=== PATIENT | male | born 1940 | race Caucasian/White ===

== ENCOUNTER 2016-12-10 18:13 | Emergency (ER) | payer MEDICARE, BC ==
--- NOTE | 2016-12-10 20:53 | ED ---
General Adult HPI - General Chief complaint: Abdominal Pain Stated complaint: ABDOMINAL PAIN, CONSTIPATION Time Seen by Provider: 12/10/16 20:30 Source: patient, family, RN notes reviewed, old records reviewed Mode of arrival: wheelchair Limitations: no limitations - History of Present Illness Initial comments: Chief complaint history of present illness a 76-year-old male mild dementia. Here with his . The patient reports not had a bowel movement for 2 days. She's given him MiraLAX and an enema today a small bump while here which helped a little bit but he feels as though he needs more. Passed some gas today. Chronically poor appetite no different for the past several days - Related Data Home Medications Medication Instructions Recorded Confirmed Allopurinol [Zyloprim] 300 mg PO DAILY 10/01/14 03/11/16 clonazePAM [Clonazepam] 0.5 mg PO BID 12/12/14 03/11/16 Ezetimibe [Zetia] 10 mg PO HS 02/14/15 03/11/16 Aspirin 81 mg PO DAILY 09/19/15 03/11/16 Clopidogrel Bisulfate [Clopidogrel] 75 mg PO W/LUNCH 12/30/15 03/11/16 Isosorbide Mononitrate ER [Imdur] 30 mg PO W/LUNCH 02/03/16 03/11/16 Thiamine [Vitamin B-1] 100 mg PO BID 02/03/16 03/11/16 Metoprolol Tartrate [Lopressor] 100 mg PO DAILY 03/11/16 03/11/16 Polyethylene Glycol 3350 [Miralax] 17 gm PO DAILY 03/11/16 03/11/16 Previous Rx's Medication Instructions Recorded Atorvastatin [Lipitor] 40 mg PO HS #30 tab 09/30/15 Nitroglycerin Sl Tabs [Nitrostat] 0.4 mg SUBLINGUAL Q5M PRN #25 tab 09/30/15 Memantine [Namenda] 5 mg PO DAILY #30 tab 02/23/16 Tamsulosin [Flomax] 0.4 mg PO PC-BRKFST #30 cap.er.24h 02/23/16 Bisacodyl [Dulcolax] 5 mg PO DAILY PRN #0 jackelin. 03/15/16 clonazePAM [KlonoPIN] 0.5 mg PO BID #60 tab 04/25/16 Allergies Allergy/AdvReac Type Severity Reaction Status Date / Time Latex, Natural Rubber Allergy Swelling Verified 12/10/16 19:00 Penicillins Allergy Rash/Hives Verified 12/10/16 19:00 zolpidem tartrate Allergy Hallucinati Verified 12/10/16 19:00 [From Hildaien] ons donepezil AdvReac Dyspnea Verified 12/10/16 19:00 Review of Systems ROS Statement: Those systems with pertinent positive or pertinent negative responses have been documented in the HPI. Review of systems no complaint of headache or visual acuity changes no chest pain or shortness of breath on-again off-again mild cramping because of the medications being given to or trouble urinating. No neuro deficits patient does have dementia is on Namenda but answers questions appropriately. His gave him a fleets enema with only mild relief. All systems are reviewed Past medical problems coronary artery disease, prostate cancer angina, CVA, dementia, hyperlipidemia, previous [place], syncope, gout,. Patient surgeries: Cyst ectopy, heart catheterization, orthopedic surgery, prostate cancer surgery. Bilateral cataracts. Family history not respiratory. ALLERGIES to latex, natural rubber, penicillin, zolpidem tartrate and Aricept reviewed and nonsmoker nondrinker ROS Other: All systems not noted in ROS Statement are negative. Past Medical History Past Medical History: Coronary Artery Disease (CAD), Cancer, Chest Pain / Angina , CVA/TIA, Hyperlipidemia, Memory Impairment, Myocardial Infarction ([place]), Prostate Disorder, Syncope Additional Past Medical History / Comment(s): gout, prostate ca, skin cancer, TIA -2014, Wernicke encephalopathy, FRAGILE SKIN PLEASE USE PAPER TAPE, RECENT BOWEL SX. Last Myocardial Infarction Date:: 09/26/2015 History of Any Multi-Drug Resistant Organisms: None Reported Past Surgical History: Cholecystectomy, Heart Catheterization, Orthopedic Surgery, Prostate Surgery Additional Past Surgical History / Comment(s): bilateral cataracts removed, vasectomy, L knee surg., SKIN CA REMOVED ,COLONOSCOPY Past Anesthesia/Blood Transfusion Reactions: No Reported Reaction Past Psychological History: No Psychological Hx Reported Additional Psychological History / Comment(s): . Smoking Status: Former smoker Past Alcohol Use History: None Reported Additional Past Alcohol Use History / Comment(s): STARTED SMOKING AT AGE 15- 1/ 2 PPD, QUIT AT AGE 45, used to drink 10-12 BEERS PER DAY BUT none since 2013 Past Drug Use History: None Reported - Past Family History Father Additional Family Medical History / Comment(s): FROM RUPTURED AORTA aneurysm. Mother Family Medical History: CVA/TIA, Myocardial Infarction ([place]) Additional Family Medical History / Comment(s): MOM AT AGE 61- HAD MULTIPLE STROKES AND AK'S Sister(s) Family Medical History: Cancer, COPD Additional Family Medical History / Comment(s): Patient had 3 sisters but overall past. One sister from emphysema with history of heavy smoking. One sister from breast cancer. One with Alzheimer's dementia. Daughter(s) Additional Family Medical History / Comment(s): Patient has 1 son and 1 daughter with no major medical problems. General Exam - General Exam Comments Initial Comments: General: The patient is awake , constipation discomfort. Vital signs show temperature 96.9 pulse 72 respiratory rate 18 pulse ox 90% room air blood pressure 141/77. Elevated systolic noted because the patient is uncomfortable he will be following up with his family physician in next 1-4 weeks. Eye: Pupils are equal, round and reactive to light, extra-ocular movements are intact ; there is normal conjunctiva bilaterally. No signs of icterus. Ears, nose, mouth and throat: There are moist mucous membranes and no oral lesions. Neck: The neck is supple, there is no tenderness . Cardiovascular: There is a regular rate and rhythm. No murmur, rub or gallop is appreciated. Respiratory: Lungs are clear to auscultation, respirations are non-labored, breath sounds are equal. No wheezes, stridor, rales, or rhonchi. Gastrointestinal: Soft, non-distended, non-tender abdomen without masses or organomegaly noted. There is no rebound or guarding present. No CVA tenderness. Bowel sounds are unremarkable. Back: There is no tenderness to palpation in the midline. There is no obvious deformity. No rashes noted. Musculoskeletal: Normal ROM, no tenderness, There is no pedal edema. There is no calf tenderness or swelling. Sensation intact. Neurological: No neuro deficits Skin: Skin is warm and dry and no rashes or lesions are noted. Limitations: no limitations Course Vital Signs 12/10/16 12/10/16 12/10/16 18:57 21:24 21:59 Temperature 96.9 F L 98.0 F Pulse Rate 72 64 67 Respiratory 18 16 18 Rate Blood Pressure 141/77 142/84 160/91 O2 Sat by Pulse 95 96 96 Oximetry Medical Decision Making - Medical Decision Making X-ray of the abdomen was done and reviewed by radiologist his impression is there is no signs of pneumoperitoneum. There are a few gas filled loops of small bowel in the mid abdomen. Lung bases are clear consolidation. There is no sign of pleural effusion. There are multiple surgical clips in the pelvis. There are no pathologic calcifications over the kidneys. Impression; small bowel air fluid relate to minimal ileus that is improved compared to old exam. No evidence of mechanical bowel obstruction. No free air. As read by Dr. Zhang Patient is receiving a molasses enema until effective. Disposition Clinical Impression: Constipation by delayed colonic transit Disposition: HOME SELF-CARE Condition: Fair Instructions: Constipation (ED), Fleet Enema (ED) Additional Instructions: Increase fluid intake. Continue with MiraLAX. Tomorrow morning if he has not had an adequate bowel movement 8-year-old take one half bottle of mag citrate. If no bowel movement by noon try the second half. Follow-up with family physician. Time of Disposition: 23:00
--- NOTE | 2016-12-10 21:24 | XR ---
EXAMINATION TYPE: XR abdomen 2V DATE OF EXAM: 12/10/2016 9:18 PM COMPARISON: 03/11/2016 HISTORY: Abdominal pain TECHNIQUE: 3 views FINDINGS: There is no sign of pneumoperitoneum. There are a few gas-filled loops of small bowel in th e mid abdomen. Lung bases are clear of consolidation. There is no sign of pleural effusion. There are multiple surgical clips in the pelvis. There are no pathologic calcifications over the kidneys. IMPRESSION: Small bowel air could relate to minimal ileus that is improved compared to old exam. No e vidence of a mechanical bowel obstruction. No free air.
[2016-12-10 22:00] VITALS: BP 160/91; PULSE 67; RESP 18; TEMP 98
[2016-12-10] MEDS ORDERED: MAGNESIUM CITRATE 296 ML BOTTLE PO ONE (22:59)
== END 2016-12-10 23:19 | disposition home or self-care (01) ==
LOC: EC 18:13
DX: K59.01 Slow transit constipation (principal); I25.119 Atherosclerotic heart disease of native coronary artery with unspecified angina pectoris; I10 Essential (primary) hypertension; E78.5 Hyperlipidemia, unspecified; M10.9 Gout, unspecified; Z79.82 Long term (current) use of aspirin; Z79.899 Other long term (current) drug therapy; Z88.0 Allergy status to penicillin; Z88.8 Allergy status to other drugs, medicaments and biological substances; Z91.040 Latex allergy status; Z85.46 Personal history of malignant neoplasm of prostate; Z87.891 Personal history of nicotine dependence; Z86.73 Personal history of transient ischemic attack (TIA), and cerebral infarction without residual deficits
CPT/HCPCS: 74020; 99284

== ENCOUNTER 2017-02-22 08:04 | Observation (INO) | payer MEDICARE, BC ==
--- NOTE | 2017-02-22 08:47 | ED ---
General Adult HPI - General Chief complaint: Headache Stated complaint: weakness Time Seen by Provider: 02/22/17 08:34 Source: patient, RN notes reviewed Mode of arrival: wheelchair Limitations: no limitations - History of Present Illness Initial comments: Patient 76-year-old male who presents emergency room today with chief complaint of both headache and chest pain that began approximately 2 and half hours ago. He does admit that he was up when he also had a sudden onset of a headache and some chest pain. She has a headache as "sharp". Currently rates a 03/30. States it has been improving. States located in the back of his head. States he generally does not get headaches but if he does have a headache it is located in the back of the head. Patient also admits to some chest pain. He describes it as "dull". States it has gone away at this time is feeling relatively comfortable. States he did not take any medicine prior to arrival. Patient denies any other complaints or symptoms at this time. Patient denies any recent fever, chills, shortness of breath, back pain, abdominal pain, nausea or vomiting, numbness or tingling, dysuria or hematuria, constipation or diarrhea, visual changes, or any other complaints. - Related Data Home Medications Medication Instructions Recorded Confirmed Allopurinol [Zyloprim] 300 mg PO DAILY 10/01/14 02/22/17 clonazePAM [Clonazepam] 0.5 mg PO BID 12/12/14 02/22/17 Clopidogrel Bisulfate [Clopidogrel] 75 mg PO DAILY 12/30/15 02/22/17 Isosorbide Mononitrate ER [Imdur] 30 mg PO DAILY 02/03/16 02/22/17 Thiamine [Vitamin B-1] 50 mg PO BID 02/03/16 02/22/17 Metoprolol Tartrate [Lopressor] 100 mg PO DAILY 03/11/16 02/22/17 Polyethylene Glycol 3350 [Miralax] 17 gm PO DAILY PRN 03/11/16 02/22/17 Aspirin EC [Ecotrin Low Dose] 81 mg PO DAILY 02/22/17 02/22/17 Donepezil [Aricept] 10 mg PO DAILY 02/22/17 02/22/17 Memantine [Namenda] 10 mg PO BID 02/22/17 02/22/17 Nitroglycerin Sl Tabs [Nitrostat] 0.4 mg SUBLINGUAL Q5M PRN 02/22/17 02/22/17 Tamsulosin [Flomax] 0.4 mg PO DAILY 02/22/17 02/22/17 Previous Rx's Medication Instructions Recorded Atorvastatin [Lipitor] 40 mg PO HS #30 tab 09/30/15 Allergies Allergy/AdvReac Type Severity Reaction Status Date / Time Latex, Natural Rubber Allergy Swelling Verified 02/22/17 09:31 Penicillins Allergy Rash/Hives Verified 02/22/17 09:31 zolpidem tartrate Allergy Hallucinati Verified 02/22/17 09:31 [From Denisse] ons Review of Systems ROS Statement: Those systems with pertinent positive or pertinent negative responses have been documented in the HPI. ROS Other: All systems not noted in ROS Statement are negative. Past Medical History Past Medical History: Coronary Artery Disease (CAD), Cancer, Chest Pain / Angina , CVA/TIA, Hyperlipidemia, Memory Impairment, Myocardial Infarction ([place]), Prostate Disorder, Syncope Additional Past Medical History / Comment(s): gout, prostate ca, skin cancer, TIA , Wernicke encephalopathy, FRAGILE SKIN PLEASE USE PAPER TAPE, RECENT BOWEL SX. Last Myocardial Infarction Date:: 09/26/2015 History of Any Multi-Drug Resistant Organisms: None Reported Past Surgical History: Cholecystectomy, Heart Catheterization, Orthopedic Surgery, Prostate Surgery Additional Past Surgical History / Comment(s): bilateral cataracts removed, vasectomy, L knee surg., SKIN CA REMOVED ,COLONOSCOPY Past Anesthesia/Blood Transfusion Reactions: No Reported Reaction Past Psychological History: No Psychological Hx Reported Additional Psychological History / Comment(s): . Smoking Status: Former smoker Past Alcohol Use History: None Reported Additional Past Alcohol Use History / Comment(s): STARTED SMOKING AT AGE 15- 1/ 2 PPD, QUIT AT AGE 45, used to drink 10-12 BEERS PER DAY BUT none since 2013 Past Drug Use History: None Reported - Past Family History Father Additional Family Medical History / Comment(s): FROM RUPTURED AORTA aneurysm. Mother Family Medical History: CVA/TIA, Myocardial Infarction ([place]) Additional Family Medical History / Comment(s): MOM AT AGE 61- HAD MULTIPLE STROKES AND LA'S Sister(s) Family Medical History: Cancer, COPD Additional Family Medical History / Comment(s): Patient had 3 sisters but overall past. One sister from emphysema with history of heavy smoking. One sister from breast cancer. One with Alzheimer's dementia. Daughter(s) Additional Family Medical History / Comment(s): Patient has 1 son and 1 daughter with no major medical problems. General Exam - General Exam Comments Initial Comments: General: The patient is awake and alert, in no distress, and does not appear acutely ill. Eye: Pupils are equal, round and reactive to light, extra-ocular movements are intact. No nystagmus. There is normal conjunctiva bilaterally. No signs of icterus. Ears, nose, mouth and throat: There are moist mucous membranes and no oral lesions. Neck: The neck is supple, there is no tenderness or JVD. Cardiovascular: There is a regular rate and rhythm. No murmur, rub or gallop is appreciated. Respiratory: Lungs are clear to auscultation, respirations are non-labored, breath sounds are equal. No wheezes, stridor, rales, or rhonchi. Gastrointestinal: Soft, non-distended, non-tender abdomen without masses or organomegaly noted. There is no rebound or guarding present. No CVA tenderness. Bowel sounds are unremarkable. Musculoskeletal: Normal ROM, no tenderness. Strength 5/5. Sensation intact. Pulses equal bilaterally 2+. Neurological: A&O x 3. CN II-XII intact, There are no obvious motor or sensory deficits. Coordination appears grossly intact. Speech is normal. Skin: Skin is warm and dry and no rashes or lesions are noted. Psychiatric: Cooperative, appropriate mood & affect, normal judgment. Limitations: no limitations Course Vital Signs 02/22/17 02/22/17 02/22/17 08:08 09:03 10:23 Temperature 97.1 F L 97.6 F 98.6 F Pulse Rate 61 54 L 55 L Respiratory 17 18 16 Rate Blood Pressure 157/76 123/66 123/66 O2 Sat by Pulse 94 L 97 98 Oximetry EKG Findings - EKG Comments: EKG Findings:: EKG performed at 0856: Shows sinus bradycardia 56 beats.. [place] interval 206. QRS 94. 466/449. No acute ST changes. Medical Decision Making - Medical Decision Making Patient reexamined at this time shows no signs of distress. Does not that headache has improved. States mild at this time currently 01/28. Patient does admit to chest pain that started this morning. Patient's labs been reviewed are unremarkable. CT does show stable arachnoid cyst. Results were discussed with the patient. Case discussed with attending physician who did discuss case with admitting physician. Patient will be admitted for serial enzymes. - Lab Data Result diagrams: 02/22/17 09:10 02/22/17 09:10 Lab Results 02/22/17 02/22/17 02/22/17 Range/Units 09:10 09:10 09:10 WBC 8.1 (3.8-10.6) k/uL RBC 4.87 (4.30-5.90) m/uL Hgb 15.4 (13.0-17.5) gm/dL Hct 43.9 (39.0-53.0) % MCV 90.2 (80.0-100.0) fL MCH 31.7 (25.0-35.0) pg MCHC 35.1 (31.0-37.0) g/dL RDW 13.7 (11.5-15.5) % Plt Count 154 (150-450) k/uL Neutrophils % 78 % Lymphocytes % 11 % Monocytes % 6 % Eosinophils % 3 % Basophils % 1 % Neutrophils # 6.3 (1.3-7.7) k/uL Lymphocytes # 0.9 L (1.0-4.8) k/uL Monocytes # 0.4 (0-1.0) k/uL Eosinophils # 0.3 (0-0.7) k/uL Basophils # 0.0 (0-0.2) k/uL PT (9.0-12.0) sec INR (<1.1) APTT (22.0-30.0) sec Sodium 144 (137-145) mmol/L Potassium 3.9 (3.5-5.1) mmol/L Chloride 106 (98-107) mmol/L Carbon Dioxide 25 (22-30) mmol/L Anion Gap 13 mmol/L BUN 12 (9-20) mg/dL Creatinine 1.01 (0.66-1.25) mg/dL Est GFR (MDRD) Af Amer >60 (>60 ml/min/1.73 sqM) Est GFR (MDRD) Non-Af >60 (>60 ml/min/1.73 sqM) Glucose 100 H (74-99) mg/dL Calcium 9.4 (8.4-10.2) mg/dL Magnesium 1.8 (1.6-2.3) mg/dL Total Bilirubin 1.4 H (0.2-1.3) mg/dL AST 20 (17-59) U/L ALT 17 L (21-72) U/L Alkaline Phosphatase 93 (38-126) U/L Total Creatine Kinase 59 (55-170) U/L CK-MB (CK-2) 0.3 (0.0-2.4) ng/mL CK-MB (CK-2) Rel Index 0.5 Troponin I <0.012 (0.000-0.034) ng/mL Total Protein 6.8 (6.3-8.2) g/dL Albumin 3.8 (3.5-5.0) g/dL 02/22/17 Range/Units 09:10 WBC (3.8-10.6) k/uL RBC (4.30-5.90) m/uL Hgb (13.0-17.5) gm/dL Hct (39.0-53.0) % MCV (80.0-100.0) fL MCH (25.0-35.0) pg MCHC (31.0-37.0) g/dL RDW (11.5-15.5) % Plt Count (150-450) k/uL Neutrophils % % Lymphocytes % % Monocytes % % Eosinophils % % Basophils % % Neutrophils # (1.3-7.7) k/uL Lymphocytes # (1.0-4.8) k/uL Monocytes # (0-1.0) k/uL Eosinophils # (0-0.7) k/uL Basophils # (0-0.2) k/uL PT 11.2 (9.0-12.0) sec INR 1.1 (<1.1) APTT 23.4 (22.0-30.0) sec Sodium (137-145) mmol/L Potassium (3.5-5.1) mmol/L Chloride (98-107) mmol/L Carbon Dioxide (22-30) mmol/L Anion Gap mmol/L BUN (9-20) mg/dL Creatinine (0.66-1.25) mg/dL Est GFR (MDRD) Af Amer (>60 ml/min/1.73 sqM) Est GFR (MDRD) Non-Af (>60 ml/min/1.73 sqM) Glucose (74-99) mg/dL Calcium (8.4-10.2) mg/dL Magnesium (1.6-2.3) mg/dL Total Bilirubin (0.2-1.3) mg/dL AST (17-59) U/L ALT (21-72) U/L Alkaline Phosphatase (38-126) U/L Total Creatine Kinase (55-170) U/L CK-MB (CK-2) (0.0-2.4) ng/mL CK-MB (CK-2) Rel Index Troponin I (0.000-0.034) ng/mL Total Protein (6.3-8.2) g/dL Albumin (3.5-5.0) g/dL Disposition Clinical Impression: Headache, Chest pain Disposition: ADMITTED IP TO THIS [facility] Condition: Good Time of Disposition: 11:40
[2017-02-22 09:35] LABS: Basophils % (A) 1 %; CH 32.7; CHCM 36.4; Eosinophils # (A) 0.3 k/uL (0-0.7); Eosinophils % (A) 3 %; HCT 43.9 % (39.0-53.0); HGB 15.4 gm/dL (13.0-17.5); Luc # (Auto) 0.09; Luc % (Auto) 1; Lymphocytes # (A) 0.9 k/uL (1.0-4.8); Lymphocytes % (A) 11 %; MCH 31.7 pg (25.0-35.0); MCHC 35.1 g/dL (31.0-37.0); MCV 90.2 fL (80.0-100.0); Mean Platelet Volume 6.7; Monocytes # (A) 0.4 k/uL (0-1.0); Monocytes % (A) 6 %; Neutrophils # (A) 6.3 k/uL (1.3-7.7); Neutrophils % (A) 78 %; RBC 4.87 m/uL (4.30-5.90); RDW 13.7 % (11.5-15.5); WBC 8.1 k/uL (3.8-10.6); WBC (Perox) 7.93
[2017-02-22 09:38] LABS: INR 1.1 (<1.1); Partial Thromboplastin Time 23.4 sec (22.0-30.0); Prothrombin Time 11.2 sec (9.0-12.0)
--- NOTE | 2017-02-22 09:55 | XR ---
EXAMINATION TYPE: XR chest 2V DATE OF EXAM: 02/22/2017 9:46 AM HISTORY: Chest Pain. REFERENCE: Previous study dated 02/20/2016. FINDINGS: The lungs are overinflated but clear. Pleural spaces are clear. Heart size is normal. IMPRESSION: COPD.
[2017-02-22 10:04] LABS: Creatine Kinase 59 U/L (55-170)
--- NOTE | 2017-02-22 10:05 | CT ---
EXAMINATION TYPE: CT brain martina wo con DATE OF EXAM: 02/22/2017 9:52 AM COMPARISON: NONE HISTORY: 76-year-old male with posterior head and neck pain CT DLP: 1067.1 mGycm Automated exposure control for dose reduction was used. Technique: Examination of the head was done in axial plane without intravenous contrast. Coronal and sagittal reconstructions performed. CT of the cervical spine was obtained in axial plane without intravenous injection of contrast mater ial. Coronal and sagittal reformatted images were obtained from the axial views for evaluation of f ractures, spinal alignment and canal. FINDINGS: Head: There is no evidence of acute intracranial hemorrhage, acute ischemic changes, mass effect, or extra -axial fluid collection. There is no effacement of cerebral sulci or basal subarachnoid cisterns. T here is no hydrocephalus. There is no midline shift. Carey-white matter distinction is preserved. There is central cerebral atrophy similar to prior exam with mild enlargement of the ventricular syst em. Patchy ventricular and deep white matter hypodensities also similar to prior. Prominent CSF space within the median, left paramedian retrocerebellar region measuring 7.5 x 2.7 cm suggestive of an arachnoid cyst, unchanged from prior. There appears to be old nasal bone fracture. Slight leftward nasal septal deviation. Paranasal sinuse s and mastoid air cells are well pneumatized. Orbits and globes are intact. Cervical spine: No craniocervical junction abnormality, predental space widening, or prevertebral soft tissue swellin g. Mild to moderate multilevel disc/endplate degenerative changes present with disc interspace narrowing , endplate spondylosis. There is also uncovertebral joint and facet degenerative change. Alignment is maintained. Changes result in variable moderate multilevel neuroforaminal stenoses particularly in the mid cervic al spine. No joseph canal compromise identified. No acute fracture of the cervical spine. Sagittal and coronal reformatted images confirm above findings. COMBINED IMPRESSION: 1. No acute intracranial abnormality seen. Stable mild central cerebral atrophy and changes of chroni c small vessel ischemic disease. 2. Also, stable 7.5 x 2.7 cm arachnoid cyst left posterior cranial fossa. 3. No acute fracture or malalignment of the cervical spine. Moderate multilevel degenerative disc dis ease along with facet and uncovertebral joint arthropathy.
[2017-02-22 10:06] LABS: ALT 17 U/L (21-72); AST 20 U/L (17-59); Alkaline Phosphatase 93 U/L (38-126); Anion Gap 13 mmol/L; Blood Urea Nitrogen 12 mg/dL (9-20); Calcium 9.4 mg/dL (8.4-10.2); Carbon Dioxide 25 mmol/L (22-30); Chloride 106 mmol/L (98-107); Glucose 100 mg/dL (74-99); Magnesium 1.8 mg/dL (1.6-2.3); Non-African American GFR(MDRD) >60 (>60 ml/min/1.73 sqM); Potassium 3.9 mmol/L (3.5-5.1); Sodium 144 mmol/L (137-145); Total Bilirubin 1.4 mg/dL (0.2-1.3); Total Protein 6.8 g/dL (6.3-8.2)
[2017-02-22 10:16] LABS: Creatine Kinase MB 0.3 ng/mL (0.0-2.4); Troponin I <0.012 ng/mL (0.000-0.034)
[2017-02-22] MEDS ORDERED: MORPHINE SULFATE 4 MG/ML SYRINGE IV STA (11:19)
[2017-02-22] MEDS ORDERED: ASPIRIN 325 MG TAB PO STA (11:19)
[2017-02-22] MEDS ORDERED: NITROGLYCERIN OINT 1 INCH/GM PACKET TOPICAL STA (11:19)
[2017-02-22] MEDS ORDERED: NITROGLYCERIN SL TABS 0.4 MG TAB SUBLINGUAL PRN (12:16)
[2017-02-22] MEDS ORDERED: MORPHINE SULFATE 2 MG/ML SYRINGE IVP PRN (12:16)
[2017-02-22] MEDS ORDERED: SODIUM CHLORIDE 0.9% 1,000 ML IV ONE (12:16)
[2017-02-22 16:16] LABS: Creatine Kinase 49 U/L (55-170)
[2017-02-22 16:25] LABS: Creatine Kinase MB 0.3 ng/mL (0.0-2.4); Troponin I <0.012 ng/mL (0.000-0.034)
[2017-02-22] MEDS: NITROGLYCERIN OINT 1 INCH/GM PACKET TOPICAL SCH (18:03)
--- NOTE | 2017-02-22 18:24 | P.HPIM ---
History of Present Illness H&P Date: 02/22/17 Chief Complaint: Chest pain Shawn is a 76-year-old white male, well-known to me. He has moderate to severe dementia. He was brought in the emergency room for complaints of sharp chest pain and then headache. His spouse is unavailable to talk to. Shawn is a full code. He himself points to his left lower quadrant and indicates pain here. He also indicates that he has a headache currently, but is mild. No other useful history was elicited from him due to his moderate to severe dementia Review of Systems ROS unobtainable: due to mental status Past Medical History Past Medical History: Coronary Artery Disease (CAD), Cancer, Chest Pain / Angina , CVA/TIA, GERD/Reflux, Hyperlipidemia, Hypertension, Memory Impairment (Eyad' s dementia), Myocardial Infarction (NH), Neurologic Disorder (Warnicke encephalopathy), Prostate Disorder, Syncope Last Myocardial Infarction Date:: 09/26/2015 History of Any Multi-Drug Resistant Organisms: None Reported Past Surgical History: Bowel Resection, Cholecystectomy, Heart Catheterization, Orthopedic Surgery, Prostate Surgery Additional Past Surgical History / Comment(s): Bowel surgery for polypoid lesion with post op ileus, cardiac caths, prostatectomy, PICC line insertion, bilateral cataracts removed, vasectomy, L knee surg., SKIN CA REMOVED , COLONOSCOPY Past Anesthesia/Blood Transfusion Reactions: No Reported Reaction Past Psychological History: No Psychological Hx Reported Additional Psychological History / Comment(s): Pt resides at home with his spouse of 13 yrs. He is independent. Smoking Status: Former smoker Past Alcohol Use History: None Reported Additional Past Alcohol Use History / Comment(s): STARTED SMOKING AT AGE 15- 1/ 2 PPD, QUIT AT AGE 45, used to drink 10-12 BEERS PER DAY BUT none since 2013 Past Drug Use History: None Reported - Past Family History Father Additional Family Medical History / Comment(s): FROM RUPTURED AORTA aneurysm. Mother Family Medical History: CVA/TIA, Myocardial Infarction (NH) Additional Family Medical History / Comment(s): MOM AT AGE 61- HAD MULTIPLE STROKES AND NH'S Sister(s) Family Medical History: Cancer, COPD Additional Family Medical History / Comment(s): Patient had 3 sisters. One sister from emphysema with history of heavy smoking. One sister from breast cancer. One with Alzheimer's dementia. Daughter(s) Additional Family Medical History / Comment(s): Patient has 1 son and 1 daughter with no major medical problems. Medications and Allergies Home Medications Medication Instructions Recorded Confirmed Type Allopurinol [Zyloprim] 300 mg PO DAILY 10/01/14 02/22/17 History clonazePAM [Clonazepam] 0.5 mg PO BID 12/12/14 02/22/17 History Clopidogrel Bisulfate [Clopidogrel] 75 mg PO DAILY 12/30/15 02/22/17 History Isosorbide Mononitrate ER [Imdur] 30 mg PO DAILY 02/03/16 02/22/17 History Thiamine [Vitamin B-1] 50 mg PO BID 02/03/16 02/22/17 History Metoprolol Tartrate [Lopressor] 100 mg PO DAILY 03/11/16 02/22/17 History Polyethylene Glycol 3350 [Miralax] 17 gm PO DAILY PRN 03/11/16 02/22/17 History Aspirin EC [Ecotrin Low Dose] 81 mg PO DAILY 02/22/17 02/22/17 History Donepezil [Aricept] 10 mg PO DAILY 02/22/17 02/22/17 History Memantine [Namenda] 10 mg PO BID 02/22/17 02/22/17 History Nitroglycerin Sl Tabs [Nitrostat] 0.4 mg SUBLINGUAL Q5M PRN 02/22/17 02/22/17 History Tamsulosin [Flomax] 0.4 mg PO DAILY 02/22/17 02/22/17 History Allergies Allergy/AdvReac Type Severity Reaction Status Date / Time Latex, Natural Rubber Allergy Swelling Verified 02/22/17 09:31 Penicillins Allergy Rash/Hives Verified 02/22/17 09:31 zolpidem tartrate Allergy Hallucinati Verified 02/22/17 09:31 [From Hildaien] ons Physical Exam Vitals: Vital Signs Temp Pulse Pulse Resp BP BP Pulse Ox 02/22/17 17:14 57 L 16 02/22/17 16:56 97.7 F 57 L 16 140/84 93 L 02/22/17 16:27 96.9 F L 60 18 118/70 96 Intake and Output 02/22/17 02/22/17 02/22/17 06:59 14:59 22:59 Other: Voiding Method Toilet Weight 91.6 kg Patient Weight 02/23/17 06:59 Weight 91.6 kg GENERAL: Well-appearing, well-nourished and in no acute distress. HEAD: Atraumatic, normocephalic. EYES: Pupils equal round and reactive to light, extraocular movements intact, sclera anicteric, conjunctiva are normal. ENT:nares patent, oropharynx clear without exudates. Moist mucous membranes. NECK: Normal range of motion, supple without lymphadenopathy or JVD, no thyromegaly LUNGS: Breath sounds clear to auscultation bilaterally and equal. No wheezes rales or rhonchi. HEART: Regular rate and rhythm without murmurs, rubs or gallops.S1S2 Normal ABDOMEN: Soft, nontender, normoactive bowel sounds. No guarding, no rebound. No masses appreciated. EXTREMITIES: Normal range of motion, no pitting or edema. No clubbing or cyanosis. NEUROLOGICAL: Cranial nerves II through XII grossly intact. Normal speech, normal gait. Awake alert and oriented 1 only today does recognize me. PSYCH: Normal mood, normal affect. SKIN: Warm, Dry, normal turgor, no rashes or lesions noted. Results CBC & Chem 7: 02/22/17 09:10 02/22/17 09:10 Labs: Abnormal Lab Results - Last 24 Hours (Table) 02/22/17 Range/Units 13:41 Total Creatine Kinase 49 L (55-170) U/L Chest x-ray: report reviewed Thrombosis Risk Factor Assmnt - DVT/VTE Prophylaxis DVT/VTE Prophylaxis: Mechanical Prophylaxis ordered - Choose All That Apply Any of the Below Risk Factors Present?: Yes Each Factor Represents 1 point: Obesity (BMI >25) Other Risk Factors: Yes Each Risk Factor Represents 2 Points: Malignancy Each Risk Factor Represents 3 Points: Age 75 years or older Other congenital or acquired thrombophilia - If yes, enter type in comment: No Thrombosis Risk Factor Assessment Total Risk Factor Score: 6 Thrombosis Risk Factor Assessment Level: High Risk Assessment and Plan Plan: Chest pain with history coronary artery disease: We'll order serial troponins. Serial cardiac enzymes and observe him. Continue Nitro-Bid ointment, Plavix, aspirin History of myocardial infarction. As above Alzheimer's dementia, moderate Moderate to severe: Continue Namenda and Aricept Hypertension: Continue metoprolol, hold his Imdur History of alcohol abuse with Wernicke encephalopathy: Continue thiamine History of remote nicotine dependence. Last COPD on x-ray: Monitor History of skin cancer. History of colon Cancer and right colectomy on 02/07/2016 GI prophylaxis: Pepcid 20 mg daily DVT prophylaxis:mechanical. Await cardiology recommendations, his CODE STATUS due to his mental condition should be discussed with his family and I will try to contact them today. Time with Patient: Greater than 30
[2017-02-22] MEDS: MEMANTINE 10 MG TAB PO SCH (20:44)
[2017-02-22] MEDS: clonazePAM 0.5 MG TAB PO SCH (20:44)
[2017-02-22] MEDS: THIAMINE 100 MG TAB PO SCH (20:45)
[2017-02-22] MEDS ORDERED: ATORVASTATIN 40 MG TAB PO SCH (21:00)
[2017-02-22 22:14] LABS: Creatine Kinase 51 U/L (55-170)
[2017-02-22 22:27] LABS: Creatine Kinase MB 0.2 ng/mL (0.0-2.4); Troponin I <0.012 ng/mL (0.000-0.034)
[2017-02-23] MEDS: NITROGLYCERIN OINT 1 INCH/GM PACKET TOPICAL SCH ×3 (01:56→14:55)
[2017-02-23] MEDS ORDERED: METOPROLOL TARTRATE 50 MG TAB PO SCH (09:00)
[2017-02-23] MEDS ORDERED: ALLOPURINOL 300 MG TAB PO SCH (09:00)
[2017-02-23] MEDS ORDERED: TAMSULOSIN 0.4 MG CAP.ER.24H PO SCH (09:00)
[2017-02-23] MEDS ORDERED: CLOPIDOGREL 75 MG TAB PO SCH (09:00)
[2017-02-23] MEDS ORDERED: ASPIRIN 325 MG TAB PO SCH (09:00)
[2017-02-23] MEDS ORDERED: DONEPEZIL 10 MG TAB PO SCH (09:00)
[2017-02-23 09:27] VITALS: BMI 29.0
[2017-02-23] MEDS: THIAMINE 100 MG TAB PO SCH (09:46)
[2017-02-23] MEDS: clonazePAM 0.5 MG TAB PO SCH (09:47)
[2017-02-23] MEDS: MEMANTINE 10 MG TAB PO SCH (09:47)
[2017-02-23 11:09] LABS: Cholesterol 126 mg/dL (<200); HDL Cholesterol 36 mg/dL (40-60); Triglycerides 124 mg/dL (<150)
--- NOTE | 2017-02-23 11:30 | CONS ---
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 He came in with very nondescript symptoms of left lateral abdominal pain, felt uncomfortable, and apparently lost a friend recently and then since then has been a bit anxious. He did not have any clear-cut chest pain. However, troponins are normal. He does not have any history of any documented NE. His troponin levels are borderline in 2015. He is pain free at this time, quite comfortable wishes to go home. Denies any chest pain. He sees Dr. Moran in the outpatient setting for neurological issues. Past medical history remarkable for chest pain without any documented significant NE. He has history of cerebrovascular accident and transient ischemic attack. He has been on Plavix advised by neurology. He has history of hypertension. He has history of alcoholism, and dementia and benign prosthetic hypertrophy. Medications at home include: 1. Zyloprim. 2. Clonazepam. 3. Clopidogrel. 4. Imdur. 5. Thiamine. 6. Metoprolol tartrate. 7. Donepezil. 8. Namenda. 9. Flomax. ALLERGIES: ALLERGY TO AMBIEN AND PENICILLIN. On examination, blood pressure is 124/70, pulse rate is 70 per minute, regular. HEENT: Unremarkable. Fundus was not examined by me. Neck is supple. No JVD. I do not hear a carotid bruit. There is no thyromegaly. Heart exam reveals S1 and S2 heard normally without a rub, murmur or gallop. Lungs are clear. ABDOMEN: Soft, nontender. Lower extremities reveal normal pulses. No edema. Central nervous system grossly no focal deficits. EKG revealed sinus mechanism. Inferior Q waves, nonspecific ST-T changes and poor R wave progression. Laboratory data revealed unremarkable troponins. IMPRESSION: 1. Atypical chest pain. 2. Dementia. 3. Hypertension. 4. 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 5. History of benign prosthetic hypertrophy. RECOMMENDATIONS: From a cardiac standpoint, no intervention is necessary. Patient can be discharged after he is up and ambulatory. Advised follow up with Dr. Moran from a neurological standpoint. His symptoms are atypical. No intervention necessary at this time. Thank you very much for the consult.
[2017-02-23 12:42] VITALS: BP 139/84; PULSE 55; RESP 18; TEMP 97.9
--- NOTE | 2017-02-23 14:10 | P.DS ---
Providers Date of admission: 02/22/17 12:20 Expected date of discharge: 02/23/17 Attending physician: Leandro Perez Consults: [facility] Primary care physician: Leandro Perez [facility] Course: Shawn is a 76-year-old white male, well-known to me. He has moderate to severe dementia. He was brought in the emergency room for complaints of sharp chest pain and then headache. His spouse is unavailable to talk to. Shawn is a full code. He himself points to his left lower quadrant and indicates pain here. He also indicates that he has a headache currently, but is mild. No other useful history was elicited from him due to his moderate to severe dementia. Cardiology and seen and evaluated him. He had 3 negative cardiac enzymes. He' s remained stable and normal on telemetry. They felt he was stable for discharge with no further workup at this time. Final diagnosis Chest pain atypical coronary artery disease History of myocardial infarction. Alzheimer's dementia Hypertension History of alcohol abuse with Wernicke encephalopathy History of remote nicotine dependence. History of skin cancer History of colon Cancer and right colectomy on 02/07/2016 Patient Condition at Discharge: Good Plan - Discharge Summary Discharge Medication List Allopurinol [Zyloprim] 300 mg PO DAILY 10/01/14 [History] clonazePAM [Clonazepam] 0.5 mg PO BID 12/12/14 [History] Atorvastatin [Lipitor] 40 mg PO HS #30 tab 09/30/15 [Rx] Clopidogrel Bisulfate [Clopidogrel] 75 mg PO DAILY 12/30/15 [History] Isosorbide Mononitrate ER [Imdur] 30 mg PO DAILY 02/03/16 [History] Thiamine [Vitamin B-1] 50 mg PO BID 02/03/16 [History] Metoprolol Tartrate [Lopressor] 100 mg PO DAILY 03/11/16 [History] Polyethylene Glycol 3350 [Miralax] 17 gm PO DAILY PRN 03/11/16 [History] Aspirin EC [Ecotrin Low Dose] 81 mg PO DAILY 02/22/17 [History] Donepezil [Aricept] 10 mg PO DAILY 02/22/17 [History] Memantine [Namenda] 10 mg PO BID 02/22/17 [History] Nitroglycerin Sl Tabs [Nitrostat] 0.4 mg SUBLINGUAL Q5M PRN 02/22/17 [History] Tamsulosin [Flomax] 0.4 mg PO DAILY 02/22/17 [History] Follow up Appointment(s)/Referral(s): Leandro Perez MD [Primary Care Provider] - 1-2 days Discharge Disposition: HOME SELF-CARE
== END 2017-02-23 14:56 | disposition home or self-care (01) ==
LOC: EC 08:04 → 3OBS 12:20
PROVIDERS: ADMIT Family Medicine; ATTEND Family Medicine
DX: R07.89 Other chest pain (principal); I25.10 Atherosclerotic heart disease of native coronary artery without angina pectoris; I25.2 Old myocardial infarction; G30.9 Alzheimer's disease, unspecified; F02.80 Dementia in other diseases classified elsewhere, unspecified severity, without behavioral disturbance, psychotic disturbance, mood disturbance, and anxiety; I10 Essential (primary) hypertension; E78.5 Hyperlipidemia, unspecified; M10.9 Gout, unspecified; Z79.02 Long term (current) use of antithrombotics/antiplatelets; Z79.899 Other long term (current) drug therapy; Z86.73 Personal history of transient ischemic attack (TIA), and cerebral infarction without residual deficits; Z87.891 Personal history of nicotine dependence; R51 Headache; Z79.82 Long term (current) use of aspirin; Z88.0 Allergy status to penicillin; Z88.8 Allergy status to other drugs, medicaments and biological substances; Z91.048 Other nonmedicinal substance allergy status; F10.21 Alcohol dependence, in remission; N40.1 Benign prostatic hyperplasia with lower urinary tract symptoms; Z85.038 Personal history of other malignant neoplasm of large intestine; Z85.828 Personal history of other malignant neoplasm of skin; Z90.49 Acquired absence of other specified parts of digestive tract
CPT/HCPCS: 99285 ×2; 96374 ×2; 36415; 93005; 80061; 80053; 82550; 82553; 83735; 84484; 85025; 85610; 85730; 71020; 72125; 70450; G0378 ×2; J2270

== ENCOUNTER 2017-03-19 04:36 | Emergency (ER) | payer MEDICARE, BC ==
[2017-03-19 05:41] LABS: Basophils % (A) 1 %; CH 32.7; CHCM 35.8; Eosinophils # (A) 0.3 k/uL (0-0.7); Eosinophils % (A) 4 %; HCT 44.3 % (39.0-53.0); HDW 2.76; HGB 15.5 gm/dL (13.0-17.5); Luc % (Auto) 1; Lymphocytes # (A) 0.9 k/uL (1.0-4.8); Lymphocytes % (A) 12 %; MCHC 34.9 g/dL (31.0-37.0); MCV 91.7 fL (80.0-100.0); Mean Platelet Volume 6.7; Monocytes # (A) 0.5 k/uL (0-1.0); Monocytes % (A) 6 %; Neutrophils # (A) 5.6 k/uL (1.3-7.7); Neutrophils % (A) 75 %; RBC 4.83 m/uL (4.30-5.90); RDW 13.5 % (11.5-15.5); WBC 7.5 k/uL (3.8-10.6)
[2017-03-19 05:55] LABS: ALT 24 U/L (21-72); AST 21 U/L (17-59); Alkaline Phosphatase 98 U/L (38-126); Amylase 84 U/L (30-110); Anion Gap 14 mmol/L; Blood Urea Nitrogen 17 mg/dL (9-20); Calcium 10.2 mg/dL (8.4-10.2); Carbon Dioxide 22 mmol/L (22-30); Chloride 107 mmol/L (98-107); Glucose 124 mg/dL (74-99); Non-African American GFR(MDRD) >60 (>60 ml/min/1.73 sqM); Potassium 3.6 mmol/L (3.5-5.1); Sodium 143 mmol/L (137-145); Total Bilirubin 1.7 mg/dL (0.2-1.3); Total Protein 7.3 g/dL (6.3-8.2)
--- NOTE | 2017-03-19 06:05 | XR ---
EXAM: XR Abdomen Complete, 2 or More Views CLINICAL HISTORY: Reason: abdominal pain TECHNIQUE: Frontal view of the abdomen/pelvis with upright view of the abdomen. COMPARISON: 12/10/16 FINDINGS: Intraperitoneal space: Multiple surgical clips in the pelvis, unchanged. Free air cannot be evaluated on this supine portable view. Gastrointestinal tract: Region of the renal shadows obscured by overlying bowel gas. Gas filled small and large bowel loops, nonspecific. No focal small bowel dilatation noted. Organs: Surgical clips in the right upper quadrant, unchanged likely prior cholecystectomy. Bones/joints: Unremarkable. Other findings: Mild retained stool. IMPRESSION: 1. No radiopaque renal calculi. 2. Nonspecific bowel gas pattern with mild retained stool.
--- NOTE | 2017-03-19 06:11 | XR ---
EXAM: XR Chest, 2 frontal Views CLINICAL HISTORY: Reason: abdominal pain TECHNIQUE: 2 frontal views of the chest. COMPARISON: 02/22/17 FINDINGS: Lungs: No dense consolidation is seen. Mild hyperexpansion of the lungs which may reflect mild emphysema or good inspiratory effort chest x- ray. Faint nodular opacities projecting over the left upper to midlung near the chest leads. This demonstrates slight amorphous appearance. This area measures approximately 2.8 cm. These probably represent pleural-based calcifications. These may have been present on the prior study although obscured by overlying material. Pleural space: Unremarkable. No pneumothorax. Heart: Unremarkable. No cardiomegaly. Mediastinum: Unremarkable. Bones/joints: Unremarkable. Vasculature: Mildly calcified thoracic aorta is again seen. Tubes, lines and devices: Overlying chest leads obscure portion of the chest. IMPRESSION: 1. Findings which may reflect mild emphysema. 2. No dense consolidation or effusion. 3. Findings projecting over the left upper to midlung zone which may reflect calcified plaque formation projecting over this region. Recommend further evaluation with chest CT for clarification if there is no additional prior comparison study to confirm stability
--- NOTE | 2017-03-19 07:10 | ED ---
General Adult HPI - General Source: patient, family Mode of arrival: wheelchair Limitations: physical limitation - History of Present Illness -: month(s) Location: abdomen Radiation: non-radiation Quality: dull, constant Consistency: constant Improves with: none Worsens with: none Treatments Prior to Arrival: none <Mikhail Vasquez - Last Filed: 03/19/17 07:12> <Champ Justice - Last Filed: 03/19/17 08:42> - General Chief complaint: Recheck/Abnormal Lab/Rx Stated complaint: weakness Time Seen by Provider: 03/19/17 04:51 - History of Present Illness Initial comments: This patient is 76-year-old man who presents to be evaluated for feeling shaky tonight. The patient also complains of abdominal pains, but these have been going on for number of months. The patient has been seen in the emergency Department for this as well as seeing his physician. He does have an MRI scheduled as well as some additional testing. Over the course of tonight however he began feeling shaky which they state is new. Patient is not having fevers. He is not having vomiting or diarrhea. He has not noted any change in urination. (Mikhail Vasquez) - Related Data Home Medications Medication Instructions Recorded Confirmed Allopurinol [Zyloprim] 300 mg PO DAILY 10/01/14 02/22/17 clonazePAM [Clonazepam] 0.5 mg PO BID 12/12/14 02/22/17 Clopidogrel Bisulfate [Clopidogrel] 75 mg PO DAILY 12/30/15 02/22/17 Isosorbide Mononitrate ER [Imdur] 30 mg PO DAILY 02/03/16 02/22/17 Thiamine [Vitamin B-1] 50 mg PO BID 02/03/16 02/22/17 Metoprolol Tartrate [Lopressor] 100 mg PO DAILY 03/11/16 02/22/17 Polyethylene Glycol 3350 [Miralax] 17 gm PO DAILY PRN 03/11/16 02/22/17 Aspirin EC [Ecotrin Low Dose] 81 mg PO DAILY 02/22/17 02/22/17 Donepezil [Aricept] 10 mg PO DAILY 02/22/17 02/22/17 Memantine [Namenda] 10 mg PO BID 02/22/17 02/22/17 Nitroglycerin Sl Tabs [Nitrostat] 0.4 mg SUBLINGUAL Q5M PRN 02/22/17 02/22/17 Tamsulosin [Flomax] 0.4 mg PO DAILY 02/22/17 02/22/17 Previous Rx's Medication Instructions Recorded Atorvastatin [Lipitor] 40 mg PO HS #30 tab 09/30/15 Allergies Allergy/AdvReac Type Severity Reaction Status Date / Time Latex, Natural Rubber Allergy Swelling Verified 02/22/17 09:31 Penicillins Allergy Rash/Hives Verified 02/22/17 09:31 zolpidem tartrate Allergy Hallucinati Verified 02/22/17 09:31 [From Denisse] ons Review of Systems ROS Other: All systems not noted in ROS Statement are negative. Constitutional: Denies: fever, chills Respiratory: Denies: cough, dyspnea, wheezes Cardiovascular: Denies: chest pain, palpitations, edema, syncope Gastrointestinal: Reports: abdominal pain. Denies: nausea, vomiting, diarrhea, constipation, melena, hematochezia Genitourinary: Denies: dysuria, hematuria Musculoskeletal: Denies: back pain Skin: Denies: rash Neurological: Denies: headache, weakness, numbness <Mikhail Vasquez - Last Filed: 03/19/17 07:12> ROS Other: All systems not noted in ROS Statement are negative. <Champ Justice - Last Filed: 03/19/17 08:42> ROS Statement: Those systems with pertinent positive or pertinent negative responses have been documented in the HPI. Past Medical History Past Medical History: Coronary Artery Disease (CAD), Cancer, Chest Pain / Angina , CVA/TIA, GERD/Reflux, Hyperlipidemia, Hypertension, Memory Impairment, Myocardial Infarction ([place]), Neurologic Disorder, Prostate Disorder, Syncope Additional Past Medical History / Comment(s): 09/26/15 PMH documents [place] but pt states he has no recollection of a [place], 07/10/15 PMH document TIA but pt states he has no recollection of a TIA, bilateral fee with gout, prostate ca with sx, skin cancer with removal, PMH documents Wernicke encephalopathy but pt has no recollection, FRAGILE SKIN PLEASE USE PAPER TAPE, benign polyps, occasional low back pain. Last Myocardial Infarction Date:: 09/26/2015 History of Any Multi-Drug Resistant Organisms: None Reported Past Surgical History: Bowel Resection, Cholecystectomy, Heart Catheterization, Orthopedic Surgery, Prostate Surgery Additional Past Surgical History / Comment(s): Bowel surgery for polypoid lesion with post op ileus, cardiac caths, prostatectomy, PICC line insertion, bilateral cataracts removed, vasectomy, L knee surg., SKIN CA REMOVED , COLONOSCOPY Past Anesthesia/Blood Transfusion Reactions: No Reported Reaction Past Psychological History: No Psychological Hx Reported Additional Psychological History / Comment(s): Pt resides at home with his spouse of 13 yrs. He is independent. Smoking Status: Former smoker Past Alcohol Use History: None Reported Additional Past Alcohol Use History / Comment(s): STARTED SMOKING AT AGE 15- 1/ 2 PPD, QUIT AT AGE 45, used to drink 10-12 BEERS PER DAY BUT none since 2013 Past Drug Use History: None Reported - Past Family History Father Additional Family Medical History / Comment(s): FROM RUPTURED AORTA aneurysm. Mother Family Medical History: CVA/TIA, Myocardial Infarction ([place]) Additional Family Medical History / Comment(s): MOM AT AGE 61- HAD MULTIPLE STROKES AND [place]'S Sister(s) Family Medical History: Cancer, COPD Additional Family Medical History / Comment(s): Patient had 3 sisters. One sister from emphysema with history of heavy smoking. One sister from breast cancer. One with Alzheimer's dementia. Daughter(s) Additional Family Medical History / Comment(s): Patient has 1 son and 1 daughter with no major medical problems. <Mikhail Vasquez - Last Filed: 03/19/17 07:12> General Exam Limitations: physical limitation General appearance: alert, in no apparent distress Head exam: Present: atraumatic, normocephalic Eye exam: Present: normal appearance. Absent: scleral icterus, conjunctival injection ENT exam: Present: mucous membranes dry Neck exam: Present: normal inspection, full ROM Respiratory exam: Present: normal lung sounds bilaterally, rales (Bilateral bases). Absent: respiratory distress, wheezes, rhonchi, stridor Cardiovascular Exam: Present: regular rate, normal rhythm, normal heart sounds. Absent: systolic murmur, diastolic murmur, rubs, gallop GI/Abdominal exam: Present: soft, tenderness (There is mild diffuse tenderness without rebound or guarding). Absent: distended, guarding, rebound, mass, pulsatile mass, hernia Extremities exam: Present: normal inspection, normal capillary refill. Absent: pedal edema, calf tenderness Back exam: Present: normal inspection. Absent: CVA tenderness (R), CVA tenderness (L) Neurological exam: Present: alert, CN II-XII intact. Absent: motor sensory deficit Skin exam: Present: warm, dry, intact, normal color. Absent: rash <PedroMikhail - Last Filed: 03/19/17 07:12> EKG Findings - EKG Results: EKG: interpreted by ERMD, sinus rhythm, normal axis, normal ST/T - [place], Pacemaker, Normal: Myocardial infarction: inferior WV (old age indeterminate), anterior WV (old age or indeterminate) <Mikhail Vasquez - Last Filed: 03/19/17 07:12> Medical Decision Making - Lab Data Result diagrams: 03/19/17 05:20 03/19/17 05:20 <Mikhail Vasquez - Last Filed: 03/19/17 07:12> - Lab Data Result diagrams: 03/19/17 05:20 03/19/17 05:20 <Champ Justice - Last Filed: 03/19/17 08:42> - Medical Decision Making I went back into reevaluate the patient he was completely symptom-free at this state. Patient states he's been having these symptoms at least twice a week for the last 6 months per patient states he has a barium swallow a CAT scan and an MRI scheduled for this week. Patient states she'll follow-up with primary medical care doctor (Champ Justice) - Lab Data Lab Results 03/19/17 03/19/17 03/19/17 Range/Units 05:20 05:20 05:20 WBC 7.5 (3.8-10.6) k/uL RBC 4.83 (4.30-5.90) m/uL Hgb 15.5 (13.0-17.5) gm/dL Hct 44.3 (39.0-53.0) % MCV 91.7 (80.0-100.0) fL MCH 32.0 (25.0-35.0) pg MCHC 34.9 (31.0-37.0) g/dL RDW 13.5 (11.5-15.5) % Plt Count 160 (150-450) k/uL Neutrophils % 75 % Lymphocytes % 12 % Monocytes % 6 % Eosinophils % 4 % Basophils % 1 % Neutrophils # 5.6 (1.3-7.7) k/uL Lymphocytes # 0.9 L (1.0-4.8) k/uL Monocytes # 0.5 (0-1.0) k/uL Eosinophils # 0.3 (0-0.7) k/uL Basophils # 0.0 (0-0.2) k/uL Sodium 143 (137-145) mmol/L Potassium 3.6 (3.5-5.1) mmol/L Chloride 107 (98-107) mmol/L Carbon Dioxide 22 (22-30) mmol/L Anion Gap 14 mmol/L BUN 17 (9-20) mg/dL Creatinine 1.15 (0.66-1.25) mg/dL Est GFR (MDRD) Af Amer >60 (>60 ml/min/1.73 sqM) Est GFR (MDRD) Non-Af >60 (>60 ml/min/1.73 sqM) Glucose 124 H (74-99) mg/dL Plasma Lactic Acid Merlin 1.8 (0.7-2.0) mmol/L Calcium 10.2 (8.4-10.2) mg/dL Total Bilirubin 1.7 H (0.2-1.3) mg/dL AST 21 (17-59) U/L ALT 24 (21-72) U/L Alkaline Phosphatase 98 (38-126) U/L Troponin I (0.000-0.034) ng/mL Total Protein 7.3 (6.3-8.2) g/dL Albumin 4.0 (3.5-5.0) g/dL Amylase 84 (30-110) U/L Lipase 142 (23-300) U/L Urine Color Urine Appearance (Clear) Urine pH (5.0-8.0) Ur Specific Woodlyn (1.001-1.035) Urine Protein (Negative) Urine Glucose (UA) (Negative) Urine Ketones (Negative) Urine Blood (Negative) Urine Nitrite (Negative) Urine Bilirubin (Negative) Urine Urobilinogen (<2.0) mg/dL Ur Leukocyte Esterase (Negative) Urine RBC (0-5) /hpf Urine WBC (0-5) /hpf Urine Bacteria (None) /hpf Urine Mucus (None) /hpf 04/29/17 04/29/17 Range/Units 05:20 08:00 WBC (3.8-10.6) k/uL RBC (4.30-5.90) m/uL Hgb (13.0-17.5) gm/dL Hct (39.0-53.0) % MCV (80.0-100.0) fL MCH (25.0-35.0) pg MCHC (31.0-37.0) g/dL RDW (11.5-15.5) % Plt Count (150-450) k/uL Neutrophils % % Lymphocytes % % Monocytes % % Eosinophils % % Basophils % % Neutrophils # (1.3-7.7) k/uL Lymphocytes # (1.0-4.8) k/uL Monocytes # (0-1.0) k/uL Eosinophils # (0-0.7) k/uL Basophils # (0-0.2) k/uL Sodium (137-145) mmol/L Potassium (3.5-5.1) mmol/L Chloride (98-107) mmol/L Carbon Dioxide (22-30) mmol/L Anion Gap mmol/L BUN (9-20) mg/dL Creatinine (0.66-1.25) mg/dL Est GFR (MDRD) Af Amer (>60 ml/min/1.73 sqM) Est GFR (MDRD) Non-Af (>60 ml/min/1.73 sqM) Glucose (74-99) mg/dL Plasma Lactic Acid Merlin (0.7-2.0) mmol/L Calcium (8.4-10.2) mg/dL Total Bilirubin (0.2-1.3) mg/dL AST (17-59) U/L ALT (21-72) U/L Alkaline Phosphatase (38-126) U/L Troponin I <0.012 (0.000-0.034) ng/mL Total Protein (6.3-8.2) g/dL Albumin (3.5-5.0) g/dL Amylase (30-110) U/L Lipase (23-300) U/L Urine Color Yellow Urine Appearance Clear (Clear) Urine pH 6.0 (5.0-8.0) Ur Specific Woodlyn 1.015 (1.001-1.035) Urine Protein Negative (Negative) Urine Glucose (UA) Negative (Negative) Urine Ketones Negative (Negative) Urine Blood Small H (Negative) Urine Nitrite Negative (Negative) Urine Bilirubin Negative (Negative) Urine Urobilinogen <2.0 (<2.0) mg/dL Ur Leukocyte Esterase Negative (Negative) Urine RBC 6 H (0-5) /hpf Urine WBC 1 (0-5) /hpf Urine Bacteria Rare H (None) /hpf Urine Mucus Rare H (None) /hpf Disposition <Mikhail Vasquez - Last Filed: 03/19/17 07:12> Time of Disposition: 08:42 <Champ Justice - Last Filed: 03/19/17 08:42> Clinical Impression: Chronic abdominal pain Disposition: HOME SELF-CARE Instructions: Abdominal Pain (ED) Referrals: Leandro Perez MD [Primary Care Provider] - 1-2 days
[2017-03-19 08:21] LABS: Appearance,Urine Clear (Clear); Bacteria,Urine Rare /hpf; Bilirubin,Urine Negative (Negative); Glucose,Urine (UA) Negative (Negative); Ketones,Urine Negative (Negative); Leukocyte Esterase,Urine Negative (Negative); Mucus,Urine Rare /hpf; Nitrite,Urine Negative (Negative); Particle Count 1585; Protein,Urine Negative (Negative); RBC,Urine 6 /hpf (0-5); Specific Gravity,Urine 1.015 (1.001-1.035); UA Billing (MACRO vs. MICRO) MICRO; Urobilinogen,Urine <2.0 mg/dL (<2.0); WBC,Urine 1 /hpf (0-5)
[2017-03-19 09:18] VITALS: BP 151/77; PULSE 73; RESP 16; TEMP 97.6
[2017-03-21 07:25] LABS: Glucose,Whole Blood 133 mg/dL (75-99)
== END 2017-03-19 09:16 | disposition home or self-care (01) ==
LOC: EC 04:36
DX: R10.9 Unspecified abdominal pain (principal); G89.29 Other chronic pain; E78.5 Hyperlipidemia, unspecified; I10 Essential (primary) hypertension; I25.2 Old myocardial infarction; I25.10 Atherosclerotic heart disease of native coronary artery without angina pectoris; Z86.73 Personal history of transient ischemic attack (TIA), and cerebral infarction without residual deficits; Z95.0 Presence of cardiac pacemaker; Z88.0 Allergy status to penicillin; Z88.8 Allergy status to other drugs, medicaments and biological substances; Z91.040 Latex allergy status; Z79.02 Long term (current) use of antithrombotics/antiplatelets; Z79.82 Long term (current) use of aspirin; Z79.899 Other long term (current) drug therapy; Z87.891 Personal history of nicotine dependence
CPT/HCPCS: 36415; 71010; 74000; 80053; 81001; 82150; 83605; 83690; 84484; 85025; 87040; 87086; 93005; 99284

== ENCOUNTER → 2017-03-22 | Outpatient (CLI) | payer MEDICARE, BC ==
--- NOTE | 2017-03-22 11:33 | MR ---
MRI brain with and without contrast HISTORY: Headaches and altered mental status Multiplanar multisequence and postcontrast images obtained through the brain following 20 cc MultiHan ce IV. Correlation to prior MRI brain dated 11 July 2015 There is no restricted diffusion. Cortical atrophy, white matter demyelination changes are again note d and progressed in size and number. Largest lesions in the periventricular white matter, centrum bishop iovale measure approximately 8 mm on the left axial image 24, 7 mm on the right same image. There are approximately 50 lesions. There is no hemorrhage or hydrocephalus, prominence of ventricles is a sta ble finding and likely related to patient's atrophy. No abnormal enhancement following contrast admin istration. Punctate focus of enhancement along the course of the internal auditory canal on the right is thought to be vascular. The orbits show symmetric appearance. Mild mucosal disease present within the bilateral maxillary sinus, some mild inflammatory change in the ethmoid air cells on the right. Corpus callosum, pituitary, cervical medullary junction are normal. 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 Frontal lobe low signal along the sulci and T2-weighted sequences is again noted and shows a similar appearance possibly related to chronic hemorrhage, siderosis. IMPRESSION: Similar findings to prior exam, there is likely been progression of patient's chronic sma ll vessel ischemic changes. Superficial leptomeningeal siderosis changes, arachnoid cyst again noted. Mild mucosal disease, correlate for possible mastoiditis. Findings in the internal auditory canal on the right, consider follow-up to assess for stability.
== END | disposition home or self-care (01) ==
LOC: RADMRIMAIN 08:22
PROVIDERS: ATTEND Family Medicine
DX: G93.0 Cerebral cysts (principal)
CPT/HCPCS: 70553; A9577

== ENCOUNTER → 2017-03-25 | Outpatient (CLI) | payer MEDICARE, BC ==
--- NOTE | 2017-03-25 11:41 | US ---
EXAMINATION TYPE: US carotid duplex BILAT DATE OF EXAM: 03/25/2017 10:44 AM COMPARISON: NONE CLINICAL HISTORY: R41.82 Alter Mental Status R51 Headache. Follow up exam, no history of stroke, no s ymptoms per patient EXAM MEASUREMENTS: RIGHT: Peak Systolic Velocity (PSV) cm/sec ----- Right CCA: 59.0 ----- Right ICA: 89.7 ----- Right ECA: 86.0 ICA/CCA ratio: 1.5 RIGHT: End Diastole cm/sec ----- Right CCA: 12.7 ----- Right ICA: 33.6 ----- Right ECA: 11.0 LEFT: Peak Systolic Velocity (PSV) cm/sec ----- Left CCA: 64.5 ----- Left ICA: 58.4 ----- Left ECA: 80.8 ICA/CCA ratio: 0.9 LEFT: End Diastole cm/sec ----- Left CCA: 16.1 ----- Left ICA: 22.3 ----- Left ECA: 11.0 VERTEBRALS (direction of flow): Right Vertebral: Antegrade Left Vertebral: Antegrade No significant stenosis seen IMPRESSION: I DO NOT SEE EVIDENCE OF A HEMODYNAMICALLY SIGNIFICANT STENOSIS IN EITHER CAROTID SYSTEM. Criteria for Assigning % of Stenosis / Diameter reduction (Estimation based on the indirect measurements of the internal carotid artery velocities (ICA PSV). 1. Normal (no stenosis)=ICA PSV < 125 cm/s: ratio < 2.0: ICA EDV<40 cm/s. 2. Less than 50% stenosis=ICA PSV < 125 cm/s: ratio < 2.0: ICA EDV<40 cm/s. 3. 50 to 69% stenosis=ICA PSV of 125 to 230 cm/s: ration 2.0 ? 4.0: ICA EDV 40-100 cm/s. 4. Greater than 70% stenosis to near occlusion= ICA PSV > 230 cm/s: ratio > 4.0: ICA EDV > 100 cm/s. 5. Near occlusion= ICA PSV velocities may be low or undetectable: variable ratio and ICA EDV. 6. Total occlusion=unable to detect flow.
--- NOTE | 2017-03-25 11:48 | FL ---
EXAMINATION TYPE: FL barium swallow DATE OF EXAM ORDERED: 03/25/2017 11:25 AM HISTORY: Stomach pain. COMPARISON: None. FINDINGS: This examination is quite limited as the patient aspirated earlier examination. There was demonstration of presbyesophagus. No other definite abnormality is seen. IMPRESSION: 1. LIMITED EXAMINATION DUE TO ASPIRATION. 2. PRESBYESOPHAGUS. 3. MODIFIED BARIUM SWALLOW WOULD BE SUGGESTED.
== END | disposition home or self-care (01) ==
LOC: RADUSWWP 10:09
PROVIDERS: ATTEND Family Medicine
DX: R41.82 Altered mental status, unspecified (principal); R51 Headache; K22.8 Other specified diseases of esophagus; R10.12 Left upper quadrant pain
CPT/HCPCS: 74220; 93880

== ENCOUNTER → 2017-04-01 | Outpatient (CLI) | payer MEDICARE, BC ==
--- NOTE | 2017-04-01 11:26 | FL ---
EXAMINATION TYPE: FL barium swallow w video DATE OF EXAM ORDERED: 04/01/2017 11:07 AM HISTORY: R10.12 LUQ Abdominal pain. COMPARISON: None. TECHNIQUE: The patient was challenged with varying food substances ranging from thin liquids through solids. FINDINGS: There is no evidence of aspiration or penetration. There were minimal vallecular residuals . IMPRESSION: NO EVIDENCE OF PENETRATION OR ASPIRATION AT THIS TIME.
== END | disposition home or self-care (01) ==
LOC: RADFLMAIN 10:25
PROVIDERS: ATTEND Family Medicine
DX: R10.12 Left upper quadrant pain (principal)
CPT/HCPCS: 74230

== ENCOUNTER → 2017-07-23 | Outpatient (CLI) | payer MEDICARE, BC ==
[2017-07-23 08:00] LABS: Basophils % (A) 0 %; CH 32.2; CHCM 35.1; Eosinophils # (A) 0.3 k/uL (0-0.7); Eosinophils % (A) 4 %; HCT 43.4 % (39.0-53.0); HDW 2.87; HGB 15.3 gm/dL (13.0-17.5); Luc # (Auto) 0.17; Luc % (Auto) 2; Lymphocytes # (A) 1.1 k/uL (1.0-4.8); Lymphocytes % (A) 14 %; MCH 32.4 pg (25.0-35.0); MCHC 35.2 g/dL (31.0-37.0); MCV 92.1 fL (80.0-100.0); Mean Platelet Volume 7.5; Monocytes # (A) 0.4 k/uL (0-1.0); Monocytes % (A) 6 %; Neutrophils # (A) 5.5 k/uL (1.3-7.7); Neutrophils % (A) 73 %; RBC 4.71 m/uL (4.30-5.90); RDW 13.1 % (11.5-15.5); WBC 7.5 k/uL (3.8-10.6); WBC (Perox) 7.72
[2017-07-23 08:59] LABS: ALT 20 U/L (21-72); AST 17 U/L (17-59); Alkaline Phosphatase 83 U/L (38-126); Anion Gap 9 mmol/L; Blood Urea Nitrogen 17 mg/dL (9-20); Calcium 9.3 mg/dL (8.4-10.2); Carbon Dioxide 27 mmol/L (22-30); Chloride 107 mmol/L (98-107); Glucose 94 mg/dL (74-99); Non-African American GFR(MDRD) >60 (>60 ml/min/1.73 sqM); Potassium 4.2 mmol/L (3.5-5.1); Sodium 143 mmol/L (137-145); Total Bilirubin 0.9 mg/dL (0.2-1.3); Total Protein 6.5 g/dL (6.3-8.2)
== END | disposition home or self-care (01) ==
LOC: LABWHC1 07:43
PROVIDERS: ATTEND Family Medicine
DX: G30.8 Other Alzheimer's disease (principal); E78.00 Pure hypercholesterolemia, unspecified; I67.89 Other cerebrovascular disease; I10 Essential (primary) hypertension
CPT/HCPCS: 36415; 80053; 84439; 84443; 85025

== ENCOUNTER 2017-08-05 08:30 | Day surgery (SDC) | payer MEDICARE, BC ==
[2017-08-04 09:18] VITALS: BMI 28.2
--- NOTE | 2017-08-05 08:08 | P.GSHP ---
History of Present Illness H&P Date: 08/05/17 Chief Complaint: Colon polyps Patient underwent elective right colectomy 1 year ago for right-sided colon polyps. He is not having any bowel related symptoms at this point. Denies rectal bleeding or melena. Some loose stools at times. Past Medical History Past Medical History: Coronary Artery Disease (CAD), Cancer, Chest Pain / Angina , CVA/TIA, Dementia, GERD/Reflux, Hyperlipidemia, Hypertension, Memory Impairment, Myocardial Infarction ([place]), Neurologic Disorder, Prostate Disorder, Syncope Additional Past Medical History / Comment(s): 09/26/15 PMH documents OR but pt states he has no recollection of a OR, 07/10/15 PMH document TIA but pt states he has no recollection of a TIA, gout, prostate cancer, skin cancer., PMH documents Wernicke encephalopathy but pt has no recollection, FRAGILE SKIN PLEASE USE PAPER TAPE, benign polyps, occasional low back pain., CONSTIPATION AND DIABETES., PTS STATES SHE HAS BEEN MADE TEMPORARY GUARDIAN-INSTRUCTED TO BRING PAPERS WITH HER., STATES PT IS ALERT AND UNDERSTANDS TO SIGN HIS OWN CONSENT., RESIDES AT [phone]. Last Myocardial Infarction Date:: 09/26/2015 History of Any Multi-Drug Resistant Organisms: None Reported Past Surgical History: Bowel Resection, Cholecystectomy, Heart Catheterization, Orthopedic Surgery, Prostate Surgery Additional Past Surgical History / Comment(s): Bowel surgery for polypoid lesion with post op ileus, cardiac caths, prostatectomy, PICC line insertion, bilateral cataracts removed, vasectomy, L knee surg., SKIN CA REMOVED , COLONOSCOPY Past Anesthesia/Blood Transfusion Reactions: No Reported Reaction Past Psychological History: Anxiety Additional Psychological History / Comment(s): . Smoking Status: Former smoker Past Alcohol Use History: None Reported Additional Past Alcohol Use History / Comment(s): STARTED SMOKING AT AGE 15- 1/ 2 PPD, QUIT AT AGE 45, used to drink 10-12 BEERS PER DAY BUT none since 2013 Past Drug Use History: None Reported - Past Family History Father Additional Family Medical History / Comment(s): FROM RUPTURED AORTA aneurysm. Mother Family Medical History: CVA/TIA, Myocardial Infarction ([place]) Additional Family Medical History / Comment(s): MOM AT AGE 61- HAD MULTIPLE STROKES AND OR'S Sister(s) Family Medical History: Cancer, COPD Additional Family Medical History / Comment(s): Patient had 3 sisters. One sister from emphysema with history of heavy smoking. One sister from breast cancer. One with Alzheimer's dementia. Daughter(s) Additional Family Medical History / Comment(s): Patient has 1 son and 1 daughter with no major medical problems. Medications and Allergies Home Medications Medication Instructions Recorded Confirmed Type Allopurinol [Zyloprim] 300 mg PO DAILY 10/01/14 08/04/17 History clonazePAM [Clonazepam] 0.5 mg PO QAM 12/12/14 08/04/17 History Atorvastatin [Lipitor] 40 mg PO HS #30 tab 09/30/15 08/04/17 Rx Clopidogrel Bisulfate [Clopidogrel] 75 mg PO DAILY 12/30/15 08/04/17 History Thiamine [Vitamin B-1] 100 mg PO BID 02/03/16 08/04/17 History Metoprolol Tartrate [Lopressor] 100 mg PO DAILY 03/11/16 08/04/17 History Polyethylene Glycol 3350 [Miralax] 17 gm PO DAILY PRN 03/11/16 08/04/17 History Aspirin EC [Ecotrin Low Dose] 81 mg PO DAILY 02/22/17 08/04/17 History Donepezil [Aricept] 10 mg PO HS 02/22/17 08/04/17 History Memantine [Namenda] 10 mg PO BID 02/22/17 08/04/17 History Nitroglycerin Sl Tabs [Nitrostat] 0.4 mg SUBLINGUAL Q5M PRN 02/22/17 08/04/17 History Cyanocobalamin (Vitamin B-12) 1,000 mcg PO DAILY 08/04/17 08/04/17 History [Vitamin B-12] Ezetimibe [Zetia] 10 mg PO HS 08/04/17 08/04/17 History Isosorbide Dinitrate 30 mg PO DAILY 08/04/17 08/04/17 History Magnesium Hydroxide [Milk of 30 ml PO DIRECTED PRN 08/04/17 08/04/17 History Magnesia Concentrate] clonazePAM [KlonoPIN] 1 mg PO HS 08/04/17 08/04/17 History Allergies Allergy/AdvReac Type Severity Reaction Status Date / Time Latex, Natural Rubber Allergy Swelling Verified 08/04/17 08:43 Penicillins Allergy Rash/Hives Verified 08/04/17 08:43 zolpidem tartrate Allergy Hallucinati Verified 08/04/17 08:43 [From Hildaien] ons Surgical - Exam Physical exam: General: Well-developed, well-nourished HEENT: Normocephalic, sclerae nonicteric Abdomen: Nontender, nondistended Extremities: No edema Neuro: Alert and oriented Assessment and Plan (1) S/P partial resection of colon Narrative/Plan: Will proceed with follow-up colonoscopy today. Risks of bleeding and perforation discussed. Status: Acute
[~2017-08-05 08:30] MED LIST: LACTATED RINGERS 1,000 ML IV SCH
[2017-08-05 09:10] VITALS: RESP 16; TEMP 96.9
[2017-08-05] MEDS ORDERED: PROPOFOL 10 MG/ML 20 ML VIAL IV ONE (10:16)
[2017-08-05] MEDS ORDERED: LIDOCAINE 1% INJ 10MG/ML (20 ML MDV) ONE (10:16)
--- NOTE | 2017-08-05 10:45 | P.PCN ---
Date of Procedure: 08/05/17 Procedure(s) Performed: PREOPERATIVE DIAGNOSIS: History of polyp POSTOPERATIVE DIAGNOSIS: Normal exam PROCEDURE: Colonoscopy ANESTHESIA: MAC SURGEON: River Santoyo M.D. SPECIMENS: None ENDOSCOPIC PROCEDURE: The patient was placed on the endoscopy table in the left decubitus position. The Olympus colonoscope was inserted into the anus and passed under direct visualization to the ileocolonic anastomosis. From that point the scope was slowly withdrawn inspecting all surfaces carefully. There were no neoplastic inflammatory or polypoid lesions throughout the transverse, descending, sigmoid and rectum. There was no diverticulosis noted. Digital rectal examination was normal. The patient was taken to the recovery room in stable condition per anesthesia guidelines. RECOMMENDATIONS: Increase fiber. Follow-up colonoscopy 3 years.
[2017-08-05 11:26] VITALS: BP 134/73; PULSE 49
== END 2017-08-05 11:37 | disposition home or self-care (01) ==
LOC: ORWHC2ENDO 08:30
PROVIDERS: ATTEND Surgery
DX: Z12.11 Encounter for screening for malignant neoplasm of colon (principal); Z86.010 Personal history of colon polyps; Z98.0 Intestinal bypass and anastomosis status; Z90.49 Acquired absence of other specified parts of digestive tract; I10 Essential (primary) hypertension; I25.10 Atherosclerotic heart disease of native coronary artery without angina pectoris; F03.90 Unspecified dementia, unspecified severity, without behavioral disturbance, psychotic disturbance, mood disturbance, and anxiety; K21.9 Gastro-esophageal reflux disease without esophagitis; Z85.46 Personal history of malignant neoplasm of prostate; Z86.73 Personal history of transient ischemic attack (TIA), and cerebral infarction without residual deficits; Z79.02 Long term (current) use of antithrombotics/antiplatelets; Z79.899 Other long term (current) drug therapy; Z88.0 Allergy status to penicillin; Z88.8 Allergy status to other drugs, medicaments and biological substances; Z91.040 Latex allergy status; I25.2 Old myocardial infarction; Z87.891 Personal history of nicotine dependence
CPT/HCPCS: J2001; J2704; G0105

== ENCOUNTER 2017-08-28 05:53 | Emergency (ER) | payer MEDICARE, BC ==
--- NOTE | 2017-08-28 06:18 | ED ---
Weakness HPI - General Source: patient Mode of arrival: wheelchair Limitations: no limitations - History of Present Illness MD Complaint: generalized weakness Onset/Timin -: hour(s) Location: LLE, RLE Consistency: constant Improves with: none Worsens with: other (Walking) Associated Symptoms: denies other symptoms <Mikhail Vasquez - Last Filed: 08/28/17 06:35> <Kingston Maguire - Last Filed: 08/28/17 09:50> - General Chief complaint: Weakness Stated complaint: Weakness/Shaky Time Seen by Provider: 08/28/17 06:15 - History of Present Illness Initial comments: This patient is a 77-year-old man who states that he had been in bed then he got up this morning to use the bathroom. When he was walking back from the bathroom he states that he felt weak in both knees, and was concerned that he would fall. He sat on the couch, and called his partner who came to his side. When he was still feeling like this they felt he should be evaluated. The symptoms started around 5 in the morning. Patient denies chest pain, dyspnea, nausea or vomiting, headache, neurologic symptoms. (Mikhail Vasquez) - Related Data Home Medications Medication Instructions Recorded Confirmed Allopurinol [Zyloprim] 300 mg PO DAILY 10/01/14 08/28/17 clonazePAM [Clonazepam] 0.5 mg PO QAM 12/12/14 08/28/17 Clopidogrel Bisulfate [Clopidogrel] 75 mg PO DAILY 12/30/15 08/28/17 Thiamine [Vitamin B-1] 100 mg PO BID 02/03/16 08/28/17 Metoprolol Tartrate [Lopressor] 100 mg PO DAILY 03/11/16 08/28/17 Polyethylene Glycol 3350 [Miralax] 17 gm PO DAILY PRN 03/11/16 08/28/17 Aspirin EC [Ecotrin Low Dose] 81 mg PO DAILY 02/22/17 08/28/17 Donepezil [Aricept] 10 mg PO HS 02/22/17 08/28/17 Memantine [Namenda] 10 mg PO BID 02/22/17 08/28/17 Nitroglycerin Sl Tabs [Nitrostat] 0.4 mg SUBLINGUAL Q5M PRN 02/22/17 08/28/17 Cyanocobalamin (Vitamin B-12) 1,000 mcg PO DAILY 08/04/17 08/28/17 [Vitamin B-12] Ezetimibe [Zetia] 10 mg PO HS 08/04/17 08/28/17 Isosorbide Dinitrate 30 mg PO DAILY 08/04/17 08/28/17 Magnesium Hydroxide [Milk of 30 ml PO DIRECTED PRN 08/04/17 08/28/17 Magnesia Concentrate] clonazePAM [KlonoPIN] 0.5 mg PO HS 08/04/17 08/28/17 Previous Rx's Medication Instructions Recorded Atorvastatin [Lipitor] 40 mg PO HS #30 tab 09/30/15 Allergies Allergy/AdvReac Type Severity Reaction Status Date / Time Latex, Natural Rubber Allergy Swelling Verified 08/05/17 09:10 Penicillins Allergy Rash/Hives Verified 08/05/17 09:10 zolpidem tartrate Allergy Hallucinati Verified 08/05/17 09:10 [From Denisse] ons Review of Systems ROS Other: All systems not noted in ROS Statement are negative. Constitutional: Reports: weakness (bilateral legs). Denies: fever, chills Eyes: Denies: vision change Respiratory: Denies: cough, dyspnea Cardiovascular: Denies: chest pain, syncope Gastrointestinal: Denies: abdominal pain, vomiting Genitourinary: Denies: dysuria, hematuria Musculoskeletal: Denies: back pain Skin: Denies: rash Neurological: Reports: weakness (Generalized). Denies: headache, numbness, paresthesias <Mikhail Vasquez - Last Filed: 08/28/17 06:35> ROS Other: All systems not noted in ROS Statement are negative. <Kingston Maguire - Last Filed: 08/28/17 09:50> ROS Statement: Those systems with pertinent positive or pertinent negative responses have been documented in the HPI. Past Medical History Past Medical History: Coronary Artery Disease (CAD), Cancer, Chest Pain / Angina , CVA/TIA, Dementia, GERD/Reflux, Hyperlipidemia, Hypertension, Memory Impairment, Myocardial Infarction (SD), Neurologic Disorder, Prostate Disorder, Syncope Additional Past Medical History / Comment(s): 09/26/15 PMH documents SD but pt states he has no recollection of a SD, 07/10/15 PMH document TIA but pt states he has no recollection of a TIA, gout, prostate cancer, skin cancer., PMH documents Wernicke encephalopathy but pt has no recollection, FRAGILE SKIN PLEASE USE PAPER TAPE, benign polyps, occasional low back pain., CONSTIPATION AND DIABETES., PTS STATES SHE HAS BEEN MADE TEMPORARY GUARDIAN-INSTRUCTED TO BRING PAPERS WITH HER., STATES PT IS ALERT AND UNDERSTANDS TO SIGN HIS OWN CONSENT., [facility]ID[facility] AT [phone]. Last Myocardial Infarction Date:: 09/26/2015 History of Any Multi-Drug Resistant Organisms: None Reported Past Surgical History: Bowel Resection, Cholecystectomy, Heart Catheterization, Orthopedic Surgery, Prostate Surgery Additional Past Surgical History / Comment(s): Bowel surgery for polypoid lesion with post op ileus, cardiac caths, prostatectomy, PICC line insertion, bilateral cataracts removed, vasectomy, L knee surg., SKIN CA REMOVED , COLONOSCOPY Past Anesthesia/Blood Transfusion Reactions: No Reported Reaction Past Psychological History: Anxiety Smoking Status: Former smoker Past Alcohol Use History: None Reported Past Drug Use History: None Reported - Past Family History Father Additional Family Medical History / Comment(s): FROM RUPTURED AORTA aneurysm. Mother Family Medical History: CVA/TIA, Myocardial Infarction (SD) Additional Family Medical History / Comment(s): MOM AT AGE 61- HAD MULTIPLE STROKES AND SD'S Sister(s) Family Medical History: Cancer, COPD Additional Family Medical History / Comment(s): Patient had 3 sisters. One sister from emphysema with history of heavy smoking. One sister from breast cancer. One with Alzheimer's dementia. Daughter(s) Additional Family Medical History / Comment(s): Patient has 1 son and 1 daughter with no major medical problems. <Mikhail Vasquez - Last Filed: 08/28/17 06:35> General Exam Limitations: no limitations General appearance: alert, in no apparent distress Head exam: Present: atraumatic, normocephalic Eye exam: Present: normal appearance. Absent: scleral icterus, conjunctival injection ENT exam: Present: normal oropharynx Neck exam: Present: normal inspection Respiratory exam: Present: normal lung sounds bilaterally. Absent: respiratory distress, wheezes, rales, rhonchi, stridor Cardiovascular Exam: Present: regular rate, normal rhythm, normal heart sounds. Absent: systolic murmur, diastolic murmur, rubs, gallop GI/Abdominal exam: Present: soft. Absent: distended, tenderness, guarding, rebound, mass Extremities exam: Present: normal inspection, normal capillary refill. Absent: pedal edema, calf tenderness Back exam: Absent: CVA tenderness (R), CVA tenderness (L) Neurological exam: Present: alert, CN II-XII intact. Absent: motor sensory deficit Skin exam: Present: warm, dry, intact, normal color. Absent: rash <Mikhail Vasquez - Last Filed: 08/28/17 06:35> Course <Mikhail Vasquez - Last Filed: 08/28/17 06:35> <Kingston Maguire - Last Filed: 08/28/17 09:50> Vital Signs 08/28/17 08/28/17 05:55 08:30 Temperature 97.5 F L Pulse Rate 68 72 Respiratory 20 18 Rate Blood Pressure 148/73 160/87 O2 Sat by Pulse 96 98 Oximetry Patient was reassed at at 9:30, he feels better he is able to ambulate freely urinalysis came back negative discharged home and he will follow with his family doctor (Kingston Maguire) EKG Findings - EKG Comments: EKG Findings:: Similar to comparison EKG from 03/19/2017 - EKG Results: EKG: interpreted by KELLY, sinus rhythm (Right proximal 64 bpm), normal axis, normal QRS, normal ST/T - SD, Pacemaker, Normal: Myocardial infarction: inferior SD (old age indeterminate) (Possible old inferior infarct.) <Mikhail Vasquez - Last Filed: 08/28/17 06:35> Medical Decision Making - Lab Data Result diagrams: 08/28/17 06:15 08/28/17 06:15 <Kingston Maguire - Last Filed: 08/28/17 09:50> - Lab Data Lab Results 08/28/17 08/28/17 08/28/17 Range/Units 06:15 06:15 06:15 WBC 7.7 (3.8-10.6) k/uL RBC 4.77 (4.30-5.90) m/uL Hgb 15.1 (13.0-17.5) gm/dL Hct 44.7 (39.0-53.0) % MCV 93.8 (80.0-100.0) fL MCH 31.6 (25.0-35.0) pg MCHC 33.7 (31.0-37.0) g/dL RDW 14.7 (11.5-15.5) % Plt Count 173 (150-450) k/uL Neutrophils % 70 % Lymphocytes % 15 % Monocytes % 8 % Eosinophils % 5 % Basophils % 1 % Neutrophils # 5.4 (1.3-7.7) k/uL Lymphocytes # 1.2 (1.0-4.8) k/uL Monocytes # 0.6 (0-1.0) k/uL Eosinophils # 0.4 (0-0.7) k/uL Basophils # 0.1 (0-0.2) k/uL Sodium 143 (137-145) mmol/L Potassium 3.7 (3.5-5.1) mmol/L Chloride 106 (98-107) mmol/L Carbon Dioxide 25 (22-30) mmol/L Anion Gap 12 mmol/L BUN 13 (9-20) mg/dL Creatinine 1.10 (0.66-1.25) mg/dL Est GFR (MDRD) Af Amer >60 (>60 ml/min/1.73 sqM) Est GFR (MDRD) Non-Af >60 (>60 ml/min/1.73 sqM) Glucose 90 (74-99) mg/dL Plasma Lactic Acid Merlin (0.7-2.0) mmol/L Calcium 9.1 (8.4-10.2) mg/dL Magnesium 1.7 (1.6-2.3) mg/dL Total Bilirubin 0.9 (0.2-1.3) mg/dL AST 18 (17-59) U/L ALT 21 (21-72) U/L Alkaline Phosphatase 85 (38-126) U/L Total Creatine Kinase 51 L (55-170) U/L CK-MB (CK-2) 0.5 (0.0-2.4) ng/mL CK-MB (CK-2) Rel Index 1.0 Troponin I <0.012 (0.000-0.034) ng/mL Total Protein 6.6 (6.3-8.2) g/dL Albumin 3.7 (3.5-5.0) g/dL Urine Color Urine Appearance (Clear) Urine pH (5.0-8.0) Ur Specific [place] (1.001-1.035) Urine Protein (Negative) Urine Glucose (UA) (Negative) Urine Ketones (Negative) Urine Blood (Negative) Urine Nitrite (Negative) Urine Bilirubin (Negative) Urine Urobilinogen (<2.0) mg/dL Ur Leukocyte Esterase (Negative) 08/28/17 08/28/17 Range/Units 06:55 08:35 WBC (3.8-10.6) k/uL RBC (4.30-5.90) m/uL Hgb (13.0-17.5) gm/dL Hct (39.0-53.0) % MCV (80.0-100.0) fL MCH (25.0-35.0) pg MCHC (31.0-37.0) g/dL RDW (11.5-15.5) % Plt Count (150-450) k/uL Neutrophils % % Lymphocytes % % Monocytes % % Eosinophils % % Basophils % % Neutrophils # (1.3-7.7) k/uL Lymphocytes # (1.0-4.8) k/uL Monocytes # (0-1.0) k/uL Eosinophils # (0-0.7) k/uL Basophils # (0-0.2) k/uL Sodium (137-145) mmol/L Potassium (3.5-5.1) mmol/L Chloride (98-107) mmol/L Carbon Dioxide (22-30) mmol/L Anion Gap mmol/L BUN (9-20) mg/dL Creatinine (0.66-1.25) mg/dL Est GFR (MDRD) Af Amer (>60 ml/min/1.73 sqM) Est GFR (MDRD) Non-Af (>60 ml/min/1.73 sqM) Glucose (74-99) mg/dL Plasma Lactic Acid Merlin 2.0 (0.7-2.0) mmol/L Calcium (8.4-10.2) mg/dL Magnesium (1.6-2.3) mg/dL Total Bilirubin (0.2-1.3) mg/dL AST (17-59) U/L ALT (21-72) U/L Alkaline Phosphatase (38-126) U/L Total Creatine Kinase (55-170) U/L CK-MB (CK-2) (0.0-2.4) ng/mL CK-MB (CK-2) Rel Index Troponin I (0.000-0.034) ng/mL Total Protein (6.3-8.2) g/dL Albumin (3.5-5.0) g/dL Urine Color Light Yellow Urine Appearance Clear (Clear) Urine pH 6.0 (5.0-8.0) Ur Specific [place] 1.005 (1.001-1.035) Urine Protein Negative (Negative) Urine Glucose (UA) Negative (Negative) Urine Ketones Negative (Negative) Urine Blood Negative (Negative) Urine Nitrite Negative (Negative) Urine Bilirubin Negative (Negative) Urine Urobilinogen <2.0 (<2.0) mg/dL Ur Leukocyte Esterase Negative (Negative) Disposition <Mikhail Vasquez - Last Filed: 08/28/17 06:35> <Kingston Maguire - Last Filed: 08/28/17 09:50> Clinical Impression: Generalized weakness Disposition: HOME SELF-CARE Condition: Good Instructions: Weakness (ED) Referrals: Leandro Perez MD [Primary Care Provider] - 1-2 days
[2017-08-28] MEDS ORDERED: SODIUM CHLORIDE 0.9% 500 ML IV STA (06:35)
[2017-08-28 07:01] LABS: Basophils # (A) 0.1 k/uL (0-0.2); Basophils % (A) 1 %; CHCM 35.4; Eosinophils # (A) 0.4 k/uL (0-0.7); Eosinophils % (A) 5 %; HCT 44.7 % (39.0-53.0); HDW 2.75; HGB 15.1 gm/dL (13.0-17.5); Luc # (Auto) 0.14; Luc % (Auto) 2; Lymphocytes # (A) 1.2 k/uL (1.0-4.8); Lymphocytes % (A) 15 %; MCH 31.6 pg (25.0-35.0); MCHC 33.7 g/dL (31.0-37.0); MCV 93.8 fL (80.0-100.0); Mean Platelet Volume 7.4; Monocytes # (A) 0.6 k/uL (0-1.0); Monocytes % (A) 8 %; Neutrophils # (A) 5.4 k/uL (1.3-7.7); Neutrophils % (A) 70 %; RBC 4.77 m/uL (4.30-5.90); RDW 14.7 % (11.5-15.5); WBC 7.7 k/uL (3.8-10.6); WBC (Perox) 7.55
[2017-08-28 07:13] LABS: ALT 21 U/L (21-72); AST 18 U/L (17-59); Alkaline Phosphatase 85 U/L (38-126); Anion Gap 12 mmol/L; Blood Urea Nitrogen 13 mg/dL (9-20); Calcium 9.1 mg/dL (8.4-10.2); Carbon Dioxide 25 mmol/L (22-30); Chloride 106 mmol/L (98-107); Glucose 90 mg/dL (74-99); Magnesium 1.7 mg/dL (1.6-2.3); Non-African American GFR(MDRD) >60 (>60 ml/min/1.73 sqM); Potassium 3.7 mmol/L (3.5-5.1); Sodium 143 mmol/L (137-145); Total Bilirubin 0.9 mg/dL (0.2-1.3); Total Protein 6.6 g/dL (6.3-8.2)
--- NOTE | 2017-08-28 07:14 | XR ---
EXAMINATION TYPE: XR chest 2V DATE OF EXAM: 08/28/2017 HISTORY: Weakness. REFERENCE: Previous study dated 03/19/2017. FINDINGS: There is colonic interposition on the right. There is a stable density in the left upper lobe which likely represents a pleural plaque. The lungs are otherwise clear. Pleural spaces are clear. The heart is not enlarged. IMPRESSION: 1. NO ACUTE INTRATHORACIC ABNORMALITY. 2. PROBABLE PLEURAL PLAQUE IN THE LEFT UPPER LOBE.
[2017-08-28 07:28] LABS: Creatine Kinase 51 U/L (55-170)
[2017-08-28 07:42] LABS: Creatine Kinase MB 0.5 ng/mL (0.0-2.4); Troponin I <0.012 ng/mL (0.000-0.034)
[2017-08-28 08:36] VITALS: PULSE 72; RESP 18
[2017-08-28 09:02] LABS: Appearance,Urine Clear (Clear); Bilirubin,Urine Negative (Negative); Glucose,Urine (UA) Negative (Negative); Ketones,Urine Negative (Negative); Leukocyte Esterase,Urine Negative (Negative); Nitrite,Urine Negative (Negative); Protein,Urine Negative (Negative); Specific Gravity,Urine 1.005 (1.001-1.035); UA Billing (MACRO vs. MICRO) CHEM; Urobilinogen,Urine <2.0 mg/dL (<2.0)
[2017-08-28 10:08] VITALS: BP 146/68; TEMP 98.5
== END 2017-08-28 10:00 | disposition home or self-care (01) ==
LOC: EC 05:53
DX: R53.1 Weakness (principal); I25.10 Atherosclerotic heart disease of native coronary artery without angina pectoris; F03.90 Unspecified dementia, unspecified severity, without behavioral disturbance, psychotic disturbance, mood disturbance, and anxiety; I10 Essential (primary) hypertension; I25.2 Old myocardial infarction; E78.5 Hyperlipidemia, unspecified; M10.9 Gout, unspecified; Z86.73 Personal history of transient ischemic attack (TIA), and cerebral infarction without residual deficits; Z85.46 Personal history of malignant neoplasm of prostate; Z85.828 Personal history of other malignant neoplasm of skin; Z87.891 Personal history of nicotine dependence; Z88.0 Allergy status to penicillin; Z91.040 Latex allergy status; Z91.048 Other nonmedicinal substance allergy status; Z88.8 Allergy status to other drugs, medicaments and biological substances; Z79.01 Long term (current) use of anticoagulants; Z79.82 Long term (current) use of aspirin; Z79.899 Other long term (current) drug therapy
CPT/HCPCS: 36415; 71020; 80053; 81003; 82550; 82553; 83605; 83735; 84484; 85025; 99285

== ENCOUNTER → 2017-10-18 | Outpatient (CLI) | payer MEDICARE, BC ==
--- NOTE | 2017-10-18 14:18 | CT ---
EXAMINATION TYPE: CT chest wo con DATE OF EXAM: 10/18/2017 COMPARISON: NONE HISTORY: Shortness of breath, Cough CT DLP: 668 mGycm. Automated Exposure Control for Dose Reduction was Utilized. TECHNIQUE: CT scan of the thorax is performed without IV contrast. FINDINGS: LUNGS: Calcified pleural plaques are stable. No evidence of pneumothorax. No focal pneumonia. Within the right upper lobe the previously described indeterminate 7 mm pulmonary nodule is stable. Addition al 3 mm adjacent nodule also stable. There are couple additional less than 5 mm nodules within the ri ght lower lobe which aren't not calcified. Multiple calcified nodules are seen in the right lung lower lobe. Basilar bronchiectasis noted. Nonca lcified pleural plaque left lung base is somewhat nodular pattern. Hyperinflation suggests COPD. Central and basilar bronchiectasis noted and there is interlobular sept al thickening at the lung bases suggestive of chronic interstitial lung disease. MEDIASTINUM: Lack of IV contrast is noted to limit evaluation for mediastinal and especially hilar ad enopathy. There are no definitive greater than 1 cm hilar or mediastinal lymph nodes. No cardiomega ly or pericardial effusion is seen. Coronary artery calcification noted. OTHER: No additional significant abnormality is seen. Hypertrophic and degenerative change of the sp ine. Previous cholecystectomy changes noted. There are multiple renal lesions one of which is stable from recent CT of the abdomen but does not meet the criteria of a simple cyst could be correlated wit h ultrasound. Small accessory spleen noted. IMPRESSION: 1. 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 Calcified nodule suggestive of granuloma . A couple of additional noncalcified less than 5 mm nodules are noted which could be followed on a 6 month basis. 2. There is a 7 mm right upper lobe pulmonary nodule which is stable. 3 basilar bronchiectasis with f indings suggestive of mild chronic interstitial lung disease at the lung bases. Correlate for COPD. 3. Multiple renal lesions one of which does not meet the criteria of a simple cyst anterior upper pooja e right kidney appears to be stable. This is been noted by previous CT scan. Correlate with ultrasoun d.
== END | disposition home or self-care (01) ==
LOC: RADCTMAIN 13:14
PROVIDERS: ATTEND Internal Medicine Pulmonary Disease
DX: J90 Pleural effusion, not elsewhere classified (principal); J47.9 Bronchiectasis, uncomplicated; R91.8 Other nonspecific abnormal finding of lung field
CPT/HCPCS: 71250

== ENCOUNTER → 2018-05-04 | Outpatient (CLI) | payer MEDICARE, BC ==
--- NOTE | 2018-05-04 09:13 | CT ---
EXAMINATION TYPE: CT chest wo con DATE OF EXAM: 05/04/2018 COMPARISON: 10/10/2017 HISTORY: Shortness of breath, Cough CT DLP: 690 mGycm. Automated Exposure Control for Dose Reduction was Utilized. TECHNIQUE: CT scan of the thorax is performed without IV contrast. FINDINGS: LUNGS: There is continued stability of the approximately 7 mm pulmonary nodule within the right middl e lobe on series 4 image 36. Adjacent 3 mm pulmonary nodule on series 4 image 35 are also unchanged. Calcified right basilar granuloma is again benign. 3 mm noncalcified left upper lobe pulmonary nodu le on series 4 image 27 is unchanged. Noncalcified peripheral right apical lateral posterior pulmonar y nodule on series 4 image 16 is also unchanged. No new pulmonary nodules or masses are identified. 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 No sizable int erval growth to suggest mesothelioma. The largest plaque on the left anteriorly measures up to 3.4 cm on series 3 image 16. Minimal biapical pleural parenchymal scarring is noted. No focal consolidation . There is no pleural effusion or pneumothorax seen. The tracheobronchial tree is patent. MEDIASTINUM: Lack of IV contrast is noted to limit evaluation for mediastinal and especially hilar ad enopathy. There are no definitive greater than 1 cm hilar or mediastinal lymph nodes. No cardiomega ly or pericardial effusion is seen. Again there are moderate coronary artery calcifications. OTHER: Again there is stability of the solitary right renal cyst emanating from the upper pole but do es not meet criteria for a simple cyst on series 2 image 69 measuring 1.4 cm. Otherwise there is rede monstration of partial visualization of multiple bilateral renal cysts within the upper abdomen. Smal l splenule is again noted. Cholecystectomy has been performed. Moderate multilevel degenerative disc disease is seen within the Schmorl's nodes of the thoracic spine. IMPRESSION: 1. There are unchanged bilateral calcified and noncalcified pulmonary nodules ranging from 3 to 7 mm. The largest 7 mm pulmonary nodule is unchanged dating back to 10/31/2015 and should be considered be nign. For the remaining noncalcified 3 mm pulmonary nodules follow-up CT in one year is recommended t o establish long-term stability. 2. Additionally there is continued stability of the solitary right upper pole renal lesion that does not meet criteria for simple cyst, possibly hemorrhagic or proteinaceous renal cyst. 3. 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
== END ==
LOC: RADCTMAIN 08:03
PROVIDERS: ATTEND Internal Medicine
DX: R91.8 Other nonspecific abnormal finding of lung field (principal); N28.9 Disorder of kidney and ureter, unspecified; J61 Pneumoconiosis due to asbestos and other mineral fibers
CPT/HCPCS: 71250

== ENCOUNTER 2018-05-16 00:54 | Emergency (ER) | payer MEDICARE, BC ==
[2018-05-16 00:59] VITALS: RESP 18
[2018-05-16] MEDS ORDERED: SODIUM CHLORIDE 0.9% 1,000 ML IV STA (01:27)
--- NOTE | 2018-05-16 01:28 | ED ---
General Adult HPI - General Chief complaint: Abdominal Pain Stated complaint: DIARRHEA Time Seen by Provider: 05/16/18 01:11 Source: patient, RN notes reviewed, old records reviewed Mode of arrival: ambulatory Limitations: no limitations - History of Present Illness Initial comments: This is a 78-year-old male the ER for evaluation. Patient is currently poor strain secondary to age and mental state. Has history of abdominal pain, toes like he was getting in fights tonight, fighting the local local kids, states patient does occasionally have issues with extremes - Related Data Home Medications Medication Instructions Recorded Confirmed Allopurinol [Zyloprim] 300 mg PO DAILY 10/01/14 08/28/17 clonazePAM [Clonazepam] 0.5 mg PO QAM 12/12/14 08/28/17 Clopidogrel Bisulfate [Clopidogrel] 75 mg PO DAILY 12/30/15 08/28/17 Thiamine [Vitamin B-1] 100 mg PO BID 02/03/16 08/28/17 Metoprolol Tartrate [Lopressor] 100 mg PO DAILY 03/11/16 08/28/17 Polyethylene Glycol 3350 [Miralax] 17 gm PO DAILY PRN 03/11/16 08/28/17 Aspirin EC [Ecotrin Low Dose] 81 mg PO DAILY 02/22/17 08/28/17 Donepezil [Aricept] 10 mg PO HS 02/22/17 08/28/17 Memantine [Namenda] 10 mg PO BID 02/22/17 08/28/17 Nitroglycerin Sl Tabs [Nitrostat] 0.4 mg SUBLINGUAL Q5M PRN 02/22/17 08/28/17 Cyanocobalamin (Vitamin B-12) 1,000 mcg PO DAILY 08/04/17 08/28/17 [Vitamin B-12] Ezetimibe [Zetia] 10 mg PO HS 08/04/17 08/28/17 Isosorbide Dinitrate 30 mg PO DAILY 08/04/17 08/28/17 Magnesium Hydroxide [Milk of 30 ml PO DIRECTED PRN 08/04/17 08/28/17 Magnesia Concentrate] clonazePAM [KlonoPIN] 0.5 mg PO HS 08/04/17 08/28/17 Previous Rx's Medication Instructions Recorded Atorvastatin [Lipitor] 40 mg PO HS #30 tab 09/30/15 Allergies Allergy/AdvReac Type Severity Reaction Status Date / Time Latex, Natural Rubber Allergy Swelling Verified 05/16/18 00:59 Penicillins Allergy Rash/Hives Verified 05/16/18 00:59 zolpidem tartrate Allergy Hallucinati Verified 05/16/18 00:59 [From Denisse] ons Review of Systems ROS Statement: Those systems with pertinent positive or pertinent negative responses have been documented in the HPI. ROS Other: All systems not noted in ROS Statement are negative. Past Medical History Past Medical History: Coronary Artery Disease (CAD), Cancer, Chest Pain / Angina , CVA/TIA, Dementia, GERD/Reflux, Hyperlipidemia, Hypertension, Memory Impairment, Myocardial Infarction (DE), Neurologic Disorder, Prostate Disorder, Syncope Additional Past Medical History / Comment(s): 09/26/15 PMH documents DE but pt states he has no recollection of a DE, 07/10/15 PMH document TIA but pt states he has no recollection of a TIA, gout, prostate cancer, skin cancer., PMH documents Wernicke encephalopathy but pt has no recollection, FRAGILE SKIN PLEASE USE PAPER TAPE, benign polyps, occasional low back pain., CONSTIPATION AND DIABETES., PTS STATES SHE HAS BEEN MADE TEMPORARY GUARDIAN-INSTRUCTED TO BRING PAPERS WITH HER., STATES PT IS ALERT AND UNDERSTANDS TO SIGN HIS OWN CONSENT., RESIDES AT [phone]. Last Myocardial Infarction Date:: 09/26/2015 History of Any Multi-Drug Resistant Organisms: None Reported Past Surgical History: Bowel Resection, Cholecystectomy, Heart Catheterization, Orthopedic Surgery, Prostate Surgery Additional Past Surgical History / Comment(s): Bowel surgery for polypoid lesion with post op ileus, cardiac caths, prostatectomy, PICC line insertion, bilateral cataracts removed, vasectomy, L knee surg., SKIN CA REMOVED , COLONOSCOPY Past Anesthesia/Blood Transfusion Reactions: No Reported Reaction Past Psychological History: Anxiety Smoking Status: Former smoker Past Alcohol Use History: None Reported Past Drug Use History: None Reported - Past Family History Father Additional Family Medical History / Comment(s): FROM RUPTURED AORTA aneurysm. Mother Family Medical History: CVA/TIA, Myocardial Infarction (DE) Additional Family Medical History / Comment(s): MOM AT AGE 61- HAD MULTIPLE STROKES AND DE'S Sister(s) Family Medical History: Cancer, COPD Additional Family Medical History / Comment(s): Patient had 3 sisters. One sister from emphysema with history of heavy smoking. One sister from breast cancer. One with Alzheimer's dementia. Daughter(s) Additional Family Medical History / Comment(s): Patient has 1 son and 1 daughter with no major medical problems. General Exam Limitations: no limitations General appearance: alert, in no apparent distress Head exam: Present: atraumatic, normocephalic, normal inspection Eye exam: Present: normal appearance, PERRL, EOMI. Absent: scleral icterus, conjunctival injection, periorbital swelling ENT exam: Present: normal exam, mucous membranes moist Neck exam: Present: normal inspection. Absent: tenderness, meningismus, lymphadenopathy Respiratory exam: Present: normal lung sounds bilaterally. Absent: respiratory distress, wheezes, rales, rhonchi, stridor Cardiovascular Exam: Present: regular rate, normal rhythm, normal heart sounds. Absent: systolic murmur, diastolic murmur, rubs, gallop, clicks GI/Abdominal exam: Present: soft, normal bowel sounds. Absent: distended, tenderness, guarding, rebound, rigid Extremities exam: Present: normal inspection, full ROM, normal capillary refill. Absent: tenderness, pedal edema, joint swelling, calf tenderness Back exam: Present: normal inspection Neurological exam: Present: alert, oriented X3, CN II-XII intact Psychiatric exam: Present: normal affect, normal mood Skin exam: Present: warm, dry, intact, normal color. Absent: rash Course Vital Signs 05/16/18 05/16/18 05/16/18 00:56 01:11 02:42 Temperature 98.2 F Pulse Rate 80 65 57 L Respiratory 18 18 18 Rate Blood Pressure 171/80 162/81 149/72 O2 Sat by Pulse 98 99 98 Oximetry EKG Findings - EKG Comments: EKG Findings:: EKG shows normal sinus rhythm at 65, W[place] 192, QRS 102, QTc 465 Medical Decision Making - Medical Decision Making 78 male the ER abdominal pain, mildly altered mental status. Patient remains awake alert throughout ER stay. Labwork CT negative. Patient can be discharged home - Lab Data Result diagrams: 05/16/18 01:11 05/16/18 01:11 Lab Results 06/26/18 06/26/18 06/26/18 Range/Units 01:11 01:11 01:11 WBC 8.7 (3.8-10.6) k/uL RBC 4.47 (4.30-5.90) m/uL Hgb 15.0 (13.0-17.5) gm/dL Hct 41.1 (39.0-53.0) % MCV 91.9 (80.0-100.0) fL MCH 33.6 (25.0-35.0) pg MCHC 36.5 (31.0-37.0) g/dL RDW 13.7 (11.5-15.5) % Plt Count 169 (150-450) k/uL Neutrophils % 69 % Lymphocytes % 17 % Monocytes % 7 % Eosinophils % 4 % Basophils % 1 % Neutrophils # 6.1 (1.3-7.7) k/uL Lymphocytes # 1.5 (1.0-4.8) k/uL Monocytes # 0.6 (0-1.0) k/uL Eosinophils # 0.3 (0-0.7) k/uL Basophils # 0.0 (0-0.2) k/uL Sodium 139 (137-145) mmol/L Potassium 3.3 L (3.5-5.1) mmol/L Chloride 105 (98-107) mmol/L Carbon Dioxide 23 (22-30) mmol/L Anion Gap 11 mmol/L BUN 15 (9-20) mg/dL Creatinine 1.10 (0.66-1.25) mg/dL Est GFR (CKD-EPI)AfAm 74 (>60 ml/min/1.73 sqM) Est GFR (CKD-EPI)NonAf 64 (>60 ml/min/1.73 sqM) Glucose 92 (74-99) mg/dL Calcium 9.4 (8.4-10.2) mg/dL Total Bilirubin 1.0 (0.2-1.3) mg/dL AST 28 (17-59) U/L ALT 24 (21-72) U/L Alkaline Phosphatase 88 (38-126) U/L Total Creatine Kinase 234 H (55-170) U/L CK-MB (CK-2) 1.7 (0.0-2.4) ng/mL CK-MB (CK-2) Rel Index 0.7 Troponin I 0.012 (0.000-0.034) ng/mL Total Protein 6.5 (6.3-8.2) g/dL Albumin 3.8 (3.5-5.0) g/dL Amylase 81 (30-110) U/L Lipase 166 (23-300) U/L - Radiology Data Radiology results: report reviewed (CT brain CT abdomen and pelvis negative), image reviewed Disposition Clinical Impression: Abdominal pain Disposition: HOME SELF-CARE Condition: Good Instructions: Abdominal Pain (ED) Is patient prescribed a controlled substance at d/c from ED?: No Referrals: Leandro Perez MD [Primary Care Provider] - 1-2 days
[2018-05-16 01:38] LABS: Basophils % (A) 1 %; Eosinophils # (A) 0.3 k/uL (0-0.7); Eosinophils % (A) 4 %; HCT 41.1 % (39.0-53.0); Lymphocytes # (A) 1.5 k/uL (1.0-4.8); Lymphocytes % (A) 17 %; MCH 33.6 pg (25.0-35.0); MCHC 36.5 g/dL (31.0-37.0); MCV 91.9 fL (80.0-100.0); Monocytes # (A) 0.6 k/uL (0-1.0); Monocytes % (A) 7 %; Neutrophils # (A) 6.1 k/uL (1.3-7.7); Neutrophils % (A) 69 %; Platelet Count 169 k/uL (150-450); RBC 4.47 m/uL (4.30-5.90); RDW 13.7 % (11.5-15.5); WBC 8.7 k/uL (3.8-10.6)
[2018-05-16 01:54] LABS: Albumin 3.8 g/dL (3.5-5.0); Calcium 9.4 mg/dL (8.4-10.2); Potassium 3.3 mmol/L (3.5-5.1); Total Protein 6.5 g/dL (6.3-8.2)
[2018-05-16 02:11] LABS: Creatine Kinase MB 1.7 ng/mL (0.0-2.4); Troponin I 0.012 ng/mL (0.000-0.034)
--- NOTE | 2018-05-16 02:20 | CT ---
EXAMINATION TYPE: CT brain wo con DATE OF EXAM: 05/16/2018 COMPARISON: 02/22/2017 HISTORY: AMS CT DLP: 1047.10 mGycm Automated exposure control for dose reduction was used. FINDINGS: There is some cerebral cortical atrophy. There is a large cisterna magna. There is no mass effect nor midline shift. There is no sign of intracranial hemorrhage. The calvarium is intact. IMPRESSION: MILD ATROPHY. NO ACUTE INTRACRANIAL ABNORMALITY. NO CHANGE COMPARED TO OLD EXAM.
--- NOTE | 2018-05-16 02:35 | CT ---
EXAMINATION TYPE: CT abdomen pelvis w con DATE OF EXAM: 05/16/2018 COMPARISON: 03/11/2016 HISTORY: Diarrhea/dizziness/ Pain CT DLP: 1530.6 mGycm Automated exposure control for dose reduction was used. TECHNIQUE: Helical acquisition of images was performed from the lung bases through the pelvis. CONTRAST: Performed without Oral Contrast and with IV Contrast, patient injected with 100 mL of Isovue 300. FINDINGS: Lung bases are clear of consolidation. There is no pleural effusion. Heart size is normal. There are clips from cholecystectomy. Spleen appears normal. Liver has normal size and contour. Bile ducts are not dilated. There is no pancreatic mass. There are bilateral multiple renal cortical cysts. These measure up to 5 cm. There is no hydronephros is. Ureters are not dilated. There is no retroperitoneal adenopathy. There is no ascites. Bladder dis tends smoothly. There is no intestinal wall thickening. There are large bowel fluid levels. There are no dilated loops. There is no sign of free air. There is bilateral L5 spondylolysis. There is no com pression fracture. There is first-degree L5-S1 spondylolisthesis. IMPRESSION: NUMEROUS RENAL CYSTS. NO RENAL OBSTRUCTION. LARGE BOWEL FLUID LEVELS CONSISTENT WITH DIARRHEA. ATHERO SCLEROTIC VASCULAR DISEASE. NO ADVERSE CHANGE COMPARED TO OLD EXAM.
[2018-05-16 03:36] VITALS: BP 147/70; PULSE 62; TEMP 97.7
== END 2018-05-16 03:41 | disposition home or self-care (01) ==
LOC: EC 00:54
DX: R10.9 Unspecified abdominal pain (principal); I25.119 Atherosclerotic heart disease of native coronary artery with unspecified angina pectoris; E78.5 Hyperlipidemia, unspecified; I10 Essential (primary) hypertension; I25.2 Old myocardial infarction; N42.9 Disorder of prostate, unspecified; F41.9 Anxiety disorder, unspecified; Z85.828 Personal history of other malignant neoplasm of skin; Z85.46 Personal history of malignant neoplasm of prostate; Z87.891 Personal history of nicotine dependence; K21.9 Gastro-esophageal reflux disease without esophagitis; F03.90 Unspecified dementia, unspecified severity, without behavioral disturbance, psychotic disturbance, mood disturbance, and anxiety; Z86.73 Personal history of transient ischemic attack (TIA), and cerebral infarction without residual deficits; Z79.01 Long term (current) use of anticoagulants; Z79.82 Long term (current) use of aspirin; Z79.899 Other long term (current) drug therapy; Z88.0 Allergy status to penicillin; Z88.8 Allergy status to other drugs, medicaments and biological substances; Z91.040 Latex allergy status; Z95.818 Presence of other cardiac implants and grafts
CPT/HCPCS: 36415; 93005; 80053; 82150; 82550; 82553; 83690; 84484; 85025; 70450; 74177; 99285; 96360; Q9967

== ENCOUNTER 2018-06-28 00:08 | Inpatient (IN) | payer MEDICARE, BC ==
[2018-06-28] MEDS ORDERED: SODIUM CHLORIDE 0.9% 500 ML IV STA (01:22)
--- NOTE | 2018-06-28 01:27 | ED ---
General Adult HPI - General Chief complaint: Abdominal Pain Stated complaint: abd pain Source: patient Mode of arrival: ambulatory Limitations: no limitations - History of Present Illness Initial comments: Dictation was produced using [employer] dictation software. please excuse any grammatical, word or spelling errors. Chief Complaint: 78-year-old male with multiple comorbidities presents with suprapubic abdominal pain 1 day. History of Present Illness: Patient states he was at home getting ready for bed when he noted he was having suprapubic abdominal pain. Patient is a poor historian. He did state that he has history of prostate problems and difficulties with urinating. He doesn't want one the last time he had a bowel movement was. Patient localizes the pain to suprapubic region. Denies any constitutional symptoms. No nausea or vomiting. The ROS documented in this emergency department record has been reviewed and confirmed by me. Those systems with pertinent positive or negative responses have been documented in the HPI. All other systems are other negative and/or noncontributory. - Related Data Home Medications Medication Instructions Recorded Confirmed Allopurinol [Zyloprim] 300 mg PO DAILY 10/01/14 08/28/17 clonazePAM [Clonazepam] 0.5 mg PO QAM 12/12/14 08/28/17 Clopidogrel Bisulfate [Clopidogrel] 75 mg PO DAILY 12/30/15 08/28/17 Thiamine [Vitamin B-1] 100 mg PO BID 02/03/16 08/28/17 Metoprolol Tartrate [Lopressor] 100 mg PO DAILY 03/11/16 08/28/17 Polyethylene Glycol 3350 [Miralax] 17 gm PO DAILY PRN 03/11/16 08/28/17 Aspirin EC [Ecotrin Low Dose] 81 mg PO DAILY 02/22/17 08/28/17 Donepezil [Aricept] 10 mg PO HS 02/22/17 08/28/17 Memantine [Namenda] 10 mg PO BID 02/22/17 08/28/17 Nitroglycerin Sl Tabs [Nitrostat] 0.4 mg SUBLINGUAL Q5M PRN 02/22/17 08/28/17 Cyanocobalamin (Vitamin B-12) 1,000 mcg PO DAILY 08/04/17 08/28/17 [Vitamin B-12] Ezetimibe [Zetia] 10 mg PO HS 08/04/17 08/28/17 Isosorbide Dinitrate 30 mg PO DAILY 08/04/17 08/28/17 Magnesium Hydroxide [Milk of 30 ml PO DIRECTED PRN 08/04/17 08/28/17 Magnesia Concentrate] clonazePAM [KlonoPIN] 0.5 mg PO HS 08/04/17 08/28/17 Previous Rx's Medication Instructions Recorded Atorvastatin [Lipitor] 40 mg PO HS #30 tab 09/30/15 Allergies Allergy/AdvReac Type Severity Reaction Status Date / Time Latex, Natural Rubber Allergy Swelling Verified 05/16/18 00:59 Penicillins Allergy Rash/Hives Verified 05/16/18 00:59 zolpidem tartrate Allergy Hallucinati Verified 05/16/18 00:59 [From Denisse] ons Review of Systems ROS Statement: Those systems with pertinent positive or pertinent negative responses have been documented in the HPI. ROS Other: All systems not noted in ROS Statement are negative. Past Medical History Past Medical History: Coronary Artery Disease (CAD), Cancer, Chest Pain / Angina , CVA/TIA, Dementia, GERD/Reflux, Hyperlipidemia, Hypertension, Memory Impairment, Myocardial Infarction (MS), Neurologic Disorder, Prostate Disorder, Syncope Additional Past Medical History / Comment(s): 09/26/15 PMH documents MS but pt states he has no recollection of a MS, 07/10/15 PMH document TIA but pt states he has no recollection of a TIA, gout, prostate cancer, skin cancer., PMH documents Wernicke encephalopathy but pt has no recollection, FRAGILE SKIN PLEASE USE PAPER TAPE, benign polyps, occasional low back pain., CONSTIPATION AND DIABETES., PTS STATES SHE HAS BEEN MADE TEMPORARY GUARDIAN-INSTRUCTED TO BRING PAPERS WITH HER., STATES PT IS ALERT AND UNDERSTANDS TO SIGN HIS OWN CONSENT., [phone]. Last Myocardial Infarction Date:: 09/26/2015 History of Any Multi-Drug Resistant Organisms: None Reported Past Surgical History: Bowel Resection, Cholecystectomy, Heart Catheterization, Orthopedic Surgery, Prostate Surgery Additional Past Surgical History / Comment(s): Bowel surgery for polypoid lesion with post op ileus, cardiac caths, prostatectomy, PICC line insertion, bilateral cataracts removed, vasectomy, L knee surg., SKIN CA REMOVED , COLONOSCOPY Past Anesthesia/Blood Transfusion Reactions: No Reported Reaction Past Psychological History: Anxiety Smoking Status: Former smoker Past Alcohol Use History: None Reported Past Drug Use History: None Reported - Past Family History Father Additional Family Medical History / Comment(s): FROM RUPTURED AORTA aneurysm. Mother Family Medical History: CVA/TIA, Myocardial Infarction (MS) Additional Family Medical History / Comment(s): MOM AT AGE 61- HAD MULTIPLE STROKES AND MS'S Sister(s) Family Medical History: Cancer, COPD Additional Family Medical History / Comment(s): Patient had 3 sisters. One sister from emphysema with history of heavy smoking. One sister from breast cancer. One with Alzheimer's dementia. Daughter(s) Additional Family Medical History / Comment(s): Patient has 1 son and 1 daughter with no major medical problems. General Exam - General Exam Comments Initial Comments: PHYSICAL EXAM: General Impression: Alert and oriented x3, not in acute distress HEENT: Normocephalic atraumatic, extra-ocular movements intact, pupils equal and reactive to light bilaterally, mucous membranes moist. Cardiovascular: Heart regular rate and rhythm, S1&S2 audible, no murmurs, rubs or gallops Chest: Lungs clear to auscultation bilaterally, no rhonchi, no wheeze, no rales Abdomen: Bowel sounds present, tenderness to palpation over suprapubic area, no pulsatile abdominal mass Musculoskeletal: Pulses present and equal in all extremities, no peripheral edema Motor: Power 5/5 bilaterally, no focal deficits noted Neurological: CN II-XII grossly intact, no focal motor or sensory deficits noted Skin: Intact with no visualized rashes Psych: Normal affect and mood Limitations: no limitations Course Vital Signs 06/28/18 00:31 Temperature 97.8 F Pulse Rate 60 Respiratory 18 Rate Blood Pressure 187/89 O2 Sat by Pulse 96 Oximetry Medical Decision Making - Medical Decision Making ED course: 78-year-old male with multiple comorbidities presents suprapubic abdominal pain. Vital signs upon arrival shows blood pressure 187/89 , worse vital signs within normal limits. Patient is well-appearing. Abdomen is soft. Tenderness to palpation elicited in the suprapubic area. Laboratory evaluation obtained. CBC unremarkable. No leukocytosis. Potassium was 3.1. Patient given by mouth potassium. Glucose is 120. Rest metabolic panel is negative. Urinalysis shows 2 wbc's there is [address] abdomen and pelvis was obtained showing interval changes of left-sided hydronephrosis and hydroureter. There is 8 mm calculus at the left UVJ. Patient was in moderate pain. Plan is to admit patient observation with urology and consult. Discussed patient case with internal medicine physician who is willing to accept the admission. Patient given analgesics. No advice indicated at this time given that there is no clinical suspicion of urinary tract infection. Pending urine culture. - Lab Data Result diagrams: 06/28/18 01:43 06/28/18 01:43 Lab Results 06/28/18 06/28/18 06/28/18 Range/Units 01:40 01:43 01:43 WBC 10.4 (3.8-10.6) k/uL RBC 4.67 (4.30-5.90) m/uL Hgb 14.4 (13.0-17.5) gm/dL Hct 41.7 (39.0-53.0) % MCV 89.3 (80.0-100.0) fL MCH 30.7 (25.0-35.0) pg MCHC 34.4 (31.0-37.0) g/dL RDW 13.3 (11.5-15.5) % Plt Count 158 (150-450) k/uL Neutrophils % 81 % Lymphocytes % 10 % Monocytes % 6 % Eosinophils % 2 % Basophils % 0 % Neutrophils # 8.4 H (1.3-7.7) k/uL Lymphocytes # 1.0 (1.0-4.8) k/uL Monocytes # 0.6 (0-1.0) k/uL Eosinophils # 0.2 (0-0.7) k/uL Basophils # 0.0 (0-0.2) k/uL Sodium 140 (137-145) mmol/L Potassium 3.1 L (3.5-5.1) mmol/L Chloride 106 (98-107) mmol/L Carbon Dioxide 25 (22-30) mmol/L Anion Gap 9 mmol/L BUN 18 (9-20) mg/dL Creatinine 1.10 (0.66-1.25) mg/dL Est GFR (CKD-EPI)AfAm 74 (>60 ml/min/1.73 sqM) Est GFR (CKD-EPI)NonAf 64 (>60 ml/min/1.73 sqM) Glucose 120 H (74-99) mg/dL Calcium 9.3 (8.4-10.2) mg/dL Total Bilirubin 1.3 (0.2-1.3) mg/dL AST 21 (17-59) U/L ALT 27 (21-72) U/L Alkaline Phosphatase 91 (38-126) U/L Total Protein 6.4 (6.3-8.2) g/dL Albumin 3.8 (3.5-5.0) g/dL Amylase 68 (30-110) U/L Lipase 119 (23-300) U/L Urine Color Light Yellow Urine Appearance Clear (Clear) Urine pH 6.0 (5.0-8.0) Ur Specific [place] 1.008 (1.001-1.035) Urine Protein Negative (Negative) Urine Glucose (UA) Negative (Negative) Urine Ketones Negative (Negative) Urine Blood Large H (Negative) Urine Nitrite Negative (Negative) Urine Bilirubin Negative (Negative) Urine Urobilinogen <2.0 (<2.0) mg/dL Ur Leukocyte Esterase Negative (Negative) Urine RBC 36 H (0-5) /hpf Urine WBC 2 (0-5) /hpf Urine Mucus Rare H (None) /hpf Disposition Clinical Impression: Obstructive nephropathy Disposition: ADMITTED IP TO THIS HOSP Condition: Fair Referrals: Leandro Perez MD [Primary Care Provider] - 1-2 days Time of Disposition: 03:40
[2018-06-28 01:55] LABS: Basophils % (A) 0 %; Eosinophils # (A) 0.2 k/uL (0-0.7); Eosinophils % (A) 2 %; HCT 41.7 % (39.0-53.0); HGB 14.4 gm/dL (13.0-17.5); Lymphocytes % (A) 10 %; MCH 30.7 pg (25.0-35.0); MCHC 34.4 g/dL (31.0-37.0); MCV 89.3 fL (80.0-100.0); Mean Platelet Volume 7.2; Monocytes # (A) 0.6 k/uL (0-1.0); Monocytes % (A) 6 %; Neutrophils # (A) 8.4 k/uL (1.3-7.7); Neutrophils % (A) 81 %; Platelet Count 158 k/uL (150-450); RBC 4.67 m/uL (4.30-5.90); RDW 13.3 % (11.5-15.5); WBC 10.4 k/uL (3.8-10.6)
[2018-06-28 01:59] LABS: Appearance,Urine Clear (Clear); Bilirubin,Urine Negative (Negative); Blood,Urine Large (Negative); Color,Urine Light Yellow; Glucose,Urine (UA) Negative (Negative); Ketones,Urine Negative (Negative); Leukocyte Esterase,Urine Negative (Negative); Mucus,Urine Rare /hpf; Nitrite,Urine Negative (Negative); Protein,Urine Negative (Negative); RBC,Urine 36 /hpf (0-5); Specific Gravity,Urine 1.008 (1.001-1.035); Urobilinogen,Urine <2.0 mg/dL (<2.0); WBC,Urine 2 /hpf (0-5)
[2018-06-28 02:13] LABS: Albumin 3.8 g/dL (3.5-5.0); Calcium 9.3 mg/dL (8.4-10.2); Potassium 3.1 mmol/L (3.5-5.1); Total Bilirubin 1.3 mg/dL (0.2-1.3); Total Protein 6.4 g/dL (6.3-8.2)
--- NOTE | 2018-06-28 03:09 | CT ---
EXAMINATION TYPE: CT abdomen pelvis w con DATE OF EXAM: 06/28/2018 COMPARISON: 05/16/2018 HISTORY: Lower abd pain, difficulty urinating CT DLP: 1103.70 mGycm Automated exposure control for dose reduction was used. TECHNIQUE: Helical acquisition of images was performed from the lung bases through the pelvis. CONTRAST: Performed without Oral Contrast and with IV Contrast, patient injected with 100 mL of Isovue 300. FINDINGS: There is mild linear density at the lung bases consistent with scarring or subsegmental atelectasis. Heart appears slightly enlarged. There is small hiatal hernia. There are clips from cholecystectomy. Liver shows no focal defect. Spleen and pancreas appear normal. Bile ducts are not dilated. There is no adrenal mass. There are numerous bilateral renal cortical cy sts that measure up to 6 cm. There is left-sided hydronephrosis and hydroureter. There is a 8mm calc ulus at the left ureterovesical junction. There is no retroperitoneal adenopathy. Right ureter is not dilated. I see no calculus within the kidneys. The abdominal aorta is atheromatous. There is L5 spon dylolysis with mild first-degree L5-S1 spondylolisthesis. There is no intestinal wall thickening. The re are no dilated loops. There is no sign of free air. There is no ascites. There are surgical clips in the right upper quadrant at the hepatic flexure of the colon. Appendix is not seen. There is no si gn of appendicitis. IMPRESSION: MILD CARDIOMEGALY. MINIMAL SCARRING AT THE LUNG BASES. NUMEROUS RENAL CORTICAL CYSTS. LEFT-SIDED HYDRONEPHROSIS AND HYDROURETER IS NEW COMPARED TO OLD EXAM. THERE IS OBSTRUCTING 8 MM CALC ULUS AT THE LEFT URETEROVESICAL JUNCTION THAT APPARENTLY HAS MIGRATED 1 CM COMPARED TO LAST EXAM.
[2018-06-28] MEDS ORDERED: NALOXONE 0.4 MG/ML 1 ML VIAL IV PRN (03:32)
[2018-06-28] MEDS ORDERED: KETOROLAC 30 MG/ML 1 ML VIAL IVP PRN (03:32)
[2018-06-28] MEDS ORDERED: ONDANSETRON 4 MG/2 ML VIAL IVP PRN (03:32)
[2018-06-28] MEDS ORDERED: HYDROcodone/APAP 5-325MG 1 EACH TAB PO PRN (03:32)
[2018-06-28] MEDS ORDERED: POTASSIUM CHLORIDE ER 20 MEQ TAB.ER PO STA (03:37)
[2018-06-28] MEDS ORDERED: SODIUM CHLORIDE 0.9% 1,000 ML IV SCH (03:45)
[2018-06-28 05:22] VITALS: BP 146/83; PULSE 65; RESP 20; TEMP 98.4
--- NOTE | 2018-06-28 07:35 | P.GSCN ---
History of Present Illness Consult date: 06/28/18 History of present illness: The patient is a 78-year-old gentleman who presented to the emergency room last night with some left groin pain evaluation led to a computed tomography scan which identified an 8 mm distal ureteral stone with proximal hydroureteronephrosis. He was admitted for pain control and IV hydration. The patient is interviewed at the bedside. I question a lot of his history as he denies any other medical problems which are documented on the chart. Patient denies previous history of stones. He states that he is not having pain this morning. He stated that he had pain yesterday which is what to come the emergency room. He denies medical problems but apparently has had a stroke as well as a heart attack. Denies any significant voiding problems however there is question of prostate disorder on the chart. He appears comfortable at this interview. Review of Systems ROS unobtainable: due to mental status Past Medical History Past Medical History: Coronary Artery Disease (CAD), Cancer, Chest Pain / Angina , CVA/TIA, Dementia, GERD/Reflux, Hyperlipidemia, Hypertension, Memory Impairment, Myocardial Infarction (IN), Neurologic Disorder, Prostate Disorder, Syncope Additional Past Medical History / Comment(s): 09/26/15 PMH documents IN but pt states he has no recollection of a IN, 07/10/15 PMH document TIA but pt states he has no recollection of a TIA, gout, prostate cancer, skin cancer., PMH documents Wernicke encephalopathy but pt has no recollection, FRAGILE SKIN PLEASE USE PAPER TAPE, benign polyps, occasional low back pain., CONSTIPATION AND DIABETES., PTS STATES SHE HAS BEEN MADE TEMPORARY GUARDIAN-INSTRUCTED TO BRING PAPERS WITH HER., STATES PT IS ALERT AND UNDERSTANDS TO SIGN HIS OWN CONSENT., RESIDES AT [phone]. Last Myocardial Infarction Date:: 09/26/2015 History of Any Multi-Drug Resistant Organisms: None Reported Past Surgical History: Bowel Resection, Cholecystectomy, Heart Catheterization, Orthopedic Surgery, Prostate Surgery Additional Past Surgical History / Comment(s): Bowel surgery for polypoid lesion with post op ileus, cardiac caths, prostatectomy, PICC line insertion, bilateral cataracts removed, vasectomy, L knee surg., SKIN CA REMOVED , COLONOSCOPY Past Anesthesia/Blood Transfusion Reactions: No Reported Reaction Past Psychological History: Anxiety Additional Psychological History / Comment(s): . Smoking Status: Former smoker Past Alcohol Use History: None Reported Additional Past Alcohol Use History / Comment(s): STARTED SMOKING AT AGE 15- 1/ 2 PPD, QUIT AT AGE 45, used to drink 10-12 BEERS PER DAY BUT none since 2013 Past Drug Use History: None Reported - Past Family History Father Additional Family Medical History / Comment(s): FROM RUPTURED AORTA aneurysm. Mother Family Medical History: CVA/TIA, Myocardial Infarction (IN) Additional Family Medical History / Comment(s): MOM AT AGE 61- HAD MULTIPLE STROKES AND IN'S Sister(s) Family Medical History: Cancer, COPD Additional Family Medical History / Comment(s): Patient had 3 sisters. One sister from emphysema with history of heavy smoking. One sister from breast cancer. One with Alzheimer's dementia. Daughter(s) Additional Family Medical History / Comment(s): Patient has 1 son and 1 daughter with no major medical problems. Medications and Allergies Home Medications Medication Instructions Recorded Confirmed Type Allopurinol [Zyloprim] 300 mg PO DAILY 10/01/14 08/28/17 History clonazePAM [Clonazepam] 0.5 mg PO QAM 12/12/14 08/28/17 History Atorvastatin [Lipitor] 40 mg PO HS #30 tab 09/30/15 08/28/17 Rx Clopidogrel Bisulfate [Clopidogrel] 75 mg PO DAILY 12/30/15 08/28/17 History Thiamine [Vitamin B-1] 100 mg PO BID 02/03/16 08/28/17 History Metoprolol Tartrate [Lopressor] 100 mg PO DAILY 03/11/16 08/28/17 History Polyethylene Glycol 3350 [Miralax] 17 gm PO DAILY PRN 03/11/16 08/28/17 History Aspirin EC [Ecotrin Low Dose] 81 mg PO DAILY 02/22/17 08/28/17 History Donepezil [Aricept] 10 mg PO HS 02/22/17 08/28/17 History Memantine [Namenda] 10 mg PO BID 02/22/17 08/28/17 History Nitroglycerin Sl Tabs [Nitrostat] 0.4 mg SUBLINGUAL Q5M PRN 02/22/17 08/28/17 History Cyanocobalamin (Vitamin B-12) 1,000 mcg PO DAILY 08/04/17 08/28/17 History [Vitamin B-12] Ezetimibe [Zetia] 10 mg PO HS 08/04/17 08/28/17 History Isosorbide Dinitrate 30 mg PO DAILY 08/04/17 08/28/17 History Magnesium Hydroxide [Milk of 30 ml PO DIRECTED PRN 08/04/17 08/28/17 History Magnesia Concentrate] clonazePAM [KlonoPIN] 0.5 mg PO HS 08/04/17 08/28/17 History Allergies Allergy/AdvReac Type Severity Reaction Status Date / Time Latex, Natural Rubber Allergy Swelling Verified 05/16/18 00:59 Penicillins Allergy Rash/Hives Verified 05/16/18 00:59 zolpidem tartrate Allergy Hallucinati Verified 05/16/18 00:59 [From Denisse] ons Surgical - Exam Vital Signs Temp Pulse Resp BP Pulse Ox 97.8 F 60 18 187/89 96 06/28/18 00:31 06/28/18 00:31 06/28/18 00:31 06/28/18 00:31 06/28/18 00:31 - General well developed, well nourished, no distress - Eyes PERRL - ENT no hearing loss - Neck no masses, trachea midline - Respiratory normal expansion, normal respiratory effort - Cardiovascular Rhythm: regular - Abdomen Abdomen: soft, non tender - Genitourinary normal penis with no external lesions, testicles present - Integumentary no rash, no growths - Neurologic normal coordination, normal sensation, memory loss - Musculoskeletal normal posture - Psychiatric I'm uncertain as to his mental status. other Results - Labs 06/28/18 01:43 06/28/18 01:43 Abnormal Lab Results - Last 24 Hours (Table) 06/28/18 06/28/18 06/28/18 Range/Units 01:40 01:43 01:43 Neutrophils # 8.4 H (1.3-7.7) k/uL Potassium 3.1 L (3.5-5.1) mmol/L Glucose 120 H (74-99) mg/dL Urine Blood Large H (Negative) Urine RBC 36 H (0-5) /hpf Urine Mucus Rare H (None) /hpf Diabetes panel 06/28/18 Range/Units 01:43 Sodium 140 (137-145) mmol/L Potassium 3.1 L (3.5-5.1) mmol/L Chloride 106 (98-107) mmol/L Carbon Dioxide 25 (22-30) mmol/L BUN 18 (9-20) mg/dL Creatinine 1.10 (0.66-1.25) mg/dL Glucose 120 H (74-99) mg/dL Calcium 9.3 (8.4-10.2) mg/dL AST 21 (17-59) U/L ALT 27 (21-72) U/L Alkaline Phosphatase 91 (38-126) U/L Total Protein 6.4 (6.3-8.2) g/dL Albumin 3.8 (3.5-5.0) g/dL Calcium panel 06/28/18 Range/Units 01:43 Calcium 9.3 (8.4-10.2) mg/dL Albumin 3.8 (3.5-5.0) g/dL Pituitary panel 06/28/18 Range/Units 01:43 Sodium 140 (137-145) mmol/L Potassium 3.1 L (3.5-5.1) mmol/L Chloride 106 (98-107) mmol/L Carbon Dioxide 25 (22-30) mmol/L BUN 18 (9-20) mg/dL Creatinine 1.10 (0.66-1.25) mg/dL Glucose 120 H (74-99) mg/dL Calcium 9.3 (8.4-10.2) mg/dL Adrenal panel 06/28/18 Range/Units 01:43 Sodium 140 (137-145) mmol/L Potassium 3.1 L (3.5-5.1) mmol/L Chloride 106 (98-107) mmol/L Carbon Dioxide 25 (22-30) mmol/L BUN 18 (9-20) mg/dL Creatinine 1.10 (0.66-1.25) mg/dL Glucose 120 H (74-99) mg/dL Calcium 9.3 (8.4-10.2) mg/dL Total Bilirubin 1.3 (0.2-1.3) mg/dL AST 21 (17-59) U/L ALT 27 (21-72) U/L Alkaline Phosphatase 91 (38-126) U/L Total Protein 6.4 (6.3-8.2) g/dL Albumin 3.8 (3.5-5.0) g/dL - Imaging CT scan - abdomen: report reviewed, image reviewed CT scan - pelvis: report reviewed, image reviewed Assessment and Plan Assessment: Impression: Left ureteral calculus, 8 mm in distal ureter. Multiple medical problems. Perhaps Alzheimer's Recommendations: Since the patient is comfortable all treatment options are available to him. His options would include spontaneous passage ureteroscopic manipulation or shockwave lithotripsy. Stated that he would like a chance to pass this. If he remains pain-free he can go home later today or tomorrow from urologic standpoint would be imperative that he follows up in my office in 7-10 days with a KUB. If he continues to have pain ureteroscopic stone manipulation would be in order.
[2018-06-28] MEDS ORDERED: METOPROLOL TARTRATE 50 MG TAB PO SCH (09:00)
[2018-06-28] MEDS ORDERED: CLOPIDOGREL 75 MG TAB PO SCH (09:00)
[2018-06-28] MEDS ORDERED: ASPIRIN 81 MG PO SCH (09:00)
[2018-06-28] MEDS ORDERED: NITROGLYCERIN SL TABS 0.4 MG TAB SUBLINGUAL PRN (10:23)
[2018-06-28] MEDS ORDERED: ALLOPURINOL 300 MG TAB PO SCH (10:30)
[2018-06-28] MEDS ORDERED: clonazePAM 0.5 MG TAB PO SCH (10:30)
[2018-06-28] MEDS ORDERED: ISOSORBIDE MONONITRATE ER 30 MG TAB.ER.24H PO SCH (11:30)
--- NOTE | 2018-06-28 14:26 | P.DS ---
Providers Date of admission: 06/28/18 04:00 Expected date of discharge: 06/28/18 Attending physician: Filemon Bae Consults: 06/28/18 03:36 Consult Physician Routine Consulting Provider: Misha Malone Consult Reason/Comments: obstructing kidney stone Do you want consulting provider notified?: Yes, Notify in am Primary care physician: [facility] Course: This document serves as H&P and discharge summary 78-year-old male who presented to the emergency room with pain near the suprapubic region for approximately one day. CAT scan revealed left-sided hydronephrosis. Obstructing 8 mm calculus at the left ureterovesicular junction that has migrated 1 cm compared to last examination. The patient was evaluated by urology who offered the patient various treatment options. The patient has elected to be discharged home and attempt to pass the stone spontaneously. The patient currently denies any pain. He denies shortness of breath or chest pain. Denies nausea or vomiting. Patient is voiding without difficulty. He was discharged home in stable condition. Patient's is at the bedside and all questions were answered. Patient is to follow up with urology in 7-10 days for a KUB. Urine strainer was ordered for patient before he was discharged from the hospital. DISCHARGE DIAGNOSIS: Left ureteral calculus, 8 mm Left hydronephrosis History of hypertension, hyperlipidemia, CVA/TIA, dementia, GERD, coronary artery disease Nurse practitioner note has been reviewed by physician. Signing provider agrees with the documented findings, assessment, and plan of care. Patient Condition at Discharge: Stable Plan - Discharge Summary New Discharge Prescriptions: No Action Allopurinol [Zyloprim] 300 mg PO DAILY clonazePAM [Clonazepam] 0.5 mg PO QAM Clopidogrel Bisulfate [Clopidogrel] 75 mg PO DAILY Thiamine [Vitamin B-1] 100 mg PO BID Metoprolol Tartrate [Lopressor] 100 mg PO DAILY Nitroglycerin Sl Tabs [Nitrostat] 0.4 mg SUBLINGUAL Q5M PRN PRN Reason: Chest Pain Donepezil [Aricept] 10 mg PO HS Aspirin EC [Ecotrin Low Dose] 81 mg PO DAILY Cyanocobalamin (Vitamin B-12) [Vitamin B-12] 1,000 mcg PO DAILY Ezetimibe [Zetia] 10 mg PO HS Atorvastatin [Lipitor] 80 mg PO HS Isosorbide Mononitrate ER [Imdur] 30 mg PO DAILY Discharge Medication List Allopurinol [Zyloprim] 300 mg PO DAILY 10/01/14 [History] clonazePAM [Clonazepam] 0.5 mg PO QAM 12/12/14 [History] Clopidogrel Bisulfate [Clopidogrel] 75 mg PO DAILY 12/30/15 [History] Thiamine [Vitamin B-1] 100 mg PO BID 02/03/16 [History] Metoprolol Tartrate [Lopressor] 100 mg PO DAILY 03/11/16 [History] Aspirin EC [Ecotrin Low Dose] 81 mg PO DAILY 02/22/17 [History] Donepezil [Aricept] 10 mg PO HS 02/22/17 [History] Nitroglycerin Sl Tabs [Nitrostat] 0.4 mg SUBLINGUAL Q5M PRN 02/22/17 [History] Cyanocobalamin (Vitamin B-12) [Vitamin B-12] 1,000 mcg PO DAILY 08/04/17 [ History] Ezetimibe [Zetia] 10 mg PO HS 08/04/17 [History] Atorvastatin [Lipitor] 80 mg PO HS 06/28/18 [History] Isosorbide Mononitrate ER [Imdur] 30 mg PO DAILY 06/28/18 [History] Follow up Appointment(s)/Referral(s): Leandro Perez MD [Primary Care Provider] - 1-2 days
[2018-06-28] MEDS: POTASSIUM CHLORIDE ER 20 MEQ TAB.ER PO SCH ×2 (14:29→15:17)
[2018-06-28] MEDS ORDERED: EZETIMIBE 10 MG TAB PO SCH (21:00)
[2018-06-28] MEDS ORDERED: ATORVASTATIN 80 MG TAB PO SCH (21:00)
[2018-06-28] MEDS ORDERED: DONEPEZIL 10 MG TAB PO SCH (21:00)
[2018-06-28] MEDS ORDERED: ATORVASTATIN 40 MG TAB PO SCH (21:00)
== END 2018-06-28 15:18 | disposition home or self-care (01) | DRG 694 ==
LOC: EC 00:08 → OBSVTOIN 03:32 → 3OBS 03:32 → OBSVTOIN 04:00 → 4MS4W 04:12
PROVIDERS: ADMIT Family Medicine; ATTEND Family Medicine
DX: N13.2 Hydronephrosis with renal and ureteral calculous obstruction (principal); N13.8 Other obstructive and reflux uropathy; F03.90 Unspecified dementia, unspecified severity, without behavioral disturbance, psychotic disturbance, mood disturbance, and anxiety; E11.9 Type 2 diabetes mellitus without complications; E78.5 Hyperlipidemia, unspecified; I10 Essential (primary) hypertension; K21.9 Gastro-esophageal reflux disease without esophagitis; F41.9 Anxiety disorder, unspecified; N42.9 Disorder of prostate, unspecified; I25.10 Atherosclerotic heart disease of native coronary artery without angina pectoris; I25.2 Old myocardial infarction; Z79.02 Long term (current) use of antithrombotics/antiplatelets; Z79.82 Long term (current) use of aspirin; Z79.899 Other long term (current) drug therapy; Z87.891 Personal history of nicotine dependence; Z86.73 Personal history of transient ischemic attack (TIA), and cerebral infarction without residual deficits; Z86.010 Personal history of colon polyps; Z90.49 Acquired absence of other specified parts of digestive tract; Z98.42 Cataract extraction status, left eye; Z98.41 Cataract extraction status, right eye; Z98.52 Vasectomy status; Z88.0 Allergy status to penicillin; Z88.8 Allergy status to other drugs, medicaments and biological substances; Z91.040 Latex allergy status; Z82.49 Family history of ischemic heart disease and other diseases of the circulatory system; Z82.3 Family history of stroke; Z82.5 Family history of asthma and other chronic lower respiratory diseases; Z80.3 Family history of malignant neoplasm of breast; Z82.0 Family history of epilepsy and other diseases of the nervous system
CPT/HCPCS: 36415; 74177; 80053; 81001; 82150; 83690; 84132; 85025; 87086; 93005; 96374; 99285

== ENCOUNTER 2018-08-07 05:55 | Observation (INO) | payer MEDICARE, BC ==
[2018-08-07] MEDS ORDERED: SODIUM CHLORIDE 0.9% 1,000 ML IV STA (06:24)
--- NOTE | 2018-08-07 06:30 | ED ---
General Adult HPI - General Chief complaint: Headache Stated complaint: Chest pain Time Seen by Provider: 08/07/18 06:23 Source: patient, family Mode of arrival: ambulatory Limitations: no limitations - History of Present Illness Initial comments: Minerva is a pleasant 78-year-old gentleman with recently diagnosed dementia who presents the emergency department today with his neighbor for evaluation of mild headache may be some chest pain. Neighbor reports that Shawn knocked on his door around 5:30 this morning saying that he had had some chest pain and that he was having a headache. Shawn is did not have herself unavailable so the neighbor decided to bring Shawn to the hospital for evaluation. Reports that he has a mild headache. He has not attempted to take anything for this. The headache is global in nature. It began a couple of hours ago. Is not associated with any nausea, vision changes. Shawn also reports that when his headache started he had some transient chest pain which prompted him to walk to his neighbor's house. However he's not having chest pain now. He reports that Shawn was recently diagnosed with dementia. He's been having some difficulties with word finding recently this is been progressively worsening over months. This has not changed today. He reports that Shawn his works early mornings and Shawn is home alone in the morning. - Related Data Home Medications Medication Instructions Recorded Confirmed Allopurinol [Zyloprim] 300 mg PO DAILY 10/01/14 08/07/18 clonazePAM [Clonazepam] 0.5 mg PO QAM 12/12/14 08/07/18 Clopidogrel Bisulfate [Clopidogrel] 75 mg PO DAILY 12/30/15 08/07/18 Thiamine [Vitamin B-1] 100 mg PO BID 02/03/16 08/07/18 Metoprolol Tartrate [Lopressor] 100 mg PO DAILY 03/11/16 08/07/18 Aspirin EC [Ecotrin Low Dose] 81 mg PO DAILY 02/22/17 08/07/18 Donepezil [Aricept] 10 mg PO HS 02/22/17 08/07/18 Nitroglycerin Sl Tabs [Nitrostat] 0.4 mg SUBLINGUAL Q5M PRN 02/22/17 08/07/18 Cyanocobalamin (Vitamin B-12) 1,000 mcg PO DAILY 08/04/17 08/07/18 [Vitamin B-12] Ezetimibe [Zetia] 10 mg PO HS 08/04/17 08/07/18 Atorvastatin [Lipitor] 80 mg PO HS 06/28/18 08/07/18 Isosorbide Mononitrate ER [Imdur] 30 mg PO DAILY 06/28/18 08/07/18 Allergies Allergy/AdvReac Type Severity Reaction Status Date / Time aloe vera Allergy Unknown Verified 08/07/18 06:05 Latex, Natural Rubber Allergy Swelling Verified 08/07/18 06:05 Penicillins Allergy Rash/Hives Verified 08/07/18 06:05 zolpidem tartrate Allergy Hallucinati Verified 08/07/18 06:05 [From Denisse] ons Review of Systems ROS Statement: Those systems with pertinent positive or pertinent negative responses have been documented in the HPI. ROS Other: All systems not noted in ROS Statement are negative. Past Medical History Past Medical History: Coronary Artery Disease (CAD), Cancer, Chest Pain / Angina , CVA/TIA, Dementia, GERD/Reflux, Hyperlipidemia, Hypertension, Memory Impairment, Myocardial Infarction (AL), Neurologic Disorder, Prostate Disorder, Syncope Additional Past Medical History / Comment(s): 09/26/15 PMH documents AL but pt states he has no recollection of a AL, 07/10/15 PMH document TIA but pt states he has no recollection of a TIA, gout, prostate cancer, skin cancer., PMH documents Wernicke encephalopathy but pt has no recollection, FRAGILE SKIN PLEASE USE PAPER TAPE, benign polyps, occasional low back pain., CONSTIPATION AND DIABETES., PTS STATES SHE HAS BEEN MADE TEMPORARY GUARDIAN-INSTRUCTED TO BRING PAPERS WITH HER., STATES PT IS ALERT AND UNDERSTANDS TO SIGN HIS OWN CONSENT., RESIDES AT [phone]. Last Myocardial Infarction Date:: 09/26/2015 History of Any Multi-Drug Resistant Organisms: None Reported Past Surgical History: Bowel Resection, Cholecystectomy, Heart Catheterization, Orthopedic Surgery, Prostate Surgery Additional Past Surgical History / Comment(s): Bowel surgery for polypoid lesion with post op ileus, cardiac caths, prostatectomy, PICC line insertion, bilateral cataracts removed, vasectomy, L knee surg., SKIN CA REMOVED , COLONOSCOPY Past Anesthesia/Blood Transfusion Reactions: No Reported Reaction Past Psychological History: Anxiety Smoking Status: Former smoker Past Alcohol Use History: None Reported Past Drug Use History: None Reported - Past Family History Father Additional Family Medical History / Comment(s): FROM RUPTURED AORTA aneurysm. Mother Family Medical History: CVA/TIA, Myocardial Infarction (AL) Additional Family Medical History / Comment(s): MOM AT AGE 61- HAD MULTIPLE STROKES AND AL'S Sister(s) Family Medical History: Cancer, COPD Additional Family Medical History / Comment(s): Patient had 3 sisters. One sister from emphysema with history of heavy smoking. One sister from breast cancer. One with Alzheimer's dementia. Daughter(s) Additional Family Medical History / Comment(s): Patient has 1 son and 1 daughter with no major medical problems. General Exam - General Exam Comments Initial Comments: GENERAL: Elderly male in no acute distress HENT: Normocephalic, Atraumatic. Neck is soft and supple. No significant lymphadenopathy is noted. Oropharynx is clear. Moist mucous membranes. Neck has full range of motion without eliciting any pain. EYES: The sclera were anicteric and conjunctiva were pink and moist. Extraocular movements were intact and pupils were equal round and reactive to light. Eyelids were unremarkable. PULMONARY: Unlabored respirations. Good breath sounds bilaterally. No audible rales rhonchi or wheezing was noted. CARDIOVASCULAR: There is a regular rate and rhythm ABDOMEN: Soft and nontender with normal bowel sounds. SKIN: Skin is clear with no lesions or rashes and otherwise unremarkable. NEUROLOGIC: Patient is alert and oriented x1 which is baseline. Cranial nerves II through XII are grossly intact. Word finding difficulty - unchanged per and neighbor MUSCULOSKELETAL: Normal extremities with adequate strength and full range of motion. No lower extremity swelling or edema. No calf tenderness. LYMPHATICS: No significant lymphadenopathy is noted PSYCHIATRIC: Confused Limitations: no limitations Limitations: no limitations Course Vital Signs 08/07/18 08/07/18 06:01 07:33 Temperature 98.4 F Pulse Rate 88 91 Respiratory 20 18 Rate Blood Pressure 114/75 163/96 O2 Sat by Pulse 114 H 97 Oximetry Medical Decision Making - Medical Decision Making Elderly demented male with cardiac history presented to ED with his neighbor after knocking on his neighbor's door around 5:30 this morning stating he was having chest pain and headache Head CT and Cardiac were ordered CT negative EKG unremarkable, chest x-ray unremarkable, initial troponin is negative Patient's at bedside states he complains of headaches regularly but doesn' t usually complain of chest pain His care discussed with patient's primary care physician Dr. Perez who is very familiar with the patient, excepts admission for chest pain - Lab Data Result diagrams: 08/07/18 06:10 08/07/18 06:10 Lab Results 08/07/18 08/07/18 08/07/18 Range/Units 06:10 06:10 06:10 WBC 9.4 (3.8-10.6) k/uL RBC 4.89 (4.30-5.90) m/uL Hgb 15.2 (13.0-17.5) gm/dL Hct 46.0 (39.0-53.0) % MCV 94.0 (80.0-100.0) fL MCH 31.1 (25.0-35.0) pg MCHC 33.1 (31.0-37.0) g/dL RDW 13.6 (11.5-15.5) % Plt Count 192 (150-450) k/uL Neutrophils % 75 % Lymphocytes % 13 % Monocytes % 6 % Eosinophils % 4 % Basophils % 1 % Neutrophils # 7.0 (1.3-7.7) k/uL Lymphocytes # 1.2 (1.0-4.8) k/uL Monocytes # 0.6 (0-1.0) k/uL Eosinophils # 0.3 (0-0.7) k/uL Basophils # 0.1 (0-0.2) k/uL PT (9.0-12.0) sec INR (<1.2) APTT (22.0-30.0) sec Sodium 144 (137-145) mmol/L Potassium 3.9 (3.5-5.1) mmol/L Chloride 107 (98-107) mmol/L Carbon Dioxide 26 (22-30) mmol/L Anion Gap 11 mmol/L BUN 16 (9-20) mg/dL Creatinine 1.13 (0.66-1.25) mg/dL Est GFR (CKD-EPI)AfAm 71 (>60 ml/min/1.73 sqM) Est GFR (CKD-EPI)NonAf 62 (>60 ml/min/1.73 sqM) Glucose 105 H (74-99) mg/dL Calcium 9.9 (8.4-10.2) mg/dL Magnesium 1.7 (1.6-2.3) mg/dL Total Bilirubin 1.5 H (0.2-1.3) mg/dL AST 26 (17-59) U/L ALT 20 L (21-72) U/L Alkaline Phosphatase 87 (38-126) U/L Total Creatine Kinase 99 (55-170) U/L CK-MB (CK-2) 0.9 (0.0-2.4) ng/mL CK-MB (CK-2) Rel Index 0.9 Troponin I 0.016 (0.000-0.034) ng/mL Total Protein 7.0 (6.3-8.2) g/dL Albumin 4.0 (3.5-5.0) g/dL 08/07/18 Range/Units 06:10 WBC (3.8-10.6) k/uL RBC (4.30-5.90) m/uL Hgb (13.0-17.5) gm/dL Hct (39.0-53.0) % MCV (80.0-100.0) fL MCH (25.0-35.0) pg MCHC (31.0-37.0) g/dL RDW (11.5-15.5) % Plt Count (150-450) k/uL Neutrophils % % Lymphocytes % % Monocytes % % Eosinophils % % Basophils % % Neutrophils # (1.3-7.7) k/uL Lymphocytes # (1.0-4.8) k/uL Monocytes # (0-1.0) k/uL Eosinophils # (0-0.7) k/uL Basophils # (0-0.2) k/uL PT 10.7 (9.0-12.0) sec INR 1.1 (<1.2) APTT 23.8 (22.0-30.0) sec Sodium (137-145) mmol/L Potassium (3.5-5.1) mmol/L Chloride (98-107) mmol/L Carbon Dioxide (22-30) mmol/L Anion Gap mmol/L BUN (9-20) mg/dL Creatinine (0.66-1.25) mg/dL Est GFR (CKD-EPI)AfAm (>60 ml/min/1.73 sqM) Est GFR (CKD-EPI)NonAf (>60 ml/min/1.73 sqM) Glucose (74-99) mg/dL Calcium (8.4-10.2) mg/dL Magnesium (1.6-2.3) mg/dL Total Bilirubin (0.2-1.3) mg/dL AST (17-59) U/L ALT (21-72) U/L Alkaline Phosphatase (38-126) U/L Total Creatine Kinase (55-170) U/L CK-MB (CK-2) (0.0-2.4) ng/mL CK-MB (CK-2) Rel Index Troponin I (0.000-0.034) ng/mL Total Protein (6.3-8.2) g/dL Albumin (3.5-5.0) g/dL Disposition Clinical Impression: Chest pain Disposition: [facility] Referrals: None,Stated [REFERRING] - 1-2 days
[2018-08-07 06:50] LABS: Basophils # (A) 0.1 k/uL (0-0.2); Basophils % (A) 1 %; Eosinophils # (A) 0.3 k/uL (0-0.7); Eosinophils % (A) 4 %; HGB 15.2 gm/dL (13.0-17.5); Lymphocytes # (A) 1.2 k/uL (1.0-4.8); Lymphocytes % (A) 13 %; MCH 31.1 pg (25.0-35.0); MCHC 33.1 g/dL (31.0-37.0); Mean Platelet Volume 6.5; Monocytes # (A) 0.6 k/uL (0-1.0); Monocytes % (A) 6 %; Neutrophils % (A) 75 %; Platelet Count 192 k/uL (150-450); RBC 4.89 m/uL (4.30-5.90); RDW 13.6 % (11.5-15.5); WBC 9.4 k/uL (3.8-10.6)
[2018-08-07 06:58] LABS: INR 1.1 (<1.2); Partial Thromboplastin Time 23.8 sec (22.0-30.0); Prothrombin Time 10.7 sec (9.0-12.0)
[2018-08-07 07:14] LABS: Calcium 9.9 mg/dL (8.4-10.2); Magnesium 1.7 mg/dL (1.6-2.3); Potassium 3.9 mmol/L (3.5-5.1); Total Bilirubin 1.5 mg/dL (0.2-1.3)
--- NOTE | 2018-08-07 07:24 | CT ---
EXAMINATION TYPE: CT brain wo con DATE OF EXAM: 08/07/2018 COMPARISON: 05/16/2018 HISTORY: 78-year-old male with Headache TECHNIQUE: Examination was done in axial plane without intravenous contrast. Coronal and sagittal r econstructions performed. CT DLP: 1159 mGycm Automated exposure control for dose reduction was used. FINDINGS: There is no evidence of acute intracranial hemorrhage, acute ischemic changes, mass, mass-effect, or extra-axial fluid collection. There is no effacement of cerebral sulci or basal subarachnoid cister ns. There is no midline shift. Carey-white matter distinction is preserved. Mild to moderate generalized supratentorial volume loss with secondary prominence to the ventricular system and mild patchy periventricular white matter hypodensities. Somewhat ectatic appearance to the upper basilar artery and right internal carotid artery is unchange d from prior. Megacisterna magna again noted. Mild mucosal thickening floors of the maxillary sinuses. Trace trapped fluid in the inferior right ma stoid air cells. Orbits and globes are intact. IMPRESSION: 1. Similar mild to moderate atrophy and mild changes of chronic small vessel ischemic disease. 2. Somewhat ectatic appearance to the upper basilar artery and right internal carotid artery is uncha nged. Consider nonemergent MRA [place] to assess for any aneurysmal dilatation. 3. No acute intracranial abnormality seen. 4. Minimal trapped fluid inferior right mastoid air cells may be incidental. Correlate for any mastoi d pain to exclude mastoiditis.
--- NOTE | 2018-08-07 07:25 | XR ---
EXAMINATION TYPE: XR chest 2V DATE OF EXAM: 08/07/2018 COMPARISON: 08/28/2017 HISTORY: 78-year-old male with chest pain TECHNIQUE: Frontal and lateral views FINDINGS: The cardiomediastinal silhouette, aorta, and pulmonary vasculature are within normal limits. Lungs an d pleural spaces are clear. Chilaiditi syndrome. Cholecystectomy clips. IMPRESSION: No acute cardiopulmonary process.
[2018-08-07 08:15] LABS: Creatine Kinase MB 0.9 ng/mL (0.0-2.4); Troponin I 0.016 ng/mL (0.000-0.034)
[2018-08-07] MEDS ORDERED: ACETAMINOPHEN TAB 325 MG TAB PO STA (08:15)
[2018-08-07] MEDS ORDERED: NITROGLYCERIN SL TABS 0.4 MG TAB SUBLINGUAL PRN (08:24)
[2018-08-07] MEDS ORDERED: ACETAMINOPHEN TAB 325 MG TAB PO PRN (11:48)
[2018-08-07] MEDS: CLOPIDOGREL 75 MG TAB PO SCH (11:50)
[2018-08-07] MEDS: ASPIRIN 81 MG PO SCH (11:50)
[2018-08-07] MEDS: THIAMINE 100 MG TAB PO SCH ×2 (11:50→21:33)
[2018-08-07] MEDS: clonazePAM 0.5 MG TAB PO SCH (11:50)
[2018-08-07] MEDS: ISOSORBIDE MONONITRATE ER 30 MG TAB.ER.24H PO SCH (11:50)
[2018-08-07] MEDS: METOPROLOL TARTRATE 50 MG TAB PO SCH (11:50)
[2018-08-07] MEDS: CYANOCOBALAMIN 500 MCG TAB PO SCH (11:50)
[2018-08-07 12:33] LABS: Creatine Kinase MB 0.9 ng/mL (0.0-2.4); Troponin I 0.021 ng/mL (0.000-0.034)
--- NOTE | 2018-08-07 13:34 | ECHOF ---
Referral Reason:cp MEASUREMENTS -------- HEIGHT: 175.3 cm WEIGHT: 88.5 kg BP: RVIDd: 3.1 cm (< 3.3) IVSd: 1.2 cm (0.6 - 1.1) LVIDd: 4.1 cm (3.9 - 5.3) LVPWd: 1.5 cm (0.6 - 1.1) IVSs: 1.7 cm LVIDs: 3.5 cm LVPWs: 1.6 cm LA Diam: 4.3 cm (2.7 - 3.8) LAESV Index (A-L): 21.20 ml/m Ao Diam: 3.1 cm (2.0 - 3.7) AV Cusp: 1.6 cm (1.5 - 2.6) LA Diam: 4.6 cm (2.7 - 3.8) MV EXCURSION: 19.436 mm (> 18.000) MV EF SLOPE: 55 mm/s (70 - 150) EPSS: 0.5 cm MV E Maulik: 0.39 m/s MV DecT: 274 ms MV A Maulik: 0.76 m/s MV E/A Ratio: 0.51 AR PHT: 587 ms RAP: 5.00 mmHg RVSP: 15.73 mmHg FINDINGS -------- Sinus rhythm. This was a technically adequate study. The left ventricular size is normal. There is mild concentric left ventricular hypertrophy. Overa ll left ventricular systolic function is low-normal with, an EF between 50 - 55 %. The right ventricle is normal in size. The left atrium is mildly dilated. Normal LA size by volume 22+/-6 ml/m2. The right atrial size is normal. There is mild aortic valve sclerosis. There is mild aortic regurgitation. Mild mitral annular calcification present. Mild mitral regurgitation is present. Mild tricuspid regurgitation present. There is no evidence of pulmonary hypertension. The right v entricular systolic pressure, as measured by Doppler, is 15.73mmHg. Trace/mild (physiologic) pulmonic regurgitation. The aortic root size is normal. Echo free space represents a pericardial fat pad. CONCLUSIONS -------- 1. The left ventricular size is normal. 2. There is mild concentric left ventricular hypertrophy. 3. Overall left ventricular systolic function is low-normal with, an EF between 50 - 55 %. 4. The right ventricle is normal in size. 5. The left atrium is mildly dilated. 6. The right atrial size is normal. 7. There is mild aortic valve sclerosis. 8. There is mild aortic regurgitation. 9. Mild mitral annular calcification present. 10. Mild mitral regurgitation is present. 11. Mild tricuspid regurgitation present. 12. There is no evidence of pulmonary hypertension. 13. The right ventricular systolic pressure, as measured by Doppler, is 15.73mmHg. 14. Trace/mild (physiologic) pulmonic regurgitation. 15. The aortic root size is normal. 16. Echo free space represents a pericardial fat pad. DOUBLE REAMER OPERATOR: Susan Biggs RDCS
--- NOTE | 2018-08-07 13:48 | P.HPIM ---
History of Present Illness H&P Date: 08/07/18 Chief Complaint: headache, chest pain 78-year-old male who presented to the emergency room with a chief complaint of headache and chest pain. The patient has a history of dementia and the majority of the HPI was taken from the patient's . The reports she was at work this morning, but apparently the patient had a headache and chest pain and walked to a neighbors house. The neighbor called EMS to have the patient brought to the hospital. The patient states he has no recollection of having chest pain this morning. The patient currently denies any chest pain or pressure. He denies shortness of breath. Denies cough or congestion. He states he does not have a headache currently, but does remember having a headache earlier this morning. The patient denied any nausea or vomiting when the headache occurred. The reports he gets headaches frequently and usually takes tylenol, which relieves his headache. He did not take any medication this morning for his headache because his administers all his medications due to his dementia and she was at work. The patient has a history of dementia, coronary artery disease, hypertension, hyperlipidemia, and left hydronephrosis. The patient was hospitalized in June 2018 with a 8 mm left renal calculus. The patient's reports they are scheduled to have repeat imaging in a few days to see if the stone has passed. Chest x-ray: Negative for an acute cardiopulmonary process. CT of the brain: Similar mild to moderate atrophy and mild changes of chronic small vessel ischemic disease. Somewhat ectatic appearance to the upper basilar artery and right internal carotid artery is unchanged. Consider nonemergent MRI [place] to assess for any aneurysmal dilatation. No acute intercranial abdomen mildly seen. Mild trapped fluid inferior right mastoid air cells may be incidental. Correlate for any mastoid pain to exclude mastoiditis Laboratory data reveals white count 9.4. Hemoglobin 15.2. Plan: 192. INR 1.1. Sodium 144. Potassium 3.9. BUN 16. Creatinine 1.13. Glucose 105. Troponin 0.016, 0.021 The patient was admitted to the hospital under the care of Dr. Bae. Consultations were placed to cardiology. Review of Systems Those systems with pertinent positive or pertinent negative responses have been documented in the HPI Past Medical History Past Medical History: Coronary Artery Disease (CAD), Cancer, Chest Pain / Angina , CVA/TIA, Dementia, GERD/Reflux, Hyperlipidemia, Hypertension, Memory Impairment, Myocardial Infarction (UT), Prostate Disorder, Syncope Additional Past Medical History / Comment(s): Pt recently admitted on 06/28/18 with L ureteral calculus/L hydronephrosis. Other hx: Dementia with memory impairment/word finding spouse states is getting worse, spouse states hx of UT is questionable but possible in 2015, past skin and prostrate cancer with surgery, TIA, gout, benign polypectomy from colon, occasional low back pain and constipation. Last Myocardial Infarction Date:: 09/26/2015 History of Any Multi-Drug Resistant Organisms: None Reported Past Surgical History: Bowel Resection, Cholecystectomy, Heart Catheterization, Orthopedic Surgery, Prostate Surgery Additional Past Surgical History / Comment(s): Bowel surgery for polypoid lesion with post op ileus, cardiac caths, prostatectomy, PICC line insertion, bilateral cataracts removed, vasectomy, L knee surg., SKIN CA REMOVED , COLONOSCOPY Past Anesthesia/Blood Transfusion Reactions: No Reported Reaction Smoking Status: Former smoker - Past Family History Father Additional Family Medical History / Comment(s): FROM RUPTURED AORTA aneurysm. Mother Family Medical History: CVA/TIA, Myocardial Infarction (UT) Additional Family Medical History / Comment(s): MOM AT AGE 61- HAD MULTIPLE STROKES AND UT'S Sister(s) Family Medical History: Cancer, COPD Additional Family Medical History / Comment(s): Patient had 3 sisters. One sister from emphysema with history of heavy smoking. One sister from breast cancer. One with Alzheimer's dementia. Daughter(s) Additional Family Medical History / Comment(s): Patient has 1 son and 1 daughter with no major medical problems. Medications and Allergies Home Medications Medication Instructions Recorded Confirmed Type Allopurinol [Zyloprim] 300 mg PO DAILY 10/01/14 08/07/18 History clonazePAM [Clonazepam] 0.5 mg PO QAM 12/12/14 08/07/18 History Clopidogrel Bisulfate [Clopidogrel] 75 mg PO DAILY 12/30/15 08/07/18 History Thiamine [Vitamin B-1] 100 mg PO BID 02/03/16 08/07/18 History Metoprolol Tartrate [Lopressor] 100 mg PO DAILY 03/11/16 08/07/18 History Aspirin EC [Ecotrin Low Dose] 81 mg PO DAILY 02/22/17 08/07/18 History Donepezil [Aricept] 10 mg PO HS 02/22/17 08/07/18 History Nitroglycerin Sl Tabs [Nitrostat] 0.4 mg SUBLINGUAL Q5M PRN 02/22/17 08/07/18 History Cyanocobalamin (Vitamin B-12) 1,000 mcg PO DAILY 08/04/17 08/07/18 History [Vitamin B-12] Ezetimibe [Zetia] 10 mg PO HS 08/04/17 08/07/18 History Atorvastatin [Lipitor] 80 mg PO HS 06/28/18 08/07/18 History Isosorbide Mononitrate ER [Imdur] 30 mg PO DAILY 06/28/18 08/07/18 History Allergies Allergy/AdvReac Type Severity Reaction Status Date / Time aloe vera Allergy Unknown Verified 08/07/18 08:57 Latex, Natural Rubber Allergy Swelling Verified 08/07/18 08:57 Penicillins Allergy Rash/Hives Verified 08/07/18 08:57 zolpidem tartrate Allergy Hallucinati Verified 08/07/18 08:57 [[facility] ons Physical Exam Vitals: Vital Signs Temp Pulse Pulse Resp BP BP Pulse Ox 08/07/18 11:55 68 18 08/07/18 09:37 68 18 08/07/18 09:10 97.7 F 68 18 148/84 97 08/07/18 08:51 98.6 F 08/07/18 08:46 67 16 146/85 97 08/07/18 07:33 91 18 163/96 97 08/07/18 06:01 98.4 F 88 20 114/75 114 H Intake and Output 08/06/18 08/07/18 08/07/18 22:59 06:59 14:59 Intake Total 237 Balance 237 Intake: Oral 237 Other: Voiding Method Toilet Weight 85.23 kg 88.9 kg GENERAL: This is a 78-year-old male in no apparent distress at the time of examination. Pleasant and cooperative. HEENT: Head is atraumatic, normocephalic. Pupils are equal, round, and reactive to light. Sclerae anicteric. Conjunctivae are clear. Mucus membranes of the mouth are moist. Neck is supple. RESPIRATORY: Clear to auscultation. No wheezes, rales, or rhonchi. No use of accessory muscles. Patient maintaining oxygen saturation greater than 92%. No chest wall tenderness is noted on palpation or with deep breathing. CARDIOVASCULAR: Regular rate and rhythm. S1 and S2 noted. No JVD noted. No S3 or S4 noted. GASTROINTESTINAL: No distention noted. Abdomen soft and round. Normal active bowel sounds auscultated x 4 quadrants. No pain or tenderness noted upon palpation. INTEGUMENTARY: No cyanosis. No jaundice. No rashes noted. No cellulitis noted. EXTREMITIES: 2+ peripheral pulses. No evidence of peripheral edema. No calf tenderness noted. NEUROLOGIC: Cranial nerves II-XII intact. PSYCHIATRIC: Awake and alert. Oriented x 2. Appropriate affect. Results CBC & Chem 7: 08/07/18 06:10 08/07/18 06:10 Labs: Abnormal Lab Results - Last 24 Hours (Table) 08/07/18 Range/Units 06:10 Glucose 105 H (74-99) mg/dL Total Bilirubin 1.5 H (0.2-1.3) mg/dL ALT 20 L (21-72) U/L Thrombosis Risk Factor Assmnt - Choose All That Apply Any of the Below Risk Factors Present?: Yes Each Factor Represents 1 point: Obesity (BMI >25) Other Risk Factors: Yes Each Risk Factor Represents 2 Points: Malignancy Each Risk Factor Represents 3 Points: Age 75 years or older Other congenital or acquired thrombophilia - If yes, enter type in comment: No Thrombosis Risk Factor Assessment Total Risk Factor Score: 6 Thrombosis Risk Factor Assessment Level: High Risk Assessment and Plan Plan: ASSESSMENT: Chest pain, patient unable to recall symptoms of chest pain, rule out acute coronary syndrome, troponin negative x 2 Headache, improved History of left 8mm renal calculus with hydronephrosis. Patient scheduled for repeat imaging in the near future Hypertension Hyperlipidemia Dementia History of TIA Gastroesophageal reflux disease Remote history of nicotine dependence PLAN: Cardiology on consult. Await further recommendations and input Echo ordered. Await results Serial cardiac enzymes Patient to follow up outpatient regarding left renal calculus. reports imaging appointment in near future Consult dietary as is concerned regarding decreased oral intake. Begin supplements BID. Home meds as appropriate Monitor labs GI prophylaxis: Pepcid 20 mg by mouth twice a day DVT prophylaxis: SCDs to bilateral lower extremities Monitor vital signs and address as appropriate Discharge planning: Patient to return home when stable Further recommendations pending patient's course Nurse practitioner note has been reviewed by physician. Signing provider agrees with the documented findings, assessment, and plan of care.
[2018-08-07 15:01] VITALS: BMI 28.0
[2018-08-07] MEDS: ALLOPURINOL 300 MG TAB PO SCH (15:24)
[2018-08-07 17:12] LABS: Appearance,Urine Clear (Clear); Bilirubin,Urine Negative (Negative); Blood,Urine Negative (Negative); Color,Urine Yellow; Glucose,Urine (UA) Negative (Negative); Ketones,Urine Negative (Negative); Leukocyte Esterase,Urine Negative (Negative); Nitrite,Urine Negative (Negative); Protein,Urine Negative (Negative); Specific Gravity,Urine 1.014 (1.001-1.035); Urobilinogen,Urine <2.0 mg/dL (<2.0)
[2018-08-07 19:00] LABS: Creatine Kinase MB 0.9 ng/mL (0.0-2.4); Troponin I 0.019 ng/mL (0.000-0.034)
[2018-08-07 19:42] VITALS: RESP 16
[2018-08-07] MEDS ORDERED: ATORVASTATIN 80 MG TAB PO SCH (21:00)
[2018-08-07] MEDS ORDERED: EZETIMIBE 10 MG TAB PO SCH (21:00)
[2018-08-07] MEDS ORDERED: DONEPEZIL 10 MG TAB PO SCH (21:00)
[2018-08-07] MEDS: FAMOTIDINE 20 MG TAB PO SCH (21:34)
[2018-08-07 22:18] LABS: Cholesterol 113 mg/dL (<200); HDL Cholesterol 36 mg/dL (40-60); LDL Cholesterol,Calculated 46 mg/dL (0-99); Triglycerides 155 mg/dL (<150)
[2018-08-08] MEDS ORDERED: ASPIRIN 325 MG TAB PO SCH (09:00)
[2018-08-08] MEDS: FAMOTIDINE 20 MG TAB PO SCH (09:38)
[2018-08-08] MEDS: CYANOCOBALAMIN 500 MCG TAB PO SCH (09:38)
[2018-08-08] MEDS: METOPROLOL TARTRATE 50 MG TAB PO SCH (09:38)
[2018-08-08] MEDS: ISOSORBIDE MONONITRATE ER 30 MG TAB.ER.24H PO SCH (09:38)
[2018-08-08] MEDS: ALLOPURINOL 300 MG TAB PO SCH (09:39)
[2018-08-08] MEDS: ASPIRIN 81 MG PO SCH (09:39)
[2018-08-08] MEDS: clonazePAM 0.5 MG TAB PO SCH (09:39)
[2018-08-08] MEDS: THIAMINE 100 MG TAB PO SCH (09:39)
[2018-08-08] MEDS: CLOPIDOGREL 75 MG TAB PO SCH (09:39)
--- NOTE | 2018-08-08 10:26 | P.DS ---
Providers Date of admission: 08/07/18 08:24 Expected date of discharge: 08/08/18 Attending physician: Leandro Perez Consults: 08/07/18 08:24 Consult Physician Urgent Consulting Provider: [facility] Consult Reason/Comments: chest pain Do you want consulting provider notified?: Yes Primary care physician: [facility] Hospital Course: 78-year-old male who presented to the emergency room with a chief complaint of headache and chest pain. The patient has a history of dementia and the majority of the HPI was taken from the patient's . The reports she was at work this morning, but apparently the patient had a headache and chest pain and walked to a neighbors house. The neighbor called EMS to have the patient brought to the hospital. The patient states he has no recollection of having chest pain this morning. The patient currently denies any chest pain or pressure. He denies shortness of breath. Denies cough or congestion. He states he does not have a headache currently, but does remember having a headache earlier this morning. The patient denied any nausea or vomiting when the headache occurred. The reports he gets headaches frequently and usually takes tylenol, which relieves his headache. He did not take any medication this morning for his headache because his administers all his medications due to his dementia and she was at work. The patient has a history of dementia, coronary artery disease, hypertension, hyperlipidemia, and left hydronephrosis. The patient was hospitalized in June 2018 with a 8 mm left renal calculus. The patient's reports they are scheduled to have repeat imaging in a few days to see if the stone has passed. Chest x-ray: Negative for an acute cardiopulmonary process. CT of the brain: Similar mild to moderate atrophy and mild changes of chronic small vessel ischemic disease. Somewhat ectatic appearance to the upper basilar artery and right internal carotid artery is unchanged. Consider nonemergent MRI [place] to assess for any aneurysmal dilatation. No acute intercranial abdomen mildly seen. Mild trapped fluid inferior right mastoid air cells may be incidental. Correlate for any mastoid pain to exclude mastoiditis Laboratory data reveals white count 9.4. Hemoglobin 15.2. Plan: 192. INR 1.1. Sodium 144. Potassium 3.9. BUN 16. Creatinine 1.13. Glucose 105. Troponin 0.016, 0.021, 0.019 The patient was evaluated by cardiology. Echo was completed revealing ejection fraction of 50-55%, mild aortic regurgitation, mild mitral regurgitation, and mild tricuspid regurgitation. The patient has denied any further complaints of chest pain during hospitalization. He states his headache has improved. The patient was deemed stable for discharge. He is to follow up on an outpatient basis with Dr. Bae and his professor of counseling, Dr. Girard. DISCHARGE DIAGNOSIS: Chest pain, patient unable to recall symptoms of chest pain, acute coronary syndrome ruled out, troponins negative 3 Headache, improved History of left 8mm renal calculus with hydronephrosis. Patient scheduled for repeat imaging in the near future Hypertension Hyperlipidemia Dementia History of TIA Gastroesophageal reflux disease Remote history of nicotine dependence Nurse practitioner note has been reviewed by physician. Signing provider agrees with the documented findings, assessment, and plan of care. Patient Condition at Discharge: Stable Plan - Discharge Summary Discharge Rx Participant: No New Discharge Prescriptions: Continue Allopurinol [Zyloprim] 300 mg PO DAILY clonazePAM [Clonazepam] 0.5 mg PO QAM Clopidogrel Bisulfate [Clopidogrel] 75 mg PO DAILY Thiamine [Vitamin B-1] 100 mg PO BID Metoprolol Tartrate [Lopressor] 100 mg PO DAILY Nitroglycerin Sl Tabs [Nitrostat] 0.4 mg SUBLINGUAL Q5M PRN PRN Reason: Chest Pain Donepezil [Aricept] 10 mg PO HS Aspirin EC [Ecotrin Low Dose] 81 mg PO DAILY Cyanocobalamin (Vitamin B-12) [Vitamin B-12] 1,000 mcg PO DAILY Ezetimibe [Zetia] 10 mg PO HS Atorvastatin [Lipitor] 80 mg PO HS Isosorbide Mononitrate ER [Imdur] 30 mg PO DAILY Discharge Medication List Allopurinol [Zyloprim] 300 mg PO DAILY 10/01/14 [History] clonazePAM [Clonazepam] 0.5 mg PO QAM 12/12/14 [History] Clopidogrel Bisulfate [Clopidogrel] 75 mg PO DAILY 12/30/15 [History] Thiamine [Vitamin B-1] 100 mg PO BID 02/03/16 [History] Metoprolol Tartrate [Lopressor] 100 mg PO DAILY 03/11/16 [History] Aspirin EC [Ecotrin Low Dose] 81 mg PO DAILY 02/22/17 [History] Donepezil [Aricept] 10 mg PO HS 02/22/17 [History] Nitroglycerin Sl Tabs [Nitrostat] 0.4 mg SUBLINGUAL Q5M PRN 02/22/17 [History] Cyanocobalamin (Vitamin B-12) [Vitamin B-12] 1,000 mcg PO DAILY 08/04/17 [ History] Ezetimibe [Zetia] 10 mg PO HS 08/04/17 [History] Atorvastatin [Lipitor] 80 mg PO HS 06/28/18 [History] Isosorbide Mononitrate ER [Imdur] 30 mg PO DAILY 06/28/18 [History] Follow up Appointment(s)/Referral(s): Valdez Girard MD [STAFF PHYSICIAN] - 2 Weeks Filemon Bae Jr, DO [Doctor of Osteopathic Medicine] - 1 Week Discharge Disposition: HOME SELF-CARE
[2018-08-08 11:09] VITALS: BP 180/81; PULSE 75; TEMP 97.8
[2018-08-08 11:55] LABS: Glucose,Whole Blood 149 mg/dL (75-99)
== END 2018-08-08 13:06 | disposition home or self-care (01) ==
LOC: EC 05:55 → 3OBS 08:24
PROVIDERS: ADMIT Family Medicine; ATTEND Family Medicine
DX: R07.9 Chest pain, unspecified (principal); R51 Headache; F03.90 Unspecified dementia, unspecified severity, without behavioral disturbance, psychotic disturbance, mood disturbance, and anxiety; K21.9 Gastro-esophageal reflux disease without esophagitis; R41.3 Other amnesia; M10.9 Gout, unspecified; I25.10 Atherosclerotic heart disease of native coronary artery without angina pectoris; I10 Essential (primary) hypertension; E78.5 Hyperlipidemia, unspecified; F41.9 Anxiety disorder, unspecified; E66.9 Obesity, unspecified; Z68.28 Body mass index [BMI] 28.0-28.9, adult; I25.2 Old myocardial infarction; Z79.02 Long term (current) use of antithrombotics/antiplatelets; Z79.82 Long term (current) use of aspirin; Z79.899 Other long term (current) drug therapy; Z91.040 Latex allergy status; Z88.0 Allergy status to penicillin; Z88.8 Allergy status to other drugs, medicaments and biological substances; Z91.048 Other nonmedicinal substance allergy status; Z86.73 Personal history of transient ischemic attack (TIA), and cerebral infarction without residual deficits; Z85.46 Personal history of malignant neoplasm of prostate; Z85.828 Personal history of other malignant neoplasm of skin; Z90.49 Acquired absence of other specified parts of digestive tract; Z98.42 Cataract extraction status, left eye; Z98.41 Cataract extraction status, right eye; Z87.891 Personal history of nicotine dependence; Z87.442 Personal history of urinary calculi; Z86.010 Personal history of colon polyps; Z82.49 Family history of ischemic heart disease and other diseases of the circulatory system; Z82.3 Family history of stroke; Z82.5 Family history of asthma and other chronic lower respiratory diseases; Z80.3 Family history of malignant neoplasm of breast; Z82.0 Family history of epilepsy and other diseases of the nervous system; Z81.2 Family history of tobacco abuse and dependence
CPT/HCPCS: 99285 ×2; 96360 ×2; 36415; 93306; 80061; 80053; 82550; 82553; 83735; 84484; 85025; 85610; 85730; 81003; 71046; 70450; G0378 ×2

== ENCOUNTER → 2018-08-09 | Outpatient (CLI) | payer MEDICARE, BC ==
--- NOTE | 2018-08-09 15:26 | US ---
EXAMINATION TYPE: US kidneys/renal and bladder DATE OF EXAM: 08/09/2018 COMPARISON: CT CLINICAL HISTORY: N20.1 CALCULUS OF URETER,R93.4 HX OF HYDRO. H/O hydro on left, renal cysts EXAM MEASUREMENTS: Right Kidney: 9.8 x 5.9 x 6.0 cm Left Kidney: 12.8 x 5.0 x 4.3 cm Right Kidney: Multicystic, largest cyst measured, upper pole= 4.5 x 4.5 x 4.3 cm Left Kidney: Multicystic, largest cyst measured, mid/medial= 7.6 x 4.6 x 5.2 cm, no evidence of hydro Bladder: Possible calculus dependent portion= 1.2 by 0.5 cm and is somewhat echogenic but without sig nificant posterior shadowing. Wall thickening can be considered. This is located in the left posterio r lateral region of the urinary bladder. Bilateral Jets seen: No IMPRESSION: 1. Multiple bilateral simple appearing renal cysts. Correlate for polycystic kidney disease. 2. Possible dependent urinary bladder calcification versus wall thickening. Follow-up is recommended.
--- NOTE | 2018-08-09 16:23 | XR ---
Abdomen HISTORY: Ureteral calculus Frontal view of the abdomen on 2 images correlated to prior CT 06/28/2018, abdomen 03/19/2017 There are multiple surgical clips present in the pelvis, there are vascular calcifications noted. Bon e mineralization is maintained. Degenerative disc changes are present in the visualized spine. Bowel gas may obscure underlying detail. Surgical clips are present right upper quadrant. No evident bowel obstruction or pneumoperitoneum. There is a persistent oval calcification in the left hemipelvis measuring approximately 9 x 5 mm comp atible with distal left ureteral calculus. IMPRESSION: Distal left ureteral calculus is suspected. Postop changes.
== END | disposition home or self-care (01) ==
LOC: RADUSWWP 14:33
PROVIDERS: ATTEND Urology
DX: N28.1 Cyst of kidney, acquired (principal); N20.1 Calculus of ureter; N13.30 Unspecified hydronephrosis; C61 Malignant neoplasm of prostate
CPT/HCPCS: 36415; 74018; 76770; 84153

== ENCOUNTER → 2018-09-05 | Outpatient (CLI) | payer MEDICARE, BC ==
--- NOTE | 2018-09-05 10:22 | XR ---
EXAMINATION TYPE: XR KUB DATE OF EXAM: 09/05/2018 COMPARISON: NONE HISTORY: Renal calculus TECHNIQUE: One view abdominal series FINDINGS: The osseous structures are intact. The bowel gas pattern is nonspecific. Surgical clips in the right upper quadrant. Vascular calcifications. Postsurgical change in the pelvis and arthropathy of the hi ps. Due to overlying bowel content assessment the renal outlines is markedly limited. No definite calcifi cation seen. No suspicious calcifications in the pelvis. IMPRESSION: 1. No suspicious calcifications identified.
== END ==
LOC: RADXRMAIN 09:39
PROVIDERS: ATTEND Urology
DX: N20.1 Calculus of ureter (principal); Z88.0 Allergy status to penicillin; Z91.040 Latex allergy status; Z88.8 Allergy status to other drugs, medicaments and biological substances
CPT/HCPCS: 74018

== ENCOUNTER 2018-11-14 23:01 | Inpatient (IN) | payer MEDICARE, BC ==
--- NOTE | 2018-11-14 23:16 | ED ---
Fall HPI - General Chief Complaint: Fall Stated Complaint: FALL Time Seen by Provider: 11/14/18 23:16 Source: patient, family Mode of arrival: ambulatory - History of Present Illness Initial Comments: Shawn is a pleasantly demented 78-year-old male who is brought to the emergency department today by his for evaluation of hip and flank pain after a fall at home. reports that between 4 and 5 PM today they walked up with her porch, where he reached forward to open the front door but missed the handle, he then stepped backwards and fell backwards off the porch approximately 3 feet landing in the dirt. He did not believe he struck his head, he didn't have any evidence of head injury. He did not lose consciousness. She was able to help him to his feet and into a chair in the living room. He rested there for a few hours and stated that he didn't want to come to the emergency department. However when she attempted to get him out of the chair to get ready for bed he had hip and right-sided flank pain and was unable to stand unassisted at which point she called her neighbor to help him in the car to bring him to the emergency department. Patient is pleasantly confused and offers no meaningful history or complaint. - Related Data Home Medications Medication Instructions Recorded Confirmed RX: Allopurinol [Zyloprim] 300 mg PO DAILY 10/01/14 08/07/18 RX: clonazePAM [Clonazepam] 0.5 mg PO QAM 12/12/14 08/07/18 RX: Clopidogrel Bisulfate 75 mg PO DAILY 12/30/15 08/07/18 [Clopidogrel] RX: Thiamine [Vitamin B-1] 100 mg PO BID 02/03/16 08/07/18 RX: Metoprolol Tartrate [Lopressor] 100 mg PO DAILY 03/11/16 08/07/18 RX: Aspirin EC [Ecotrin Low Dose] 81 mg PO DAILY 02/22/17 08/07/18 RX: Donepezil [Aricept] 10 mg PO HS 02/22/17 08/07/18 RX: Nitroglycerin Sl Tabs 0.4 mg SUBLINGUAL Q5M PRN 02/22/17 08/07/18 [Nitrostat] RX: Cyanocobalamin (Vitamin B-12) 1,000 mcg PO DAILY 08/04/17 08/07/18 [Vitamin B-12] RX: Ezetimibe [Zetia] 10 mg PO HS 08/04/17 08/07/18 RX: Atorvastatin [Lipitor] 80 mg PO HS 06/28/18 08/07/18 RX: Isosorbide Mononitrate ER 30 mg PO DAILY 06/28/18 08/07/18 [Imdur] Allergies Allergy/AdvReac Type Severity Reaction Status Date / Time aloe vera Allergy Unknown Verified 11/14/18 23:08 Latex, Natural Rubber Allergy Swelling Verified 11/14/18 23:08 Penicillins Allergy Rash/Hives Verified 11/14/18 23:08 zolpidem tartrate Allergy Hallucinati Verified 11/14/18 23:08 [From Denisse] ons Review of Systems ROS Statement: Those systems with pertinent positive or pertinent negative responses have been documented in the HPI. ROS Other: All systems not noted in ROS Statement are negative. Limitations: ROS unobtainable due to patients medical condition (Dementia) Past Medical History Past Medical History: Coronary Artery Disease (CAD), Cancer, Chest Pain / Angina , CVA/TIA, Dementia, GERD/Reflux, Hyperlipidemia, Hypertension, Memory Impairment, Myocardial Infarction (DC), Prostate Disorder, Syncope Additional Past Medical History / Comment(s): Pt recently admitted on 06/28/18 with L ureteral calculus/L hydronephrosis. Other hx: Dementia with memory impairment/word finding spouse states is getting worse, spouse states hx of DC is questionable but possible in 2015, past skin and prostrate cancer with surgery, TIA, gout, benign polypectomy from colon, occasional low back pain and constipation. Last Myocardial Infarction Date:: 09/26/2015 History of Any Multi-Drug Resistant Organisms: None Reported Past Surgical History: Bowel Resection, Cholecystectomy, Heart Catheterization, Orthopedic Surgery, Prostate Surgery Additional Past Surgical History / Comment(s): Bowel surgery for polypoid lesion with post op ileus, cardiac caths, prostatectomy, PICC line insertion, bilateral cataracts removed, vasectomy, L knee surg., SKIN CA REMOVED , COLONOSCOPY Past Anesthesia/Blood Transfusion Reactions: No Reported Reaction Past Psychological History: Anxiety Smoking Status: Former smoker - Past Family History Father Additional Family Medical History / Comment(s): FROM RUPTURED AORTA aneurysm. Mother Family Medical History: CVA/TIA, Myocardial Infarction (DC) Additional Family Medical History / Comment(s): MOM AT AGE 61- HAD MULTIPLE STROKES AND DC'S Sister(s) Family Medical History: Cancer, COPD Additional Family Medical History / Comment(s): Patient had 3 sisters. One sister from emphysema with history of heavy smoking. One sister from breast cancer. One with Alzheimer's dementia. Daughter(s) Additional Family Medical History / Comment(s): Patient has 1 son and 1 daughter with no major medical problems. General Exam - General Exam Comments Initial Comments: GENERAL: Elderly male, nontoxic and well-hydrated and is in no distress. HENT: Normocephalic, Atraumatic. TMs normal bilaterally No midline cervical spine tenderness Neck is soft and supple. No significant lymphadenopathy is noted. Oropharynx is clear. Moist mucous membranes. Neck has full range of motion without eliciting any pain. EYES: The sclera were anicteric and conjunctiva were pink and moist. Extraocular movements were intact and pupils were equal round and reactive to light. Eyelids were unremarkable. PULMONARY: Unlabored respirations. Good breath sounds bilaterally. No audible rales rhonchi or wheezing was noted. CARDIOVASCULAR: There is a regular rate and rhythm without any gallops or rubs. ABDOMEN: Soft and nontender with normal bowel sounds. Bruising of her right flank SKIN: Skin is clear with no lesions or rashes and otherwise unremarkable. Bruising of her right flank, no abrasions noted NEUROLOGIC: Oriented to self, has word finding difficulties and some expressive aphasia MUSCULOSKELETAL: Normal extremities with adequate strength and full range of motion. No lower extremity swelling or edema. No calf tenderness. LYMPHATICS: No significant lymphadenopathy is noted PSYCHIATRIC: Normal psychiatric evaluation. Limitations: no limitations Limitations: altered mental status Course Vital Signs 11/14/18 11/15/18 11/15/18 23:02 00:24 01:08 Temperature 98.2 F Pulse Rate 80 87 75 Respiratory 16 16 16 Rate Blood Pressure 102/64 131/70 129/74 O2 Sat by Pulse 90 L 96 94 L Oximetry Medical Decision Making - Medical Decision Making Patient was seen and evaluated, history was obtained from the and the medical record Labs and imaging ordered The patient's dementia and limited ability to provide accurate history decision was made to scan from head to pelvis Labs with no significant abnormalities mildly elevated creatinine Computed tomography scan of the head and neck with no acute injuries, computed tomography scan of the thorax does reveal a small pneumothorax, pulmonary contusion as well as rib 4 through 8 fractures with some free air surrounding the fractures. These results were discussed with general surgery education program associate Dr. Ocampo who agrees with the plan for admission to the stepdown unit for pain management, incentive spirometry and close cardiopulmonary monitoring. Respiratory therapy was able to teach the patient considers spirometry, patient and were updated on plan for admission. Admission orders were placed with consults to medicine for medical management and pulmonology. - Lab Data Result diagrams: 11/14/18 23:57 11/14/18 23:57 Lab Results 11/14/18 11/14/18 11/14/18 Range/Units 23:57 23:57 23:57 WBC 13.2 H (3.8-10.6) k/uL RBC 4.13 L (4.30-5.90) m/uL Hgb 12.4 L (13.0-17.5) gm/dL Hct 39.6 (39.0-53.0) % MCV 96.0 (80.0-100.0) fL MCH 30.1 (25.0-35.0) pg MCHC 31.3 (31.0-37.0) g/dL RDW 13.6 (11.5-15.5) % Plt Count 182 (150-450) k/uL Neutrophils % 84 % Lymphocytes % 8 % Monocytes % 5 % Eosinophils % 2 % Basophils % 0 % Neutrophils # 11.1 H (1.3-7.7) k/uL Lymphocytes # 1.1 (1.0-4.8) k/uL Monocytes # 0.6 (0-1.0) k/uL Eosinophils # 0.2 (0-0.7) k/uL Basophils # 0.0 (0-0.2) k/uL PT (9.0-12.0) sec INR (<1.2) APTT (22.0-30.0) sec Sodium 141 (137-145) mmol/L Potassium 4.5 (3.5-5.1) mmol/L Chloride 110 H (98-107) mmol/L Carbon Dioxide 21 L (22-30) mmol/L Anion Gap 10 mmol/L BUN 24 H (9-20) mg/dL Creatinine 1.38 H (0.66-1.25) mg/dL Est GFR (CKD-EPI)AfAm 56 (>60 ml/min/1.73 sqM) Est GFR (CKD-EPI)NonAf 48 (>60 ml/min/1.73 sqM) Glucose 138 H (74-99) mg/dL Calcium 9.5 (8.4-10.2) mg/dL Total Bilirubin 0.8 (0.2-1.3) mg/dL AST 45 (17-59) U/L ALT 36 (21-72) U/L Alkaline Phosphatase 64 (38-126) U/L Total Creatine Kinase 175 H (55-170) U/L CK-MB (CK-2) 1.7 (0.0-2.4) ng/mL CK-MB (CK-2) Rel Index 1.0 Troponin I 0.013 (0.000-0.034) ng/mL Total Protein 6.1 L (6.3-8.2) g/dL Albumin 3.5 (3.5-5.0) g/dL Serum Alcohol <10 mg/dL Blood Type Blood Type Recheck Antibody Screen Spec Expiration Date 11/14/18 11/14/18 Range/Units 23:57 23:57 WBC (3.8-10.6) k/uL RBC (4.30-5.90) m/uL Hgb (13.0-17.5) gm/dL Hct (39.0-53.0) % MCV (80.0-100.0) fL MCH (25.0-35.0) pg MCHC (31.0-37.0) g/dL RDW (11.5-15.5) % Plt Count (150-450) k/uL Neutrophils % % Lymphocytes % % Monocytes % % Eosinophils % % Basophils % % Neutrophils # (1.3-7.7) k/uL Lymphocytes # (1.0-4.8) k/uL Monocytes # (0-1.0) k/uL Eosinophils # (0-0.7) k/uL Basophils # (0-0.2) k/uL PT 11.0 (9.0-12.0) sec INR 1.0 (<1.2) APTT 20.8 L (22.0-30.0) sec Sodium (137-145) mmol/L Potassium (3.5-5.1) mmol/L Chloride (98-107) mmol/L Carbon Dioxide (22-30) mmol/L Anion Gap mmol/L BUN (9-20) mg/dL Creatinine (0.66-1.25) mg/dL Est GFR (CKD-EPI)AfAm (>60 ml/min/1.73 sqM) Est GFR (CKD-EPI)NonAf (>60 ml/min/1.73 sqM) Glucose (74-99) mg/dL Calcium (8.4-10.2) mg/dL Total Bilirubin (0.2-1.3) mg/dL AST (17-59) U/L ALT (21-72) U/L Alkaline Phosphatase (38-126) U/L Total Creatine Kinase (55-170) U/L CK-MB (CK-2) (0.0-2.4) ng/mL CK-MB (CK-2) Rel Index Troponin I (0.000-0.034) ng/mL Total Protein (6.3-8.2) g/dL Albumin (3.5-5.0) g/dL Serum Alcohol mg/dL Blood Type O Positive Blood Type Recheck No Antibody Screen NEGATIVE Spec Expiration Date 11/17/20182356 Disposition Clinical Impression: Fall, Multiple rib fractures involving four or more ribs, Hemopneumothorax on right Disposition: ADMITTED IP TO THIS [facility] Condition: Serious Is patient prescribed a controlled substance at d/c from ED?: No
[2018-11-14] MEDS ORDERED: ONDANSETRON 4 MG/2 ML VIAL IVP STA (23:26)
[2018-11-14] MEDS ORDERED: MORPHINE SULFATE 4 MG/ML SYRINGE IVP STA (23:27)
[2018-11-15 00:28] LABS: ALT 36 U/L (21-72); AST 45 U/L (17-59); Albumin 3.5 g/dL (3.5-5.0); Alcohol <10 mg/dL; Alkaline Phosphatase 64 U/L (38-126); Anion Gap 10 mmol/L; Blood Urea Nitrogen 24 mg/dL (9-20); Calcium 9.5 mg/dL (8.4-10.2); Carbon Dioxide 21 mmol/L (22-30); Chloride 110 mmol/L (98-107); Glucose 138 mg/dL (74-99); Potassium 4.5 mmol/L (3.5-5.1); Sodium 141 mmol/L (137-145); Total Bilirubin 0.8 mg/dL (0.2-1.3); Total Protein 6.1 g/dL (6.3-8.2)
[2018-11-15 00:30] LABS: Basophils % (A) 0 %; Eosinophils # (A) 0.2 k/uL (0-0.7); Eosinophils % (A) 2 %; HCT 39.6 % (39.0-53.0); HGB 12.4 gm/dL (13.0-17.5); Lymphocytes # (A) 1.1 k/uL (1.0-4.8); Lymphocytes % (A) 8 %; MCH 30.1 pg (25.0-35.0); MCHC 31.3 g/dL (31.0-37.0); Monocytes # (A) 0.6 k/uL (0-1.0); Monocytes % (A) 5 %; Neutrophils # (A) 11.1 k/uL (1.3-7.7); Neutrophils % (A) 84 %; Platelet Count 182 k/uL (150-450); RBC 4.13 m/uL (4.30-5.90); RDW 13.6 % (11.5-15.5); WBC 13.2 k/uL (3.8-10.6)
[2018-11-15 00:38] LABS: Partial Thromboplastin Time 20.8 sec (22.0-30.0)
--- NOTE | 2018-11-15 00:38 | XR ---
EXAMINATION TYPE: XR Hip RT and AP Pelvis DATE OF EXAM: 11/15/2018 COMPARISON: NONE HISTORY: Right hip pain TECHNIQUE: A single AP view of the pelvis is obtained. Two views of the right hip are obtained. FINDINGS: The pelvic ring is intact. The proximal right femur and hip joint appear intact. There are surgical clips in the pelvis. Sacroiliac joints appear intact. IMPRESSION: No acute abnormality of the pelvis and right hip.
--- NOTE | 2018-11-15 00:41 | XR ---
EXAMINATION TYPE: XR chest 1V portable DATE OF EXAM: 11/15/2018 COMPARISON: None HISTORY: Trauma. Fall. Pain. TECHNIQUE: Single frontal view of the chest is obtained. FINDINGS: There is some calcified pleural plaque in the left upper lobe. I see no pneumothorax. Hear t size is normal. There is no heart failure. Costophrenic angles are clear. IMPRESSION: No active cardiopulmonary disease.
[2018-11-15 00:50] LABS: Creatine Kinase MB 1.7 ng/mL (0.0-2.4); Troponin I 0.013 ng/mL (0.000-0.034)
--- NOTE | 2018-11-15 00:55 | CT ---
EXAMINATION TYPE: CT brain martina reyna con DATE OF EXAM: 11/15/2018 COMPARISON: 08/07/[address] scan HISTORY: trauma, fall CT DLP: 1321 mGycm Automated exposure control for dose reduction was used. TECHNIQUE: CT scan of the head and cervical spine are performed without contrast. FINDINGS: There is large cisterna magna. There is cerebral atrophy. There is no mass effect nor mid line shift. There is no sign of intracranial hemorrhage. The calvarium is intact. The cervical vertebra have normal alignment. There is degenerative mild disc space narrowing at C5-6 C6-7. Posterior elements are intact. There is multilevel hypertrophic facet arthropathy. The skull ba se appears intact. I see no bony destructive process. IMPRESSION: Cerebral atrophy. No acute intracranial abnormality. No change compared to old exam. Spondylotic changes in the cervical spine. No fracture seen.
[2018-11-15] MEDS ORDERED: LIDOCAINE 5% PATCH TOPICAL STA (01:07)
[2018-11-15] MEDS ORDERED: MORPHINE SULFATE 4 MG/ML SYRINGE IVP STA (01:07)
--- NOTE | 2018-11-15 01:09 | CT ---
EXAMINATION TYPE: CT ChestAbdPelvis w con DATE OF EXAM: 11/15/2018 COMPARISON: 06/28/2018 HISTORY: trauma, fall CT DLP: 807.8 mGycm Automated exposure control for dose reduction was used. CONTRAST: CT scan of the chest, abdomen and pelvis is performed without Oral Contrast and with IV Contrast, pat ient injected with 100 mL of Isovue 300. FINDINGS: There is soft tissue air along the right lateral chest wall. There is small right pneumothorax. There is small right pleural effusion. There is no mediastinal adenopathy. Thoracic aorta is intact. There are no hilar masses. There is no pericardial effusion. Liver shows no focal defect. There are clips from cholecystectomy. Spleen appears normal. There is no pancreatic mass. There are multiple bilateral renal cortical cysts that measure up to 6.2 cm. There is no retroperiton eal adenopathy. There is no hydronephrosis. I see no free fluid in the abdomen. There is no sign of a n pneumoperitoneum. Bladder is almost empty. There is no inguinal hernia. There are surgical clips in the pelvis. Abdominal aorta is atheromatous. There is no mesenteric edema. There is no evidence of a bowel obstruction. There is fracture of the lateral right eighth seventh sixth fifth ribs. There is fracture right fourt h rib laterally. I do not see comminution. There is pleural calcification on the left side. There is large soft tissue bruising and hematoma involving the right lateral posterior pelvis. There is a first-degree L5-S1 spondylolisthesis. There is bilateral L5 spondylolysis. I see no compre ssion fracture in the thoracic spine. There is degenerative spurring in the thoracic and lumbar spine . The bony pelvis appears intact. There is no evidence of a hip fracture. IMPRESSION: Multiple lateral rib fractures on the right side with soft tissue air and also small righ t-sided pneumothorax less than 5%. Small right-sided hemothorax. Multiple renal cortical cysts. No sign of traumatic injury within the abdomen and pelvis. Large soft tissue bruising and hematoma in the posterior pelvis right side. This exam was discussed w [facility] ER physician at 1:10 AM.
[2018-11-15] MEDS ORDERED: NALOXONE 0.4 MG/ML 1 ML VIAL IV PRN (01:14)
[2018-11-15] MEDS ORDERED: ACETAMINOPHEN TAB 325 MG TAB PO PRN (01:14)
[2018-11-15] MEDS ORDERED: ONDANSETRON 4 MG/2 ML VIAL IVP PRN (01:14)
[2018-11-15] MEDS ORDERED: MORPHINE SULFATE 4 MG/ML SYRINGE IV PRN (01:14)
[2018-11-15] MEDS: SODIUM CHLORIDE 0.9% 1,000 ML IV SCH ×2 (01:29→16:23)
[2018-11-15] MEDS: traMADol 50 MG TAB PO PRN ×3 (06:27→23:26)
[2018-11-15] MEDS: METHOCARBAMOL 500 MG TAB PO SCH ×5 (06:27→23:27)
[2018-11-15 06:40] LABS: Appearance,Urine Clear (Clear); Bilirubin,Urine Negative (Negative); Blood,Urine Negative (Negative); Color,Urine Yellow; Glucose,Urine (UA) Negative (Negative); Ketones,Urine Negative (Negative); Leukocyte Esterase,Urine Negative (Negative); Nitrite,Urine Negative (Negative); Protein,Urine Trace (Negative); Urobilinogen,Urine <2.0 mg/dL (<2.0)
[2018-11-15 06:53] LABS: Amphetamine Screen,Urine Not Detected (NotDetected); Barbiturate Screen,Urine Not Detected (NotDetected); Benzodiazepines Screen,Urine Not Detected (NotDetected); Cocaine Screen,Urine Not Detected (NotDetected); Methadone Screen, Urine Not Detected (NotDetected); Opiate Screen,Urine Detected (NotDetected); Oxycodone Screen, Urine Not Detected (NotDetected); Phencyclidine Screen,Urine Not Detected (NotDetected); Tricyclic Antidepressant,Urine Not Detected (NotDetected); Urn Cannabinoid Scrn Not Detected (NotDetected)
--- NOTE | 2018-11-15 07:29 | XR ---
EXAMINATION TYPE: XR chest 1V portable DATE OF EXAM: 11/15/2018 CLINICAL HISTORY: Pneumothorax progress study. TECHNIQUE: Single AP portable upright view of the chest is obtained. COMPARISON: Chest x-ray and CT from earlier today FINDINGS: There is redemonstration of tiny right apical pneumothorax estimated at less than 5% stable or slightly larger from recent CT. Prior x-ray May not have been upright as is not well-visualized. Several mid to lower left lateral right rib fractures are redemonstrated. There is new patchy right b asilar atelectasis and/or infiltrate and suspected tiny right pleural fluid collection. Colonic inter position is redemonstrated. There is slightly more prominent left mid and basilar opacity. No pneumot horax on the left is present. No mediastinal shift is seen. Cardiac silhouette size is stable and mil dly enlarged with atherosclerotic thoracic aorta. IMPRESSION: Tiny right apical pneumothorax stable or slightly more prominent from CT. There is persis tent low lung volumes with mild cardiomegaly and left greater than right bilateral lower lung atelect asis and/or infiltrate which is progressing from CT. Multiple right lateral rib fractures redemonstra emile.
--- NOTE | 2018-11-15 08:24 | P.GSHP ---
History of Present Illness H&P Date: 11/15/18 78-year-old male presented to the emergency department after a fall. It is unclear whether he fell from his porch on his porch. The patient does have a baseline of dementia and is difficult to obtain a history from. Most history is taken from medical records. On workup in the emergency department, patient was found to have multiple rib fractures on the right side and a small, less than 5 % pneumothorax on that side. The patient denies any additional pain and does not appear to have any other physical injury or abnormality. He does not appear to have any injury to his head and does deny hitting his head. In workup in the emergency department, CT of the head and C-spine was performed with no acute findings. Currently, the patient is resting comfortably in bed. He does complain of some pain in his right chest. He is not having any difficulty with respiration. He does not appear to be short of breath. He denies any abdominal pain. He is tolerating his diet. - Review of Systems ROS unobtainable: Reports: due to mental status Past Medical History Past Medical History: Coronary Artery Disease (CAD), Cancer, Chest Pain / Angina , CVA/TIA, Dementia, GERD/Reflux, Hyperlipidemia, Hypertension, Memory Impairment, Myocardial Infarction (NE), Prostate Disorder, Syncope Additional Past Medical History / Comment(s): Pt recently admitted on 06/28/18 with L ureteral calculus/L hydronephrosis. Other hx: Dementia with memory impairment/word finding spouse states is getting worse, spouse states hx of NE is questionable but possible in 2015, past skin and prostrate cancer with surgery, TIA, gout, benign polypectomy from colon, occasional low back pain and constipation. Last Myocardial Infarction Date:: 09/26/2015 History of Any Multi-Drug Resistant Organisms: None Reported Past Surgical History: Bowel Resection, Cholecystectomy, Heart Catheterization, Orthopedic Surgery, Prostate Surgery Additional Past Surgical History / Comment(s): Bowel surgery for polypoid lesion with post op ileus, cardiac caths, prostatectomy, PICC line insertion, bilateral cataracts removed, vasectomy, L knee surg., SKIN CA REMOVED , COLONOSCOPY Past Anesthesia/Blood Transfusion Reactions: No Reported Reaction Past Psychological History: Anxiety Additional Psychological History / Comment(s): Pt resides with his spouse. She manages his medications. Pt no longer drives, spouse takes him to [employer]. Pt has a cane and a walker but so far has not needed to use them. Pt has dementia. Smoking Status: Former smoker Past Alcohol Use History: None Reported Additional Past Alcohol Use History / Comment(s): STARTED SMOKING AT AGE 15- 1/ 2 PPD, QUIT AT AGE 45, used to drink 10-12 BEERS PER DAY BUT none since 2013 Past Drug Use History: None Reported - Past Family History Father Additional Family Medical History / Comment(s): FROM RUPTURED AORTA aneurysm. Mother Family Medical History: CVA/TIA, Myocardial Infarction (NE) Additional Family Medical History / Comment(s): MOM AT AGE 61- HAD MULTIPLE STROKES AND NE'S Sister(s) Family Medical History: Cancer, COPD Additional Family Medical History / Comment(s): Patient had 3 sisters. One sister from emphysema with history of heavy smoking. One sister from breast cancer. One with Alzheimer's dementia. Daughter(s) Additional Family Medical History / Comment(s): Patient has 1 son and 1 daughter with no major medical problems. Medications and Allergies Home Medications Medication Instructions Recorded Confirmed Type Allopurinol [Zyloprim] 300 mg PO DAILY 10/01/14 11/15/18 History Clopidogrel Bisulfate [Clopidogrel] 75 mg PO DAILY 12/30/15 11/15/18 History Thiamine [Vitamin B-1] 100 mg PO BID 02/03/16 11/15/18 History Metoprolol Tartrate [Lopressor] 50 mg PO DAILY 03/11/16 11/15/18 History Aspirin EC [Ecotrin Low Dose] 81 mg PO DAILY 02/22/17 11/15/18 History Donepezil [Aricept] 10 mg PO HS 02/22/17 11/15/18 History Nitroglycerin Sl Tabs [Nitrostat] 0.4 mg SUBLINGUAL Q5M PRN 02/22/17 11/15/18 History Cyanocobalamin (Vitamin B-12) 1,000 mcg PO DAILY 08/04/17 11/15/18 History [Vitamin B-12] Ezetimibe [Zetia] 10 mg PO HS 08/04/17 11/15/18 History Atorvastatin [Lipitor] 40 mg PO HS 06/28/18 11/15/18 History Isosorbide Mononitrate ER [Imdur] 30 mg PO DAILY 06/28/18 11/15/18 History Topiramate [Topamax] 25 mg PO BID 11/15/18 11/15/18 History Allergies Allergy/AdvReac Type Severity Reaction Status Date / Time aloe vera Allergy Unknown Verified 11/14/18 23:08 Latex, Natural Rubber Allergy Swelling Verified 11/14/18 23:08 Penicillins Allergy Rash/Hives Verified 11/14/18 23:08 zolpidem tartrate Allergy Hallucinati Verified 11/14/18 23:08 [From Denisse] ons Surgical - Exam Osteopathic Statement: *. No significant issues noted on an osteopathic structural exam other than those noted in the History and Physical/Consult. Vital Signs Temp Pulse Resp BP Pulse Ox 98.2 F 80 16 102/64 90 L 11/14/18 23:02 11/14/18 23:02 11/14/18 23:02 11/14/18 23:02 11/14/18 23:02 - General well nourished, no distress - Eyes PERRL, normal ocular movement - ENT no hearing loss - Neck trachea midline - Respiratory normal respiratory effort - Abdomen Soft, nontender, nondistended, no rebound, no guarding, no ecchymosis - Psychiatric Pleasantly confused Results - Labs 11/14/18 23:57 11/14/18 23:57 Abnormal Lab Results - Last 24 Hours (Table) 11/14/18 11/14/18 11/14/18 Range/Units 23:57 23:57 23:57 WBC 13.2 H (3.8-10.6) k/uL RBC 4.13 L (4.30-5.90) m/uL Hgb 12.4 L (13.0-17.5) gm/dL Neutrophils # 11.1 H (1.3-7.7) k/uL APTT (22.0-30.0) sec Chloride 110 H (98-107) mmol/L Carbon Dioxide 21 L (22-30) mmol/L BUN 24 H (9-20) mg/dL Creatinine 1.38 H (0.66-1.25) mg/dL Glucose 138 H (74-99) mg/dL Total Creatine Kinase 175 H (55-170) U/L Total Protein 6.1 L (6.3-8.2) g/dL Ur Specific [place] (1.001-1.035) Urine Protein (Negative) Urine Opiates Screen (NotDetected) 11/14/18 11/15/18 11/15/18 Range/Units 23:57 06:13 06:13 WBC (3.8-10.6) k/uL RBC (4.30-5.90) m/uL Hgb (13.0-17.5) gm/dL Neutrophils # (1.3-7.7) k/uL APTT 20.8 L (22.0-30.0) sec Chloride (98-107) mmol/L Carbon Dioxide (22-30) mmol/L BUN (9-20) mg/dL Creatinine (0.66-1.25) mg/dL Glucose (74-99) mg/dL Total Creatine Kinase (55-170) U/L Total Protein (6.3-8.2) g/dL Ur Specific [place] 1.050 H (1.001-1.035) Urine Protein Trace H (Negative) Urine Opiates Screen Detected H (NotDetected) Diabetes panel 11/14/18 Range/Units 23:57 Sodium 141 (137-145) mmol/L Potassium 4.5 (3.5-5.1) mmol/L Chloride 110 H (98-107) mmol/L Carbon Dioxide 21 L (22-30) mmol/L BUN 24 H (9-20) mg/dL Creatinine 1.38 H (0.66-1.25) mg/dL Glucose 138 H (74-99) mg/dL Calcium 9.5 (8.4-10.2) mg/dL AST 45 (17-59) U/L ALT 36 (21-72) U/L Alkaline Phosphatase 64 (38-126) U/L Total Protein 6.1 L (6.3-8.2) g/dL Albumin 3.5 (3.5-5.0) g/dL Calcium panel 11/14/18 Range/Units 23:57 Calcium 9.5 (8.4-10.2) mg/dL Albumin 3.5 (3.5-5.0) g/dL Pituitary panel 11/14/18 Range/Units 23:57 Sodium 141 (137-145) mmol/L Potassium 4.5 (3.5-5.1) mmol/L Chloride 110 H (98-107) mmol/L Carbon Dioxide 21 L (22-30) mmol/L BUN 24 H (9-20) mg/dL Creatinine 1.38 H (0.66-1.25) mg/dL Glucose 138 H (74-99) mg/dL Calcium 9.5 (8.4-10.2) mg/dL Adrenal panel 11/14/18 Range/Units 23:57 Sodium 141 (137-145) mmol/L Potassium 4.5 (3.5-5.1) mmol/L Chloride 110 H (98-107) mmol/L Carbon Dioxide 21 L (22-30) mmol/L BUN 24 H (9-20) mg/dL Creatinine 1.38 H (0.66-1.25) mg/dL Glucose 138 H (74-99) mg/dL Calcium 9.5 (8.4-10.2) mg/dL Total Bilirubin 0.8 (0.2-1.3) mg/dL AST 45 (17-59) U/L ALT 36 (21-72) U/L Alkaline Phosphatase 64 (38-126) U/L Total Protein 6.1 L (6.3-8.2) g/dL Albumin 3.5 (3.5-5.0) g/dL Assessment and Plan (1) Multiple rib fractures involving four or more ribs Narrative/Plan: Multiple rib fractures on right side - Analgesia with lidocaine patch, Robaxin, narcotic pain medication - Pulmonary toilet with incentive spirometry - Medical and Pulmonary consult Current Visit: Yes Status: Acute Code(s): S22.49XA - MULTIPLE FRACTURES OF RIBS, UNSP SIDE, INIT FOR CLOS FX SNOMED Code(s): 2768956 (2) Hemopneumothorax on right Narrative/Plan: - We will obtain repeat chest x-ray to confirm no expansion of pneumothorax - Continue incentive spirometry and reminders from nursing staff due to dementia Current Visit: Yes Status: Acute Code(s): J94.2 - HEMOTHORAX SNOMED Code(s ): 40345834
[2018-11-15] MEDS: FAMOTIDINE 20 MG TAB PO SCH ×2 (09:49→20:18)
[2018-11-15] MEDS: LIDOCAINE 5% PATCH TOPICAL SCH (10:04)
[2018-11-15] MEDS ORDERED: IPRATROPIUM-ALBUTEROL 3 ML NEB INHALATION PRN (11:17)
--- NOTE | 2018-11-15 12:24 | CONS ---
CONSULTATION This is a 78-year-old male who was seen in the emergency room on the . He apparently was at home according to his and was trying to open or close the door and fell. She tried to catch him, but could not be fell and he fell on his right chest and right side area. She was able to get him into the car with the help with some neighbors and took him to the emergency room where he was evaluated. He was found to have multiple right rib fractures from 5 through 8 laterally and also was found to have a small right pneumothorax and possibly a pulmonary contusion. Actually, the patient looks relatively well. He is sitting in the chair eating a muffin. He does have pain on deep breathing. Anyway, we were asked to see him because of the multiple right rib fractures, the small right pneumothorax and pulmonary contusion. He had x-rays of the brain and hips and other areas all of which were negative. The patient seems to be doing relatively well according to his . HOME MEDICATIONS: Reviewed. He is on Zyloprim, clonazepam, Plavix, thiamin, Lopressor, low-dose aspirin, Aricept, Nitroglycerine, vitamin B12, Zetia, Lipitor and Imdur. ALLERGIES: INCLUDE ALOE VERA, LATEX, PENICILLIN, AND AMBIEN. MEDICAL HISTORY: CAD, prostate cancer, angina, CVA, dementia, GERD, hyperlipidemia, hypertension, myocardial infarction, syncope, and gout. The patient also has a history of recent left ureteral calculus, left hydronephrosis. Apparently, his dementia is getting much worse. The patient has also had a colon polyp which was removed, was found to be benign. SURGICAL HISTORY: Includes among other things a bowel resection but not for cancer, cholecystectomy, heart catheterization, orthopedic procedures, prostate surgery, i.e. prostatectomy. The patient has also had a polypectomy from the colon and has had a PICC line insertion, bilateral cataract surgery, vasectomy. Skin cancer removal. SOCIAL HISTORY: Positive for previous tobacco use. Does not smoke currently. No illicit drug use. No alcohol use. FAMILY HISTORY: Positive for ruptured aortic aneurysm, myocardial infarction, CVA, COPD, and cancer including breast cancer. REVIEW OF SYSTEMS: Could not be obtained from the patient. His states that his primary complaint is pain in the right chest area. Current vital signs reviewed. Temperature 98.2, heart rate 94, respiratory rate 18, blood pressure 131/66, mean 87, room-air saturation is 93%. Appears no acute distress looks actually relatively comfortable. HEENT examination is grossly unremarkable. NECK: Supple. Cardiovascular examination was regular rhythm and rate. Heart rate 80. LUNGS: Mostly clear breath sounds. He obviously does not take deep breaths. It causes some pain. No adventitious lung sounds are noted. Abdomen is soft. Extremities are intact. Skin without rash. Neurologic examination is difficult to assess. He does move all 4 extremities well. LAB DATA: Reviewed. White count 13.2, hemoglobin 12.4, hematocrit 39.6, platelet count normal. PT/INR PTT all normal. Sodium, potassium normal, chloride 110, CO2 21, BUN and creatinine were 24 and 1.38. The rest of the labs look okay. Urine is negative. Drug screen was positive for opiates. Microbiologic studies are negative. X-RAYS: Reviewed. Review of the chest x-ray. The CT scan of the chest. The pelvic CT, abdominal CT, head CT, x-rays of the hip and pelvis. ASSESSMENT: 1. Status post fall with multiple right lateral rib fractures, 5th rib through 8th rib, pulmonary contusion and small right pneumothorax. 2. History of coronary artery disease. 3. Prostate cancer, status post prostatectomy. 4. History of angina. 5. History of cerebrovascular accident/transient ischemic attack. 6. Severe dementia. 7. Gastroesophageal reflux disease. 8. Hyperlipidemia. 9. Hypertension. 10.Previous myocardial infarction. 11.History of syncope. 12.History of gout. 13.Multiple other medical problems and comorbidities. PLAN: We will recommend breathing treatments. Incentive spirometer. Deep breathing, coughing, clearing of secretions. Periodic chest x-rays and pain control. Pain control being the most important. Additional recommendations and suggestions are forthcoming. We will continue to follow. We emphasized the importance of incentive spirometry. All x-rays, labs, medications, and other testing has been reviewed. MMODL / IJN: [id number] /
[2018-11-15] MEDS ORDERED: NITROGLYCERIN SL TABS 0.4 MG TAB SUBLINGUAL PRN (14:51)
[2018-11-15] MEDS: IPRATROPIUM-ALBUTEROL 3 ML NEB INHALATION SCH ×2 (15:30→19:49)
[2018-11-15] MEDS: METOPROLOL TARTRATE 50 MG TAB PO SCH (16:25)
[2018-11-15] MEDS: ATORVASTATIN 80 MG TAB PO SCH (20:18)
[2018-11-15] MEDS: TOPIRAMATE 25 MG TAB PO SCH (20:18)
[2018-11-15] MEDS: DONEPEZIL 10 MG TAB PO SCH (20:18)
[2018-11-16] MEDS: SODIUM CHLORIDE 0.9% 1,000 ML IV SCH (05:13)
[2018-11-16 07:01] LABS: HCT 32.8 % (39.0-53.0); HGB 10.9 gm/dL (13.0-17.5); MCH 32.1 pg (25.0-35.0); MCHC 33.1 g/dL (31.0-37.0); MCV 96.8 fL (80.0-100.0); Mean Platelet Volume 7.1; Platelet Count 148 k/uL (150-450); RBC 3.39 m/uL (4.30-5.90); RDW 13.6 % (11.5-15.5); WBC 8.4 k/uL (3.8-10.6)
[2018-11-16 07:22] LABS: Calcium 8.9 mg/dL (8.4-10.2); Potassium 4.1 mmol/L (3.5-5.1)
[2018-11-16] MEDS: METOPROLOL TARTRATE 50 MG TAB PO SCH (08:10)
[2018-11-16] MEDS: MEMANTINE 10 MG TAB PO SCH (08:10)
[2018-11-16] MEDS: METHOCARBAMOL 500 MG TAB PO SCH ×4 (08:10→21:36)
[2018-11-16] MEDS: TOPIRAMATE 25 MG TAB PO SCH ×2 (08:10→21:37)
[2018-11-16] MEDS: LIDOCAINE 5% PATCH TOPICAL SCH (08:10)
[2018-11-16] MEDS: ALLOPURINOL 300 MG TAB PO SCH (08:10)
[2018-11-16] MEDS: FAMOTIDINE 20 MG TAB PO SCH (08:10)
[2018-11-16] MEDS: CYANOCOBALAMIN 500 MCG TAB PO SCH (08:10)
[2018-11-16] MEDS: traMADol 50 MG TAB PO PRN ×2 (08:11→21:36)
[2018-11-16] MEDS: IPRATROPIUM-ALBUTEROL 3 ML NEB INHALATION SCH ×3 (09:10→20:18)
--- NOTE | 2018-11-16 11:20 | P.PN ---
Subjective Progress Note Date: 11/16/18 Patient examined this morning on the selective care unit. He is awake and alert. Sitting up in the chair drinking coffee. Appears comfortable. Reports pain with deep inspiration. Denies SOB at rest. He denies chest pain or pressure. Denies nausea or vomiting. Denies abdominal pain. Vital signs remain stable. IS is at the bedside. Patient able to achieve 500-750cc. Patients lives at home with his spouse. PT/OT are consulted for evaluation. Objective - Vital Signs Vital signs: Vital Signs Temp 98.1 F 11/16/18 08:00 Pulse 77 11/16/18 09:22 Resp 16 11/16/18 08:00 BP 116/59 11/16/18 08:00 Pulse Ox 93 L 11/16/18 08:00 Intake & Output 11/15/18 11/16/18 11/16/18 18:59 06:59 18:59 Intake Total 1610 375 100 Output Total 625 200 Balance 985 175 100 Weight 85 kg Intake: Intake, IV Titration 600 375 Amount Sodium Chloride 0.9% 1, 600 375 000 ml @ 75 mls/hr IV . [id number] [facility] Rx#:[id number] Oral 1010 100 Output: Urine 625 200 Other: Voiding Method Urinal Urinal Urinal # Voids 1 - Exam GENERAL: This is a 78-year-old male in no apparent distress at the time of examination. Pleasant and cooperative. HEENT: Head is atraumatic, normocephalic. Pupils are equal, round, and reactive to light. Sclerae anicteric. Conjunctivae are clear. Mucus membranes of the mouth are moist. Neck is supple. RESPIRATORY: Essentially clear to auscultation. Diminished. Difficult for patient to take deep breaths due to pain. No use of accessory muscles. Patient maintaining oxygen saturation greater than 92%. CARDIOVASCULAR: Regular rate and rhythm. S1 and S2 noted. No JVD noted. No S3 or S4 noted. GASTROINTESTINAL: No distention noted. Abdomen soft and round. Normal active bowel sounds auscultated x 4 quadrants. No pain or tenderness noted upon palpation. INTEGUMENTARY: No cyanosis. No jaundice. No rashes noted. No cellulitis noted. EXTREMITIES: 2+ peripheral pulses. No evidence of peripheral edema. No calf tenderness noted. NEUROLOGIC: Cranial nerves II-XII intact. PSYCHIATRIC: Awake and alert. - Labs CBC & Chem 7: 11/16/18 05:38 11/16/18 05:38 Labs: Abnormal Lab Results - Last 24 Hours (Table) 11/16/18 11/16/18 Range/Units 05:38 05:38 RBC 3.39 L (4.30-5.90) m/uL Hgb 10.9 L (13.0-17.5) gm/dL Hct 32.8 L (39.0-53.0) % Plt Count 148 L (150-450) k/uL Chloride 110 H (98-107) mmol/L Glucose 102 H (74-99) mg/dL Assessment and Plan Plan: ASSESSMENT: Right rib fractures 5th-8th rib, pulmonary contusion, small right pneumothorax, s/p fall History of dementia History of coronary artery disease History of left ureteral calculus and left hydronephrosis, June 2018 History of prostate cancer History of TIA Hypertension Hyperlipidemia GERD PLAN: Discontinue IV fluids. Encourage PO intake. Pain control. Coughing and deep breathing. Patient encouraged to use incentive spirometer. Monitor vital signs and address as appropriate. Patient lives at home with his spouse. PT and OT are consulted for evaluation. Discharge planning per admitting/ attending physician Nurse practitioner note has been reviewed by physician. Signing provider agrees with the documented findings, assessment, and plan of care.
[2018-11-16] MEDS ORDERED: MORPHINE SULFATE 2 MG/ML SYRINGE IV PRN (12:27)
--- NOTE | 2018-11-16 12:32 | P.PN ---
Subjective Progress Note Date: 11/16/18 Pt seen and examined at bedside. is at bedside. Patient is doing better today. Pain controlled. Using incentive spirometer. Objective - Vital Signs Vital signs: Vital Signs Temp 97.5 F L 11/16/18 11:45 Pulse 78 11/16/18 12:22 Resp 16 11/16/18 11:45 BP 124/65 11/16/18 11:45 Pulse Ox 94 L 11/16/18 11:45 Intake & Output 11/15/18 11/16/18 11/16/18 18:59 06:59 18:59 Intake Total 1610 375 100 Output Total 625 200 Balance 985 175 100 Weight 85 kg Intake: Intake, IV Titration 600 375 Amount Sodium Chloride 0.9% 1, 600 375 000 ml @ 75 mls/hr IV . [id number] [facility] Rx#:[id number] Oral 1010 100 Output: Urine 625 200 Other: Voiding Method Urinal Urinal Urinal # Voids 1 - Constitutional General appearance: Present: cooperative, no acute distress - Respiratory Details: No difficulty with respiration, tenderness to palpation on right lateral chest - Gastrointestinal Gastrointestinal Comment(s): soft, nontender, nondistended, no rebound, no guarding - Musculoskeletal Musculoskeletal: Present: generalized weakness - Psychiatric Psychiatric Comment(s): baseline dementia - Labs CBC & Chem 7: 11/16/18 05:38 11/16/18 05:38 Labs: Abnormal Lab Results - Last 24 Hours (Table) 11/16/18 11/16/18 Range/Units 05:38 05:38 RBC 3.39 L (4.30-5.90) m/uL Hgb 10.9 L (13.0-17.5) gm/dL Hct 32.8 L (39.0-53.0) % Plt Count 148 L (150-450) k/uL Chloride 110 H (98-107) mmol/L Glucose 102 H (74-99) mg/dL Assessment and Plan (1) Multiple rib fractures involving four or more ribs Narrative/Plan: Multiple rib fractures on right side - Analgesia with lidocaine patch, Robaxin, narcotic pain medication - Pulmonary toilet with incentive spirometry - Medical and Pulmonary consults appreciated - Continue home meds - Pt being evaluated for placement in rehab facility Current Visit: Yes Status: Acute Code(s): S22.49XA - MULTIPLE FRACTURES OF RIBS, UNSP SIDE, INIT FOR CLOS FX SNOMED Code(s): 0125641 (2) Hemopneumothorax on right Narrative/Plan: - CXR appears stable - O2 sats have remained stable - Continue to monitor Current Visit: Yes Status: Acute Code(s): J94.2 - HEMOTHORAX SNOMED Code(s ): 43780034
--- NOTE | 2018-11-16 13:33 | P.PN ---
Subjective Progress Note Date: 11/16/18 Principal diagnosis: Trauma, status post fall with multiple right lateral rib fractures, pulmonary contusion and small right pneumothorax This is 78-year-old white male patient Dr. Perez, who was admitted on 11/14 after sustaining a fall at home, and suffering multiple rib fractures on the right side fifth through eighth ribs, pulmonary contusion and small right pneumothorax. Today on 11/16/2018 were seen the patient in follow-up selective care unit, is sitting up in the recliner, in no acute distress, he states there is some moderate discomfort with deep breathing on the right side of the chest. Does not appear to be in any acute distress, he needs encouragement with the incentive spirometer use, deep breathing and coughing, and has underlying dementia. Other history includes coronary artery disease, prostate cancer status post prostatectomy, previous history of CVA, gastric esophageal reflux disease, hypertension, hyperlipidemia, previous myocardial infarction, gout. And multiple other medical problems. Room air pulse ox is 94%, patient is afebrile, hemodynamically stable. No new chest x-rays today, today's lab work was reviewed, showed WBC of 8.4, hemoglobin is 10.9, sodium is 141, potassium is 4.1, chloride is 110, drug screen was positive for opiates, urinalysis was essentially negative. Objective - Vital Signs Vital signs: Vital Signs Temp 97.5 F L 11/16/18 11:45 Pulse 78 11/16/18 12:22 Resp 16 11/16/18 11:45 BP 124/65 11/16/18 11:45 Pulse Ox 94 L 11/16/18 11:45 Intake & Output 11/15/18 11/16/18 11/16/18 18:59 06:59 18:59 Intake Total 1610 375 100 Output Total 625 200 Balance 985 175 100 Weight 85 kg Intake: Intake, IV Titration 600 375 Amount Sodium Chloride 0.9% 1, 600 375 000 ml @ 75 mls/hr IV . [id number] [facility] Rx#:[id number] Oral 1010 100 Output: Urine 625 200 Other: Voiding Method Urinal Urinal Urinal # Voids 1 - Exam GENERAL EXAM: Alert, pleasant, 78-year-old white male, comfortable in no apparent distress. HEAD: Normocephalic/atraumatic. EYES: Normal reaction of pupils, equal size. Conjunctiva pink, sclera white. NOSE: Clear with pink turbinates. THROAT: No erythema or exudates. NECK: No masses, no JVD, no thyroid enlargement, no adenopathy. CHEST: No chest wall deformity. Symmetrical expansion. LUNGS: Equal air entry diminished breath sounds at the right base CVS: Regular rate and rhythm, normal S1 and S2, no gallops, no murmurs, no rubs ABDOMEN: Soft, nontender. No hepatosplenomegaly, normal bowel sounds, no guarding or rigidity. EXTREMITIES: No clubbing, no edema, no cyanosis, 2+ pulses and upper and lower extremities. MUSCULOSKELETAL: Muscle strength and tone normal. SPINE: No scoliosis or deformity SKIN: No rashes CENTRAL NERVOUS SYSTEM: Alert and oriented -3. No focal deficits, tone is normal in all 4 extremities. PSYCHIATRIC: Alert and oriented -3. Appropriate affect. Intact judgment and insight. - Labs CBC & Chem 7: 11/16/18 05:38 11/16/18 05:38 Labs: Abnormal Lab Results - Last 24 Hours (Table) 11/16/18 11/16/18 Range/Units 05:38 05:38 RBC 3.39 L (4.30-5.90) m/uL Hgb 10.9 L (13.0-17.5) gm/dL Hct 32.8 L (39.0-53.0) % Plt Count 148 L (150-450) k/uL Chloride 110 H (98-107) mmol/L Glucose 102 H (74-99) mg/dL Assessment and Plan Plan: Assessment: #1. Trauma, status post fall with multiple right lateral rib fractures, fifth through eighth, with pulmonary contusion and small right pneumothorax #2. History of coronary artery disease #3. Prostate cancer, status post prostatectomy #4. History of angina #5. History of cerebrovascular accident/transient ischemic attack #6. Severe dementia #7. GERD #8. Hypertension, hyperlipidemia #9. Previous episode of myocardial infarction #10. Multiple other medical problems and comorbidities Plan: Patient needs encouragement and reminded her to use his incentive spirometer, encourage deep breathing and coughing, continue with pain control. We'll repeat a follow-up chest x-ray tomorrow. Patient is on room air, in no acute distress, vital signs are stable, no fever or chills. Maintain fall precautions. I performed a history & physical examination of the patient and discussed their management with my nurse practitioner, Mary Lewis. I reviewed the nurse practitioner's note and agree with the documented findings and plan of care. Lung sounds are diminished breath sounds at the right lower base. The findings and the impression was discussed with the patient. I attest to the documentation by the nurse practitioner. Time with Patient: Less than 30
[2018-11-16] MEDS: ISOSORBIDE MONONITRATE ER 30 MG TAB.ER.24H PO SCH (15:19)
[2018-11-16] MEDS: DONEPEZIL 10 MG TAB PO SCH (21:36)
[2018-11-16] MEDS: ATORVASTATIN 80 MG TAB PO SCH (21:36)
[2018-11-17] MEDS: ALLOPURINOL 300 MG TAB PO SCH (07:53)
[2018-11-17] MEDS: CYANOCOBALAMIN 500 MCG TAB PO SCH (07:53)
[2018-11-17] MEDS: traMADol 50 MG TAB PO PRN ×2 (07:55→15:08)
[2018-11-17] MEDS: FAMOTIDINE 20 MG TAB PO SCH (07:55)
[2018-11-17] MEDS: METHOCARBAMOL 500 MG TAB PO SCH ×4 (07:55→21:53)
[2018-11-17] MEDS: TOPIRAMATE 25 MG TAB PO SCH ×2 (07:56→20:07)
[2018-11-17] MEDS: LIDOCAINE 5% PATCH TOPICAL SCH (07:56)
[2018-11-17] MEDS: MEMANTINE 10 MG TAB PO SCH (07:56)
[2018-11-17] MEDS: ISOSORBIDE MONONITRATE ER 30 MG TAB.ER.24H PO SCH (07:56)
[2018-11-17] MEDS: METOPROLOL TARTRATE 50 MG TAB PO SCH (08:06)
[2018-11-17] MEDS: IPRATROPIUM-ALBUTEROL 3 ML NEB INHALATION SCH ×3 (08:22→20:33)
--- NOTE | 2018-11-17 08:49 | XR ---
EXAMINATION TYPE: XR chest 2V DATE OF EXAM: 11/17/2018 COMPARISON: Prior chest x-ray 11/15/2018 HISTORY: Pneumothorax TECHNIQUE: Frontal and lateral views of the chest are obtained. FINDINGS: Previously identified pneumothorax on the right is not seen. Patient is rotated, exam is e xpiratory. Heart size is likely stable. Question some perihilar airspace disease. Increased density p resent at the posterior lung bases. Multiple right-sided rib fractures are present. There are pleural calcifications present. IMPRESSION: Minimal basilar atelectasis. Patient's pneumothorax is not evident on the current exam.
--- NOTE | 2018-11-17 10:28 | P.PN ---
Subjective Progress Note Date: 11/17/18 Patient seen and examined at the bedside. Patient is awake and alert. He has laying in bed resting comfortably. Patient denies shortness of breath at this time. Denies chest pain or pressure. Patient reports his appetite is good. He denies nausea or vomiting. Denies abdominal pain. Patient encouraged to use incentive spirometer hourly. Patient able to achieve 750 mL on incentive spirometer this morning. Repeat chest x-ray this morning reveals minimal basilar atelectasis. Patient's pneumothorax is not evident on current exam. Discharge plan includes [facility] pending 3 night inpatient stay. Objective - Vital Signs Vital signs: Vital Signs Temp 97.9 F 11/17/18 08:00 Pulse 87 11/17/18 08:31 Resp 18 11/17/18 08:00 BP 179/84 11/17/18 08:00 Pulse Ox 96 11/17/18 08:00 Intake & Output 11/16/18 11/17/18 11/17/18 18:59 06:59 18:59 Intake Total 100 240 Output Total 0 325 Balance 100 -325 240 Intake: Oral 100 240 Output: Urine 0 325 Other: Voiding Method Urinal Urinal Urinal # Voids 1 - Exam GENERAL: This is a 78-year-old male in no apparent distress at the time of examination. Pleasant and cooperative. HEENT: Head is atraumatic, normocephalic. Pupils are equal, round, and reactive to light. Sclerae anicteric. Conjunctivae are clear. Mucus membranes of the mouth are moist. Neck is supple. RESPIRATORY: Essentially clear to auscultation. Diminished. Difficult for patient to take deep breaths due to pain. No use of accessory muscles. Patient maintaining oxygen saturation greater than 92%. CARDIOVASCULAR: Regular rate and rhythm. S1 and S2 noted. No JVD noted. No S3 or S4 noted. GASTROINTESTINAL: No distention noted. Abdomen soft and round. Normal active bowel sounds auscultated x 4 quadrants. No pain or tenderness noted upon palpation. INTEGUMENTARY: No cyanosis. No jaundice. No rashes noted. No cellulitis noted. EXTREMITIES: 2+ peripheral pulses. No evidence of peripheral edema. No calf tenderness noted. NEUROLOGIC: Cranial nerves II-XII intact. PSYCHIATRIC: Awake and alert. - Labs CBC & Chem 7: 11/16/18 05:38 11/16/18 05:38 Assessment and Plan Plan: ASSESSMENT: Right rib fractures 5th-8th rib, pulmonary contusion, small right pneumothorax, s/p fall History of dementia History of coronary artery disease History of left ureteral calculus and left hydronephrosis, June 2018 History of prostate cancer History of TIA Hypertension Hyperlipidemia GERD PLAN: Encourage PO intake. Pain control. Coughing and deep breathing. Patient encouraged to use incentive spirometer. Monitor vital signs and address as appropriate. PT/OT. Discharge planning includes [facility] [address] pending 3 night inpatient stay. Nurse practitioner note has been reviewed by physician. Signing provider agrees with the documented findings, assessment, and plan of care.
--- NOTE | 2018-11-17 11:26 | P.PN ---
Subjective Progress Note Date: 11/17/18 Pt seen and examined at bedside. No acute events. Using incentive spirometry. States he still does have some soreness in right chest. Repeat CXR reveals no obvious pneumothorax and minimal atelectasis. Objective - Vital Signs Vital signs: Vital Signs Temp 97.9 F 11/17/18 08:00 Pulse 87 11/17/18 08:31 Resp 18 11/17/18 08:00 BP 179/84 11/17/18 08:00 Pulse Ox 96 11/17/18 08:00 Intake & Output 11/16/18 11/17/18 11/17/18 18:59 06:59 18:59 Intake Total 100 240 Output Total 0 325 Balance 100 -325 240 Intake: Oral 100 240 Output: Urine 0 325 Other: Voiding Method Urinal Urinal Urinal # Voids 1 - Constitutional General appearance: Present: cooperative, no acute distress - Respiratory Details: equal chest rise, no difficulty with respiration - Gastrointestinal Gastrointestinal Comment(s): soft, NT, ND, no rebound or guarding - Labs CBC & Chem 7: 11/16/18 05:38 11/16/18 05:38 Assessment and Plan (1) Multiple rib fractures involving four or more ribs Narrative/Plan: Multiple rib fractures on right side - Analgesia with lidocaine patch, Robaxin, narcotic pain medication - Pulmonary toilet with incentive spirometry - Medical and Pulmonary consults appreciated - Continue home meds - Pt being evaluated for placement in rehab facility, plan for DC tomorrow to [facility] Current Visit: Yes Status: Acute Code(s): S22.49XA - MULTIPLE FRACTURES OF RIBS, UNSP SIDE, INIT FOR CLOS FX SNOMED Code(s): 5310109 (2) Hemopneumothorax on right Narrative/Plan: - CXR with no pneumothorax evident - O2 sats have remained stable - Continue to monitor Current Visit: Yes Status: Acute Code(s): J94.2 - HEMOTHORAX SNOMED Code(s ): 34307777
--- NOTE | 2018-11-17 12:11 | P.PN ---
Subjective Progress Note Date: 11/17/18 Principal diagnosis: Trauma, status post fall with multiple right lateral rib fractures, pulmonary contusion and a small right pneumothorax This is 78-year-old white male patient Dr. Perez, who was admitted on 11/14 after sustaining a fall at home, and suffering multiple rib fractures on the right side fifth through eighth ribs, pulmonary contusion and small right pneumothorax. Today on 11/16/2018 were seen the patient in follow-up selective care unit, is sitting up in the recliner, in no acute distress, he states there is some moderate discomfort with deep breathing on the right side of the chest. Does not appear to be in any acute distress, he needs encouragement with the incentive spirometer use, deep breathing and coughing, and has underlying dementia. Other history includes coronary artery disease, prostate cancer status post prostatectomy, previous history of CVA, gastric esophageal reflux disease, hypertension, hyperlipidemia, previous myocardial infarction, gout. And multiple other medical problems. Room air pulse ox is 94%, patient is afebrile, hemodynamically stable. No new chest x-rays today, today's lab work was reviewed, showed WBC of 8.4, hemoglobin is 10.9, sodium is 141, potassium is 4.1, chloride is 110, drug screen was positive for opiates, urinalysis was essentially negative. The patient is seen again today 11/17/2018 in follow-up on the regular medical floor. He is currently awake and alert in no acute distress. He sitting up in a chair at the bedside. His is by his side. Today's chest x-ray reveals minimal basilar atelectasis. No pneumothorax noted. He continues to work well with the incentive spirometer. He is maintaining O2 saturations in the 90s on room air. He's been afebrile. Hemodynamically stable. Objective - Vital Signs Vital signs: Vital Signs Temp 97.9 F 11/17/18 08:00 Pulse 72 11/17/18 11:42 Resp 18 11/17/18 11:42 BP 133/67 11/17/18 11:42 Pulse Ox 96 11/17/18 08:00 Intake & Output 11/16/18 11/17/18 11/17/18 18:59 06:59 18:59 Intake Total 100 240 Output Total 0 325 Balance 100 -325 240 Intake: Oral 100 240 Output: Urine 0 325 Other: Voiding Method Urinal Urinal Urinal # Voids 1 - Exam GENERAL EXAM: Alert, pleasant, 78-year-old white male, comfortable in no apparent distress. On room air. HEAD: Normocephalic/atraumatic. EYES: Normal reaction of pupils, equal size. Conjunctiva pink, sclera white. NOSE: Clear with pink turbinates. THROAT: No erythema or exudates. NECK: No masses, no JVD, no thyroid enlargement, no adenopathy. CHEST: No chest wall deformity. Symmetrical expansion. LUNGS: Equal air entry diminished breath sounds at the right base CVS: Regular rate and rhythm, normal S1 and S2, no gallops, no murmurs, no rubs ABDOMEN: Soft, nontender. No hepatosplenomegaly, normal bowel sounds, no guarding or rigidity. EXTREMITIES: No clubbing, no edema, no cyanosis, 2+ pulses and upper and lower extremities. MUSCULOSKELETAL: Muscle strength and tone normal. SPINE: No scoliosis or deformity SKIN: No rashes CENTRAL NERVOUS SYSTEM: Alert and oriented -3. No focal deficits, tone is normal in all 4 extremities. PSYCHIATRIC: Alert and oriented -3. Appropriate affect. Intact judgment and insight. - Labs CBC & Chem 7: 11/16/18 05:38 11/16/18 05:38 Assessment and Plan Assessment: Assessment: #1. Trauma, status post fall with multiple right lateral rib fractures, fifth through eighth, with pulmonary contusion and small right pneumothorax which has cleared on today's chest x-ray. #2. History of coronary artery disease #3. Prostate cancer, status post prostatectomy #4. History of angina #5. History of cerebrovascular accident/transient ischemic attack #6. Severe dementia #7. GERD #8. Hypertension, hyperlipidemia #9. Previous episode of myocardial infarction #10. Multiple other medical problems and comorbidities Plan: The patient was seen and evaluated by Dr. Lyman. Today's chest x-ray was reviewed. He is currently stable from the pulmonary standpoint. The plan is for transfer to [facility] for continued inpatient subacute rehabilitation. Continue to work with the incentive spirometer. I, the cosigning physician, performed a history & physical examination of the patient. Lungs sounds are clear, diminished in the right lung base. Maintaining good O2 saturations in the 90s on room air. I discussed the assessment and plan of care with my nurse practitioner, Brianna Gomez. I attest to the above note as dictated by her.
[2018-11-17 13:50] VITALS: BMI 27.6
[2018-11-17] MEDS: ATORVASTATIN 80 MG TAB PO SCH (20:07)
[2018-11-17] MEDS: DONEPEZIL 10 MG TAB PO SCH (20:07)
[2018-11-18 06:32] LABS: Basophils % (A) 0 %; Eosinophils # (A) 0.3 k/uL (0-0.7); Eosinophils % (A) 3 %; HCT 34.3 % (39.0-53.0); HGB 11.3 gm/dL (13.0-17.5); Lymphocytes # (A) 0.6 k/uL (1.0-4.8); Lymphocytes % (A) 8 %; MCH 31.4 pg (25.0-35.0); MCV 95.2 fL (80.0-100.0); Mean Platelet Volume 7.1; Monocytes # (A) 0.6 k/uL (0-1.0); Monocytes % (A) 8 %; Neutrophils # (A) 5.8 k/uL (1.3-7.7); Neutrophils % (A) 78 %; Platelet Count 180 k/uL (150-450); RBC 3.61 m/uL (4.30-5.90); RDW 13.5 % (11.5-15.5); WBC 7.5 k/uL (3.8-10.6)
[2018-11-18 06:49] LABS: Calcium 9.3 mg/dL (8.4-10.2); Potassium 3.6 mmol/L (3.5-5.1)
[2018-11-18 08:03] VITALS: BP 131/63; RESP 16; TEMP 98
[2018-11-18] MEDS: LIDOCAINE 5% PATCH TOPICAL SCH (08:04)
[2018-11-18] MEDS: FAMOTIDINE 20 MG TAB PO SCH (08:04)
[2018-11-18] MEDS: MEMANTINE 10 MG TAB PO SCH (08:05)
[2018-11-18] MEDS: TOPIRAMATE 25 MG TAB PO SCH (08:05)
[2018-11-18] MEDS: METOPROLOL TARTRATE 50 MG TAB PO SCH (08:05)
[2018-11-18] MEDS: METHOCARBAMOL 500 MG TAB PO SCH (08:05)
[2018-11-18] MEDS: CYANOCOBALAMIN 500 MCG TAB PO SCH (08:05)
[2018-11-18] MEDS: ALLOPURINOL 300 MG TAB PO SCH (08:05)
[2018-11-18] MEDS: ISOSORBIDE MONONITRATE ER 30 MG TAB.ER.24H PO SCH (08:05)
--- NOTE | 2018-11-18 08:38 | P.DS ---
Providers Date of admission: 11/15/18 01:14 Expected date of discharge: 11/18/18 Attending physician: Zafar Ocampo DO Consults: 11/15/18 01:15 Consult Physician Urgent Consulting Provider: Maria Luz Louise Consult Reason/Comments: traumatic hemo/pneumothorax, ribs 4-8fx Do you want consulting provider notified?: Yes, Notify in am Consult Physician Urgent Consulting Provider: Filemon Bae Jr Consult Reason/Comments: medical mgmt of trauma patient Do you want consulting provider notified?: Yes, Notify in am Primary care physician: [facility] Course: The patient presented after a fall. History of the falls a little difficult due to underlying dementia. He was found to have multiple rib fractures with a very small pneumothorax. He was admitted through the emergency department. He was followed closely and was seen by pulmonary. By 11/09/1990 was felt to be stable for transfer to rehab. Patient Condition at Discharge: Good Plan - Discharge Summary Discharge Rx Participant: No New Discharge Prescriptions: New Lidocaine 5% Patch [Lidoderm 5% Patch] 1 patch TOPICAL DAILY #10 patch Methocarbamol [Robaxin] 500 mg PO QID #28 tab traMADol HCl [Ultram] 50 mg PO Q6H PRN #15 tab PRN Reason: Moderate Pain Continue Allopurinol [Zyloprim] 300 mg PO DAILY Clopidogrel Bisulfate [Clopidogrel] 75 mg PO DAILY Metoprolol Tartrate [Lopressor] 100 mg PO DAILY Nitroglycerin Sl Tabs [Nitrostat] 0.4 mg SUBLINGUAL Q5M PRN PRN Reason: Chest Pain Donepezil [Aricept] 10 mg PO HS Aspirin EC [Ecotrin Low Dose] 81 mg PO DAILY Cyanocobalamin (Vitamin B-12) [Vitamin B-12] 1,000 mcg PO DAILY Atorvastatin [Lipitor] 80 mg PO HS Isosorbide Mononitrate ER [Imdur] 30 mg PO DAILY Topiramate [Topamax] 25 mg PO BID Memantine [Namenda] 10 mg PO DAILY Discharge Medication List Allopurinol [Zyloprim] 300 mg PO DAILY 10/01/14 [History] Clopidogrel Bisulfate [Clopidogrel] 75 mg PO DAILY 12/30/15 [History] Metoprolol Tartrate [Lopressor] 100 mg PO DAILY 04/21/16 [History] Aspirin EC [Ecotrin Low Dose] 81 mg PO DAILY 02/22/17 [History] Donepezil [Aricept] 10 mg PO HS 02/22/17 [History] Nitroglycerin Sl Tabs [Nitrostat] 0.4 mg SUBLINGUAL Q5M PRN 02/22/17 [History] Cyanocobalamin (Vitamin B-12) [Vitamin B-12] 1,000 mcg PO DAILY 08/04/17 [ History] Atorvastatin [Lipitor] 80 mg PO HS 06/28/18 [History] Isosorbide Mononitrate ER [Imdur] 30 mg PO DAILY 06/28/18 [History] Memantine [Namenda] 10 mg PO DAILY 11/15/18 [History] Topiramate [Topamax] 25 mg PO BID 11/15/18 [History] Lidocaine 5% Patch [Lidoderm 5% Patch] 1 patch TOPICAL DAILY #10 patch 11/16/18 [Rx] Methocarbamol [Robaxin] 500 mg PO QID #28 tab 11/16/18 [Rx] traMADol HCl [Ultram] 50 mg PO Q6H PRN #15 tab 11/16/18 [Rx] Follow up Appointment(s)/Referral(s): Leandro Perez MD [Primary Care Provider] - 2 Weeks Patient Instructions/Handouts: Rib Fracture (DC) Activity/Diet/Wound Care/Special Instructions: Increase activity daily Deep breathing, continue to use incentive spirometer every hour Room air Regular diet, ensure TIDWM Discharge Disposition: TRANSFER TO SNF/ECF
[2018-11-18] MEDS: IPRATROPIUM-ALBUTEROL 3 ML NEB INHALATION SCH (09:03)
[2018-11-18 09:06] VITALS: PULSE 88
== END 2018-11-18 11:34 | DRG 183 ==
LOC: EC 23:01 → 3SCARD 11-15 01:14
PROVIDERS: ADMIT Surgery; ATTEND Surgery
DX: S22.41XA Multiple fractures of ribs, right side, initial encounter for closed fracture (principal); S27.2XXA Traumatic hemopneumothorax, initial encounter; Y92.009 Unspecified place in unspecified non-institutional (private) residence as the place of occurrence of the external cause; W19.XXXA Unspecified fall, initial encounter; E78.5 Hyperlipidemia, unspecified; F03.90 Unspecified dementia, unspecified severity, without behavioral disturbance, psychotic disturbance, mood disturbance, and anxiety; F41.9 Anxiety disorder, unspecified; I10 Essential (primary) hypertension; I25.10 Atherosclerotic heart disease of native coronary artery without angina pectoris; I25.2 Old myocardial infarction; K21.9 Gastro-esophageal reflux disease without esophagitis; Z79.02 Long term (current) use of antithrombotics/antiplatelets; Z79.899 Other long term (current) drug therapy; Z80.3 Family history of malignant neoplasm of breast; Z82.0 Family history of epilepsy and other diseases of the nervous system; Z82.3 Family history of stroke; Z82.49 Family history of ischemic heart disease and other diseases of the circulatory system; Z82.5 Family history of asthma and other chronic lower respiratory diseases; Z85.46 Personal history of malignant neoplasm of prostate; Z85.828 Personal history of other malignant neoplasm of skin; Z86.010 Personal history of colon polyps; Z86.73 Personal history of transient ischemic attack (TIA), and cerebral infarction without residual deficits; Z87.442 Personal history of urinary calculi; Z87.891 Personal history of nicotine dependence; Z90.79 Acquired absence of other genital organ(s); M10.9 Gout, unspecified
CPT/HCPCS: 36415; 70450; 71045; 71046; 71260; 72125; 73502; 74177; 80048; 80053; 80306; 80320; 81003; 82550; 82553; 84484; 85025; 85027; 85610; 85730; 86850; 86900; 86901; 93005; 94640; 96374; 96375; 96376; 99285

== ENCOUNTER 2019-05-17 09:51 | Emergency (ER) | payer MEDICARE, BC ==
[2019-05-17 09:57] VITALS: TEMP 97.7
[2019-05-17] MEDS ORDERED: SODIUM CHLORIDE 0.9% 500 ML 500 ML IV ONE (10:21)
--- NOTE | 2019-05-17 10:31 | ED ---
General Adult HPI - General Chief complaint: Neuro Symptoms/Deficit Stated complaint: confused Time Seen by Provider: 05/17/19 10:07 Source: patient, family, RN notes reviewed, old records reviewed Mode of arrival: wheelchair Limitations: no limitations - History of Present Illness Initial comments: 79-year-old male history dementia presenting with increased confusion and slurred speech. Patient's symptoms began this morning when he woke at 5 AM. He has had progressive dementia according to his who is at bedside. He's been hallucinating and speaking with his parents. Patient denies headache. Denies focal numbness or weakness. He is alert and oriented 2 with time my evaluation. Denies chest pain or dyspnea. Denies abdominal pain nausea or vomiting. He's been eating and drinking well. No dysuria or hematuria. - Related Data Home Medications Medication Instructions Recorded Confirmed Allopurinol [Zyloprim] 300 mg PO DAILY 10/01/14 05/17/19 Clopidogrel Bisulfate [Clopidogrel] 75 mg PO DAILY 12/30/15 05/17/19 Metoprolol Tartrate [Lopressor] 50 mg PO DAILY 03/11/16 05/17/19 Aspirin EC [Ecotrin Low Dose] 81 mg PO DAILY 02/22/17 05/17/19 Donepezil [Aricept] 10 mg PO HS 02/22/17 05/17/19 Nitroglycerin Sl Tabs [Nitrostat] 0.4 mg SUBLINGUAL Q5M PRN 02/22/17 05/17/19 Cyanocobalamin (Vitamin B-12) 1,000 mcg PO DAILY 08/04/17 05/17/19 [Vitamin B-12] Atorvastatin [Lipitor] 40 mg PO HS 06/28/18 05/17/19 Isosorbide Mononitrate ER [Imdur] 30 mg PO DAILY 06/28/18 05/17/19 Memantine [Namenda] 10 mg PO BID 11/15/18 05/17/19 Topiramate [Topamax] 25 mg PO BID 11/15/18 05/17/19 Thiamine HCl [Vitamin B-1] 100 mg PO DAILY 05/17/19 05/17/19 Allergies Allergy/AdvReac Type Severity Reaction Status Date / Time aloe vera Allergy Unknown Verified 05/17/19 10:07 Latex, Natural Rubber Allergy Swelling Verified 05/17/19 10:07 Penicillins Allergy Rash/Hives Verified 05/17/19 10:07 zolpidem tartrate AdvReac Hallucinati Verified 05/17/19 10:07 [From Denisse] ons Review of Systems ROS Statement: Those systems with pertinent positive or pertinent negative responses have been documented in the HPI. ROS Other: All systems not noted in ROS Statement are negative. Past Medical History Past Medical History: Coronary Artery Disease (CAD), Cancer, Chest Pain / Angina, CVA/TIA, Dementia, GERD/Reflux, Hyperlipidemia, Hypertension, Memory Impairment, Myocardial Infarction (MO), Prostate Disorder, Syncope Additional Past Medical History / Comment(s): Pt recently admitted on 06/28/18 with L ureteral calculus/L hydronephrosis. Other hx: Dementia with memory impairment/word finding spouse states is getting worse, spouse states hx of MO is questionable but possible in 2014, past skin and prostrate cancer with surgery, TIA, gout, benign polypectomy from colon, occasional low back pain and constipation. Last Myocardial Infarction Date:: 09/26/2015 History of Any Multi-Drug Resistant Organisms: None Reported Past Surgical History: Bowel Resection, Cholecystectomy, Heart Catheterization, Orthopedic Surgery, Prostate Surgery Additional Past Surgical History / Comment(s): Bowel surgery for polypoid lesion with post op ileus, cardiac caths, prostatectomy, PICC line insertion, bilate ral cataracts removed, vasectomy, L knee surg., SKIN CA REMOVED ,COLONOSCOPY Past Anesthesia/Blood Transfusion Reactions: No Reported Reaction Past Psychological History: Anxiety Smoking Status: Former smoker Past Alcohol Use History: None Reported Past Drug Use History: None Reported - Past Family History Father Additional Family Medical History / Comment(s): FROM RUPTURED AORTA aneurysm. Mother Family Medical History: CVA/TIA, Myocardial Infarction (MO) Additional Family Medical History / Comment(s): MOM AT AGE 61- HAD MULTIPLE STROKES AND MO'S Sister(s) Family Medical History: Cancer, COPD Additional Family Medical History / Comment(s): Patient had 3 sisters. One sister from emphysema with history of heavy smoking. One sister from breast cancer. One with Alzheimer's dementia. Daughter(s) Additional Family Medical History / Comment(s): Patient has 1 son and 1 daughter with no major medical problems. General Exam Limitations: no limitations General appearance: alert, in no apparent distress Head exam: Present: atraumatic, normocephalic Eye exam: Present: normal appearance, PERRL, EOMI ENT exam: Present: normal exam Neck exam: Present: normal inspection. Absent: tenderness, meningismus Respiratory exam: Present: normal lung sounds bilaterally. Absent: respiratory distress, wheezes Cardiovascular Exam: Present: regular rate, normal rhythm GI/Abdominal exam: Present: soft. Absent: distended, tenderness Extremities exam: Present: normal inspection, normal capillary refill. Absent: pedal edema, calf tenderness Back exam: Present: normal inspection, full ROM Neurological exam: Present: alert, oriented X3, CN II-XII intact. Absent: motor sensory deficit Psychiatric exam: Present: normal affect, normal mood Skin exam: Present: warm, dry, intact. Absent: cyanosis, diaphoretic Course Vital Signs 05/17/19 05/17/19 09:54 11:26 Temperature 97.7 F Pulse Rate 56 L 52 L Respiratory 20 20 Rate Blood Pressure 143/81 137/84 O2 Sat by Pulse 97 96 Oximetry EKG Findings - EKG Comments: EKG Findings:: EKG: Sinus bradycardia Q waves in the inferior leads, rate of 52, [place] interval 208, QRS duration 94, QTC 435, no ST segment elevation or depression. Medical Decision Making - Medical Decision Making 79-year-old male presenting with an episode of confusion and slurred speech. P atient alert and oriented 2 with time my evaluation which is his baseline. He has stable vitals, nonfocal neurologic exam. Head CT is performed which does show some ventriculomegaly, and chronic ischemic changes, no acute findings. Additional workup includes chest x-ray which is negative for focal pneumonia or acute findings. Normal CBC, normal electrolytes and CMP. I did discuss the possibility of observation for TIA workup versus outpatient TIA workup with his primary care physician Dr. Bae, he will see the patient in the office today. Patient's and the patient agreeable with this plan. They will return with worsening or changing symptoms. - Lab Data Result diagrams: 05/17/19 10:40 05/17/19 10:40 Lab Results 05/17/19 05/17/19 05/17/19 Range/Units 10:40 10:40 10:40 WBC 7.6 (3.8-10.6) k/uL RBC 4.19 L (4.30-5.90) m/uL Hgb 13.0 (13.0-17.5) gm/dL Hct 39.3 (39.0-53.0) % MCV 93.8 (80.0-100.0) fL MCH 31.1 (25.0-35.0) pg MCHC 33.1 (31.0-37.0) g/dL RDW 13.3 (11.5-15.5) % Plt Count 179 (150-450) k/uL Neutrophils % 74 % Lymphocytes % 12 % Monocytes % 7 % Eosinophils % 4 % Basophils % 1 % Neutrophils # 5.6 (1.3-7.7) k/uL Lymphocytes # 0.9 L (1.0-4.8) k/uL Monocytes # 0.5 (0-1.0) k/uL Eosinophils # 0.3 (0-0.7) k/uL Basophils # 0.0 (0-0.2) k/uL PT 10.6 (9.0-12.0) sec INR 1.0 (<1.2) APTT 24.2 (22.0-30.0) sec Sodium 141 (137-145) mmol/L Potassium 4.0 (3.5-5.1) mmol/L Chloride 108 H (98-107) mmol/L Carbon Dioxide 26 (22-30) mmol/L Anion Gap 7 mmol/L BUN 20 (9-20) mg/dL Creatinine 1.14 (0.66-1.25) mg/dL Est GFR (CKD-EPI)AfAm 70 (>60 ml/min/1.73 sqM) Est GFR (CKD-EPI)NonAf 61 (>60 ml/min/1.73 sqM) Glucose 95 (74-99) mg/dL POC Glucose (mg/dL) (75-99) mg/dL POC Glu Senior Database Programmer ID Calcium 9.3 (8.4-10.2) mg/dL Total Bilirubin 1.1 (0.2-1.3) mg/dL AST 20 (17-59) U/L ALT 14 L (21-72) U/L Alkaline Phosphatase 63 (38-126) U/L Troponin I (0.000-0.034) ng/mL Total Protein 6.2 L (6.3-8.2) g/dL Albumin 3.6 (3.5-5.0) g/dL 05/17/19 05/17/19 Range/Units 10:40 10:44 WBC (3.8-10.6) k/uL RBC (4.30-5.90) m/uL Hgb (13.0-17.5) gm/dL Hct (39.0-53.0) % MCV (80.0-100.0) fL MCH (25.0-35.0) pg MCHC (31.0-37.0) g/dL RDW (11.5-15.5) % Plt Count (150-450) k/uL Neutrophils % % Lymphocytes % % Monocytes % % Eosinophils % % Basophils % % Neutrophils # (1.3-7.7) k/uL Lymphocytes # (1.0-4.8) k/uL Monocytes # (0-1.0) k/uL Eosinophils # (0-0.7) k/uL Basophils # (0-0.2) k/uL PT (9.0-12.0) sec INR (<1.2) APTT (22.0-30.0) sec Sodium (137-145) mmol/L Potassium (3.5-5.1) mmol/L Chloride (98-107) mmol/L Carbon Dioxide (22-30) mmol/L Anion Gap mmol/L BUN (9-20) mg/dL Creatinine (0.66-1.25) mg/dL Est GFR (CKD-EPI)AfAm (>60 ml/min/1.73 sqM) Est GFR (CKD-EPI)NonAf (>60 ml/min/1.73 sqM) Glucose (74-99) mg/dL POC Glucose (mg/dL) 90 (75-99) mg/dL POC Glu Senior Database Programmer ID Lorenzo Márquez Calcium (8.4-10.2) mg/dL Total Bilirubin (0.2-1.3) mg/dL AST (17-59) U/L ALT (21-72) U/L Alkaline Phosphatase (38-126) U/L Troponin I 0.012 (0.000-0.034) ng/mL Total Protein (6.3-8.2) g/dL Albumin (3.5-5.0) g/dL Disposition Clinical Impression: Transient cerebral ischemia Disposition: HOME SELF-CARE Condition: Fair Instructions (If sedation given, give patient instructions): Transient Ischemic Attack (ED) Is patient prescribed a controlled substance at d/c from ED?: No Referrals: Leandro Perez MD [Primary Care Provider] - 1-2 days Time of Disposition: 12:18
[2019-05-17 10:46] LABS: Glucose,Whole Blood 90 mg/dL (75-99)
[2019-05-17 10:53] LABS: Basophils % (A) 1 %; Eosinophils # (A) 0.3 k/uL (0-0.7); Eosinophils % (A) 4 %; HCT 39.3 % (39.0-53.0); Lymphocytes # (A) 0.9 k/uL (1.0-4.8); Lymphocytes % (A) 12 %; MCH 31.1 pg (25.0-35.0); MCHC 33.1 g/dL (31.0-37.0); MCV 93.8 fL (80.0-100.0); Mean Platelet Volume 6.6; Monocytes # (A) 0.5 k/uL (0-1.0); Monocytes % (A) 7 %; Neutrophils # (A) 5.6 k/uL (1.3-7.7); Neutrophils % (A) 74 %; Platelet Count 179 k/uL (150-450); RBC 4.19 m/uL (4.30-5.90); RDW 13.3 % (11.5-15.5); WBC 7.6 k/uL (3.8-10.6)
[2019-05-17 11:01] LABS: Partial Thromboplastin Time 24.2 sec (22.0-30.0); Prothrombin Time 10.6 sec (9.0-12.0)
[2019-05-17 11:09] LABS: Albumin 3.6 g/dL (3.5-5.0); Calcium 9.3 mg/dL (8.4-10.2); Total Bilirubin 1.1 mg/dL (0.2-1.3); Total Protein 6.2 g/dL (6.3-8.2)
--- NOTE | 2019-05-17 11:13 | XR ---
EXAMINATION TYPE: XR chest 2V DATE OF EXAM: 05/17/2019 COMPARISON: 11/17/2018 HISTORY: Altered mental status TECHNIQUE: Frontal and lateral views of the chest are obtained. FINDINGS: There is no focal air space opacity, pleural effusion, or pneumothorax seen. Calcified lef t pleural plaques are noted in too much lesser degree on the right. Findings are indicative of prior asbestos exposure. The cardiac silhouette size is upper limits of normal in size. The osseous struc tures are intact. Moderate multilevel degenerative changes of the thoracic spine are seen. IMPRESSION: Findings with no acute cardiopulmonary process.
--- NOTE | 2019-05-17 11:15 | CT ---
EXAMINATION TYPE: CT brain wo con DATE OF EXAM: 05/17/2019 COMPARISON: 11/15/2018 HISTORY: 79-year-old male confusion, altered mental status TECHNIQUE: Examination was done in axial plane without intravenous contrast. Coronal and sagittal r econstructions performed. CT DLP: 1174.4 mGycm Automated exposure control for dose reduction was used. FINDINGS: There is no evidence of acute intracranial hemorrhage, acute ischemic changes, or extra-axial fluid collection. There is no effacement of cerebral sulci or basal subarachnoid cisterns. There is no mid line shift. Carey-white matter distinction is preserved. Stable prominent CSF space along the posterior and left paramedian midline measuring 5.9 x 3.4 x 5.0 cm. Slight localized mass effect onto the left cerebellar hemisphere, unchanged. Generalized supratentorial volume loss with secondary mild ventriculomegaly is unchanged from 018. Mild to moderate patchy white matter hypodensities in both cerebral hemispheres also unchanged. Mild mucosal thickening posterior left ethmoid air cells. Mastoid air cells well pneumatized. Leftwar d nasal septal deviation. Orbits and globes are intact. IMPRESSION: 1. Stable exam from 11/15/2018 with moderate atrophy and secondary mild ex vacuo ventriculomegaly. Mi ld to moderate patchy changes of chronic small vessel ischemic disease. 2. Stable prominent retrocerebellar CSF space could represent a angel cisterna magna or a 5.9 cm left paramedian arachnoid cyst. 3. No acute intracranial abnormality seen.
[2019-05-17 11:28] VITALS: BP 137/84
[2019-05-17] MEDS ORDERED: ASPIRIN 325 MG TAB PO STA (12:16)
[2019-05-17 12:25] VITALS: PULSE 54; RESP 18
== END 2019-05-17 12:41 | disposition home or self-care (01) ==
LOC: EC 09:51
DX: G45.9 Transient cerebral ischemic attack, unspecified (principal); G93.89 Other specified disorders of brain; I25.10 Atherosclerotic heart disease of native coronary artery without angina pectoris; F03.90 Unspecified dementia, unspecified severity, without behavioral disturbance, psychotic disturbance, mood disturbance, and anxiety; E78.5 Hyperlipidemia, unspecified; I25.2 Old myocardial infarction; I10 Essential (primary) hypertension; M10.9 Gout, unspecified; Z85.828 Personal history of other malignant neoplasm of skin; Z85.46 Personal history of malignant neoplasm of prostate; Z86.73 Personal history of transient ischemic attack (TIA), and cerebral infarction without residual deficits; Z95.818 Presence of other cardiac implants and grafts; Z87.891 Personal history of nicotine dependence; Z79.02 Long term (current) use of antithrombotics/antiplatelets; Z79.82 Long term (current) use of aspirin; Z79.899 Other long term (current) drug therapy; Z91.048 Other nonmedicinal substance allergy status; Z91.040 Latex allergy status; Z88.0 Allergy status to penicillin; Z88.8 Allergy status to other drugs, medicaments and biological substances
CPT/HCPCS: 36415; 70450; 71046; 80053; 84484; 85025; 85610; 85730; 93005; 96360; 99285

== ENCOUNTER 2019-08-01 05:45 | Emergency (ER) | payer MEDICARE, BC ==
[2019-08-01] MEDS ORDERED: SODIUM CHLORIDE 0.9% 1,000 ML IV STA (06:17)
--- NOTE | 2019-08-01 06:23 | ED ---
Weakness HPI - General Chief complaint: Weakness Stated complaint: weakness Time Seen by Provider: 08/01/19 06:01 Source: family, RN notes reviewed, old records reviewed Mode of arrival: wheelchair Limitations: no limitations - History of Present Illness Initial comments: Patient is an 79-year-old male presents emergency department today with his with complaints of increased agitation generalized weakness over the past few days. Patient has history of Alzheimer's. This is managed with medications. She reports that he was pacing around the house, almost falling throughout the night. Stating that "he had a do something". Patient's reports that she cannot make out what exactly is troubling him. Patient reportedly has been having a headache for the past few days but denies any pain at this time. Patient is alert and oriented 2, self and location. Unaware of time. Family reports that that is normal. Patient does not know his birthday. Patient's states that that seems to come and go for his knowledge at this time. Diane ent's states that he had some episodes of agitation on Tuesday when getting ready for [employer]. reports that she stopped his blood thinners yesterday as he is preparing for a procedure over his scalp to have a cancerous lesion removed. This is being done by dermatology. - Related Data Home Medications Medication Instructions Recorded Confirmed Allopurinol [Zyloprim] 300 mg PO DAILY 10/01/14 08/01/19 Clopidogrel Bisulfate [Clopidogrel] 75 mg PO DAILY 12/30/15 08/01/19 Metoprolol Tartrate [Lopressor] 50 mg PO DAILY 03/11/16 08/01/19 Aspirin EC [Ecotrin Low Dose] 81 mg PO DAILY 02/22/17 08/01/19 Donepezil [Aricept] 10 mg PO HS 02/22/17 08/01/19 Nitroglycerin Sl Tabs [Nitrostat] 0.4 mg SUBLINGUAL Q5M PRN 02/22/17 08/01/19 Cyanocobalamin (Vitamin B-12) 1,000 mcg PO DAILY 08/04/17 08/01/19 [Vitamin B-12] Atorvastatin [Lipitor] 40 mg PO HS 06/28/18 08/01/19 Isosorbide Mononitrate ER [Imdur] 30 mg PO DAILY 06/28/18 08/01/19 Memantine [Namenda] 10 mg PO BID 11/15/18 08/01/19 Topiramate [Topamax] 25 mg PO BID 11/15/18 08/01/19 Thiamine HCl [Vitamin B-1] 100 mg PO DAILY 05/17/19 08/01/19 Previous Rx's Medication Instructions Recorded LORazepam [Ativan] 0.5 mg PO BID 3 Days #6 tab 08/01/19 Allergies Allergy/AdvReac Type Severity Reaction Status Date / Time aloe vera Allergy Unknown Verified 05/17/19 10:07 Latex, Natural Rubber Allergy Swelling Verified 05/17/19 10:07 Penicillins Allergy Rash/Hives Verified 05/17/19 10:07 zolpidem tartrate AdvReac Hallucinati Verified 05/17/19 10:07 [From Denisse] ons Review of Systems ROS Statement: Those systems with pertinent positive or pertinent negative responses have been documented in the HPI. ROS Other: All systems not noted in ROS Statement are negative. Past Medical History Past Medical History: Coronary Artery Disease (CAD), Cancer, Chest Pain / Angina, CVA/TIA, Dementia, GERD/Reflux, Hyperlipidemia, Hypertension, Memory Impairment, Myocardial Infarction ([place]), Prostate Disorder, Syncope Additional Past Medical History / Comment(s): Pt recently admitted on 06/28/18 with L ureteral calculus/L hydronephrosis. Other hx: Dementia with memory impairment/word finding spouse states is getting worse, spouse states hx of [place] is questionable but possible in 2014, past skin and prostrate cancer with surgery, TIA, gout, benign polypectomy from colon, occasional low back pain and constipation. Last Myocardial Infarction Date:: 09/26/2015 History of Any Multi-Drug Resistant Organisms: None Reported Past Surgical History: Bowel Resection, Cholecystectomy, Heart Catheterization, Orthopedic Surgery, Prostate Surgery Additional Past Surgical History / Comment(s): Bowel surgery for polypoid lesion with post op ileus, cardiac caths, prostatectomy, PICC line insertion, bilateral cataracts removed, vasectomy, L knee surg., SKIN CA REMOVED ,COL ONOSCOPY Past Anesthesia/Blood Transfusion Reactions: No Reported Reaction Past Psychological History: Anxiety Smoking Status: Former smoker Past Alcohol Use History: None Reported Past Drug Use History: None Reported - Past Family History Father Additional Family Medical History / Comment(s): FROM RUPTURED AORTA aneurysm. Mother Family Medical History: CVA/TIA, Myocardial Infarction ([place]) Additional Family Medical History / Comment(s): MOM AT AGE 61- HAD MULTIPLE STROKES AND [place]'S Sister(s) Family Medical History: Cancer, COPD Additional Family Medical History / Comment(s): Patient had 3 sisters. One sister from emphysema with history of heavy smoking. One sister from breast cancer. One with Alzheimer's dementia. Daughter(s) Additional Family Medical History / Comment(s): Patient has 1 son and 1 daughter with no major medical problems. General Exam - General Exam Comments Initial Comments: 79-year-old male. Alert and oriented to self. Limitations: no limitations General appearance: alert, in no apparent distress Head exam: Present: atraumatic, normocephalic, normal inspection Eye exam: Present: normal appearance, PERRL, EOMI. Absent: scleral icterus, conjunctival injection, periorbital swelling ENT exam: Present: mucous membranes dry, mucous membranes moist. Absent: normal exam Neck exam: Present: normal inspection. Absent: tenderness, meningismus, lymphadenopathy Respiratory exam: Present: normal lung sounds bilaterally. Absent: respiratory distress, wheezes, rales, rhonchi, stridor Cardiovascular Exam: Present: regular rate, normal rhythm, normal heart sounds. Absent: systolic murmur, diastolic murmur, rubs, gallop, clicks GI/Abdominal exam: Present: soft, normal bowel sounds. Absent: distended, tenderness, guarding, rebound, rigid Back exam: Present: normal inspection Neurological exam: Present: alert, oriented X3, CN II-XII intact Psychiatric exam: Present: normal affect, normal mood Skin exam: Present: warm, dry, intact, normal color. Absent: rash Course Vital Signs 08/01/19 08/01/19 05:48 08:35 Temperature 97.4 F L 97.3 F L Pulse Rate 88 66 Respiratory 18 20 Rate Blood Pressure 183/95 177/68 O2 Sat by Pulse 97 96 Oximetry EKG Findings - EKG Comments: EKG Findings:: EKG shows normal sinus rhythm normal EKG. Ventricular rate of 81 bpm.. Vitals 192 ms. Frustration is 92 ms. QT QTc is 390/453 ms. Medical Decision Making - Medical Decision Making Pleasant 79-year-old male with history of Alzheimer's presents today with increased agitation over the last night and reports that she was worried about his falling. At this time patient's lab work was reviewed. Mild dehydration with lactic acid of 2.3. She was given IV fluids. Patient's labs are unremarkable UA is normal. CT of the brain was obtained for any acute intracranial process chest x-ray shows no active critical coronary disease. At this time patient's case was discussed with Dr. Justice who discussed his patient's PCP. Is likely patient's agitation and restlessness is due to the disease process of his Alzheimer's. He recommended putting the Patient on a low-dose of Ativan. Patient will be started on this in the ER and 0.5 mg by mouth. I di scussed it can write this for the Patient and is agreeable. She states she does not want to put the Patient in longterm at this time. I discussed again he falls or any other concerns he cannot return for reevaluation. He'll have prompt follow-up with her PCP. ANSWER return parameters were discussed. - Lab Data Result diagrams: 08/01/19 06:05 08/01/19 06:05 Lab Results 08/01/19 08/01/19 08/01/19 Range/Units 06:05 06:05 06:05 WBC 8.3 (3.8-10.6) k/uL RBC 4.90 (4.30-5.90) m/uL Hgb 15.0 (13.0-17.5) gm/dL Hct 45.6 (39.0-53.0) % MCV 93.1 (80.0-100.0) fL MCH 30.6 (25.0-35.0) pg MCHC 32.8 (31.0-37.0) g/dL RDW 13.1 (11.5-15.5) % Plt Count 177 (150-450) k/uL Neutrophils % 71 % Lymphocytes % 16 % Monocytes % 7 % Eosinophils % 4 % Basophils % 1 % Neutrophils # 5.9 (1.3-7.7) k/uL Lymphocytes # 1.4 (1.0-4.8) k/uL Monocytes # 0.6 (0-1.0) k/uL Eosinophils # 0.3 (0-0.7) k/uL Basophils # 0.1 (0-0.2) k/uL PT (9.0-12.0) sec INR (<1.2) APTT (22.0-30.0) sec Sodium 142 (137-145) mmol/L Potassium 3.9 (3.5-5.1) mmol/L Chloride 105 (98-107) mmol/L Carbon Dioxide 26 (22-30) mmol/L Anion Gap 11 mmol/L BUN 23 H (9-20) mg/dL Creatinine 1.25 (0.66-1.25) mg/dL Est GFR (CKD-EPI)AfAm 63 (>60 ml/min/1.73 sqM) Est GFR (CKD-EPI)NonAf 54 (>60 ml/min/1.73 sqM) Glucose 98 (74-99) mg/dL Plasma Lactic Acid Merlin 2.3 H* (0.7-2.0) mmol/L Calcium 10.1 (8.4-10.2) mg/dL Magnesium 1.9 (1.6-2.3) mg/dL Total Bilirubin 0.8 (0.2-1.3) mg/dL AST 23 (17-59) U/L ALT 10 L (21-72) U/L Alkaline Phosphatase 87 (38-126) U/L Troponin I (0.000-0.034) ng/mL NT-Pro-B Natriuret Pep pg/mL Total Protein 7.3 (6.3-8.2) g/dL Albumin 4.3 (3.5-5.0) g/dL Urine Color Urine Appearance (Clear) Urine pH (5.0-8.0) Ur Specific [place] (1.001-1.035) Urine Protein (Negative) Urine Glucose (UA) (Negative) Urine Ketones (Negative) Urine Blood (Negative) Urine Nitrite (Negative) Urine Bilirubin (Negative) Urine Urobilinogen (<2.0) mg/dL Ur Leukocyte Esterase (Negative) Urine RBC (0-5) /hpf Urine WBC (0-5) /hpf 08/01/19 08/01/19 08/01/19 Range/Units 06:05 06:05 06:05 WBC (3.8-10.6) k/uL RBC (4.30-5.90) m/uL Hgb (13.0-17.5) gm/dL Hct (39.0-53.0) % MCV (80.0-100.0) fL MCH (25.0-35.0) pg MCHC (31.0-37.0) g/dL RDW (11.5-15.5) % Plt Count (150-450) k/uL Neutrophils % % Lymphocytes % % Monocytes % % Eosinophils % % Basophils % % Neutrophils # (1.3-7.7) k/uL Lymphocytes # (1.0-4.8) k/uL Monocytes # (0-1.0) k/uL Eosinophils # (0-0.7) k/uL Basophils # (0-0.2) k/uL PT 10.1 (9.0-12.0) sec INR 0.9 (<1.2) APTT 23.9 (22.0-30.0) sec Sodium (137-145) mmol/L Potassium (3.5-5.1) mmol/L Chloride (98-107) mmol/L Carbon Dioxide (22-30) mmol/L Anion Gap mmol/L BUN (9-20) mg/dL Creatinine (0.66-1.25) mg/dL Est GFR (CKD-EPI)AfAm (>60 ml/min/1.73 sqM) Est GFR (CKD-EPI)NonAf (>60 ml/min/1.73 sqM) Glucose (74-99) mg/dL Plasma Lactic Acid Merlin (0.7-2.0) mmol/L Calcium (8.4-10.2) mg/dL Magnesium (1.6-2.3) mg/dL Total Bilirubin (0.2-1.3) mg/dL AST (17-59) U/L ALT (21-72) U/L Alkaline Phosphatase (38-126) U/L Troponin I <0.012 (0.000-0.034) ng/mL NT-Pro-B Natriuret Pep 645 pg/mL Total Protein (6.3-8.2) g/dL Albumin (3.5-5.0) g/dL Urine Color Urine Appearance (Clear) Urine pH (5.0-8.0) Ur Specific [place] (1.001-1.035) Urine Protein (Negative) Urine Glucose (UA) (Negative) Urine Ketones (Negative) Urine Blood (Negative) Urine Nitrite (Negative) Urine Bilirubin (Negative) Urine Urobilinogen (<2.0) mg/dL Ur Leukocyte Esterase (Negative) Urine RBC (0-5) /hpf Urine WBC (0-5) /hpf 08/01/19 Range/Units 06:40 WBC (3.8-10.6) k/uL RBC (4.30-5.90) m/uL Hgb (13.0-17.5) gm/dL Hct (39.0-53.0) % MCV (80.0-100.0) fL MCH (25.0-35.0) pg MCHC (31.0-37.0) g/dL RDW (11.5-15.5) % Plt Count (150-450) k/uL Neutrophils % % Lymphocytes % % Monocytes % % Eosinophils % % Basophils % % Neutrophils # (1.3-7.7) k/uL Lymphocytes # (1.0-4.8) k/uL Monocytes # (0-1.0) k/uL Eosinophils # (0-0.7) k/uL Basophils # (0-0.2) k/uL PT (9.0-12.0) sec INR (<1.2) APTT (22.0-30.0) sec Sodium (137-145) mmol/L Potassium (3.5-5.1) mmol/L Chloride (98-107) mmol/L Carbon Dioxide (22-30) mmol/L Anion Gap mmol/L BUN (9-20) mg/dL Creatinine (0.66-1.25) mg/dL Est GFR (CKD-EPI)AfAm (>60 ml/min/1.73 sqM) Est GFR (CKD-EPI)NonAf (>60 ml/min/1.73 sqM) Glucose (74-99) mg/dL Plasma Lactic Acid Merlin (0.7-2.0) mmol/L Calcium (8.4-10.2) mg/dL Magnesium (1.6-2.3) mg/dL Total Bilirubin (0.2-1.3) mg/dL AST (17-59) U/L ALT (21-72) U/L Alkaline Phosphatase (38-126) U/L Troponin I (0.000-0.034) ng/mL NT-Pro-B Natriuret Pep pg/mL Total Protein (6.3-8.2) g/dL Albumin (3.5-5.0) g/dL Urine Color Light Yellow Urine Appearance Clear (Clear) Urine pH 7.0 (5.0-8.0) Ur Specific [place] 1.008 (1.001-1.035) Urine Protein Negative (Negative) Urine Glucose (UA) Negative (Negative) Urine Ketones Negative (Negative) Urine Blood Trace H (Negative) Urine Nitrite Negative (Negative) Urine Bilirubin Negative (Negative) Urine Urobilinogen <2.0 (<2.0) mg/dL Ur Leukocyte Esterase Negative (Negative) Urine RBC 4 (0-5) /hpf Urine WBC <1 (0-5) /hpf - Radiology Data Radiology results: report reviewed Chest x-ray shows chronic findings without any acute cardiac process. Read by Dr. Kindra Santana. No Acute process. Redemonstration of age-related cervical atrophy and chronic small vessel ischemic change. Stable posterior fossa extra-axial probable arachnoid cyst. As read by Kindra Santana. Disposition Clinical Impression: Restlessness and agitation Disposition: HOME SELF-CARE Condition: Good Instructions (If sedation given, give patient instructions): Alzheimer Disease (DC) Additional Instructions: Please use medication as discussed. Please follow up with family doctor if symptoms have not improved over the next two days. Please return to the emergency room if your symptoms increase or worsen or for any other concerns. Prescriptions: LORazepam [Ativan] 0.5 mg PO BID 3 Days #6 tab Is patient prescribed a controlled substance at d/c from ED?: Yes If prescribed controlled substance>3 days was MAPS reviewed?: Prescribed <3 Days If opioid is for acute pain is fill amount 7 days or less?: Yes If Rx opioid, was Start Talking consent form obtained?: Yes Referrals: Leandro Perez MD [Primary Care Provider] - 1-2 days Time of Disposition: 08:47
[2019-08-01 06:30] LABS: Basophils # (A) 0.1 k/uL (0-0.2); Basophils % (A) 1 %; Eosinophils # (A) 0.3 k/uL (0-0.7); Eosinophils % (A) 4 %; HCT 45.6 % (39.0-53.0); Lymphocytes # (A) 1.4 k/uL (1.0-4.8); Lymphocytes % (A) 16 %; MCH 30.6 pg (25.0-35.0); MCHC 32.8 g/dL (31.0-37.0); MCV 93.1 fL (80.0-100.0); Mean Platelet Volume 6.6; Monocytes # (A) 0.6 k/uL (0-1.0); Monocytes % (A) 7 %; Neutrophils # (A) 5.9 k/uL (1.3-7.7); Neutrophils % (A) 71 %; Platelet Count 177 k/uL (150-450); RDW 13.1 % (11.5-15.5); WBC 8.3 k/uL (3.8-10.6)
[2019-08-01] MEDS ORDERED: SODIUM CHLORIDE 0.9% 1,000 ML IV SCH (06:30)
[2019-08-01 06:43] LABS: Albumin 4.3 g/dL (3.5-5.0); Calcium 10.1 mg/dL (8.4-10.2); Magnesium 1.9 mg/dL (1.6-2.3); Potassium 3.9 mmol/L (3.5-5.1); Total Bilirubin 0.8 mg/dL (0.2-1.3); Total Protein 7.3 g/dL (6.3-8.2)
[2019-08-01 06:45] LABS: INR 0.9 (<1.2); Partial Thromboplastin Time 23.9 sec (22.0-30.0); Prothrombin Time 10.1 sec (9.0-12.0)
[2019-08-01 06:51] LABS: Appearance,Urine Clear (Clear); Bilirubin,Urine Negative (Negative); Blood,Urine Trace (Negative); Color,Urine Light Yellow; Glucose,Urine (UA) Negative (Negative); Ketones,Urine Negative (Negative); Leukocyte Esterase,Urine Negative (Negative); Nitrite,Urine Negative (Negative); Protein,Urine Negative (Negative); RBC,Urine 4 /hpf (0-5); Specific Gravity,Urine 1.008 (1.001-1.035); Urobilinogen,Urine <2.0 mg/dL (<2.0)
--- NOTE | 2019-08-01 07:26 | CT ---
EXAMINATION TYPE: CT brain wo con DATE OF EXAM: 08/01/2019 COMPARISON: CT brain dated 05/17/2019 HISTORY: Headache and weakness CT DLP: 1086.4 mGycm Automated exposure control for dose reduction was used. TECHNIQUE: CT scan of the head is performed without contrast. FINDINGS: Similar extra-axial posterior fossa left paramedian CSF attenuated arachnoid cyst with slig ht mass effect on the cerebellar folia. Smaller suspected right paramedian arachnoid cyst measuring a pproximately 3.3 x 1.1 cm in the posterior fossa. There is no acute intracranial hemorrhage or midlin e shift identified. There is diffuse ventricular and sulcal prominence consistent with diffuse age-re lated cerebral atrophy. There is low-attenuation in the periventricular white matter consistent with chronic small vessel ischemic change. The globes are intact and the visualized sinuses are clear. Leftward nasal septal deviation noted. IMPRESSION: No acute intracranial process. Redemonstration of age-related cerebral atrophy and chron ic small vessel ischemic change. Stable posterior fossa extra-axial probable arachnoid cysts.
--- NOTE | 2019-08-01 07:27 | XR ---
EXAMINATION TYPE: XR chest 2V DATE OF EXAM: 08/01/2019 COMPARISON: 05/17/2019 HISTORY: Weakness TECHNIQUE: Frontal and lateral views of the chest are obtained. FINDINGS: Calcified pleural plaques are seen along the left midlung, indicative of prior asbestos ex posure. No new focal consolidation, pleural effusion or pneumothorax. Prominent main pulmonary arteri es can be seen in pulmonary arterial hypertension. Cardiomediastinal silhouette is stable and nonenla rged. Moderate degenerative changes of the spine. IMPRESSION: Chronic findings with no acute cardiopulmonary process.
[2019-08-01 08:36] VITALS: TEMP 97.3
[2019-08-01] MEDS ORDERED: LORazepam 1 MG TAB PO STA (08:36)
[2019-08-01 09:15] VITALS: BP 168/88; RESP 18
[2019-08-01 09:32] VITALS: PULSE 68
== END 2019-08-01 09:29 | disposition home or self-care (01) ==
LOC: EC 05:45
DX: R45.1 Restlessness and agitation (principal); R53.1 Weakness; E86.0 Dehydration; G30.9 Alzheimer's disease, unspecified; F02.80 Dementia in other diseases classified elsewhere, unspecified severity, without behavioral disturbance, psychotic disturbance, mood disturbance, and anxiety; I25.119 Atherosclerotic heart disease of native coronary artery with unspecified angina pectoris; M10.9 Gout, unspecified; E78.5 Hyperlipidemia, unspecified; I10 Essential (primary) hypertension; I25.2 Old myocardial infarction; Z79.02 Long term (current) use of antithrombotics/antiplatelets; Z79.82 Long term (current) use of aspirin; Z79.899 Other long term (current) drug therapy; Z88.0 Allergy status to penicillin; Z88.8 Allergy status to other drugs, medicaments and biological substances; Z91.040 Latex allergy status; Z91.048 Other nonmedicinal substance allergy status; Z98.890 Other specified postprocedural states; Z87.891 Personal history of nicotine dependence; Z90.79 Acquired absence of other genital organ(s); Z85.828 Personal history of other malignant neoplasm of skin; Z98.52 Vasectomy status; Z98.41 Cataract extraction status, right eye; Z98.42 Cataract extraction status, left eye; Z86.73 Personal history of transient ischemic attack (TIA), and cerebral infarction without residual deficits; Z95.5 Presence of coronary angioplasty implant and graft; Z85.46 Personal history of malignant neoplasm of prostate
CPT/HCPCS: 36415; 70450; 71046; 80053; 81001; 83605; 83735; 83880; 84484; 85025; 85610; 85730; 93005; 96360; 96361; 99285

== ENCOUNTER → 2020-01-29 | Outpatient (CLI) | payer MEDICARE, BC | END | disposition home or self-care (01) | LOC: LABWHC1 09:48 | PROVIDERS: ATTEND Nurse Practitioner Women's Health | DX: Z53.9 Procedure and treatment not carried out, unspecified reason (principal) ==

== ENCOUNTER → 2020-02-29 | Outpatient (CLI) | payer BC, MEDICARE ==
--- NOTE | 2020-02-29 11:54 | XR ---
EXAMINATION TYPE: XR abdomen 1V DATE OF EXAM: 02/29/2020 11:22 AM CLINICAL HISTORY: Vomiting and abdominal pain. TECHNIQUE: Two Upright KUB images of the abdomen are obtained. COMPARISON: Abdominal x-ray September 05, 2018. CT November 15, 2018. FINDINGS: Prominent gas filled colonic loops in the upper abdomen. Scattered air-fluid levels. Some p aucity of small bowel gas. Probable distended stomach with air-fluid level. Some gas noted in nondist ended bowel loops in the lower abdomen and pelvis Cholecystectomy clips redemonstrated. Pelvic surgic al clips again seen bilaterally. Lung bases remain clear. Facet arthropathy and spurring lower lumbar levels. IMPRESSION: Overall nonspecific bowel gas pattern currently.
== END | disposition home or self-care (01) ==
LOC: RADXRMAIN 11:03
PROVIDERS: ATTEND Family Medicine
DX: A09 Infectious gastroenteritis and colitis, unspecified (principal)
CPT/HCPCS: 74018

== ENCOUNTER → 2020-04-29 | Outpatient (CLI) | payer MEDICARE ==
--- NOTE | 2020-04-29 11:30 | XR ---
Abdomen HISTORY: pain Frontal view the abdomen on 2 images correlated to prior abdomen 02/29/2020 Multiple surgical clips are present within the pelvis likely due to post prostatectomy change. There are vascular calcifications present. There are air-filled loops of small and large bowel present. Vinnie gical clips present right upper quadrant. No evident pneumoperitoneum. IMPRESSION: Findings could represent ileus, correlate for bowel obstruction, follow-up as indicated..
== END | disposition home or self-care (01) ==
LOC: RADXRMAIN 10:54
PROVIDERS: ATTEND Family Medicine
DX: R10.10 Upper abdominal pain, unspecified (principal)
CPT/HCPCS: 74018

== ENCOUNTER 2020-05-02 09:38 | Inpatient (IN) | payer MEDICARE, BC ==
--- NOTE | 2020-05-02 09:57 | ED ---
General Adult HPI - General Chief complaint: Recheck/Abnormal Lab/Rx Stated complaint: lab recheck Time Seen by Provider: 05/02/20 09:46 Source: patient, family, RN notes reviewed, old records reviewed Mode of arrival: ambulatory Limitations: no limitations - History of Present Illness Initial comments: 80-year-old male history of dementia presents for evaluation of abnormal lab testing and chronic diarrhea. Patient was sent in by his primary care physician with a potassium of 2.6. He had an x-ray as an outpatient which was reported as an ileus. There is been no vomiting. His was at bedside states that he's had diarrhea for approximately one month. No recent antibiotic use. She does report intermittent abdominal pain. No fever or chills. - Related Data Home Medications Medication Instructions Recorded Confirmed Allopurinol [Zyloprim] 300 mg PO DAILY 10/01/14 05/02/20 Clopidogrel Bisulfate [Clopidogrel] 75 mg PO DAILY 12/30/15 05/02/20 Metoprolol Tartrate [Lopressor] 50 mg PO DAILY 03/11/16 05/02/20 Aspirin EC [Ecotrin Low Dose] 81 mg PO DAILY 02/22/17 05/02/20 Donepezil [Aricept] 10 mg PO BID 02/22/17 05/02/20 Nitroglycerin Sl Tabs [Nitrostat] 0.4 mg SUBLINGUAL Q5M PRN 02/22/17 05/02/20 Atorvastatin [Lipitor] 40 mg PO HS 06/28/18 05/02/20 Isosorbide Mononitrate ER [Imdur] 30 mg PO DAILY 06/28/18 05/02/20 Memantine [Namenda] 10 mg PO BID 11/15/18 05/02/20 Topiramate [Topamax] 25 mg PO BID 11/15/18 05/02/20 Thiamine HCl [Vitamin B-1] 100 mg PO DAILY 05/17/19 05/02/20 LORazepam [Ativan] 0.5 mg PO BID PRN 05/02/20 05/02/20 Loratadine 10 mg PO HS 05/02/20 05/02/20 Melatonin 10 mg PO HS 05/02/20 05/02/20 Pantoprazole [Protonix] 40 mg PO DAILY PRN 05/02/20 05/02/20 Allergies Allergy/AdvReac Type Severity Reaction Status Date / Time aloe vera Allergy Unknown Verified 05/02/20 10:38 Latex, Natural Rubber Allergy Swelling Verified 05/02/20 10:38 Penicillins Allergy Rash/Hives Verified 05/02/20 10:38 zolpidem tartrate AdvReac Hallucinati Verified 05/02/20 10:38 [From [facility]] ons Review of Systems ROS Statement: Those systems with pertinent positive or pertinent negative responses have been documented in the HPI. ROS Other: All systems not noted in ROS Statement are negative. Past Medical History Past Medical History: Coronary Artery Disease (CAD), Cancer, Chest Pain / Angina, CVA/TIA, Dementia, GERD/Reflux, Hyperlipidemia, Hypertension, Memory Impairment, Myocardial Infarction ([place]), Prostate Disorder, Syncope Additional Past Medical History / Comment(s): Pt recently admitted on 06/28/18 with L ureteral calculus/L hydronephrosis. Other hx: Dementia with memory impairment/word finding spouse states is getting worse, spouse states hx of [place] is questionable but possible in 2014, past skin and prostrate cancer with surgery, TIA, gout, benign polypectomy from colon, occasional low back pain and constipation. Last Myocardial Infarction Date:: 09/26/2015 History of Any Multi-Drug Resistant Organisms: None Reported Past Surgical History: Bowel Resection, Cholecystectomy, Heart Catheterization, Orthopedic Surgery, Prostate Surgery Additional Past Surgical History / Comment(s): Bowel surgery for polypoid lesion with post op ileus, cardiac caths, prostatectomy, PICC line insertion, bilateral cataracts removed, vasectomy, L knee surg., SKIN CA REMOVED , COLONOSCOPY Past Anesthesia/Blood Transfusion Reactions: No Reported Reaction Past Psychological History: Anxiety Smoking Status: Former smoker Past Alcohol Use History: None Reported Past Drug Use History: None Reported - Past Family History Father Additional Family Medical History / Comment(s): FROM RUPTURED AORTA aneurysm. Mother Family Medical History: CVA/TIA, Myocardial Infarction ([place]) Additional Family Medical History / Comment(s): MOM AT AGE 61- HAD MULTIPLE STROKES AND OH'S Sister(s) Family Medical History: Cancer, COPD Additional Family Medical History / Comment(s): Patient had 3 sisters. One sister from emphysema with history of heavy smoking. One sister from breast cancer. One with Alzheimer's dementia. Daughter(s) Additional Family Medical History / Comment(s): Patient has 1 son and 1 daughter with no major medical problems. General Exam Limitations: no limitations General appearance: alert, in no apparent distress Head exam: Present: atraumatic, normocephalic Eye exam: Present: normal appearance, PERRL ENT exam: Present: mucous membranes dry Neck exam: Present: normal inspection. Absent: tenderness, meningismus Respiratory exam: Present: normal lung sounds bilaterally. Absent: respiratory distress, wheezes Cardiovascular Exam: Present: normal rhythm, bradycardia GI/Abdominal exam: Present: soft. Absent: distended, tenderness, guarding, rebound Extremities exam: Present: normal inspection, normal capillary refill. Absent: pedal edema Back exam: Present: normal inspection. Absent: full ROM, tenderness Neurological exam: Present: alert, CN II-XII intact. Absent: oriented X3, motor sensory deficit Psychiatric exam: Present: normal mood, flat affect Skin exam: Present: warm, dry, intact Course Vital Signs 05/02/20 09:38 Temperature 97.4 F L Pulse Rate 49 L Respiratory 18 Rate Blood Pressure 136/79 O2 Sat by Pulse 98 Oximetry EKG Findings - EKG Comments: EKG Findings:: EKG: Sinus bradycardia Q waves in the inferior leads, no ST segment elevation, rate of 50, SC interval 204, QRS duration 108, QTC 494. Medical Decision Making - Medical Decision Making 80-year-old male sent in for evaluation of diarrhea, hypokalemia over the past one month. Patient has been unable to tolerate his medications and has been unable to take his oral potassium supplement. His potassium today is 2.4. This is replaced both orally and with IV potassium. He has a normal CBC. Urinalysis and stool studies are pending. He has a normal lactic acid, he is mildly acidotic with a CO2 of 19. CT of the abdomen and pelvis has been ordered, these results are pending. - Lab Data Result diagrams: 05/02/20 10:10 05/02/20 10:10 Lab Results 05/02/20 05/02/20 05/02/20 Range/Units 10:10 10:10 10:10 WBC 8.3 (3.8-10.6) k/uL RBC 4.51 (4.30-5.90) m/uL Hgb 14.6 (13.0-17.5) gm/dL Hct 42.3 (39.0-53.0) % MCV 94.0 (80.0-100.0) fL MCH 32.3 (25.0-35.0) pg MCHC 34.4 (31.0-37.0) g/dL RDW 13.6 (11.5-15.5) % Plt Count 259 (150-450) k/uL Neutrophils % 72 % Lymphocytes % 17 % Monocytes % 6 % Eosinophils % 2 % Basophils % 0 % Neutrophils # 6.0 (1.3-7.7) k/uL Lymphocytes # 1.4 (1.0-4.8) k/uL Monocytes # 0.5 (0-1.0) k/uL Eosinophils # 0.2 (0-0.7) k/uL Basophils # 0.0 (0-0.2) k/uL PT 11.0 (9.0-12.0) sec INR 1.1 (<1.2) APTT 22.6 (22.0-30.0) sec Sodium 141 (137-145) mmol/L Potassium 2.4 L* (3.5-5.1) mmol/L Chloride 110 H (98-107) mmol/L Carbon Dioxide 19 L (22-30) mmol/L Anion Gap 12 mmol/L BUN 23 H (9-20) mg/dL Creatinine 1.56 H (0.66-1.25) mg/dL Est GFR (CKD-EPI)AfAm 48 (>60 ml/min/1.73 sqM) Est GFR (CKD-EPI)NonAf 41 (>60 ml/min/1.73 sqM) Glucose 105 H (74-99) mg/dL Plasma Lactic Acid Merlin (0.7-2.0) mmol/L Calcium 10.0 (8.4-10.2) mg/dL Magnesium 1.7 (1.6-2.3) mg/dL Total Bilirubin 0.7 (0.2-1.3) mg/dL AST 25 (17-59) U/L ALT 13 (4-49) U/L Alkaline Phosphatase 60 (38-126) U/L Total Protein 6.9 (6.3-8.2) g/dL Albumin 3.8 (3.5-5.0) g/dL Amylase 76 (30-110) U/L Lipase 172 (23-300) U/L 05/02/20 Range/Units 10:10 WBC (3.8-10.6) k/uL RBC (4.30-5.90) m/uL Hgb (13.0-17.5) gm/dL Hct (39.0-53.0) % MCV (80.0-100.0) fL MCH (25.0-35.0) pg MCHC (31.0-37.0) g/dL RDW (11.5-15.5) % Plt Count (150-450) k/uL Neutrophils % % Lymphocytes % % Monocytes % % Eosinophils % % Basophils % % Neutrophils # (1.3-7.7) k/uL Lymphocytes # (1.0-4.8) k/uL Monocytes # (0-1.0) k/uL Eosinophils # (0-0.7) k/uL Basophils # (0-0.2) k/uL PT (9.0-12.0) sec INR (<1.2) APTT (22.0-30.0) sec Sodium (137-145) mmol/L Potassium (3.5-5.1) mmol/L Chloride (98-107) mmol/L Carbon Dioxide (22-30) mmol/L Anion Gap mmol/L BUN (9-20) mg/dL Creatinine (0.66-1.25) mg/dL Est GFR (CKD-EPI)AfAm (>60 ml/min/1.73 sqM) Est GFR (CKD-EPI)NonAf (>60 ml/min/1.73 sqM) Glucose (74-99) mg/dL Plasma Lactic Acid Merlin 1.5 (0.7-2.0) mmol/L Calcium (8.4-10.2) mg/dL Magnesium (1.6-2.3) mg/dL Total Bilirubin (0.2-1.3) mg/dL AST (17-59) U/L ALT (4-49) U/L Alkaline Phosphatase (38-126) U/L Total Protein (6.3-8.2) g/dL Albumin (3.5-5.0) g/dL Amylase (30-110) U/L Lipase (23-300) U/L Disposition Clinical Impression: Hypokalemia, Weakness, Dehydration Disposition: ADMITTED IP TO THIS [facility] Condition: Stable Is patient prescribed a controlled substance at d/c from ED?: No Referrals: Leandro Perez MD [Primary Care Provider] - 1-2 days Time of Disposition: 11:12 Decision to Admit Reason: Admit from EC Decision Date: 05/02/20 Decision Time: 11:12
[2020-05-02] MEDS ORDERED: LIDOCAINE URO-JET JELLY 2% 5 ML KIT URETHRAL ONE (10:23)
[2020-05-02 10:38] LABS: Basophils % (A) 0 %; Eosinophils # (A) 0.2 k/uL (0-0.7); Eosinophils % (A) 2 %; HCT 42.3 % (39.0-53.0); HGB 14.6 gm/dL (13.0-17.5); Lymphocytes # (A) 1.4 k/uL (1.0-4.8); Lymphocytes % (A) 17 %; MCH 32.3 pg (25.0-35.0); MCHC 34.4 g/dL (31.0-37.0); Mean Platelet Volume 6.9; Monocytes # (A) 0.5 k/uL (0-1.0); Monocytes % (A) 6 %; Neutrophils % (A) 72 %; Platelet Count 259 k/uL (150-450); RBC 4.51 m/uL (4.30-5.90); RDW 13.6 % (11.5-15.5); WBC 8.3 k/uL (3.8-10.6)
[2020-05-02 10:49] LABS: Albumin 3.8 g/dL (3.5-5.0); INR 1.1 (<1.2); Magnesium 1.7 mg/dL (1.6-2.3); Partial Thromboplastin Time 22.6 sec (22.0-30.0); Total Bilirubin 0.7 mg/dL (0.2-1.3); Total Protein 6.9 g/dL (6.3-8.2)
[2020-05-02 11:01] LABS: Potassium 2.4 mmol/L (3.5-5.1)
[2020-05-02] MEDS ORDERED: POTASSIUM CHLORIDE ER 20 MEQ TAB.ER PO STA (11:02)
[2020-05-02] MEDS ORDERED: ACETAMINOPHEN TAB 325 MG TAB PO PRN (11:03)
[2020-05-02] MEDS ORDERED: NALOXONE 0.4 MG/ML 1 ML VIAL IV PRN (11:03)
[2020-05-02 11:43] LABS: Appearance,Urine Clear (Clear); Bilirubin,Urine Negative (Negative); Blood,Urine Small (Negative); Color,Urine Yellow; Glucose,Urine (UA) Negative (Negative); Hyaline Casts,Urine 5 /lpf (0-2); Ketones,Urine Negative (Negative); Leukocyte Esterase,Urine Negative (Negative); Mucus,Urine Rare /hpf; Nitrite,Urine Negative (Negative); Protein,Urine 1+ (Negative); RBC,Urine 9 /hpf (0-5); Specific Gravity,Urine 1.019 (1.001-1.035); Urobilinogen,Urine <2.0 mg/dL (<2.0); WBC,Urine 3 /hpf (0-5)
[2020-05-02] MEDS ORDERED: Magnesium Replacement Protocol 1 EACH MISC MISCELLANE PRN ×2 (11:47→14:29)
[2020-05-02] MEDS ORDERED: Potassium Replacement Protocol 1 EACH MISC MISCELLANE PRN (11:56)
--- NOTE | 2020-05-02 12:04 | CT ---
EXAMINATION TYPE: CT abdomen pelvis wo con DATE OF EXAM: 05/02/2020 COMPARISON: 11/15/2018 HISTORY: Abdominal pain CT DLP: 500.4 mGycm Automated exposure control for dose reduction was used. TECHNIQUE: Helical acquisition of images was performed from the lung bases through the pelvis. FINDINGS: Exam nearly nondiagnostic in severely limited due to artifact. LUNG BASES: The heart is enlarged. There is a 7 mm nodule in the anterior segment of the right upper lobe. Subsegmental consolidation noted. LIVER/GB: Surgical clips in the gallbladder fossa noted. Liver and suboptimally evaluated due to sarah fact. PANCREAS: Markedly limited and suboptimal due to artifact SPLEEN: Markedly limited and suboptimal due to artifact ADRENALS: Markedly limited and suboptimal due to artifact KIDNEYS: Bilateral renal lesions are seen most likely in the basis of cysts and were also noted on prior exam. There is a lower pole punctate calcifications totaling a number of approximately 3 like ly representing nonobstructing renal calculi. OSSEOUS STRUCTURES: Degenerative changes of the spine with grade 1 anterolisthesis and bilateral spo ndylolysis L5-S1. Sclerotic change of the thoracic vertebral body to small to characterize likely rel ated to bone island. BOWEL: There are dilated bowel loops to the level the rectum with nonspecific pattern. Air and fluid -filled loops of bowel are seen which were also noted on 04/29/2020. Hiatal hernia noted. OTHER: Ectasia the aorta with atherosclerotic changes. Ectasia of the iliac arteries. Aorta measures a maximal AP dimension of 3 cm compatible with mild aneurysmal dilation. Mild bladder wall thickening . Suggestion surgical clips in the pelvis. Correlate clinically. IMPRESSION: Severely limited exam due to artifact. 1. Dilated bowel loops extending to the level of the rectum correlate for ileus. Obstructive pattern not excluded. 2. Correlate for chronic cystitis. 3. Borderline abdominal aortic aneurysm measuring 3 cm. 4. Numerous renal lesions most likely in the basis of renal cysts. 5. there is a right upper lobe pulmonary nodule measuring 7 mm. Short-term follow CT of the chest rec ommended. 6. Nonobstructing sub-5 mm right renal calculi.
[2020-05-02] MEDS: POTASSIUM CHLORIDE 10 MEQ in WATER FOR INJECTION 1 100ML.BAG IVPB SCH ×6 (12:06→22:53)
--- NOTE | 2020-05-02 13:21 | P.HPIM ---
History of Present Illness H&P Date: 05/02/20 Chief Complaint: Abnormal labs, chronic diarrhea, possible ileus This is an 80-year-old gentleman with history of CAD, DC, CVA/TIA, bowel resection surgery with Dr. Santoyo , prostate cancer ,dementia, gastroesophageal reflux disease, hypertension, presented to the ER with complaints of diarrhea worsening over the last 2 weeks, with nausea, vomiting-like states patient spitting up pills, hypokalemic, OP potassium 2.6; 2.4 on admission, outpatient x-ray reporting possible ileus. CT of abdomen and pelvis completed, results pending. Denies vomiting, but reports fluctuating abdominal pain. Denies fever or chills. Denies chest pain, palpitations or shortness of breath. Hematology unremarkable, BUN 23, creatinine 1.56. Sinus bradycardia, heart rates in the 40s.BP WNL, maintaining O2 sats in the 90s on room air. UA negative. Review of Systems ROS Statement: Those systems with pertinent positive or pertinent negative responses have been documented in the HPI. ROS Other: All systems not noted in ROS Statement are negative. Past Medical History Past Medical History: Coronary Artery Disease (CAD), Cancer, Chest Pain / Angina, CVA/TIA, Dementia, GERD/Reflux, Hyperlipidemia, Hypertension, Memory Impairment, Myocardial Infarction ([place]), Prostate Disorder, Syncope Additional Past Medical History / Comment(s): Pt recently admitted on 06/28/18 with L ureteral calculus/L hydronephrosis. Other hx: Dementia with memory impairment/word finding spouse states is getting worse, spouse states hx of [place] is questionable but possible in 2015, past skin and prostrate cancer with surgery, TIA, gout, benign polypectomy from colon, occasional low back pain and constipation. Last Myocardial Infarction Date:: 09/26/2015 History of Any Multi-Drug Resistant Organisms: None Reported Past Surgical History: Bowel Resection, Cholecystectomy, Heart Catheterization, Orthopedic Surgery, Prostate Surgery Additional Past Surgical History / Comment(s): Bowel surgery for polypoid lesion with post op ileus, cardiac caths, prostatectomy, PICC line insertion, bilateral cataracts removed, vasectomy, L knee surg., SKIN CA REMOVED ,COLONOSCOPY Past Anesthesia/Blood Transfusion Reactions: No Reported Reaction Past Psychological History: Anxiety Smoking Status: Former smoker Past Alcohol Use History: None Reported Past Drug Use History: None Reported - Past Family History Father Additional Family Medical History / Comment(s): FROM RUPTURED AORTA aneurysm. Mother Family Medical History: CVA/TIA, Myocardial Infarction ([place]) Additional Family Medical History / Comment(s): MOM AT AGE 61- HAD MULTIPLE STROKES AND DC'S Sister(s) Family Medical History: Cancer, COPD Additional Family Medical History / Comment(s): Patient had 3 sisters. One sist er from emphysema with history of heavy smoking. One sister from breast cancer. One with Alzheimer's dementia. Daughter(s) Additional Family Medical History / Comment(s): Patient has 1 son and 1 daughter with no major medical problems. Medications and Allergies Home Medications Medication Instructions Recorded Confirmed Type Allopurinol [Zyloprim] 300 mg PO DAILY 10/01/14 05/02/20 History Clopidogrel Bisulfate [Clopidogrel] 75 mg PO DAILY 12/30/15 05/02/20 History Metoprolol Tartrate [Lopressor] 50 mg PO DAILY 03/11/16 05/02/20 History Aspirin EC [Ecotrin Low Dose] 81 mg PO DAILY 02/22/17 05/02/20 History Donepezil [Aricept] 10 mg PO BID 02/22/17 05/02/20 History Nitroglycerin Sl Tabs [Nitrostat] 0.4 mg SUBLINGUAL Q5M PRN 02/22/17 05/02/20 History Atorvastatin [Lipitor] 40 mg PO HS 06/28/18 05/02/20 History Isosorbide Mononitrate ER [Imdur] 30 mg PO DAILY 06/28/18 05/02/20 History Memantine [Namenda] 10 mg PO BID 11/15/18 05/02/20 History Topiramate [Topamax] 25 mg PO BID 11/15/18 05/02/20 History Thiamine HCl [Vitamin B-1] 100 mg PO DAILY 05/17/19 05/02/20 History LORazepam [Ativan] 0.5 mg PO BID PRN 05/02/20 05/02/20 History Loratadine 10 mg PO HS 05/02/20 05/02/20 History Melatonin 10 mg PO HS 05/02/20 05/02/20 History Pantoprazole [Protonix] 40 mg PO DAILY PRN 06/12/20 06/12/20 History Allergies Allergy/AdvReac Type Severity Reaction Status Date / Time aloe vera Allergy Unknown Verified 05/02/20 10:38 Latex, Natural Rubber Allergy Swelling Verified 05/02/20 10:38 Penicillins Allergy Rash/Hives Verified 05/02/20 10:38 zolpidem tartrate AdvReac Hallucinati Verified 05/02/20 10:38 [From [facility]] ons Physical Exam Vitals: Vital Signs Temp Pulse Resp BP Pulse Ox 05/02/20 11:28 47 L 18 131/81 97 05/02/20 09:38 97.4 F L 49 L 18 136/79 98 Intake and Output 05/01/20 05/02/20 05/02/20 22:59 06:59 14:59 Other: Weight 70.307 kg PHYSICAL EXAM: VITAL SIGNS: As above GENERAL: Sitting up in bed, no acute distress HEENT: Conjunctivae normal. eyes normal. NECK: No JVD. No thyroid enlargement. No LNs CARDIOVASCULAR: S1, S2 regular.. No murmur RESPIRATION: Breath sounds diminished in the bases. No rhonchi or crackles. No bronchial breathing. ABDOMEN: Soft, distended with left upper quadrant tenderness to palpation, No guarding. no masses palpable. No ascites, No hepatosplenomegaly.mildly hyperactive Bowel sounds heard. LEGS: No edema. no swelling PSYCHIATRY: Alert and oriented X2, mood and affect normal. NERVOUS SYSTEM: Cranial N 2-12 grossly normal. Moves all 4 limbs. Diffuse weakness No focal deficits. Strength and sensation grossly intact.. Skin: no lesions, no rash Lymphatic system. No LN neck axilla Results CBC & Chem 7: 05/02/20 10:10 05/02/20 10:10 Labs: Abnormal Lab Results - Last 24 Hours (Table) 05/02/20 Range/Units 10:10 Potassium 2.4 L* (3.5-5.1) mmol/L Chloride 110 H (98-107) mmol/L Carbon Dioxide 19 L (22-30) mmol/L BUN 23 H (9-20) mg/dL Creatinine 1.56 H (0.66-1.25) mg/dL Glucose 105 H (74-99) mg/dL Assessment and Plan Assessment: Possible ilues, PSBO, in a patient with worsening N/V/D diarrhea 2weeks, anorexia with possible ileus per outpatient x-ray in a patient with history of bowel resection Dehydration Hypokalemia Hypomagnesemia Acute renal failure secondary to dehydration from diarrhea Generalized weakness, multifactorial, secondary to the above Chronic diarrhea, incontinence Dementia, possibly Alzheimer's Sinus bradycardia, abnormal EKG, troponins pending, beta dante on hold Plan: Continue on current medication regime ,monitoring and symptomatic treatment. Potassium and magnesium supplementation in progress. Recheck potassium level at 1600. Gentle IV fluid hydration. Abnormal EKG, troponin pending. Remote telemetry. Abdomen/pelvis CT results pending. General surgery, Dr. Santoyo consulted. NPO, untill seen by surgery. Bed alarm, patient has history of wandering off. The impression and plan of care has been dictated as directed. : I performed a history and examination of this patient, discussed the same with the dictator. I agree with the dictator's note ,documented as a scribe. Any additional findings or plans will be noted.
[2020-05-02] MEDS: PANTOPRAZOLE 40 MG/10 ML VIAL IVP SCH (14:33)
[2020-05-02] MEDS: 0.9% NACL WITH KCL 20 MEQ/L 1,000 ML IV SCH (14:33)
[2020-05-02] MEDS: MAGNESIUM SULFATE-D5W PMX 1 GM in DEXTROSE/WATER 1 100ML.BAG IVPB SCH ×2 (16:31→17:45)
--- NOTE | 2020-05-02 18:12 | P.GSCN ---
History of Present Illness Consult date: 05/02/20 Reason for Consult: Chronic diarrhea History of present illness: 80-year-old male with severe dementia. He is known to our service from previous right colectomy for colon cancer. He presents to the hospital with chronic diarrhea and hypokalemia. X-rays and CAT scan suggest the presence of colonic ileus with liquid stool seen extending down to the distal rectal vault. Patient denies pain. He appears comfortable. He is confused and unable to provide any significant history. Patient during previous admissions had severe ileus as well. No stools today. C. diff was negative. White blood cell count normal. No shift. Lactic acid normal. Review of Systems ROS unobtainable: due to mental status Past Medical History Past Medical History: Coronary Artery Disease (CAD), Cancer, Chest Pain / Angina, CVA/TIA, Dementia, GERD/Reflux, Hyperlipidemia, Hypertension, Memory Impairment, Myocardial Infarction (AL), Prostate Disorder, Syncope Additional Past Medical History / Comment(s): Pt recently admitted on 06/28/18 with L ureteral calculus/L hydronephrosis. Other hx: Dementia with memory impairment/word finding spouse states is getting worse, spouse states hx of AL is questionable but possible in 2015, past skin and prostrate cancer with surgery, TIA, gout, benign polypectomy from colon, occasional low back pain and constipation. Last Myocardial Infarction Date:: 09/26/2015 History of Any Multi-Drug Resistant Organisms: None Reported Past Surgical History: Bowel Resection, Cholecystectomy, Heart Catheterization, Orthopedic Surgery, Prostate Surgery Additional Past Surgical History / Comment(s): Bowel surgery for polypoid lesion with post op ileus, cardiac caths, prostatectomy, PICC line insertion, bilateral cataracts removed, vasectomy, L knee surg., SKIN CA REMOVED ,COLONOSCOPY Past Anesthesia/Blood Transfusion Reactions: No Reported Reaction Past Psychological History: Anxiety Smoking Status: Former smoker Past Alcohol Use History: None Reported Past Drug Use History: None Reported - Past Family History Father Additional Family Medical History / Comment(s): FROM RUPTURED AORTA aneurysm. Mother Family Medical History: CVA/TIA, Myocardial Infarction (AL) Additional Family Medical History / Comment(s): MOM AT AGE 61- HAD MULTIPLE STROKES AND AL'S Sister(s) Family Medical History: Cancer, COPD Additional Family Medical History / Comment(s): Patient had 3 sisters. One sister from emphysema with history of heavy smoking. One sister from breast cancer. One with Alzheimer's dementia. Daughter(s) Additional Family Medical History / Comment(s): Patient has 1 son and 1 daughter with no major medical problems. Medications and Allergies Home Medications Medication Instructions Recorded Confirmed Type Allopurinol [Zyloprim] 300 mg PO DAILY 10/01/14 05/02/20 History Clopidogrel Bisulfate [Clopidogrel] 75 mg PO DAILY 12/30/15 05/02/20 History Metoprolol Tartrate [Lopressor] 50 mg PO DAILY 03/11/16 05/02/20 History Aspirin EC [Ecotrin Low Dose] 81 mg PO DAILY 02/22/17 05/02/20 History Donepezil [Aricept] 10 mg PO BID 02/22/17 05/02/20 History Nitroglycerin Sl Tabs [Nitrostat] 0.4 mg SUBLINGUAL Q5M PRN 02/22/17 05/02/20 History Atorvastatin [Lipitor] 40 mg PO HS 06/28/18 05/02/20 History Isosorbide Mononitrate ER [Imdur] 30 mg PO DAILY 06/28/18 05/02/20 History Memantine [Namenda] 10 mg PO BID 11/15/18 05/02/20 History Topiramate [Topamax] 25 mg PO BID 11/15/18 05/02/20 History Thiamine HCl [Vitamin B-1] 100 mg PO DAILY 05/17/19 05/02/20 History LORazepam [Ativan] 0.5 mg PO BID PRN 05/02/20 05/02/20 History Loratadine 10 mg PO HS 05/02/20 05/02/20 History Melatonin 10 mg PO HS 05/02/20 05/02/20 History Pantoprazole [Protonix] 40 mg PO DAILY PRN 05/02/20 05/02/20 History Allergies Allergy/AdvReac Type Severity Reaction Status Date / Time aloe vera Allergy Unknown Verified 05/02/20 10:38 Latex, Natural Rubber Allergy Swelling Verified 05/02/20 10:38 Penicillins Allergy Rash/Hives Verified 05/02/20 10:38 zolpidem tartrate AdvReac Hallucinati Verified 05/02/20 10:38 [From Ambien] ons Surgical - Exam Vital Signs Temp Pulse Resp BP Pulse Ox 97.4 F L 49 L 18 136/79 98 05/02/20 09:38 05/02/20 09:38 05/02/20 09:38 05/02/20 09:38 05/02/20 09:38 Physical exam: General: Well-developed, well-nourished HEENT: Normocephalic, sclerae nonicteric Abdomen: Nontender, mild distention Extremities: No edema Neuro: Alert but confused Results - Labs 05/02/20 10:10 05/02/20 16:44 Abnormal Lab Results - Last 24 Hours (Table) 05/02/20 05/02/20 05/02/20 Range/Units 10:10 11:27 16:44 Potassium 2.4 L* 2.6 L* (3.5-5.1) mmol/L Chloride 110 H (98-107) mmol/L Carbon Dioxide 19 L (22-30) mmol/L BUN 23 H (9-20) mg/dL Creatinine 1.56 H (0.66-1.25) mg/dL Glucose 105 H (74-99) mg/dL Urine Protein 1+ H (Negative) Urine Blood Small H (Negative) Urine RBC 9 H (0-5) /hpf Hyaline Casts 5 H (0-2) /lpf Urine Mucus Rare H (None) /hpf Diabetes panel 05/02/20 05/02/20 Range/Units 10:10 16:44 Sodium 141 (137-145) mmol/L Potassium 2.4 L* 2.6 L* (3.5-5.1) mmol/L Chloride 110 H (98-107) mmol/L Carbon Dioxide 19 L (22-30) mmol/L BUN 23 H (9-20) mg/dL Creatinine 1.56 H (0.66-1.25) mg/dL Glucose 105 H (74-99) mg/dL Calcium 10.0 (8.4-10.2) mg/dL AST 25 (17-59) U/L ALT 13 (4-49) U/L Alkaline Phosphatase 60 (38-126) U/L Total Protein 6.9 (6.3-8.2) g/dL Albumin 3.8 (3.5-5.0) g/dL Calcium panel 05/02/20 Range/Units 10:10 Calcium 10.0 (8.4-10.2) mg/dL Albumin 3.8 (3.5-5.0) g/dL Pituitary panel 05/02/20 05/02/20 Range/Units 10:10 16:44 Sodium 141 (137-145) mmol/L Potassium 2.4 L* 2.6 L* (3.5-5.1) mmol/L Chloride 110 H (98-107) mmol/L Carbon Dioxide 19 L (22-30) mmol/L BUN 23 H (9-20) mg/dL Creatinine 1.56 H (0.66-1.25) mg/dL Glucose 105 H (74-99) mg/dL Calcium 10.0 (8.4-10.2) mg/dL Adrenal panel 05/02/20 05/02/20 Range/Units 10:10 16:44 Sodium 141 (137-145) mmol/L Potassium 2.4 L* 2.6 L* (3.5-5.1) mmol/L Chloride 110 H (98-107) mmol/L Carbon Dioxide 19 L (22-30) mmol/L BUN 23 H (9-20) mg/dL Creatinine 1.56 H (0.66-1.25) mg/dL Glucose 105 H (74-99) mg/dL Calcium 10.0 (8.4-10.2) mg/dL Total Bilirubin 0.7 (0.2-1.3) mg/dL AST 25 (17-59) U/L ALT 13 (4-49) U/L Alkaline Phosphatase 60 (38-126) U/L Total Protein 6.9 (6.3-8.2) g/dL Albumin 3.8 (3.5-5.0) g/dL Assessment and Plan (1) Ileus Narrative/Plan: 80-year-old male with hypokalemia, chronic diarrhea, ileus currently. We'll place fecal management system at this time. Repeat x-rays tomorrow. Continue to correct electrolyte imbalance. Current Visit: Yes Status: Acute Code(s): K56.7 - ILEUS, UNSPECIFIED SNOMED Code(s): 978352810
[2020-05-03] MEDS: POTASSIUM CHLORIDE 10 MEQ in WATER FOR INJECTION 1 100ML.BAG IVPB SCH ×8 (00:07→18:10)
--- NOTE | 2020-05-03 06:55 | XR ---
EXAMINATION TYPE: XR abdomen 2V , 3 VIEWS DATE OF EXAM ORDERED: 05/03/2020 HISTORY: ileus. COMPARISON: Previous study dated 04/29/2020. FINDINGS: The lung bases remain clear. There are mildly distended air-filled loops of colon. There is some small bowel dilatation. No free a ir is seen. There is evidence of previous pelvic surgery. IMPRESSION: FINDINGS CONSISTENT WITH ONGOING ILEUS. AT THIS JUNCTURE, I THINK OBSTRUCTION IS LESS LIKELY.
[2020-05-03 08:11] LABS: Calcium 9.2 mg/dL (8.4-10.2); Magnesium 1.9 mg/dL (1.6-2.3)
[2020-05-03 08:21] LABS: Potassium 2.6 mmol/L (3.5-5.1)
[2020-05-03] MEDS ORDERED: Magnesium Replacement Protocol 1 EACH MISC MISCELLANE PRN (09:06)
[2020-05-03] MEDS: PANTOPRAZOLE 40 MG/10 ML VIAL IVP SCH (09:11)
[2020-05-03] MEDS: 0.9% NACL WITH KCL 20 MEQ/L 1,000 ML IV SCH ×2 (09:14→16:03)
[2020-05-03] MEDS: MAGNESIUM SULFATE-D5W PMX 1 GM in DEXTROSE/WATER 1 100ML.BAG IVPB SCH ×2 (09:19→10:38)
--- NOTE | 2020-05-03 11:05 | P.PN ---
Subjective Progress Note Date: 05/03/20 Principal diagnosis: Abnormal labs, chronic diarrhea, possible ileus 80-year-old male patient well known to the practice presented emergency room for evaluation for labs and complaints of chronic diarrhea on 05/02/2020. He was sent in by her office with a potassium noted of 2.6. Abdominal x-ray had been completed prior to coming to the emergency room which reported an ileus. Has had diarrhea with intermittent abdominal pain for approximately by 1 month with history given by . He has a history of CAD, [place], CVA\TIA, [facility] surgery Dr. Santoyo, prostate cancer, dementia, gastroesophageal reflux disease, hypertension. Over the past 2 weeks symptoms starting worsened where he was spitting up pills. CT of abdomen and pelvis was completed on 05/02/2020 which resulted with dilated bowel loops extending to the level of rectum obstructive pattern is not excluded, correlate for chronic cystitis, borderline abdominal aortic aneurysm measuring 3 cm, numerous relations most likely in the basis of renal cysts, there is a right upper lobe pulmonary nodule measuring 7 mm, and a nonobstructing sub-5 mm right renal calculi. 05/03/2020 patient today the patient sitting up in bed alert and oriented 1. He currently denies difficulty breathing or pain, but states he just doesn't feel. Abdominal x-ray today findings consistent with ongoing ileus at this juncture with the likelihood of obstruction is less likely. Today's lab work in chemistry sodium is 142, potassium is 2.6, chlorides 112, P1 is 16, creatinine is 1.3, glucose 103, magnesium is 1.9. CBC was not drawn for today yesterday his white count was 8.3 with a hemoglobin of 14.6, hematocrit 42.3 and platelet count of 259. CBC was not drawn for today yesterday's CBC was white blood count 8.3, hemoglobin 14.6, hematocrit of 42.3, and a platelet count of 259. He is being treated for hypokalemia with the potassium protocol as I spoke with the nurse he will get 60 mEq IV. He also received 2 g of magnesium and magnesium 1.7. Currently has a fecal management system in [facility] management of a liquid stools for skin breakdown. Was tested for C. diff which was negative. Objective - Vital Signs Vital signs: Vital Signs Temp 97.9 F 05/03/20 07:25 Pulse 81 05/03/20 07:25 Resp 16 05/03/20 07:25 BP 137/78 05/03/20 07:25 Pulse Ox 98 05/03/20 07:25 Intake & Output 05/02/20 05/03/20 05/03/20 18:59 06:59 18:59 Intake Total 850 Balance 850 Weight 70.307 kg Intake: Intake, IV Titration 850 Amount 0.9% NaCl with KCl 20 Meq 450 /l 1,000 ml @ 50 mls/hr IV .Q20H ELEN Rx#: [id number] Potassium Chloride 10 meq 400 In Water For Injection 1 100ml.bag @ 100 mls/hr IVPB Q1HR ELEN Rx#: [id number] Other: Voiding Method Incontinent # Voids 5 - Exam GENERAL: Sitting up in bed, no acute distress, . HEAD: Atraumatic, normocephalic. EYES: Pupils equal round and reactive to light, extraocular movements intact, sclera anicteric, conjunctiva are normal. ENT:nares patent, oropharynx clear without exudates. Moist mucous membranes. NECK: Normal range of motion, supple without lymphadenopathy or JVD, no thyromegaly LUNGS: Breath sounds clear to auscultation bilaterally and equal. No wheezes rales or rhonchi. HEART: Regular rate and rhythm, without murmurs, rubs or gallops.S1S2 Normal ABDOMEN: Soft, nontender, normoactive bowel sounds. No guarding, no rebound. No masses appreciated, passing flatus. EXTREMITIES: Normal range of motion, no pitting or edema. No clubbing or cyanosis. NEUROLOGICAL: Cranial nerves II through XII grossly intact. Normal speech, diff use weakness, oriented 1. PSYCH: Normal mood, normal affect. SKIN: Warm, Dry, normal turgor, no rashes or lesions noted. - Labs CBC & Chem 7: 05/02/20 10:10 05/03/20 07:11 Labs: Abnormal Lab Results - Last 24 Hours (Table) 05/02/20 05/02/20 05/02/20 Range/Units 10:10 11:27 16:44 Potassium 2.4 L* 2.6 L* (3.5-5.1) mmol/L Chloride 110 H (98-107) mmol/L Carbon Dioxide 19 L (22-30) mmol/L BUN 23 H (9-20) mg/dL Creatinine 1.56 H (0.66-1.25) mg/dL Glucose 105 H (74-99) mg/dL Urine Protein 1+ H (Negative) Urine Blood Small H (Negative) Urine RBC 9 H (0-5) /hpf Hyaline Casts 5 H (0-2) /lpf Urine Mucus Rare H (None) /hpf 05/02/20 05/03/20 Range/Units 19:53 07:11 Potassium 2.8 L 2.6 L* (3.5-5.1) mmol/L Chloride 112 H (98-107) mmol/L Carbon Dioxide (22-30) mmol/L BUN (9-20) mg/dL Creatinine 1.30 H (0.66-1.25) mg/dL Glucose 103 H (74-99) mg/dL Urine Protein (Negative) Urine Blood (Negative) Urine RBC (0-5) /hpf Hyaline Casts (0-2) /lpf Urine Mucus (None) /hpf Assessment and Plan (1) Sinus bradycardia Current Visit: Yes Status: Acute Code(s): R00.1 - BRADYCARDIA, UNSPECIFIED SNOMED Code(s): 55412201 (2) Dementia Current Visit: Yes Status: Acute Code(s): F03.90 - UNSPECIFIED DEMENTIA WITHOUT BEHAVIORAL DISTURBANCE SNOMED Code(s): 45414923 (3) Hypomagnesemia Current Visit: Yes Status: Acute Code(s): E83.42 - HYPOMAGNESEMIA SNOMED Code(s): 906617518 (4) Dehydration Current Visit: Yes Status: Acute Code(s): E86.0 - DEHYDRATION SNOMED Code(s): 03948143 (5) Hypokalemia Current Visit: Yes Status: Acute Code(s): E87.6 - HYPOKALEMIA SNOMED Code(s): 96093688 (6) Ileus Current Visit: Yes Status: Acute Code(s): K56.7 - ILEUS, UNSPECIFIED SNOMED Code(s): 263648590 (7) Weakness Current Visit: Yes Status: Acute Code(s): R53.1 - WEAKNESS SNOMED Code(s): 37636683 (8) Diarrhea Current Visit: No Status: Acute Code(s): R19.7 - DIARRHEA, UNSPECIFIED SNOMED Code(s): 54231581 Plan: 1. Continue on current medication regimen. 2. Monitor was symptomatically treatment. 3. Supplementation of potassium and magnesium per protocol. 4. Reassess electrolytes this afternoon. 5. Follow recommendations from surgery. 6. Continue gentle rehydration. 7. Dental arm, as patient has history of wandering off. 8. We'll reassess patient status tomorrow. Time with Patient: Greater than 30
--- NOTE | 2020-05-03 14:21 | P.PN ---
Subjective Progress Note Date: 05/03/20 CHIEF COMPLAINT: Ileus HISTORY OF PRESENT ILLNESS: The patient is a 80-year-old male admitted for diarrhea including ileus. Potassium is under 3.0. No reports of abdominal pain at present. is at bedside reports symptoms of diarrhea has been ongoing for over 1.5 months. No recent colonoscopy in over a year plus. ROS: No reports of nausea and vomiting. No fevers or chills. No new chest pain. No productive sputum PHYSICAL EXAM: VITAL SIGNS: Reviewed CONSTITUTIONAL: Well developed and in no acute distress. EYES: Conjuctivae without sclera icterus. Extraocular movements grossly intact. HEAD, EARS, NOSE, THROAT: Moist buccal mucosa. Head is atraumatic, normocephalic. Hears conversational speech. No nasal drainage. NECK: Supple. No thyroidomegaly. RESPIRATORY: Non-labored respirations and equal bilateral excursions. CARDIOVASCULAR: Palpable 2+ radial pulses. ABDOMEN: Soft. No peritonitis. Has fecal management system with brown liquid stools MUSCULOSKELETAL: No gross deformity of the lower extremities noted. No clubbing. No cyanosis. SKIN: Good skin turgor. Well perfused. NEUROLOGIC: Cranial nerves II through XII grossly intact. No focal or lateralizing signs. PSYCH: Appropriate affect. Alert and oriented to person, place and time. CLINICAL LABS: White blood cell count normal 8200. Potassium low 2.6. Magnesium 1.9. Creatinine 1.30 down from 1.56. C. diff negative. STUDIES: CT of the abdomen and pelvis independent reviewed demonstrating diffuse gaseous distention of both bowel including small and large colon. No evidence of bowel obstruction. This is my personal interpretation. RADIOLOGY: CT of the abdomen and pelvis report confirmed 3 cm abdominal aortic aneurysm identified. Features consistent with ileus. Multiple renal cysts confirmed. Abdominal x-ray confirms ileus ASSESSMENT: 1. Ileus 2. Hypokalemia 3. Chronic diarrhea PLAN: 1. May benefit from magnesium supplement to address refractory hypokalemia 2. Also, with ongoing chronic diarrhea for over 1.5 months, may benefit from colonoscopy to also evaluate for villous adenoma which may also present as chronic diarrhea with hypokalemia. Objective - Vital Signs Vital signs: Vital Signs Temp 97.9 F 05/03/20 07:25 Pulse 81 05/03/20 07:25 Resp 16 05/03/20 07:25 BP 137/78 06/13/20 07:25 Pulse Ox 98 05/03/20 07:25 Intake & Output 05/02/20 05/03/20 05/03/20 18:59 06:59 18:59 Intake Total 850 Balance 850 Weight 70.307 kg Intake: Intake, IV Titration 850 Amount 0.9% NaCl with KCl 20 Meq 450 /l 1,000 ml @ 50 mls/hr IV .Q20H ELEN Rx#: [id number] Potassium Chloride 10 meq 400 In Water For Injection 1 100ml.bag @ 100 mls/hr IVPB Q1HR ELEN Rx#: [id number] Other: Voiding Method Incontinent # Voids 5 - Labs CBC & Chem 7: 05/02/20 10:10 05/03/20 07:11 Labs: Abnormal Lab Results - Last 24 Hours (Table) 05/02/20 05/02/20 05/03/20 Range/Units 16:44 19:53 07:11 Potassium 2.6 L* 2.8 L 2.6 L* (3.5-5.1) mmol/L Chloride 112 H (98-107) mmol/L Creatinine 1.30 H (0.66-1.25) mg/dL Glucose 103 H (74-99) mg/dL Assessment and Plan (1) Dehydration Current Visit: Yes Status: Acute Code(s): E86.0 - DEHYDRATION SNOMED Code(s): 42723069 (2) Hypokalemia Current Visit: Yes Status: Acute Code(s): E87.6 - HYPOKALEMIA SNOMED Code(s): 77124552 (3) Hypomagnesemia Current Visit: Yes Status: Acute Code(s): E83.42 - HYPOMAGNESEMIA SNOMED Code(s): 719669331 (4) Ileus Current Visit: Yes Status: Acute Code(s): K56.7 - ILEUS, UNSPECIFIED SNOMED Code(s): 373667238 (5) Diarrhea Current Visit: No Status: Acute Code(s): R19.7 - DIARRHEA, UNSPECIFIED SNOMED Code(s): 10743161
[2020-05-03] MEDS ORDERED: SODIUM CHLORIDE 0.9% 1,000 ML with POTASSIUM CHLORIDE 20 MEQ IV SCH ×2 (14:30)
[2020-05-03] MEDS ORDERED: MAGNESIUM SULFATE-D5W PMX 1 GM in DEXTROSE/WATER 1 100ML.BAG IVPB SCH (14:30)
[2020-05-03 18:25] LABS: Calcium 8.9 mg/dL (8.4-10.2); Magnesium 2.2 mg/dL (1.6-2.3)
[2020-05-03 18:27] LABS: Potassium 2.6 mmol/L (3.5-5.1)
[2020-05-03] MEDS: POTASSIUM CHLORIDE ER 20 MEQ TAB.ER PO SCH ×2 (22:34→23:50)
[2020-05-04] MEDS: POTASSIUM CHLORIDE ER 20 MEQ TAB.ER PO SCH ×8 (03:46→21:51)
[2020-05-04] MEDS: 0.9% NACL WITH KCL 20 MEQ/L 1,000 ML IV SCH ×3 (03:46→21:51)
[2020-05-04 08:12] LABS: Basophils % (A) 0 %; Eosinophils # (A) 0.1 k/uL (0-0.7); Eosinophils % (A) 1 %; HCT 42.2 % (39.0-53.0); HGB 13.6 gm/dL (13.0-17.5); Lymphocytes % (A) 9 %; MCH 30.4 pg (25.0-35.0); MCHC 32.1 g/dL (31.0-37.0); MCV 94.6 fL (80.0-100.0); Mean Platelet Volume 6.9; Monocytes # (A) 0.6 k/uL (0-1.0); Monocytes % (A) 5 %; Neutrophils % (A) 83 %; Platelet Count 248 k/uL (150-450); RBC 4.46 m/uL (4.30-5.90); RDW 13.6 % (11.5-15.5); WBC 10.8 k/uL (3.8-10.6)
[2020-05-04 08:18] LABS: Calcium 8.5 mg/dL (8.4-10.2); Magnesium 1.8 mg/dL (1.6-2.3)
--- NOTE | 2020-05-04 08:19 | P.PN ---
Subjective Progress Note Date: 05/04/20 Principal diagnosis: Abnormal labs, chronic diarrhea, possible ileus 80-year-old male patient well known to the practice presented emergency room for evaluation for labs and complaints of chronic diarrhea on 05/02/2020. He was sent in by her office with a potassium noted of 2.6. Abdominal x-ray had been completed prior to coming to the emergency room which reported an ileus. Has had diarrhea with intermittent abdominal pain for approximately by 1 month with history given by . He has a history of CAD, [place], CVA\TIA, [facility] surgery Dr. Santoyo, prostate cancer, dementia, gastroesophageal reflux disease, hypertension. Over the past 2 weeks symptoms starting worsened where he was spitting up pills. CT of abdomen and pelvis was completed on 05/02/2020 which resulted with dilated bowel loops extending to the level of rectum obstructive pattern is not excluded, correlate for chronic cystitis, borderline abdominal aortic aneurysm measuring 3 cm, numerous relations most likely in the basis of renal cysts, there is a right upper lobe pulmonary nodule measuring 7 mm, and a nonobstructing sub-5 mm right renal calculi. 05/03/2020 patient today the patient sitting up in bed alert and oriented 1. He currently denies difficulty breathing or pain, but states he just doesn't feel. Abdominal x-ray today findings consistent with ongoing ileus at this juncture with the likelihood of obstruction is less likely. Today's lab work in chemistry sodium is 142, potassium is 2.6, chlorides 112, P1 is 16, creatinine is 1.3, glucose 103, magnesium is 1.9. CBC was not drawn for today yesterday his white count was 8.3 with a hemoglobin of 14.6, hematocrit 42.3 and platelet count of 259. CBC was not drawn for today yesterday's CBC was white blood count 8.3, hemoglobin 14.6, hematocrit of 42.3, and a platelet count of 259. He is being treated for hypokalemia with the potassium protocol as I spoke with the nurse he will get 60 mEq IV. He also received 2 g of magnesium and magnesium 1.7. Currently has a fecal management system in [facility] management of a liquid stools for skin breakdown. Was tested for C. diff which was negative. Social 05/04/2020 patient laying in bed easily arousable and oriented 1. Currently denies any difficulty breathing or pain at this time. He is started to tolerate taking oral medications with potassium supplementation being given orally. Waiting for basic metabolic panel and CBC to be resulted for today. Latest lab work completed on 05/03/2020 and 2099 resulted a potassium of 2.9, sodium 141, МАРИЯ 13, creatinine 1.22, glucose 102, magnesium 2.2. Progress note from surgery yesterday May that he may benefit from colonoscopy for evaluation of bilious adenoma. Objective - Vital Signs Vital signs: Vital Signs Temp 98.2 F 05/04/20 01:13 Pulse 72 05/04/20 01:13 Resp 14 05/04/20 01:13 BP 153/78 05/04/20 01:13 Pulse Ox 98 05/04/20 01:13 Intake & Output 05/03/20 05/04/20 05/04/20 18:59 06:59 18:59 Intake Total 200 Output Total 600 Balance -400 Intake: Oral 200 Output: Urine 600 Other: # Voids 10 10 - Exam GENERAL: Sitting up in bed, no acute distress, . HEAD: Atraumatic, normocephalic. EYES: Pupils equal round and reactive to light, extraocular movements intact, sclera anicteric, conjunctiva are normal. ENT:nares patent, oropharynx clear without exudates. Moist mucous membranes. NECK: Normal range of motion, supple without lymphadenopathy or JVD, no thyromegaly LUNGS: Breath sounds clear to auscultation bilaterally and equal. No wheezes rales or rhonchi. HEART: Regular rate and rhythm, without murmurs, rubs or gallops.S1S2 Normal ABDOMEN: Soft, nontender, normoactive bowel sounds. No guarding, no rebound. No masses appreciated, passing flatus, fecal management system in place. EXTREMITIES: Normal range of motion, no pitting or edema. No clubbing or cyanosis. NEUROLOGICAL: Cranial nerves II through XII grossly intact. Normal speech, diffuse weakness, oriented 1. PSYCH: Normal mood, normal affect. SKIN: Warm, Dry, normal turgor, no rashes or lesions noted. - Labs CBC & Chem 7: 05/02/20 10:10 05/03/20 21:17 Labs: Abnormal Lab Results - Last 24 Hours (Table) 05/03/20 05/03/20 05/03/20 Range/Units 07:11 18:02 21:17 Potassium 2.6 L* 2.6 L* 2.9 L (3.5-5.1) mmol/L Chloride 112 H 111 H (98-107) mmol/L Carbon Dioxide 21 L (22-30) mmol/L Creatinine 1.30 H (0.66-1.25) mg/dL Glucose 103 H 102 H (74-99) mg/dL Assessment and Plan (1) Sinus bradycardia Current Visit: Yes Status: Acute Code(s): R00.1 - BRADYCARDIA, UNSPECIFIED SNOMED Code(s): 35591677 (2) Dementia Current Visit: Yes Status: Acute Code(s): F03.90 - UNSPECIFIED DEMENTIA WITHOUT BEHAVIORAL DISTURBANCE SNOMED Code(s): 14754633 (3) Hypomagnesemia Current Visit: Yes Status: Acute Code(s): E83.42 - HYPOMAGNESEMIA SNOMED Code(s): 367191764 (4) Dehydration Current Visit: Yes Status: Acute Code(s): E86.0 - DEHYDRATION SNOMED Code(s): 44108601 (5) Hypokalemia Current Visit: Yes Status: Acute Code(s): E87.6 - HYPOKALEMIA SNOMED Code(s): 27482174 (6) Ileus Current Visit: Yes Status: Acute Code(s): K56.7 - ILEUS, UNSPECIFIED SNOMED Code(s): 094402487 (7) Weakness Current Visit: Yes Status: Acute Code(s): R53.1 - WEAKNESS SNOMED Code(s): 05492033 (8) Diarrhea Current Visit: No Status: Acute Code(s): R19.7 - DIARRHEA, UNSPECIFIED SNOMED Code(s): 96870173 Plan: 1. Continue current medication regimen. 2 We'll add home medications metoprolol and Imdur. 3. Continue supplementation of potassium and magnesium per protocol. 4. Follow recommendations from surgery. 5. Reassess electrolytes this afternoon. 6. Continue with close observation with sitter at bedside. 7. We'll order lab work for tomorrow. 8. We'll reassess patient status tomorrow. Time with Patient: Greater than 30
[2020-05-04] MEDS: METOPROLOL TARTRATE 50 MG TAB PO SCH (09:19)
[2020-05-04] MEDS: PANTOPRAZOLE 40 MG/10 ML VIAL IVP SCH (09:19)
[2020-05-04] MEDS: ISOSORBIDE MONONITRATE ER 30 MG TAB.ER.24H PO SCH (09:19)
[2020-05-04] MEDS ORDERED: Potassium Replacement Protocol 1 EACH MISC MISCELLANE PRN ×2 (09:36→16:34)
--- NOTE | 2020-05-04 16:53 | P.PN ---
Subjective Progress Note Date: 05/04/20 CHIEF COMPLAINT: Ileus HISTORY OF PRESENT ILLNESS: The patient is a 80-year-old male admitted for diarrhea including ileus. A sitter is at bedside secondary to confusion. Patient has a fecal management system. Denies any abdominal pain. No reports of fevers or chills. ROS: No reports of nausea and vomiting. No fevers or chills. No new chest pain. No productive sputum PHYSICAL EXAM: VITAL SIGNS: Reviewed CONSTITUTIONAL: Well developed and in no acute distress. EYES: Conjuctivae without sclera icterus. Extraocular movements grossly intact. HEAD, EARS, NOSE, THROAT: Moist buccal mucosa. Head is atraumatic, normocephalic. Hears conversational speech. No nasal drainage. NECK: Supple. No thyroidomegaly. RESPIRATORY: Non-labored respirations and equal bilateral excursions. CARDIOVASCULAR: Palpable 2+ radial pulses. ABDOMEN: No peritonitis. Has fecal management system. MUSCULOSKELETAL: No gross deformity of the lower extremities noted. No clubbing. No cyanosis. SKIN: Good skin turgor. Well perfused. NEUROLOGIC: Cranial nerves II through XII grossly intact. No focal or l ateralizing signs. PSYCH: Appropriate affect. Alert and oriented to person, place and time. CLINICAL LABS: White blood cell count normal 8200. Potassium low 3.2. Magnesium 1.8. Creatinine 1.10 down from 1.56. C. diff negative. ASSESSMENT: 1. Ileus 2. Hypokalemia 3. Chronic diarrhea PLAN: 1. He has recurrent chronic diarrhea and may benefit from a colonoscopy further assessment. 2. For refractory hypokalemia, recommend additional magnesium today. Objective - Vital Signs Vital signs: Vital Signs Temp 97.5 F L 05/04/20 15:00 Pulse 59 L 05/04/20 15:00 Resp 17 05/04/20 15:00 BP 125/79 05/04/20 15:00 Pulse Ox 95 05/04/20 15:00 Intake & Output 05/03/20 05/04/20 05/04/20 18:59 06:59 18:59 Intake Total 200 Output Total 600 500 Balance -400 -500 Intake: Oral 200 Output: Urine 600 Stool 500 Other: # Voids 10 10 - Labs CBC & Chem 7: 05/04/20 07:14 05/04/20 15:54 Labs: Abnormal Lab Results - Last 24 Hours (Table) 05/03/20 05/03/20 05/04/20 Range/Units 18:02 21:17 07:14 WBC (3.8-10.6) k/uL Neutrophils # (1.3-7.7) k/uL Potassium 2.6 L* 2.9 L 3.0 L (3.5-5.1) mmol/L Chloride 111 H 115 H (98-107) mmol/L Carbon Dioxide 21 L (22-30) mmol/L Glucose 102 H (74-99) mg/dL 05/04/20 05/04/20 Range/Units 07:14 15:54 WBC 10.8 H (3.8-10.6) k/uL Neutrophils # 9.0 H (1.3-7.7) k/uL Potassium 3.2 L (3.5-5.1) mmol/L Chloride (98-107) mmol/L Carbon Dioxide (22-30) mmol/L Glucose (74-99) mg/dL Assessment and Plan (1) Dehydration Current Visit: Yes Status: Acute Code(s): E86.0 - DEHYDRATION SNOMED Code(s): 39237303 (2) Hypokalemia Current Visit: Yes Status: Acute Code(s): E87.6 - HYPOKALEMIA SNOMED Code(s): 64056554 (3) Hypomagnesemia Current Visit: Yes Status: Acute Code(s): E83.42 - HYPOMAGNESEMIA SNOMED Code(s): 484400498 (4) Ileus Current Visit: Yes Status: Acute Code(s): K56.7 - ILEUS, UNSPECIFIED SNOMED Code(s): 957497181 (5) Diarrhea Current Visit: No Status: Acute Code(s): R19.7 - DIARRHEA, UNSPECIFIED SNOMED Code(s): 86613113
[2020-05-04] MEDS: MAGNESIUM SULFATE-D5W PMX 1 GM in DEXTROSE/WATER 1 100ML.BAG IVPB SCH ×2 (17:17→18:30)
[2020-05-04 21:19] LABS: Potassium 3.1 mmol/L (3.5-5.1)
[2020-05-05] MEDS: POTASSIUM CHLORIDE ER 20 MEQ TAB.ER PO SCH (05:28)
[2020-05-05] MEDS: 0.9% NACL WITH KCL 20 MEQ/L 1,000 ML IV SCH ×2 (07:06→16:36)
[2020-05-05] MEDS: PANTOPRAZOLE 40 MG/10 ML VIAL IVP SCH (07:13)
[2020-05-05] MEDS: ISOSORBIDE MONONITRATE ER 30 MG TAB.ER.24H PO SCH (07:13)
[2020-05-05] MEDS: METOPROLOL TARTRATE 50 MG TAB PO SCH (07:13)
[2020-05-05 09:04] LABS: Basophils % (A) 0 %; Eosinophils # (A) 0.2 k/uL (0-0.7); Eosinophils % (A) 2 %; HCT 42.5 % (39.0-53.0); HGB 13.3 gm/dL (13.0-17.5); Lymphocytes % (A) 9 %; MCH 30.2 pg (25.0-35.0); MCHC 31.2 g/dL (31.0-37.0); MCV 96.7 fL (80.0-100.0); Mean Platelet Volume 7.3; Monocytes # (A) 0.5 k/uL (0-1.0); Monocytes % (A) 4 %; Neutrophils # (A) 9.4 k/uL (1.3-7.7); Neutrophils % (A) 84 %; Platelet Count 230 k/uL (150-450); RBC 4.39 m/uL (4.30-5.90); RDW 13.9 % (11.5-15.5); WBC 11.2 k/uL (3.8-10.6)
[2020-05-05 09:19] LABS: Albumin 3.2 g/dL (3.5-5.0); Calcium 8.8 mg/dL (8.4-10.2); Magnesium 2.1 mg/dL (1.6-2.3); Potassium 3.8 mmol/L (3.5-5.1); Total Bilirubin 0.8 mg/dL (0.2-1.3); Total Protein 6.3 g/dL (6.3-8.2)
[2020-05-05] MEDS ORDERED: Potassium Replacement Protocol 1 EACH MISC MISCELLANE PRN (10:50)
[2020-05-05] MEDS ORDERED: POTASSIUM CHLORIDE ER 20 MEQ TAB.ER PO SCH (11:00)
--- NOTE | 2020-05-05 11:31 | P.PN ---
<Kaylyn Zabala - Last Filed: 05/05/20 11:29> Subjective Progress Note Date: 05/05/20 CHIEF COMPLAINT: Ileus HISTORY OF PRESENT ILLNESS: Patient examined this morning. He has a product safety officer at the bedside. He is sitting up in the chair. He denies abdominal pain. Fecal management system intact with 300 mL of liquid stool noted. assistant curator reports patient ate approximately 50% of his clear liquid tray PHYSICAL EXAM: VITAL SIGNS: Reviewed. GENERAL: Well-developed in no acute distress. HEENT: No sclera icterus. Extraocular movements grossly intact. Moist buccal mucosa. Head is atraumatic, normocephalic. ABDOMEN: Soft. Nondistended. Nontender. NEUROLOGIC: Alert and oriented x1-2. Cranial nerves II through XII grossly intact. ASSESSMENT: 1. Ileus 2. Chronic diarrhea 3. History of right colectomy secondary to colon cancer PLAN: -Continue FMS -Continue clear liquid diet -Dr. Santoyo will re-evaluate patient this afternoon. Further recommendations pending. Nurse practitioner note has been reviewed by physician. Signing provider agrees with the documented findings, assessment, and plan of care. Objective - Vital Signs Vital signs: Vital Signs Temp 97.6 F 05/05/20 07:00 Pulse 64 05/05/20 08:00 Resp 20 05/05/20 08:00 BP 128/72 05/05/20 07:00 Pulse Ox 98 05/05/20 07:00 Intake & Output 05/04/20 05/05/20 05/05/20 18:59 06:59 18:59 Intake Total 300 Output Total 500 900 Balance -500 -600 Intake: Oral 300 Output: Urine 300 Stool 500 600 Other: Voiding Method Incontinent # Voids 2 - Labs CBC & Chem 7: 05/05/20 08:17 05/05/20 08:17 Labs: Abnormal Lab Results - Last 24 Hours (Table) 05/04/20 05/04/20 05/05/20 Range/Units 15:54 20:55 08:17 WBC 11.2 H (3.8-10.6) k/uL Neutrophils # 9.4 H (1.3-7.7) k/uL Potassium 3.2 L 3.1 L (3.5-5.1) mmol/L Chloride 116 H (98-107) mmol/L Carbon Dioxide (22-30) mmol/L BUN (9-20) mg/dL Glucose (74-99) mg/dL Albumin (3.5-5.0) g/dL 05/05/20 Range/Units 08:17 WBC (3.8-10.6) k/uL Neutrophils # (1.3-7.7) k/uL Potassium (3.5-5.1) mmol/L Chloride 118 H (98-107) mmol/L Carbon Dioxide 20 L (22-30) mmol/L BUN 8 L (9-20) mg/dL Glucose 106 H (74-99) mg/dL Albumin 3.2 L (3.5-5.0) g/dL <River Santoyo - Last Filed: 05/05/20 17:35> Subjective As above. Patient still with fair amount of liquid stool through the fecal management system. Will increase diet. Discussed options of colonoscopy with the patient's family and also Dr. Bae. Overall yield of the colonoscopy felt to be relatively low. We'll add stool culture which I thought had been ordered but I do not see the results for them. Objective - Vital Signs Vital signs: Vital Signs Temp 98.1 F 05/05/20 15:00 Pulse 82 05/05/20 16:00 Resp 16 05/05/20 16:00 BP 135/69 05/05/20 15:00 Pulse Ox 92 L 05/05/20 15:00 Intake & Output 05/04/20 05/05/20 05/05/20 18:59 06:59 18:59 Intake Total 300 1580 Output Total 215 533 5616 Balance -500 -600 -120 Weight 70.307 kg Intake: Intake, IV Titration 1000 Amount 0.9% NaCl with KCl 20 Meq 1000 /l 1,000 ml @ 100 mls/hr IV .Q10H [facility] Rx#: [id number] Oral 300 580 Output: Urine 300 1000 Uretheral (Martinez) 500 Stool 500 600 700 Other: Voiding Method Incontinent # Voids 2 - Labs CBC & Chem 7: 05/05/20 08:17 05/05/20 08:17 Labs: Abnormal Lab Results - Last 24 Hours (Table) 05/04/20 05/05/20 05/05/20 Range/Units 20:55 08:17 08:17 WBC 11.2 H (3.8-10.6) k/uL Neutrophils # 9.4 H (1.3-7.7) k/uL Potassium 3.1 L (3.5-5.1) mmol/L Chloride 116 H 118 H (98-107) mmol/L Carbon Dioxide 20 L (22-30) mmol/L BUN 8 L (9-20) mg/dL Glucose 106 H (74-99) mg/dL Albumin 3.2 L (3.5-5.0) g/dL Assessment and Plan (1) Ileus Current Visit: Yes Status: Acute Code(s): K56.7 - ILEUS, UNSPECIFIED SNOMED Code(s): 118637698
--- NOTE | 2020-05-05 14:17 | P.PN ---
Subjective Progress Note Date: 05/05/20 This is an 80-year-old gentleman with history of CAD, NM, CVA/TIA, bowel resection surgery with Dr. Santoyo , prostate cancer ,dementia, gastroesophageal reflux disease, hypertension, presented to the ER with complaints of diarrhea worsening over the last 2 weeks, with nausea, vomiting-like states patient sp itting up pills, hypokalemic, OP potassium 2.6; 2.4 on admission, outpatient x- ray reporting possible ileus. CT of abdomen and pelvis completed, results pending. Denies vomiting, but reports fluctuating abdominal pain. Denies fever or chills. Denies chest pain, palpitations or shortness of breath. Hematology unremarkable, BUN 23, creatinine 1.56. Sinus bradycardia, heart rates in the 40s.BP WNL, maintaining O2 sats in the 90s on room air. UA negative. 05/05/2020 significant nonbloody diarrhea FMS of 1100 MLS over 24 hours. Denies abdominal pain. Tolerating clear liquid diet, consuming 75% with no nausea or vomiting.. No urine output since early this morning with IV fluids running at 100 MLS per hour. Potassium 3.8, currently. Supplemented. Afebrile, WBC up to 11.2. Objective - Vital Signs Vital signs: Vital Signs Temp 97.6 F 05/05/20 07:00 Pulse 64 05/05/20 08:00 Resp 20 05/05/20 08:00 BP 128/72 05/05/20 07:00 Pulse Ox 98 05/05/20 07:00 Intake & Output 05/04/20 05/05/20 05/05/20 18:59 06:59 18:59 Intake Total 300 Output Total 500 900 Balance -500 -600 Intake: Oral 300 Output: Urine 300 Stool 500 600 Other: Voiding Method Incontinent # Voids 2 - Exam VITAL SIGNS: As above GENERAL: Sitting up in bed, no acute distress HEENT: Conjunctivae normal. eyes normal. NECK: No JVD. No thyroid enlargement. No LNs CARDIOVASCULAR: S1, S2 regular. No murmur RESPIRATION: Breath sounds diminished in the bases. No rhonchi or crackles. No bronchial breathing. ABDOMEN: Soft, distended, nontender No guarding. no masses palpable. Nomal Bowel sounds heard. LEGS: No edema. no swelling PSYCHIATRY: Alert and oriented X2, mood and affect normal. NERVOUS SYSTEM: Cranial N 2-12 grossly normal. Moves all 4 limbs. Diffuse weakness No focal deficits. Strength and sensation grossly intact.. Skin: no rash - Labs CBC & Chem 7: 05/05/20 08:17 05/05/20 08:17 Labs: Abnormal Lab Results - Last 24 Hours (Table) 05/04/20 05/04/20 05/05/20 Range/Units 15:54 20:55 08:17 WBC 11.2 H (3.8-10.6) k/uL Neutrophils # 9.4 H (1.3-7.7) k/uL Potassium 3.2 L 3.1 L (3.5-5.1) mmol/L Chloride 116 H (98-107) mmol/L Carbon Dioxide (22-30) mmol/L BUN (9-20) mg/dL Glucose (74-99) mg/dL Albumin (3.5-5.0) g/dL 05/05/20 Range/Units 08:17 WBC (3.8-10.6) k/uL Neutrophils # (1.3-7.7) k/uL Potassium (3.5-5.1) mmol/L Chloride 118 H (98-107) mmol/L Carbon Dioxide 20 L (22-30) mmol/L BUN 8 L (9-20) mg/dL Glucose 106 H (74-99) mg/dL Albumin 3.2 L (3.5-5.0) g/dL Assessment and Plan Assessment: Possible ileus, PSBO, in a patient with worsening N/V/D diarrhea 2weeks, anorexia with possible ileus per outpatient x-ray in a patient with history of bowel resection secondary to colon cancer. Possible villous adenoma as per surgery, possible colonoscopy. Dehydration Hypokalemia Hypomagnesemia Acute renal failure secondary to dehydration from diarrhea Generalized weakness, multifactorial, secondary to the above Urinary retention, history of prostate disorder Chronic diarrhea, incontinence Dementia, possibly Alzheimer's Sinus bradycardia, abnormal EKG, troponins pending, beta dante on hold Plan: Continue on current medication regime ,monitoring and symptomatic treatment. Gentle IV fluid hydration. Patient has IV fluids, running at 100 MLS an hour with no urine output since 629, bladder scan ordered with straight cath pending results. FMS with significant output of 1100 MLS over the last 24 hours- further surgical recommendations pending. Maintain airworthiness safety inspector. The impression and plan of care has been dictated as directed. : I performed a history and examination of this patient, discussed the same with the dictator. I agree with the dictator's note ,documented as a scribe. Any additional findings or plans will be noted.
[2020-05-06] MEDS: 0.9% NACL WITH KCL 20 MEQ/L 1,000 ML IV SCH (04:11)
[2020-05-06 07:52] LABS: Basophils % (A) 0 %; Eosinophils # (A) 0.2 k/uL (0-0.7); Eosinophils % (A) 2 %; HCT 39.2 % (39.0-53.0); HGB 12.5 gm/dL (13.0-17.5); Lymphocytes % (A) 7 %; MCH 30.7 pg (25.0-35.0); MCHC 31.9 g/dL (31.0-37.0); MCV 96.4 fL (80.0-100.0); Monocytes # (A) 0.7 k/uL (0-1.0); Monocytes % (A) 5 %; Neutrophils # (A) 11.4 k/uL (1.3-7.7); Neutrophils % (A) 85 %; Platelet Count 225 k/uL (150-450); RBC 4.06 m/uL (4.30-5.90); RDW 13.8 % (11.5-15.5); WBC 13.4 k/uL (3.8-10.6)
[2020-05-06] MEDS: PANTOPRAZOLE 40 MG/10 ML VIAL IVP SCH (08:09)
[2020-05-06] MEDS: ISOSORBIDE MONONITRATE ER 30 MG TAB.ER.24H PO SCH (08:09)
[2020-05-06] MEDS: METOPROLOL TARTRATE 50 MG TAB PO SCH (08:09)
[2020-05-06 08:12] LABS: Calcium 8.4 mg/dL (8.4-10.2)
[2020-05-06 09:16] LABS: Potassium 3.4 mmol/L (3.5-5.1)
--- NOTE | 2020-05-06 10:29 | P.PN ---
<Kaylyn Zabala - Last Filed: 05/06/20 10:27> Subjective Progress Note Date: 05/06/20 CHIEF COMPLAINT: Ileus HISTORY OF PRESENT ILLNESS: Patient examined this morning. He has a environmental health safety engineer at the bedside. He denies abdominal pain. Fecal management system intact with liquid stool noted. bilingual medical assistant reports patient ate approximately 25% of his breakfast this morning and some of his ensure. PHYSICAL EXAM: VITAL SIGNS: Reviewed. GENERAL: Well-developed in no acute distress. HEENT: No sclera icterus. Extraocular movements grossly intact. Moist buccal mucosa. Head is atraumatic, normocephalic. ABDOMEN: Soft. Nondistended. Nontender. NEUROLOGIC: Alert and oriented x 1. Cranial nerves II through XII grossly intact. ASSESSMENT: 1. Ileus 2. Chronic diarrhea 3. History of right colectomy secondary to colon cancer PLAN: -Continue FMS -Continue diet as tolerated -Stool culture ordered. Await results -No plans for colonoscopy at this time -Dr. Santoyo will re-evaluate patient this afternoon Nurse practitioner note has been reviewed by physician. Signing provider agrees with the documented findings, assessment, and plan of care. Objective - Vital Signs Vital signs: Vital Signs Temp 97.6 F 05/06/20 07:00 Pulse 68 05/06/20 07:00 Resp 17 05/06/20 07:00 BP 157/78 05/06/20 07:00 Pulse Ox 100 05/06/20 07:00 Intake & Output 05/05/20 05/06/20 05/06/20 18:59 06:59 18:59 Intake Total 1580 200 240 Output Total 2900 1850 Balance -1320 -1650 240 Weight 70.307 kg Intake: Intake, IV Titration 1000 Amount 0.9% NaCl with KCl 20 Meq 1000 /l 1,000 ml @ 100 mls/hr IV .Q10H [facility] Rx#: [id number] Oral 580 200 240 Output: Urine 1600 1850 Uretheral (Martinez) 500 500 Stool 1300 Other: Voiding Method Incontinent Indwelling Catheter Toilet Diaper - Labs CBC & Chem 7: 05/06/20 07:08 05/06/20 07:08 Labs: Abnormal Lab Results - Last 24 Hours (Table) 05/06/20 05/06/20 Range/Units 07:08 07:08 WBC 13.4 H (3.8-10.6) k/uL RBC 4.06 L (4.30-5.90) m/uL Hgb 12.5 L (13.0-17.5) gm/dL Neutrophils # 11.4 H (1.3-7.7) k/uL Potassium 3.4 L (3.5-5.1) mmol/L Chloride 115 H (98-107) mmol/L Carbon Dioxide 21 L (22-30) mmol/L BUN 5 L (9-20) mg/dL <River Santoyo - Last Filed: 05/06/20 17:23> Subjective As above. Patient with decreased volume of liquid stools. He has had about 400 mL in the last 12 hours. Stool is still quite loose however. Cultures pending. We'll add Flagyl empirically. Discussed with family that ECF advised. Patient may benefit from having the fecal management system in place for another few days post discharge. Objective - Vital Signs Vital signs: Vital Signs Temp 98.0 F 05/06/20 14:50 Pulse 70 05/06/20 14:50 Resp 16 05/06/20 14:50 BP 150/74 05/06/20 14:50 Pulse Ox 98 05/06/20 14:50 Intake & Output 05/05/20 05/06/20 05/06/20 18:59 06:59 18:59 Intake Total 1883 746 5748 Output Total 2900 1850 Balance -1320 -1650 1140 Weight 70.307 kg 70.307 kg Intake: Intake, IV Titration 1000 900 Amount 0.9% NaCl with KCl 20 Meq 1000 700 /l 1,000 ml @ 100 mls/hr IV .Q10H [facility] Rx#: [id number] 0.9% NaCl with KCl 40 Meq 200 /l 1,000 ml @ 100 mls/hr IV .Q10H [facility] Rx#: [id number] Oral 580 200 240 Output: Urine 1600 1850 Uretheral (Martinez) 500 500 Stool 1300 Other: Voiding Method Incontinent Indwelling Catheter Toilet Diaper - Labs CBC & Chem 7: 05/06/20 07:08 05/06/20 07:08 Labs: Abnormal Lab Results - Last 24 Hours (Table) 05/06/20 05/06/20 05/06/20 Range/Units 07:08 07:08 07:08 WBC 13.4 H (3.8-10.6) k/uL RBC 4.06 L (4.30-5.90) m/uL Hgb 12.5 L (13.0-17.5) gm/dL Neutrophils # 11.4 H (1.3-7.7) k/uL Potassium 3.4 L (3.5-5.1) mmol/L Chloride 115 H (98-107) mmol/L Carbon Dioxide 21 L (22-30) mmol/L BUN 5 L (9-20) mg/dL Magnesium 1.5 L (1.6-2.3) mg/dL Microbiology - Last 24 Hours (Table) 05/05/20 05:00 Stool Culture - Preliminary Stool Assessment and Plan (1) Ileus Current Visit: Yes Status: Acute Code(s): K56.7 - ILEUS, UNSPECIFIED SNOMED Code(s): 654968876
[2020-05-06] MEDS ORDERED: Potassium Replacement Protocol 1 EACH MISC MISCELLANE PRN (10:38)
--- NOTE | 2020-05-06 10:52 | P.PN ---
Subjective Progress Note Date: 05/06/20 This is an 80-year-old gentleman with history of CAD, ID, CVA/TIA, bowel resection surgery with Dr. Santoyo , prostate cancer ,dementia, gastroesophageal reflux disease, hypertension, presented to the ER with complaints of diarrhea worsening over the last 2 weeks, with nausea, vomiting-like states patient sp itting up pills, hypokalemic, OP potassium 2.6; 2.4 on admission, outpatient x- ray reporting possible ileus. CT of abdomen and pelvis completed, results pending. Denies vomiting, but reports fluctuating abdominal pain. Denies fever or chills. Denies chest pain, palpitations or shortness of breath. Hematology unremarkable, BUN 23, creatinine 1.56. Sinus bradycardia, heart rates in the 40s.BP WNL, maintaining O2 sats in the 90s on room air. UA negative. 05/05/2020 significant nonbloody diarrhea FMS of 1100 MLS over 24 hours. Denies abdominal pain. Tolerating clear liquid diet, consuming 75% with no nausea or vomiting.. No urine output since early this morning with IV fluids running at 100 MLS per hour. Potassium 3.8, currently. Supplemented. Afebrile, WBC up to 11.2. 05/06/2020 last night for dinner, diet advanced to high fiber, consumed 80% .tolerated well with no nausea or vomiting. This morning consumed 25% in addition to ensure .FMS 24-hour output 1300 .stool cultures ordered last night, results pending. Denies abdominal pain. Afebrile, WBC increased up to 13.4. Potassium 3.4. Ambulating to and from bathroom, tolerating exertion well. Juan pratt DC'd this morning, spontaneous void pending. Staff reports patient didn't sleep well. Objective - Vital Signs Vital signs: Vital Signs Temp 97.6 F 05/06/20 07:00 Pulse 68 05/06/20 07:00 Resp 17 05/06/20 07:00 BP 157/78 05/06/20 07:00 Pulse Ox 100 05/06/20 07:00 Intake & Output 05/05/20 05/06/20 05/06/20 18:59 06:59 18:59 Intake Total 1580 200 240 Output Total 2900 1850 Balance -1320 -1650 240 Weight 70.307 kg Intake: Intake, IV Titration 1000 Amount 0.9% NaCl with KCl 20 Meq 1000 /l 1,000 ml @ 100 mls/hr IV .Q10H [facility] Rx#: [id number] Oral 580 200 240 Output: Urine 1600 1850 Uretheral (Martinez) 500 500 Stool 1300 Other: Voiding Method Incontinent Indwelling Catheter Toilet Diaper - Exam VITAL SIGNS: As above GENERAL: Sitting up in bed, no acute distress, sleepy HEENT: Conjunctivae normal. eyes normal. Oral mucosa moist NECK: No JVD. No thyroid enlargement. No LNs CARDIOVASCULAR: S1, S2 regular. No murmur RESPIRATION: Breath sounds diminished in the bases. No rhonchi or crackles. No wheezing. ABDOMEN: Soft, nondistended, nontender No guarding. no masses palpable. Bowel sounds heard. LEGS: No edema. no swelling PSYCHIATRY: Alert and oriented X2, mood and affect normal. NERVOUS SYSTEM: Cranial N 2-12 grossly normal. Moves all 4 limbs. No focal defi cits. Strength and sensation grossly intact.. Skin: no rash - Labs CBC & Chem 7: 05/06/20 07:08 05/06/20 07:08 Labs: Abnormal Lab Results - Last 24 Hours (Table) 05/06/20 05/06/20 Range/Units 07:08 07:08 WBC 13.4 H (3.8-10.6) k/uL RBC 4.06 L (4.30-5.90) m/uL Hgb 12.5 L (13.0-17.5) gm/dL Neutrophils # 11.4 H (1.3-7.7) k/uL Potassium 3.4 L (3.5-5.1) mmol/L Chloride 115 H (98-107) mmol/L Carbon Dioxide 21 L (22-30) mmol/L BUN 5 L (9-20) mg/dL Assessment and Plan Assessment: Possible ileus, PSBO, in a patient with worsening N/V/D diarrhea 2weeks, anorexia with possible ileus per outpatient x-ray in a patient with history of bowel resection secondary to colon cancer. Possible villous adenoma as per surgery. Dehydration Hypokalemia Hypomagnesemia Acute renal failure secondary to dehydration from diarrhea Generalized weakness, multifactorial, secondary to the above Urinary retention, history of prostate disorder Chronic diarrhea, incontinence Dementia, possibly Alzheimer's Sinus bradycardia, abnormal EKG, troponins pending, beta dante on hold Plan: Continue on current medication regime ,monitoring and symptomatic treatment. Diet advanced, stool cultures in progress. Ensure supplements omero eduled to between meals, not with meals, to enhance meal intake. Continues to have significant FMS output.no endoscopy studies recommended at this time as per surgery .Gentle IV fluid hydration. Hypokalemic, potassium added to IV fluids, in addition to supplements per replacement protocol. Magnesium added onto current labs, pending. Amrtinez catheter recently any DC'd , close monitoring with bladder scan if no urine output 4 hours . IV fluid hydration. Maintain product safety expert. The impression and plan of care has been dictated as directed. : I performed a history and examination of this patient, discussed the same with the dictator. I agree with the dictator's note ,documented as a scribe. Any additional findings or plans will be noted.
[2020-05-06] MEDS: POTASSIUM CHLORIDE ER 20 MEQ TAB.ER PO SCH ×2 (11:23→12:30)
[2020-05-06] MEDS: 0.9% NACL WITH KCL 40 MEQ/L 1,000 ML IV SCH ×2 (12:31→23:44)
[2020-05-07] MEDS: METOPROLOL TARTRATE 50 MG TAB PO SCH (09:05)
[2020-05-07] MEDS: ISOSORBIDE MONONITRATE ER 30 MG TAB.ER.24H PO SCH (09:05)
[2020-05-07] MEDS: PANTOPRAZOLE 40 MG/10 ML VIAL IVP SCH (09:05)
--- NOTE | 2020-05-07 10:07 | P.PN ---
<Kaylyn Zabala - Last Filed: 05/07/20 10:04> Subjective Progress Note Date: 05/07/20 CHIEF COMPLAINT: Ileus HISTORY OF PRESENT ILLNESS: Patient examined this morning. He has a director product safety at the bedside. He denies abdominal pain. Fecal management system intact with liquid stool noted. Nursing reports 800cc of liquid stool overnight. Stool culture pending. PHYSICAL EXAM: VITAL SIGNS: Reviewed. GENERAL: Well-developed in no acute distress. HEENT: No sclera icterus. Extraocular movements grossly intact. Moist buccal mucosa. Head is atraumatic, normocephalic. ABDOMEN: Soft. Nondistended. Nontender. NEUROLOGIC: Alert and oriented x 1. Cranial nerves II through XII grossly intact. ASSESSMENT: 1. Ileus 2. Chronic diarrhea 3. History of right colectomy secondary to colon cancer PLAN: -Continue FMS -Continue diet as tolerated -Stool culture ordered. Await results -No plans for colonoscopy at this time -Flagyl added per Dr. Santoyo -Dr. Santoyo will re-evaluate patient this afternoon Nurse practitioner note has been reviewed by physician. Signing provider agrees with the documented findings, assessment, and plan of care. Objective - Vital Signs Vital signs: Vital Signs Temp 98.2 F 05/07/20 07:58 Pulse 70 05/07/20 07:58 Resp 14 05/07/20 07:58 BP 150/81 05/07/20 07:58 Pulse Ox 96 05/07/20 07:58 Intake & Output 05/06/20 05/07/20 05/07/20 18:59 06:59 18:59 Intake Total 1140 Output Total 2500 Balance 1140 -2500 Weight 70.307 kg Intake: Intake, IV Titration 900 Amount 0.9% NaCl with KCl 20 Meq 700 /l 1,000 ml @ 100 mls/hr IV .Q10H [facility] Rx#: [id number] 0.9% NaCl with KCl 40 Meq 200 /l 1,000 ml @ 100 mls/hr IV .Q10H [facility] Rx#: [id number] Oral 240 Output: Urine 300 Stool 2200 Other: Voiding Method Toilet Toilet Toilet Diaper Diaper Diaper # Voids 2 # Bowel Movements 500 - Labs CBC & Chem 7: 05/06/20 07:08 05/06/20 07:08 Labs: Abnormal Lab Results - Last 24 Hours (Table) 05/06/20 Range/Units 07:08 Magnesium 1.5 L (1.6-2.3) mg/dL Microbiology - Last 24 Hours (Table) 05/05/20 05:00 Stool Culture - Preliminary Stool <River Santoyo - Last Filed: 05/07/20 20:37> Subjective As above. Stool output decreasing. Complaining Of rectal pain however. We'll remove fms. Continue Flagyl. Continue antidiarrheals. ECF planning. Objective - Vital Signs Vital signs: Vital Signs Temp 97.4 F L 05/07/20 15:00 Pulse 63 05/07/20 15:00 Resp 17 05/07/20 15:00 BP 139/76 05/07/20 15:00 Pulse Ox 98 05/07/20 15:00 Intake & Output 05/07/20 05/07/20 05/08/20 06:59 18:59 06:59 Intake Total 720 Output Total 2500 475 Balance -2500 245 Intake: Intake, IV Titration 600 Amount 0.9% NaCl with KCl 40 Meq 600 /l 1,000 ml @ 100 mls/hr IV .Q10H [facility] Rx#: [id number] Oral 120 Output: Urine 300 300 Stool 2200 175 Other: Voiding Method Toilet Toilet Toilet Diaper Diaper Diaper # Voids 2 2 # Bowel Movements 500 - Labs CBC & Chem 7: 05/07/20 10:31 05/07/20 10:31 Labs: Abnormal Lab Results - Last 24 Hours (Table) 05/07/20 05/07/20 Range/Units 10:31 10:31 WBC 12.3 H (3.8-10.6) k/uL RBC 3.69 L (4.30-5.90) m/uL Hgb 12.0 L (13.0-17.5) gm/dL Hct 35.6 L (39.0-53.0) % Chloride 113 H (98-107) mmol/L Magnesium 1.4 L (1.6-2.3) mg/dL Assessment and Plan (1) Ileus Current Visit: Yes Status: Acute Code(s): K56.7 - ILEUS, UNSPECIFIED SNOMED Code(s): 645446371
--- NOTE | 2020-05-07 10:55 | P.PN ---
Subjective Progress Note Date: 05/07/20 This is an 80-year-old gentleman with history of CAD, [place], CVA/TIA, bowel resection surgery with Dr. Santoyo , prostate cancer ,dementia, gastroesophageal reflux disease, hypertension, presented to the ER with complaints of diarrhea worsening over the last 2 weeks, with nausea, vomiting-like states patient sp itting up pills, hypokalemic, OP potassium 2.6; 2.4 on admission, outpatient x- ray reporting possible ileus. CT of abdomen and pelvis completed, results pending. Denies vomiting, but reports fluctuating abdominal pain. Denies fever or chills. Denies chest pain, palpitations or shortness of breath. Hematology unremarkable, BUN 23, creatinine 1.56. Sinus bradycardia, heart rates in the 40s.BP WNL, maintaining O2 sats in the 90s on room air. UA negative. 05/05/2020 significant nonbloody diarrhea FMS of 1100 MLS over 24 hours. Denies abdominal pain. Tolerating clear liquid diet, consuming 75% with no nausea or vomiting.. No urine output since early this morning with IV fluids running at 100 MLS per hour. Potassium 3.8, currently. Supplemented. Afebrile, WBC up to 11.2. 05/06/2020 last night for dinner, diet advanced to high fiber, consumed 80% .tolerated well with no nausea or vomiting. This morning consumed 25% in addition to ensure .FMS 24-hour output 1300 .stool cultures ordered last night, results pending. Denies abdominal pain. Afebrile, WBC increased up to 13.4. Potassium 3.4. Ambulating to and from bathroom, tolerating exertion well. Juan pratt DC'd this morning, spontaneous void pending. Staff reports patient didn't sleep well. 05/07/2020 tolerating low residual diet with no nausea or vomiting. Denies abdominal pain. Continues to have significant FMS output of 2200 MLS over 24 hours. IV Flagyl added to med regime yesterday afternoon as per surgery. Stool cultures obtained with results pending. Afebrile, labs pending. Denies chest pa in, palpitations or shortness of breath. Objective - Vital Signs Vital signs: Vital Signs Temp 98.2 F 05/07/20 07:58 Pulse 70 05/07/20 07:58 Resp 14 05/07/20 07:58 BP 150/81 05/07/20 07:58 Pulse Ox 96 05/07/20 07:58 Intake & Output 05/06/20 05/07/20 05/07/20 18:59 06:59 18:59 Intake Total 1140 Output Total 2500 Balance 1140 -2500 Weight 70.307 kg Intake: Intake, IV Titration 900 Amount 0.9% NaCl with KCl 20 Meq 700 /l 1,000 ml @ 100 mls/hr IV .Q10H [facility] Rx#: [id number] 0.9% NaCl with KCl 40 Meq 200 /l 1,000 ml @ 100 mls/hr IV .Q10H [facility] Rx#: [id number] Oral 240 Output: Urine 300 Stool 2200 Other: Voiding Method Toilet Toilet Toilet Diaper Diaper Diaper # Voids 2 # Bowel Movements 500 - Exam VITAL SIGNS: As above GENERAL: Sitting up in bed, no acute distress HEENT: Conjunctivae normal. eyes normal. Oral mucosa moist NECK: No JVD. No thyroid enlargement. No LNs CARDIOVASCULAR: S1, S2 regular. No murmur RESPIRATION: Breath sounds diminished in the bases. No rhonchi ,crackles, or wheezing. ABDOMEN: Soft, nondistended, nontender No guarding. no masses palpable. Bowel sounds heard. LEGS: No edema. no swelling PSYCHIATRY: Alert and oriented X2, mood and affect normal. NERVOUS SYSTEM: Cranial N 2-12 grossly normal. Moves all 4 limbs. No focal deficits. Strength and sensation grossly intact. Skin: Warm and dry, no rash - Labs CBC & Chem 7: 05/06/20 07:08 05/06/20 07:08 Labs: Abnormal Lab Results - Last 24 Hours (Table) 05/06/20 Range/Units 07:08 Magnesium 1.5 L (1.6-2.3) mg/dL Microbiology - Last 24 Hours (Table) 05/05/20 05:00 Stool Culture - Preliminary Stool Assessment and Plan Assessment: Possible ileus, PSBO, in a patient with worsening N/V/D diarrhea 2weeks, anorexia with possible ileus per outpatient x-ray in a patient with history of bowel resection secondary to colon cancer. Possible villous adenoma as per surgery. Dehydration Hypokalemia Hypomagnesemia Acute renal failure secondary to dehydration from diarrhea Generalized weakness, multifactorial, secondary to the above Urinary retention, history of prostate disorder Chronic diarrhea, incontinence Dementia, possibly Alzheimer's Sinus bradycardia, abnormal EKG, troponins pending, beta dante on hold Plan: Continue on current medication regime ,monitoring and symptomatic treatment. Maintained on Flagyl, Stool culture results pending. If stool cu ltures negative, will begin Lomotil. Maintained IV fluid hydration. Labs pending. Maintain manager drug safety. The impression and plan of care has been dictated as directed. : I performed a history and examination of this patient, discussed the same with the dictator. I agree with the dictator's note ,documented as a scribe. Any additional findings or plans will be noted.
[2020-05-07 10:59] LABS: HCT 35.6 % (39.0-53.0); MCH 32.4 pg (25.0-35.0); MCHC 33.6 g/dL (31.0-37.0); MCV 96.4 fL (80.0-100.0); Mean Platelet Volume 6.9; Platelet Count 216 k/uL (150-450); RBC 3.69 m/uL (4.30-5.90); RDW 13.9 % (11.5-15.5); WBC 12.3 k/uL (3.8-10.6)
[2020-05-07] MEDS: 0.9% NACL WITH KCL 40 MEQ/L 1,000 ML IV SCH ×3 (11:17→20:54)
[2020-05-07 11:32] LABS: Calcium 8.5 mg/dL (8.4-10.2); Magnesium 1.4 mg/dL (1.6-2.3); Potassium 4.1 mmol/L (3.5-5.1)
[2020-05-07] MEDS: metroNIDAZOLE-NS PMX 500 MG in SALINE 1 100ML.BAG IVPB SCH (16:01)
[2020-05-08] MEDS: metroNIDAZOLE-NS PMX 500 MG in SALINE 1 100ML.BAG IVPB SCH ×3 (01:11→15:50)
[2020-05-08 07:14] LABS: Basophils % (A) 0 %; Eosinophils # (A) 0.2 k/uL (0-0.7); Eosinophils % (A) 2 %; HCT 36.4 % (39.0-53.0); HGB 11.7 gm/dL (13.0-17.5); Lymphocytes % (A) 10 %; MCH 30.8 pg (25.0-35.0); MCHC 32.1 g/dL (31.0-37.0); MCV 96.1 fL (80.0-100.0); Mean Platelet Volume 7.2; Monocytes # (A) 0.5 k/uL (0-1.0); Monocytes % (A) 5 %; Neutrophils # (A) 8.3 k/uL (1.3-7.7); Neutrophils % (A) 82 %; Platelet Count 196 k/uL (150-450); RBC 3.79 m/uL (4.30-5.90); RDW 13.9 % (11.5-15.5); WBC 10.1 k/uL (3.8-10.6)
[2020-05-08 07:22] LABS: Calcium 8.7 mg/dL (8.4-10.2); Potassium 4.5 mmol/L (3.5-5.1)
[2020-05-08] MEDS: PANTOPRAZOLE 40 MG/10 ML VIAL IVP SCH (08:47)
[2020-05-08] MEDS: METOPROLOL TARTRATE 50 MG TAB PO SCH (08:47)
[2020-05-08] MEDS: ISOSORBIDE MONONITRATE ER 30 MG TAB.ER.24H PO SCH (08:47)
--- NOTE | 2020-05-08 10:34 | P.PN ---
<Kaylyn Zabala - Last Filed: 05/08/20 10:34> Subjective Progress Note Date: 05/08/20 CHIEF COMPLAINT: Ileus HISTORY OF PRESENT ILLNESS: Patient examined this morning. Patient appears more awake today. He denies abdominal pain. Fecal management system discontinued yesterday. Nursing reports no bowel movement thus far in shift. Patient is tolerating diet. No nausea or vomiting. PHYSICAL EXAM: VITAL SIGNS: Reviewed. GENERAL: Well-developed in no acute distress. HEENT: No sclera icterus. Extraocular movements grossly intact. Moist buccal mucosa. Head is atraumatic, normocephalic. ABDOMEN: Soft. Nondistended. Nontender. NEUROLOGIC: Alert and oriented x 1. Cranial nerves II through XII grossly intact. ASSESSMENT: 1. Ileus 2. Chronic diarrhea 3. History of right colectomy secondary to colon cancer PLAN: -Continue diet as tolerated -Stool culture ordered. Await results -No plans for colonoscopy at this time -Continue Flagyl -Dr. Santoyo will re-evaluate patient this afternoon Nurse practitioner note has been reviewed by physician. Signing provider agrees with the documented findings, assessment, and plan of care. Objective - Vital Signs Vital signs: Vital Signs Temp 98.0 F 05/08/20 07:00 Pulse 62 05/08/20 08:00 Resp 18 05/08/20 08:00 BP 136/77 05/08/20 07:00 Pulse Ox 97 05/08/20 07:00 Intake & Output 05/07/20 05/08/20 05/08/20 18:59 06:59 18:59 Intake Total 720 Output Total 475 Balance 245 Intake: Intake, IV Titration 600 Amount 0.9% NaCl with KCl 40 Meq 600 /l 1,000 ml @ 100 mls/hr IV .Q10H [facility] Rx#: [id number] Oral 120 Output: Urine 300 Stool 175 Other: Voiding Method Toilet Toilet Toilet Diaper Diaper Diaper # Voids 2 3 # Bowel Movements 1 - Labs CBC & Chem 7: 05/08/20 06:12 05/08/20 06:12 Labs: Abnormal Lab Results - Last 24 Hours (Table) 05/07/20 05/07/20 05/08/20 Range/Units 10:31 10:31 06:12 WBC 12.3 H (3.8-10.6) k/uL RBC 3.69 L 3.79 L (4.30-5.90) m/uL Hgb 12.0 L 11.7 L (13.0-17.5) gm/dL Hct 35.6 L 36.4 L (39.0-53.0) % Neutrophils # 8.3 H (1.3-7.7) k/uL Chloride 113 H (98-107) mmol/L Magnesium 1.4 L (1.6-2.3) mg/dL 05/08/20 Range/Units 06:12 WBC (3.8-10.6) k/uL RBC (4.30-5.90) m/uL Hgb (13.0-17.5) gm/dL Hct (39.0-53.0) % Neutrophils # (1.3-7.7) k/uL Chloride 112 H (98-107) mmol/L Magnesium (1.6-2.3) mg/dL <River Santoyo - Last Filed: 05/08/20 17:07> Subjective As above. Patient stooling on his own. Still loose. Denies pain. No rectal pain or abdominal pain. Continue Flagyl. Follow stool cultures. Tentative plans for rehab placement. Objective - Vital Signs Vital signs: Vital Signs Temp 97.9 F 05/08/20 14:55 Pulse 63 05/08/20 14:55 Resp 18 05/08/20 14:55 BP 113/65 05/08/20 14:55 Pulse Ox 97 05/08/20 14:55 Intake & Output 05/07/20 05/08/20 05/08/20 18:59 06:59 18:59 Intake Total 720 100 Output Total 475 Balance 245 100 Weight 72 kg Intake: Intake, IV Titration 600 100 Amount 0.9% NaCl with KCl 40 Meq 600 /l 1,000 ml @ 100 mls/hr IV .Q10H [facility] Rx#: [id number] metroNIDAZOLE-NS PMX 500 100 mg In Saline 1 100ml.bag @ 100 mls/hr IVPB Q8HR [facility] Rx#:[id number] Oral 120 Output: Urine 300 Stool 175 Other: Voiding Method Toilet Toilet Toilet Diaper Diaper Diaper # Voids 2 3 # Bowel Movements 1 - Labs CBC & Chem 7: 05/08/20 06:12 05/08/20 06:12 Labs: Abnormal Lab Results - Last 24 Hours (Table) 05/08/20 05/08/20 Range/Units 06:12 06:12 RBC 3.79 L (4.30-5.90) m/uL Hgb 11.7 L (13.0-17.5) gm/dL Hct 36.4 L (39.0-53.0) % Neutrophils # 8.3 H (1.3-7.7) k/uL Chloride 112 H (98-107) mmol/L Microbiology - Last 24 Hours (Table) 05/05/20 05:00 Stool Culture - Preliminary Stool Assessment and Plan (1) Ileus Current Visit: Yes Status: Acute Code(s): K56.7 - ILEUS, UNSPECIFIED SNOMED Code(s): 347289107
--- NOTE | 2020-05-08 15:03 | P.PN ---
Subjective Progress Note Date: 05/08/20 This is an 80-year-old gentleman with history of CAD, [place], CVA/TIA, bowel resection surgery with Dr. Santoyo , prostate cancer ,dementia, gastroesophageal reflux disease, hypertension, presented to the ER with complaints of diarrhea worsening over the last 2 weeks, with nausea, vomiting-like states patient sp itting up pills, hypokalemic, OP potassium 2.6; 2.4 on admission, outpatient x- ray reporting possible ileus. CT of abdomen and pelvis completed, results pending. Denies vomiting, but reports fluctuating abdominal pain. Denies fever or chills. Denies chest pain, palpitations or shortness of breath. Hematology unremarkable, BUN 23, creatinine 1.56. Sinus bradycardia, heart rates in the 40s.BP WNL, maintaining O2 sats in the 90s on room air. UA negative. 05/05/2020 significant nonbloody diarrhea FMS of 1100 MLS over 24 hours. Denies abdominal pain. Tolerating clear liquid diet, consuming 75% with no nausea or vomiting.. No urine output since early this morning with IV fluids running at 100 MLS per hour. Potassium 3.8, currently. Supplemented. Afebrile, WBC up to 11.2. 05/06/2020 last night for dinner, diet advanced to high fiber, consumed 80% .tolerated well with no nausea or vomiting. This morning consumed 25% in addition to ensure .FMS 24-hour output 1300 .stool cultures ordered last night, results pending. Denies abdominal pain. Afebrile, WBC increased up to 13.4. Potassium 3.4. Ambulating to and from bathroom, tolerating exertion well. Juan pratt DC'd this morning, spontaneous void pending. Staff reports patient didn't sleep well. 05/07/2020 tolerating low residual diet with no nausea or vomiting. Denies abdominal pain. Continues to have significant FMS output of 2200 MLS over 24 hours. IV Flagyl added to med regime yesterday afternoon as per surgery. Stool cultures obtained with results pending. Afebrile, labs pending. Denies chest pa in, palpitations or shortness of breath. 05/08/2020 FMS discontinued yesterday. Large watery brownish diarrhea reported this morning. Stool cultures pending. Tolerating diet, no nausea or vomiting. Denies abdominal pain. Afebrile, normal WBC. Electrolytes within normal limits. Objective - Vital Signs Vital signs: Vital Signs Temp 98.0 F 05/08/20 07:00 Pulse 62 05/08/20 08:00 Resp 18 05/08/20 08:00 BP 136/77 05/08/20 07:00 Pulse Ox 97 05/08/20 07:00 Intake & Output 05/07/20 05/08/20 05/08/20 18:59 06:59 18:59 Intake Total 720 100 Output Total 475 Balance 245 100 Intake: Intake, IV Titration 600 100 Amount 0.9% NaCl with KCl 40 Meq 600 /l 1,000 ml @ 100 mls/hr IV .Q10H [facility] Rx#: [id number] metroNIDAZOLE-NS PMX 500 100 mg In Saline 1 100ml.bag @ 100 mls/hr IVPB Q8HR [facility] Rx#:[id number] Oral 120 Output: Urine 300 Stool 175 Other: Voiding Method Toilet Toilet Toilet Diaper Diaper Diaper # Voids 2 3 # Bowel Movements 1 - Exam VITAL SIGNS: As above GENERAL: Sitting up in bed, no acute distress HEENT: Conjunctivae normal. eyes normal. Oral mucosa moist NECK: No JVD. No thyroid enlargement. CARDIOVASCULAR: S1, S2 regular. No murmur RESPIRATION: Breath sounds diminished in the bases. No rhonchi ,crackles, or wheezing. ABDOMEN: Soft, nondistended, nontender No guarding. no masses palpable. Bowel sounds heard. LEGS: No edema. no swelling PSYCHIATRY: Alert and oriented X2, mood and affect normal. NERVOUS SYSTEM: Cranial N 2-12 grossly normal. Moves all 4 limbs. No focal deficits. Strength and sensation grossly intact. Skin: Warm and dry, no rash - Labs CBC & Chem 7: 05/08/20 06:12 05/08/20 06:12 Labs: Abnormal Lab Results - Last 24 Hours (Table) 05/08/20 05/08/20 Range/Units 06:12 06:12 RBC 3.79 L (4.30-5.90) m/uL Hgb 11.7 L (13.0-17.5) gm/dL Hct 36.4 L (39.0-53.0) % Neutrophils # 8.3 H (1.3-7.7) k/uL Chloride 112 H (98-107) mmol/L Assessment and Plan Assessment: ileus with chronic diarrhea Dehydration secondary to the above Hypokalemia Hypomagnesemia Acute renal failure secondary to dehydration from diarrhea Generalized weakness, multifactorial, secondary to the above Urinary retention, history of prostate disorder Chronic diarrhea, incontinence Dementia, possibly Alzheimer's Sinus bradycardia, abnormal EKG, troponins pending, beta dante on hold Plan: Continue on current medication regime ,monitoring and symptomatic andrew atment. Continue Flagyl, Stool culture results pending. If stool cultures negative, will begin Lomotil. Continue IV fluid hydration. Maintain traffic safety administrator. Discharge planning in progress for home with home care/palliative care pending culture results. The impression and plan of care has been dictated as directed. : I performed a history and examination of this patient, discussed the same with the dictator. I agree with the dictator's note ,documented as a scribe. Any additional findings or plans will be noted.
[2020-05-08] MEDS: 0.9% NACL WITH KCL 40 MEQ/L 1,000 ML IV SCH (15:53)
[2020-05-09 00:07] VITALS: PULSE 70
[2020-05-09] MEDS: metroNIDAZOLE-NS PMX 500 MG in SALINE 1 100ML.BAG IVPB SCH ×2 (00:23→08:58)
[2020-05-09] MEDS: 0.9% NACL WITH KCL 40 MEQ/L 1,000 ML IV SCH ×2 (00:23→13:28)
[2020-05-09 04:49] VITALS: RESP 16
[2020-05-09] MEDS: PANTOPRAZOLE 40 MG/10 ML VIAL IVP SCH (08:58)
[2020-05-09] MEDS: METOPROLOL TARTRATE 50 MG TAB PO SCH (08:58)
[2020-05-09] MEDS: ISOSORBIDE MONONITRATE ER 30 MG TAB.ER.24H PO SCH (08:58)
[2020-05-09 09:48] VITALS: BP 136/75; TEMP 98.3
--- NOTE | 2020-05-09 11:12 | P.PN ---
<ZabalaKaylyn Eveline - Last Filed: 05/09/20 11:10> Subjective Progress Note Date: 05/09/20 CHIEF COMPLAINT: Ileus HISTORY OF PRESENT ILLNESS: Patient examined this morning. Patient remains confused. He denies abdominal pain. Nursing reports a soft stool this morning. Tolerating diet. Drank 2 ensure supplements today. Stool culture negative. PHYSICAL EXAM: VITAL SIGNS: Reviewed. GENERAL: Well-developed in no acute distress. HEENT: No sclera icterus. Extraocular movements grossly intact. Moist buccal mucosa. Head is atraumatic, normocephalic. ABDOMEN: Soft. Nondistended. Nontender. NEUROLOGIC: Alert and oriented x 1. Cranial nerves II through XII grossly intact. ASSESSMENT: 1. Ileus 2. Chronic diarrhea 3. History of right colectomy secondary to colon cancer PLAN: -Continue diet as tolerated -No plans for colonoscopy at this time -Continue Flagyl -Dr. Santoyo will re-evaluate patient this afternoon Nurse practitioner note has been reviewed by physician. Signing provider agrees with the documented findings, assessment, and plan of care. Objective - Vital Signs Vital signs: Vital Signs Temp 98.3 F 05/09/20 07:00 Pulse 70 05/09/20 08:00 Resp 16 05/09/20 08:00 BP 136/75 05/09/20 07:00 Pulse Ox 97 05/09/20 07:00 Intake & Output 05/08/20 05/09/20 05/09/20 18:59 06:59 18:59 Intake Total 100 240 Balance 100 240 Weight 72 kg Intake: Intake, IV Titration 100 Amount metroNIDAZOLE-NS PMX 500 100 mg In Saline 1 100ml.bag @ 100 mls/hr IVPB Q8HR [facility] Rx#:[id number] Oral 240 Other: Voiding Method Toilet Toilet Toilet Diaper Diaper Diaper # Voids 1 # Bowel Movements 1 1 - Labs CBC & Chem 7: 05/08/20 06:12 05/08/20 06:12 Labs: Microbiology - Last 24 Hours (Table) 05/05/20 05:00 Stool Culture - Final Stool <River Santoyo - Last Filed: 05/09/20 15:37> Subjective As above. Patient doing well. No pain. Diarrhea seems to be improved. Continue antidiarrheals. Stool cultures negative. Discontinue Flagyl. Follow- up as needed. Objective - Vital Signs Vital signs: Vital Signs Temp 98.3 F 05/09/20 07:00 Pulse 70 05/09/20 08:00 Resp 16 05/09/20 08:00 BP 136/75 05/09/20 07:00 Pulse Ox 97 05/09/20 07:00 Intake & Output 05/08/20 05/09/20 05/09/20 18:59 06:59 18:59 Intake Total 100 240 100 Balance 100 240 100 Weight 72 kg Intake: Intake, IV Titration 100 100 Amount metroNIDAZOLE-NS PMX 500 100 100 mg In Saline 1 100ml.bag @ 100 mls/hr IVPB Q8HR [facility] Rx#:[id number] Oral 240 Other: Voiding Method Toilet Toilet Toilet Diaper Diaper Diaper # Voids 1 # Bowel Movements 1 1 - Labs CBC & Chem 7: 05/08/20 06:12 05/08/20 06:12 Labs: Microbiology - Last 24 Hours (Table) 05/05/20 05:00 Stool Culture - Final Stool Assessment and Plan (1) Ileus Current Visit: Yes Status: Acute Code(s): K56.7 - ILEUS, UNSPECIFIED SNOMED Code(s): 908506789
[2020-05-09] MEDS ORDERED: DIPHENOX-ATROP 2.5-0.025 MG 1 EACH TAB PO SCH (12:15)
--- NOTE | 2020-05-09 12:44 | P.DS ---
Providers Date of admission: 05/02/20 11:03 Expected date of discharge: 05/09/20 Attending physician: Leandro Perez Consults: 05/02/20 13:06 Consult Physician Routine Consulting Provider: River Santoyo Consult Reason/Comments: abnormal ct scan Do you want consulting provider notified?: Yes Primary care physician: Leandro Perez [place] Hospital Course: Final Diagnoses: ileus with chronic diarrhea Dehydration secondary to the above Hypokalemia Hypomagnesemia Acute renal failure secondary to dehydration from diarrhea Generalized weakness, multifactorial, secondary to the above Urinary retention, history of prostate disorder Chronic diarrhea, incontinence Dementia, possibly Alzheimer's Sinus bradycardia, abnormal EKG, troponins pending, beta dante on hold Hospital course:This is an 80-year-old gentleman with history of CAD, [place], CVA/TIA, bowel resection surgery with Dr. Santoyo , prostate cancer ,dementia, gastroesophageal reflux disease, hypertension, presented to the ER with complaints of diarrhea worsening over the last 2 weeks, with nausea, vomiting- like states patient spitting up pills, hypokalemic, OP potassium 2.6; 2.4 on admission, outpatient x-ray reporting possible ileus. CT of abdomen and pelvis completed, results pending. Denies vomiting, but reports fluctuating abdominal pain. Denies fever or chills. Denies chest pain, palpitations or shortness of breath. Hematology unremarkable, BUN 23, creatinine 1.56. Sinus bradycardia, heart rates in the 40s.BP WNL, maintaining O2 sats in the 90s on room air. UA negative. 05/05/2020 significant nonbloody diarrhea FMS of 1100 MLS over 24 hours. Denies abdominal pain. Tolerating clear liquid diet, consuming 75% with no nausea or vomiting.. No urine output since early this morning with IV fluids running at 100 MLS per hour. Potassium 3.8, currently. Supplemented. Afebrile, WBC up to 11.2. 05/06/2020 last night for dinner, diet advanced to high fiber, consumed 80% .tolerated well with no nausea or vomiting. This morning consumed 25% in addition to ensure .FMS 24-hour output 1300 .stool cultures ordered last night, results pending. Denies abdominal pain. Afebrile, WBC increased up to 13.4. Potassium 3.4. Ambulating to and from bathroom, tolerating exertion well. Martinez recently DC'd this morning, spontaneous void pending. Staff reports patient didn't sleep well. 05/07/2020 tolerating low residual diet with no nausea or vomiting. Denies abdominal pain. Continues to have significant FMS output of 2200 MLS over 24 hours. IV Flagyl added to med regime yesterday afternoon as per surgery. Stool cultures obtained with results pending. Afebrile, labs pending. Denies chest pain, palpitations or shortness of breath. 05/08/2020 FMS discontinued yesterday. Large watery brownish diarrhea reported this morning. Stool cultures pending. Tolerating diet, no nausea or vomiting. Denies abdominal pain. Afebrile, normal WBC. Electrolytes within normal limits. Significant clinical improvement. Stool culture reporting negative; no Salmonella, Shigella or Campylobacter, no E. coli. C. difficile ruled out. Lomotil initiated. Patient will be discharged home in a stable condition with guarded prognosis, pending final DC recommendations/Flagyl/clearance. The impression and plan of care has been dictated as directed. : I performed a history and examination of this patient, discussed the same with the dictator. I agree with the dictator's note ,documented as a scribe. Any additional findings or plans will be noted. Patient Condition at Discharge: Stable Plan - Discharge Summary Discharge Rx Participant: No New Discharge Prescriptions: New Acetaminophen Tab [Tylenol] 650 mg PO Q6HR PRN tab PRN Reason: Mild Pain Or Fever > 100.5 Diphenox-Atrop 2.5-0.025 mg [Lomotil] 1 tab PO TID PRN 3 Days #9 tab PRN Reason: Diarrhea Continue Allopurinol [Zyloprim] 300 mg PO DAILY Clopidogrel Bisulfate [Clopidogrel] 75 mg PO DAILY Metoprolol Tartrate [Lopressor] 50 mg PO DAILY Nitroglycerin Sl Tabs [Nitrostat] 0.4 mg SUBLINGUAL Q5M PRN PRN Reason: Chest Pain Donepezil [Aricept] 10 mg PO BID Aspirin EC [Ecotrin Low Dose] 81 mg PO DAILY Atorvastatin [Lipitor] 40 mg PO HS Isosorbide Mononitrate ER [Imdur] 30 mg PO DAILY Topiramate [Topamax] 25 mg PO BID Memantine [Namenda] 10 mg PO BID Thiamine HCl [Vitamin B-1] 100 mg PO DAILY Melatonin 10 mg PO HS Pantoprazole [Protonix] 40 mg PO DAILY PRN PRN Reason: GERDS Loratadine 10 mg PO HS LORazepam [Ativan] 0.5 mg PO BID PRN PRN Reason: Anxiety Discharge Medication List Allopurinol [Zyloprim] 300 mg PO DAILY 10/01/14 [History] Clopidogrel Bisulfate [Clopidogrel] 75 mg PO DAILY 12/30/15 [History] Metoprolol Tartrate [Lopressor] 50 mg PO DAILY 03/11/16 [History] Aspirin EC [Ecotrin Low Dose] 81 mg PO DAILY 02/22/17 [History] Donepezil [Aricept] 10 mg PO BID 02/22/17 [History] Nitroglycerin Sl Tabs [Nitrostat] 0.4 mg SUBLINGUAL Q5M PRN 02/22/17 [History] Atorvastatin [Lipitor] 40 mg PO HS 06/28/18 [History] Isosorbide Mononitrate ER [Imdur] 30 mg PO DAILY 06/28/18 [History] Memantine [Namenda] 10 mg PO BID 11/15/18 [History] Topiramate [Topamax] 25 mg PO BID 11/15/18 [History] Thiamine HCl [Vitamin B-1] 100 mg PO DAILY 05/17/19 [History] LORazepam [Ativan] 0.5 mg PO BID PRN 05/02/20 [History] Loratadine 10 mg PO HS 05/02/20 [History] Melatonin 10 mg PO HS 05/02/20 [History] Pantoprazole [Protonix] 40 mg PO DAILY PRN 05/02/20 [History] Acetaminophen Tab [Tylenol] 650 mg PO Q6HR PRN tab 05/09/20 [Rx] Diphenox-Atrop 2.5-0.025 mg [Lomotil] 1 tab PO TID PRN 3 Days #9 tab 05/09/20 [Rx] Follow up Appointment(s)/Referral(s): [facility], [NON-STAFF] - (Palliative Care, Nursing, home health aide, and physical therapy will work with patient at home. ) Leandro Perez MD [Primary Care Provider] - 3 Days Discharge Disposition: HOME WITH HOME HEALTH SERVICES
[2020-05-09 15:44] VITALS: BMI 24.8
--- NOTE | 2020-05-11 08:12 | CDI ---
Documentation Clarification Form Date: 05/11/20 From: Radha Pepper Phone: If you have a question about this query, please contact Tomeka Vann [employer] at [phone] between 8am and 5pm. Admit Date: 05/02/20 Discharge Date:05/09/20 Patient Name: Shawn Dunlap Visit Number: [id number] ATTENTION: The Clinical Documentation Specialists (CDI) and [facility] Coding Staff appreciate your assistance in clarifying documentation. Please respond to the clarification below the line at the bottom and electronically sign. The CDI & [facility] Coding staff will review the response and follow-up if needed. Please note: Queries are made part of the Legal Health Record. If you have any questions, please contact the author of this message via ITS. Dear Dr. Perez He is confused was documented in Dr. Santoyo's consult note. Patient remains confused is documented in Dr. Santoyo's 05/09 progress note. A sitter is at bedside secondary to confusion is documented in Dr. Spears's 05/04 progress note. History/Risk Factors: Ileus, chronic diarrhea, dehydration, hypokalemia, dementia Clinical Indicators: Confusion Labs: WBC 8.3 on admit, 10.8 on 05/04, 11.2 on 05/05, 13.4 on 05/06, 12.3 on 05/07, 10.1 on 05/08. Potassium 2.4, 2.6 and 2.8 on 05/02, 2.6 on 05/03, 3.0 on 05/04. CO2 19, Creatinine 1.56 Treatment: IV Mag Sulfate, IV Flagyl, IV Potassium In your professional opinion, please clarify the etiology of the Altered Mental Status, if known. Delirium (specify cause): Dementia (if know, specify Type and if with/without Behavioral Disturbance) Encephalopathy (specify Type and Underlying Medical Illness) Other condition (please specify) Unable to determine MTDD
== END 2020-05-09 15:10 | disposition home health service (06) | DRG 389 ==
LOC: EC 09:38 → 4SSUR 11:03
PROVIDERS: ADMIT Family Medicine; ATTEND Family Medicine
DX: K56.7 Ileus, unspecified (principal); E87.2 Acidosis; N17.9 Acute kidney failure, unspecified; G30.9 Alzheimer's disease, unspecified; F02.80 Dementia in other diseases classified elsewhere, unspecified severity, without behavioral disturbance, psychotic disturbance, mood disturbance, and anxiety; E78.5 Hyperlipidemia, unspecified; E83.42 Hypomagnesemia; E86.0 Dehydration; E87.6 Hypokalemia; F41.9 Anxiety disorder, unspecified; I10 Essential (primary) hypertension; I25.10 Atherosclerotic heart disease of native coronary artery without angina pectoris; I25.2 Old myocardial infarction; K52.9 Noninfective gastroenteritis and colitis, unspecified; K62.89 Other specified diseases of anus and rectum; R32 Unspecified urinary incontinence; K21.9 Gastro-esophageal reflux disease without esophagitis; R00.1 Bradycardia, unspecified; R33.9 Retention of urine, unspecified; Z11.59 Encounter for screening for other viral diseases; M10.9 Gout, unspecified; R15.9 Full incontinence of feces; I71.4 Abdominal aortic aneurysm, without rupture; Z79.02 Long term (current) use of antithrombotics/antiplatelets; Z79.82 Long term (current) use of aspirin; Z79.899 Other long term (current) drug therapy; Z90.49 Acquired absence of other specified parts of digestive tract; Z87.442 Personal history of urinary calculi; Z86.73 Personal history of transient ischemic attack (TIA), and cerebral infarction without residual deficits; Z87.891 Personal history of nicotine dependence; Z85.46 Personal history of malignant neoplasm of prostate; Z85.038 Personal history of other malignant neoplasm of large intestine; Z85.828 Personal history of other malignant neoplasm of skin; Z88.0 Allergy status to penicillin; Z88.8 Allergy status to other drugs, medicaments and biological substances; Z86.010 Personal history of colon polyps; Z91.040 Latex allergy status; Z90.79 Acquired absence of other genital organ(s); Z98.42 Cataract extraction status, left eye; Z98.41 Cataract extraction status, right eye; Z80.3 Family history of malignant neoplasm of breast; Z82.0 Family history of epilepsy and other diseases of the nervous system; Z82.49 Family history of ischemic heart disease and other diseases of the circulatory system; Z82.5 Family history of asthma and other chronic lower respiratory diseases; Z82.3 Family history of stroke
CPT/HCPCS: 36415; 74019; 74176; 80048; 80051; 80053; 81001; 82150; 83605; 83690; 83735; 84132; 84484; 85025; 85027; 85610; 85730; 87045; 87046; 87324; 93005; 99285